=== PATIENT | male | born 1970 | race Caucasian/White ===

== ENCOUNTER → 2016-08-27 | Outpatient (CLI) | payer OTHER ==
[~2016-08-27] MED LIST: ACET-1311 PO; ATOR-24 PO; BISA10SU3 PR; CYAN100020 PO; CYCL10TA6 PO; DOCU-94 PO; LISI-729 PO; LYR50 PO; MELA3TAB PO; MOMLX PO; MULT-513 PO; OXYC-164 PO; POLY335019 PO; PRLSR20 PO; PROTEIN PO; SODIENE PR; TAMS0.4C38 PO; TPRSR/100 PO; [UNRECOGNIZED DRUG - OTHER] PO
--- NOTE | 2016-08-27 12:16 | DIAGNOSTIC IMAGING REPORT ---
CT PELVIS NO IV/ORAL CONT (CT) CT DOSE: 282.57 mGy.cm CLINICAL HISTORY: Acute hematogenous osteomyelitis. TECHNIQUE: Helical images were acquired through the pelvis. No intravenous or oral contrast was administered. COMPARISON STUDY: CT scan dated 04/27/2016 FINDINGS: There is no evidence of pathologic aortic dilatation. There is evidence of mild fecal retention. There is an indwelling Finley catheter. There are bilateral soft tissue ulcerations at the level of the ischial tuberosities. There is bilateral underlying bony destructive change consistent with osteomyelitis. There is a soft tissue mass within the left inguinal region which appears to involve the pectineus and/or adductor brevis muscle. This could be inflammatory, neoplastic, or represent hemorrhage. Clinical correlation is advocated. IMPRESSION: 1. Bilateral ischial tuberosity osteomyelitis with overlying soft tissue ulcerations 2. 6 cm left inguinal mass which appears to involve the left pectineus and/or abductor brevis muscle. This could be inflammatory, neoplastic or represent hemorrhage. Clinical correlation and follow-up is recommended Electronically signed by: Jose Smith M.D. 08/27/2016 12:14 PM
== END | disposition home or self-care (01) ==
LOC: C.CTS 11:20
PROVIDERS: ATTEND Family Medicine
DX: M86.08 Acute hematogenous osteomyelitis, other sites (principal); R19.07 Generalized intra-abdominal and pelvic swelling, mass and lump

== ENCOUNTER → 2016-09-06 | Outpatient (CLI) | payer OTHER ==
[2016-09-06 09:00] LABS: HEMATOCRIT 28.6 % (42-52); MEAN CELL VOLUME 83.6 fL (80-100); MEAN CORPUSCULAR HEMOGLOBIN 26.9 pg (25-34); MEAN CORPUSCULAR HGB CONC 32.2 g/dl (32-36); MEAN PLATELET VOLUME 9.9 fL (7.4-10.4); PLATELET COUNT 373 K/uL (130-400); RED BLOOD COUNT 3.42 M/uL (4.7-6.1); WHITE BLOOD COUNT 8.12 K/uL (4.8-10.8)
== END ==
LOC: C.LABUPNIT 08:17
PROVIDERS: ATTEND Family Medicine
DX: I25.10 Atherosclerotic heart disease of native coronary artery without angina pectoris (principal)

== ENCOUNTER → 2016-10-26 | Outpatient (CLI) | payer OTHER ==
[2016-10-26 08:22] LABS: BLOOD UREA NITROGEN 16 mg/dl (7-18); BUN/CREATININE RATIO 22.8 (10-20); CALCIUM 8.7 mg/dl (8.5-10.1); CARBON DIOXIDE 28 mmol/L (21-32); CHLORIDE 106 mmol/L (98-107); CREATININE 0.71 mg/dl (0.60-1.40); GLUCOSE 98 mg/dl (70-99); POTASSIUM 4.2 mmol/L (3.5-5.1); SODIUM 142 mmol/L (136-145)
[2016-10-26 09:14] LABS: HEMATOCRIT 34.4 % (42-52); MEAN CELL VOLUME 86.4 fL (80-100); MEAN CORPUSCULAR HEMOGLOBIN 28.1 pg (25-34); MEAN CORPUSCULAR HGB CONC 32.6 g/dl (32-36); RED BLOOD COUNT 3.98 M/uL (4.7-6.1); WHITE BLOOD COUNT 8.01 K/uL (4.8-10.8)
[2016-10-26 09:15] LABS: BASO % 0.4 %; BASO ABS # 0.03 K/uL (0-0.2); COMPLETE YES; EOS % 5.1 %; IG% 0.7 %; MONO % 11.1 %; NEUT % 52.7 %; PLT ESTIMATE NORMAL
--- NOTE | 2016-10-30 11:01 | CODING QUERY NO DIAGNOSIS ---
: 1970 TREATMENT RENDERED WITHOUT A DIAGNOSIS To promote full compliance with coding requirements relating to patient care, physician participation is requested in all cases of char belt operator uncertainty. Please assist us with providing a diagnosis/symptom for the test(s) below: A diagnosis/symptom was not documented on your Order. A valid diagnosis/symptom is required to bill all insurances. Please remember that we are unable to code a diagnosis of rule out, probable, possible, questionable, or suspected. Tests that require a diagnosis: DOS: 10/26/16 * CBC w/Auto Differential DIAGNOSIS: * Partial Renal Profile DIAGNOSIS: * Erythrocyte Sedimentation Rate DIAGNOSIS: Provider Signature: Date: Thank you Concepcion Green [facility] Information [facility] Once completed, please kindly fax back to [phone] For questions please call [phone]
== END ==
LOC: C.LABUPNIT 10:53
PROVIDERS: ATTEND Family Medicine
DX: M46.24 Osteomyelitis of vertebra, thoracic region (principal)

== ENCOUNTER → 2016-11-04 | Outpatient (CLI) | payer OTHER ==
[2016-11-04 09:09] LABS: ALT/SGPT 17 U/L (12-78); BLOOD UREA NITROGEN 18 mg/dl (7-18); BUN/CREATININE RATIO 27.5 (10-20); CARBON DIOXIDE 28 mmol/L (21-32); CHLORIDE 105 mmol/L (98-107); CREATININE 0.65 mg/dl (0.60-1.40); GLUCOSE 94 mg/dl (70-99); POTASSIUM 4.6 mmol/L (3.5-5.1); SODIUM 140 mmol/L (136-145)
[2016-11-04 09:12] LABS: ALB/GLOB RATIO 0.5 (0.9-2); ALKALINE PHOSPHATASE 120 U/L (45-117); AST/SGOT 15 U/L (15-37)
== END ==
LOC: C.LABUPNIT 08:41
PROVIDERS: ATTEND Family Medicine
DX: I25.10 Atherosclerotic heart disease of native coronary artery without angina pectoris (principal)

== ENCOUNTER → 2016-11-15 | Outpatient (CLI) | payer OTHER ==
[2016-11-15 08:51] LABS: BLOOD UREA NITROGEN 24 mg/dl (7-18); BUN/CREATININE RATIO 34.2 (10-20); CALCIUM 9.1 mg/dl (8.5-10.1); CARBON DIOXIDE 30 mmol/L (21-32); CHLORIDE 102 mmol/L (98-107); CREATININE 0.71 mg/dl (0.60-1.40); GLUCOSE 92 mg/dl (70-99); POTASSIUM 4.1 mmol/L (3.5-5.1); SODIUM 139 mmol/L (136-145)
== END ==
LOC: C.LABUPNIT 08:29
PROVIDERS: ATTEND Family Medicine
DX: I25.10 Atherosclerotic heart disease of native coronary artery without angina pectoris (principal)

== ENCOUNTER → 2016-12-10 | Outpatient (CLI) | payer OTHER ==
[2016-12-10 10:18] LABS: HEMATOCRIT 43.1 % (42-52); MEAN CELL VOLUME 83.4 fL (80-100); MEAN CORPUSCULAR HEMOGLOBIN 27.9 pg (25-34); MEAN CORPUSCULAR HGB CONC 33.4 g/dl (32-36); PLATELET COUNT 155 K/uL (130-400); RED BLOOD COUNT 5.17 M/uL (4.7-6.1); WHITE BLOOD COUNT 6.72 K/uL (4.8-10.8)
[2016-12-10 10:20] LABS: BASO % 0.3 %; BASO ABS # 0.02 K/uL (0-0.2); COMPLETE YES; EOS % 8.5 %; IG% 0.3 %; LYMPH % 38.2 %; LYMPH ABS # 2.57 K/uL (1.2-3.4); MONO % 11.5 %; NEUT % 41.2 %
[2016-12-10 10:34] LABS: ALKALINE PHOSPHATASE 120 U/L (45-117); ALT/SGPT 47 U/L (12-78); AST/SGOT 25 U/L (15-37); BLOOD UREA NITROGEN 17 mg/dl (7-18); CARBON DIOXIDE 26 mmol/L (21-32); CHLORIDE 108 mmol/L (98-107); CREATININE 0.67 mg/dl (0.60-1.40); GLUCOSE 79 mg/dl (70-99); POTASSIUM 4.2 mmol/L (3.5-5.1); SODIUM 140 mmol/L (136-145)
[2016-12-10 10:35] LABS: ALB/GLOB RATIO 0.6 (0.9-2); CHOLESTEROL 104 mg/dl (0-200); CHOLESTEROL/HDL RATIO 2.8; HDL CHOLESTEROL 37 mg/dl; LDL CHOLESTEROL CALCULATED 57 mg/dl; TRIGLYCERIDES 51 mg/dl (0-150); VERY LOW DENSITY LIPOPROT CALC 10 mg/dl
== END ==
LOC: C.LABUPNIT 09:38
PROVIDERS: ATTEND Family Medicine
DX: M81.0 Age-related osteoporosis without current pathological fracture (principal); M86.00 Acute hematogenous osteomyelitis, unspecified site; E78.5 Hyperlipidemia, unspecified

== ENCOUNTER → 2017-03-14 | Outpatient (CLI) | payer OTHER ==
[2017-03-14 10:06] LABS: URINE APPEARANCE CLOUDY (CLEAR); URINE BILIRUBIN NEG (NEG); URINE COLOR YELLOW; URINE EPITHELIAL CELL AUTO >30 /lpf (0-5); URINE NITRITE NEG (NEG); URINE SPECIFIC GRAVITY 1.022 (1.000-1.030); UROBILINOGEN NEG (NEG); ZZUR CULT IF INDIC CLEAN CATCH YES
[2017-03-14 10:12] LABS: MANUAL MICROSCOPIC REQUIRED? NO; REVIEW REQ? YES
== END ==
LOC: C.LABUPNIT 09:13
PROVIDERS: ATTEND Family Medicine
DX: N39.0 Urinary tract infection, site not specified (principal)

== ENCOUNTER → 2017-05-10 | Outpatient (CLI) | payer OTHER ==
[2017-05-10 06:49] LABS: ALT/SGPT 27 U/L (12-78); BLOOD UREA NITROGEN 25 mg/dl (7-18); BUN/CREATININE RATIO 25.8 (10-20); CALCIUM 9.1 mg/dl (8.5-10.1); CARBON DIOXIDE 28 mmol/L (21-32); CHLORIDE 106 mmol/L (98-107); CREATININE 0.95 mg/dl (0.60-1.40); GLUCOSE 89 mg/dl (70-99); POTASSIUM 4.3 mmol/L (3.5-5.1); SODIUM 140 mmol/L (136-145)
[2017-05-10 07:00] LABS: ALB/GLOB RATIO 0.7 (0.9-2); ALKALINE PHOSPHATASE 137 U/L (45-117); AST/SGOT 21 U/L (15-37)
[2017-05-10 07:39] LABS: BASO % 0.4 %; BASO ABS # 0.04 K/uL (0-0.2); COMPLETE YES; HEMATOCRIT 43.9 % (42-52); IG% 0.5 %; LYMPH % 31.7 %; LYMPH ABS # 3.35 K/uL (1.2-3.4); MEAN CELL VOLUME 90.3 fL (80-100); MEAN CORPUSCULAR HEMOGLOBIN 29.2 pg (25-34); MEAN CORPUSCULAR HGB CONC 32.3 g/dl (32-36); MEAN PLATELET VOLUME 12.3 fL (7.4-10.4); MONO % 10.7 %; NEUT % 52.7 %; PLATELET COUNT 150 K/uL (130-400); RED BLOOD COUNT 4.86 M/uL (4.7-6.1); WHITE BLOOD COUNT 10.58 K/uL (4.8-10.8)
--- NOTE | 2017-05-23 13:35 | CODING QUERY NO DIAGNOSIS ---
TREATMENT RENDERED WITHOUT A DIAGNOSIS To promote full compliance with coding requirements relating to patient care, physician participation is requested in all cases of crystal finisher uncertainty. Please assist us with providing a diagnosis/symptom for the test(s) below: A diagnosis/symptom was not documented on your Order. A valid diagnosis/symptom is required to bill all insurances. Please remember that we are unable to code a diagnosis of rule out, probable, possible, questionable, or suspected. Tests that require a diagnosis: * CMP DIAGNOSIS: * TSH DIAGNOSIS: * CBC W/ AUTO DIFF DIAGNOSIS: Provider Signature: Date: Thank you Lorie Mccoy [employer] Once completed, please kindly fax back to [phone] For questions please call [phone]
== END ==
LOC: C.LABUPNIT 08:23
PROVIDERS: ATTEND Family Medicine
DX: I25.10 Atherosclerotic heart disease of native coronary artery without angina pectoris (principal); R60.9 Edema, unspecified; R63.5 Abnormal weight gain

== ENCOUNTER → 2017-05-19 | Outpatient (CLI) | payer OTHER | LOC: C.LABUPNIT 15:40 | PROVIDERS: ATTEND Nurse Practitioner Family | DX: I10 Essential (primary) hypertension (principal) ==

== ENCOUNTER → 2017-05-27 | Outpatient (CLI) | payer OTHER ==
[2017-05-27 10:33] LABS: BLOOD UREA NITROGEN 21 mg/dl (7-18); BUN/CREATININE RATIO 26.7 (10-20); CALCIUM 8.9 mg/dl (8.5-10.1); CARBON DIOXIDE 28 mmol/L (21-32); CHLORIDE 106 mmol/L (98-107); CREATININE 0.78 mg/dl (0.60-1.40); GLUCOSE 102 mg/dl (70-99); POTASSIUM 4.1 mmol/L (3.5-5.1); SODIUM 140 mmol/L (136-145)
== END | disposition home or self-care (01) ==
LOC: C.LABUPNIT 09:52
PROVIDERS: ATTEND Nurse Practitioner Family
DX: R78.81 Bacteremia (principal)

== ENCOUNTER → 2017-06-16 | Outpatient (CLI) | payer OTHER ==
[2017-06-16 10:33] LABS: URINE APPEARANCE CLEAR (CLEAR); URINE BILIRUBIN NEG (NEG); URINE COLOR DK YELLOW; URINE EPITHELIAL CELL AUTO >30 /lpf (0-5); URINE NITRITE NEG (NEG); URINE PH 5.5 (4.5-7.5); URINE SPECIFIC GRAVITY 1.026 (1.000-1.030); UROBILINOGEN NEG (NEG)
[2017-06-16 10:35] LABS: MANUAL MICROSCOPIC REQUIRED? NO; REVIEW REQ? NO
== END ==
LOC: C.LABUPNIT 09:10
PROVIDERS: ATTEND Nurse Practitioner Family
DX: N39.0 Urinary tract infection, site not specified (principal)

== ENCOUNTER → 2017-06-25 | Outpatient (CLI) | payer OTHER ==
--- NOTE | 2017-07-01 14:17 | CODING QUERY NO DIAGNOSIS ---
TREATMENT RENDERED WITHOUT A DIAGNOSIS : 1970 To promote full compliance with coding requirements relating to patient care, physician participation is requested in all cases of research development manager uncertainty. Please assist us with providing a diagnosis/symptom for the test(s) below: A diagnosis/symptom was not documented on your Order. A valid diagnosis/symptom is required to bill all insurances. Please remember that we are unable to code a diagnosis of rule out, probable, possible, questionable, or suspected. Tests that require a diagnosis: DOS: 06/25/17 * PREALBUMIN DIAGNOSIS: Provider Signature: Date: Thank you Sallie Mariano [facility] Information Management Once completed, please kindly fax back to [phone] For questions please call [phone]
== END | disposition home or self-care (01) ==
LOC: C.LABUPNIT 11:34
PROVIDERS: ATTEND Nurse Practitioner Family
DX: S31.809A Unspecified open wound of unspecified buttock, initial encounter (principal); X58.XXXA Exposure to other specified factors, initial encounter

== ENCOUNTER → 2017-07-11 | Outpatient (CLI) | payer OTHER ==
[2017-07-11 22:37] LABS: URINE APPEARANCE CLEAR (CLEAR); URINE BILIRUBIN NEG (NEG); URINE COLOR YELLOW; URINE NITRITE NEG (NEG); URINE SPECIFIC GRAVITY 1.024 (1.000-1.030); UROBILINOGEN NEG (NEG)
[2017-07-11 22:47] LABS: MANUAL MICROSCOPIC REQUIRED? NO; REVIEW REQ? NO
== END ==
LOC: C.LABUPNIT 11:59
PROVIDERS: ATTEND Nurse Practitioner Family
DX: Z01.89 Encounter for other specified special examinations (principal)

== ENCOUNTER → 2017-08-07 | Outpatient (CLI) | payer OTHER | END | disposition home or self-care (01) | LOC: C.LABUPNIT 08:27 | PROVIDERS: ATTEND Nurse Practitioner Family | DX: M62.81 Muscle weakness (generalized) (principal) ==

== ENCOUNTER → 2017-08-11 | Outpatient (CLI) | payer OTHER ==
[2017-08-11 08:52] LABS: BLOOD UREA NITROGEN 29 mg/dl (7-18); BUN/CREATININE RATIO 31.8 (10-20); CALCIUM 8.8 mg/dl (8.5-10.1); CARBON DIOXIDE 25 mmol/L (21-32); CHLORIDE 104 mmol/L (98-107); GLUCOSE 89 mg/dl (70-99); SODIUM 137 mmol/L (136-145)
[2017-08-11 09:08] LABS: BASO % 0.5 %; BASO ABS # 0.05 K/uL (0-0.2); COMPLETE YES; EOS % 4.4 %; HEMATOCRIT 42.2 % (42-52); IG% 0.8 %; LYMPH % 30.7 %; LYMPH ABS # 3.37 K/uL (1.2-3.4); MEAN CELL VOLUME 90.4 fL (80-100); MEAN CORPUSCULAR HEMOGLOBIN 30.6 pg (25-34); MEAN CORPUSCULAR HGB CONC 33.9 g/dl (32-36); MEAN PLATELET VOLUME 11.8 fL (7.4-10.4); MONO % 11.9 %; NEUT % 51.7 %; PLATELET COUNT 211 K/uL (130-400); RED BLOOD COUNT 4.67 M/uL (4.7-6.1); WHITE BLOOD COUNT 10.97 K/uL (4.8-10.8)
== END | disposition home or self-care (01) ==
LOC: C.LABUPNIT 08:28
PROVIDERS: ATTEND Nurse Practitioner Family
DX: M62.81 Muscle weakness (generalized) (principal)

== ENCOUNTER → 2017-08-12 | Outpatient (CLI) | payer OTHER | LOC: C.LABUPNIT 12:37 | PROVIDERS: ATTEND Nurse Practitioner Family | DX: L08.9 Local infection of the skin and subcutaneous tissue, unspecified (principal) ==

== ENCOUNTER → 2017-09-30 | Outpatient (CLI) | payer OTHER | END | disposition home or self-care (01) | LOC: C.LABUPNIT 11:24 | PROVIDERS: ATTEND Nurse Practitioner Family | DX: L08.9 Local infection of the skin and subcutaneous tissue, unspecified (principal) ==

== ENCOUNTER → 2017-10-07 | Outpatient (CLI) | payer OTHER | LOC: C.LABUPNIT 08:01 | PROVIDERS: ATTEND Nurse Practitioner Family | DX: S31.809A Unspecified open wound of unspecified buttock, initial encounter (principal); X58.XXXA Exposure to other specified factors, initial encounter ==

== ENCOUNTER → 2017-11-04 | Outpatient (CLI) | payer OTHER ==
[2017-11-04 10:13] LABS: BLOOD UREA NITROGEN 22 mg/dl (7-18); CALCIUM 8.7 mg/dl (8.5-10.1); CARBON DIOXIDE 25 mmol/L (21-32); CREATININE 1.09 mg/dl (0.60-1.40); GLUCOSE 92 mg/dl (70-99); SODIUM 137 mmol/L (136-145)
[2017-11-04 10:30] LABS: HEMATOCRIT 43.6 % (42-52); HEMOGLOBIN 14.6 g/dL (14.0-18.0); MEAN CELL VOLUME 89.5 fL (80-100); MEAN CORPUSCULAR HGB CONC 33.5 g/dl (32-36); MEAN PLATELET VOLUME 12.5 fL (7.4-10.4); PLATELET COUNT 163 K/uL (130-400); RED CELL DISTRIBUTION WIDTH CV 15.1 % (11.5-14.5); RED CELL DISTRIBUTION WIDTH SD 48.9 fL (36.4-46.3); WHITE BLOOD COUNT 6.71 K/uL (4.8-10.8)
[2017-11-04 10:37] LABS: INFLUENZA B ANTIGEN Neg for Influ B (NEG)
== END ==
LOC: C.LABUPNIT 09:33
PROVIDERS: ATTEND Nurse Practitioner Family
DX: I50.20 Unspecified systolic (congestive) heart failure (principal); R50.81 Fever presenting with conditions classified elsewhere; R30.9 Painful micturition, unspecified

== ENCOUNTER → 2017-11-04 | Outpatient (CLI) | payer OTHER ==
[2017-11-04 11:37] LABS: INFLUENZA B ANTIGEN Neg for Influ B (NEG)
== END ==
LOC: C.LABUPNIT 10:46
PROVIDERS: ATTEND Nurse Practitioner Family
DX: R50.9 Fever, unspecified (principal)

== ENCOUNTER → 2017-12-10 | Outpatient (CLI) | payer OTHER | LOC: C.LABUPNIT 14:32 | PROVIDERS: ATTEND Nurse Practitioner Family | DX: R33.9 Retention of urine, unspecified (principal) ==

== ENCOUNTER → 2017-12-31 | Outpatient (CLI) | payer OTHER ==
[2017-12-31 08:57] LABS: ALBUMIN 3.1 gm/dl (3.4-5.0); BLOOD UREA NITROGEN 13 mg/dl (7-18); CALCIUM 8.7 mg/dl (8.5-10.1); CARBON DIOXIDE 30 mmol/L (21-32); CREATININE 0.78 mg/dl (0.60-1.40); GLUCOSE 89 mg/dl (70-99); POTASSIUM 4.1 mmol/L (3.5-5.1); SODIUM 142 mmol/L (136-145)
[2017-12-31 09:08] LABS: ALKALINE PHOSPHATASE 137 U/L (45-117); ALT/SGPT 33 U/L (12-78); AST/SGOT 25 U/L (15-37)
[2017-12-31 10:09] LABS: HEMOGLOBIN A1C 6.3 % (4.5-5.6)
== END ==
LOC: C.LABUPNIT 08:24
PROVIDERS: ATTEND Nurse Practitioner Family
DX: R63.5 Abnormal weight gain (principal); I10 Essential (primary) hypertension

== ENCOUNTER → 2018-01-07 | Outpatient (CLI) | payer OTHER ==
[2018-01-07 08:26] LABS: BLOOD UREA NITROGEN 17 mg/dl (7-18); CALCIUM 9.1 mg/dl (8.5-10.1); CARBON DIOXIDE 32 mmol/L (21-32); CREATININE 0.87 mg/dl (0.60-1.40); GLUCOSE 114 mg/dl (70-99); POTASSIUM 3.4 mmol/L (3.5-5.1); SODIUM 140 mmol/L (136-145)
== END ==
LOC: C.LABUPNIT 08:05
PROVIDERS: ATTEND Nurse Practitioner Family
DX: I10 Essential (primary) hypertension (principal)

== ENCOUNTER → 2018-03-12 | Outpatient (CLI) | payer OTHER ==
[2018-03-12 09:22] LABS: BLOOD UREA NITROGEN 13 mg/dl (7-18); CALCIUM 8.6 mg/dl (8.5-10.1); CARBON DIOXIDE 29 mmol/L (21-32); CREATININE 0.73 mg/dl (0.60-1.40); GLUCOSE 114 mg/dl (70-99); POTASSIUM 3.7 mmol/L (3.5-5.1); SODIUM 140 mmol/L (136-145)
== END ==
LOC: C.LABUPNIT 08:43
PROVIDERS: ATTEND Nurse Practitioner Family
DX: E11.9 Type 2 diabetes mellitus without complications (principal)

== ENCOUNTER → 2018-03-25 | Outpatient (CLI) | payer OTHER ==
[2018-03-25 10:48] LABS: HEMOGLOBIN A1C 6.4 % (4.5-5.6)
== END ==
LOC: C.LABUPNIT 09:17
PROVIDERS: ATTEND Nurse Practitioner Family
DX: Z01.89 Encounter for other specified special examinations (principal)

== ENCOUNTER → 2018-04-20 | Outpatient (CLI) | payer OTHER | END | disposition home or self-care (01) | LOC: C.LABUPNIT 11:49 | PROVIDERS: ATTEND Nurse Practitioner Family | DX: N39.0 Urinary tract infection, site not specified (principal) ==

== ENCOUNTER 2019-07-26 13:01 | Inpatient (IN) ==
[~2019-07-26 13:01] MED LIST changes: -ACET-1311 PO; -ATOR-24 PO; -BISA10SU3 PR; -CYAN100020 PO; -CYCL10TA6 PO; -DOCU-94 PO; -LISI-729 PO; -LYR50 PO; -MELA3TAB PO; -MOMLX PO; -MULT-513 PO; -OXYC-164 PO; -POLY335019 PO; -PRLSR20 PO; -PROTEIN PO; +RAPID SEQUENCE INDUCTION BAG ONE; -SODIENE PR; -TAMS0.4C38 PO; -TPRSR/100 PO; -[UNRECOGNIZED DRUG - OTHER] PO
[2019-07-26] MEDS ORDERED: SODIUM CHLORIDE 0.9% 1000ML 1,000 ML IV ONE ×2 (13:06→14:21)
--- NOTE | 2019-07-26 13:28 | XRay Report ---
XR chest 1V portable HISTORY: 49 years-old Male Sepsis acute sepsis COMPARISON: Chest radiograph 08/17/2016, CT abdomen and pelvis 12/22/2015 TECHNIQUE: Portable AP view the chest FINDINGS: Cardiac silhouette is enlarged, unchanged. Prior median sternotomy. No pneumothorax. Mild right diaph ragmatic elevation with blunting of the right costophrenic angle. Linear subsegmental atelectasis/sca rring of the right lung base and right midlung. No pneumothorax, overt pulmonary edema or large pleur al effusion. No evidence of pneumonia. Posterior interbody daniel and screw fusion hardware of the midth oracic spine. IMPRESSION: Cardiomegaly without acute process. The above report was generated using voice recognition software. It may contain grammatical, syntax o r spelling errors. Electronically signed by: Suleman Short M.D. 07/26/2019 1:27 PM
[2019-07-26 13:39] LABS: iSTAT Creatinine 1.2 mg/dl (0.6-1.3); iSTAT Hemoglobin 14.6 g/dl (14.0-18.0); iSTAT Ionized Calcium 1.12 mmol/l (1.12-1.32)
[2019-07-26] MEDS ORDERED: OPTIRAY 320 125ml IV PRN (13:50)
[2019-07-26 13:52] LABS: Base Excess VBG -2.2 mEq/L; pH VBG 7.31 (7.36-7.41)
[2019-07-26 14:00] LABS: INR 1.4 (0.9-1.1); Partial Thromboplastin Ratio 1.5; Partial Thromboplastin Time 41.8 Seconds (21.0-31.0)
[2019-07-26 14:01] LABS: Albumin Level 3.2 gm/dl (3.4-5.0); Calcium 9.2 mg/dl (8.5-10.1); Est GFR (African American) 74.6; Est GFR (Non-African American) 64.4; Magnesium 2.4 mg/dl (1.8-2.4)
--- NOTE | 2019-07-26 14:03 | Emergency Department Note ---
Entered by Tamika Jones acting as a scribe for Daniele Navarro DO History of Present Illness General Chief complaint: Unresponsive Source: patient Limitations: altered mental status History of Present Illness Provider complaint: Unresponsive Onset (ago): hour(s) 1 Associated symptoms: + confusion The patient is a 49 year old male who presents to the Emergency Room with complaints of unresponsiveness when he was found in [place] hotel about 1 hour ago. EMS states the patient was found on the floor by the cleaning staff and they do not know how long he was down. According to EMS the patient was modeled and not able to answer any questions. Additionally, EMS states the patient's blood sugar was 104 and he was hypotensive with a depressed respiratory rate. The patient is continually repeating "what is wrong with me" to the doctors and EMS states that he has been very confused. HPI and ROS limited secondary to altered mental status. Home Medications Home Medications Medication Instructions Recorded Confirmed Type aspirin 81 mg PO DAILY 07/26/19 07/26/19 History atorvastatin 40 mg PO DAILY 07/26/19 07/26/19 History baclofen 20 mg PO TID 07/26/19 07/26/19 History bisacodyl [Dulcolax (bisacodyl)] 5 mg PO DAILY PRN 07/26/19 07/26/19 History bisacodyl [Dulcolax (bisacodyl)] 10 mg [place] Q2D 07/26/19 07/26/19 History cyanocobalamin (vitamin B-12) 1,000 mcg PO DAILY 07/26/19 07/26/19 History [Vitamin B-12] cyclobenzaprine 10 mg PO Q8H PRN 07/26/19 07/26/19 History diphenhydramine HCl [Diphenhist] 25 mg PO HS 07/26/19 07/26/19 History docusate sodium [Colace] 100 mg PO BID 07/26/19 07/26/19 History furosemide 20 mg PO DAILY 07/26/19 07/26/19 History lisinopril 5 mg PO DAILY 07/26/19 07/26/19 History magnesium hydroxide [Milk of 30 ml PO DAILY PRN 07/26/19 07/26/19 History Magnesia] metformin 500 mg PO QDD 07/26/19 07/26/19 History methenamine hippurate 1 g PO BID 07/26/19 07/26/19 History metoprolol succinate 100 mg PO BID 07/26/19 07/26/19 History multivitamin 1 tab PO DAILY 07/26/19 07/26/19 History sxjwzqavlocx-hxaj-ccksu acid 1 tab PO DAILY 07/26/19 07/26/19 History [Cerovite Advanced Formula] omeprazole 20 mg PO DAILY 07/26/19 07/26/19 History polyethylene glycol 3350 [Miralax] 17 g PO DAILY 07/26/19 07/26/19 History potassium chloride 10 meq PO DAILY 07/26/19 07/26/19 History pregabalin 200 mg PO BID 07/26/19 07/26/19 History rivaroxaban [Xarelto] 20 mg PO QDD 07/26/19 07/26/19 History sennosides-docusate sodium 1 tab-cap PO DAILY 07/26/19 07/26/19 History [Senna-S] tamsulosin 0.4 mg PO DAILY 07/26/19 07/26/19 History Allergies Allergy/AdvReac Type Severity Reaction Status Date / Time No Known Allergies Allergy Unverified 07/12/18 10:55 Past Med/Surg History Medical History PIC line (peripherally inserted central catheter) removal (Acute) PPD positive Family History Other No pertinent family history in first degree relatives Social History Feels Safe at Home: Yes Smoking Status: Current every day smoker Review of Systems HPI and ROS limited secondary to altered mental status. Physical Exam Vital Signs Vital Signs - 24 hr 07/26/19 12:47 07/26/19 13:06 07/26/19 13:08 Temperature 34.7 C L Temperature Source Rectal Rectal Temperature - Source 1 Pulse Rate 99 H 99 H 97 H Pulse Rate from SpO2 Sensor Pulse Rhythm Regular Regular Pulse Strength Normal Respiratory Rate 14 20 17 Respiratory Effort / Characteristics Non-Labored Spontaneous Respiratory Depth Normal Respiratory Pattern Regular Blood Pressure 99/45 L 93/45 L Blood Pressure Mean 63 50 Blood Pressure Position Sitting Pulse Oximetry 94 94 89 L Oxygen Delivery Method Room Air Room Air Oxygen Flow Rate Sepsis Recent Fever Within 48 Hours No Sepsis New/Unexplained Change in Mental Status Yes Sepsis Action Taken by Nursing No Action Required 07/26/19 13:10 07/26/19 13:14 07/26/19 13:15 Temperature Temperature Source Rectal Temperature - Source 1 Pulse Rate 95 H 100 H 99 H Pulse Rate from SpO2 Sensor Pulse Rhythm Pulse Strength Respiratory Rate 23 14 24 Respiratory Effort / Characteristics Respiratory Depth Respiratory Pattern Blood Pressure 122/94 121/96 Blood Pressure Mean 112 110 Blood Pressure Position Pulse Oximetry 82 L 95 90 Oxygen Delivery Method Oxygen Flow Rate Sepsis Recent Fever Within 48 Hours Sepsis New/Unexplained Change in Mental Status Sepsis Action Taken by Nursing 07/26/19 13:20 07/26/19 13:30 07/26/19 13:31 Temperature Temperature Source Rectal Temperature - Source 1 Pulse Rate Pulse Rate from SpO2 Sensor 101 H 103 H 100 H Pulse Rhythm Pulse Strength Respiratory Rate 14 21 16 Respiratory Effort / Characteristics Respiratory Depth Respiratory Pattern Blood Pressure 130/80 Blood Pressure Mean 100 Blood Pressure Position Pulse Oximetry 75 L 88 L 100 Oxygen Delivery Method Oxygen Flow Rate Sepsis Recent Fever Within 48 Hours Sepsis New/Unexplained Change in Mental Status Sepsis Action Taken by Nursing 07/26/19 14:02 07/26/19 14:10 07/26/19 14:15 Temperature Temperature Source Rectal Temperature - Source 1 Pulse Rate 92 H 94 H 92 H Pulse Rate from SpO2 Sensor Pulse Rhythm Pulse Strength Respiratory Rate 17 12 15 Respiratory Effort / Characteristics Respiratory Depth Respiratory Pattern Blood Pressure 108/63 75/55 L Blood Pressure Mean 75 68 Blood Pressure Position Pulse Oximetry Oxygen Delivery Method Oxygen Flow Rate Sepsis Recent Fever Within 48 Hours Sepsis New/Unexplained Change in Mental Status Sepsis Action Taken by Nursing 07/26/19 14:20 07/26/19 14:25 07/26/19 14:30 Temperature Temperature Source Rectal Temperature - Source 1 Pulse Rate 104 H 101 H 104 H Pulse Rate from SpO2 Sensor 105 H 103 H 105 H Pulse Rhythm Pulse Strength Respiratory Rate 24 14 15 Respiratory Effort / Characteristics Respiratory Depth Respiratory Pattern Blood Pressure 70/59 L 116/79 117/77 Blood Pressure Mean 62 95 81 Blood Pressure Position Pulse Oximetry 100 98 100 Oxygen Delivery Method Oxygen Flow Rate Sepsis Recent Fever Within 48 Hours Sepsis New/Unexplained Change in Mental Status Sepsis Action Taken by Nursing 07/26/19 14:46 07/26/19 15:00 07/26/19 15:15 Temperature Temperature Source Rectal Temperature - Source 1 35.2 C L Pulse Rate 103 H 106 H 96 H Pulse Rate from SpO2 Sensor 102 H 104 H 95 H Pulse Rhythm Pulse Strength Respiratory Rate 13 11 L 15 Respiratory Effort / Characteristics Respiratory Depth Respiratory Pattern Blood Pressure 118/82 127/78 113/88 Blood Pressure Mean 104 109 101 Blood Pressure Position Pulse Oximetry 100 100 99 Oxygen Delivery Method Nasal Cannula Nasal Cannula Nasal Cannula Oxygen Flow Rate 2 2 2 Sepsis Recent Fever Within 48 Hours Sepsis New/Unexplained Change in Mental Status Sepsis Action Taken by Nursing 07/26/19 15:30 07/26/19 15:58 07/26/19 16:15 Temperature 36.3 C L Temperature Source Rectal Temperature - Source 1 36.2 C L Pulse Rate 97 H 96 H 96 H Pulse Rate from SpO2 Sensor 97 H 96 H 96 H Pulse Rhythm Pulse Strength Respiratory Rate 7 L 6 L 13 Respiratory Effort / Characteristics Respiratory Depth Respiratory Pattern Blood Pressure 91/54 L 94/50 L 80/57 L Blood Pressure Mean 57 58 69 Blood Pressure Position Pulse Oximetry 99 98 99 Oxygen Delivery Method Nasal Cannula Nasal Cannula Nasal Cannula Oxygen Flow Rate 2 2 2 Sepsis Recent Fever Within 48 Hours Sepsis New/Unexplained Change in Mental Status Sepsis Action Taken by Nursing GENERAL: The patient is awake but follows commands intermittently. He does appear to be anxious. EYES: The conjunctivae are clear. The pupils are round and reactive. EARS, NOSE, MOUTH AND THROAT: There is clotted blood in the oropharynx. Dentition is poor. There are dental caries noted throughout. NECK: The neck is nontender and supple. RESPIRATORY: Shallow respirations were noted. There were rales at both bases. CARDIOVASCULAR: Tachycardic rate with regular rhythm was noted. GASTROINTESTINAL: The abdomen is moderately distended. The abdomen is tense. There is no specific guarding or rigidity. MUSCULOSKELETAL/EXTREMITIES: There is no evidence of gross deformity. There is a toenail avulsion on the right great toe. No active bleeding was noted. There is fullness to the muscle compartments of both lower extremities. SKIN: Skin is cold and dry. Pulses are symmetric in both feet. NEUROLOGIC: Patient is awake and oriented to person but not place or situation. [place] strength is symmetric. Lower extremities are weak bilaterally consistent with patient's past history. Course Course 1259: Past medical records reviewed. The patient was evaluated in room B01. A complete history and physical exam was performed. 1408: I spoke with the patient's friend Yecenia and she does not know when the patient's last known normal was and that the patient does not use drugs or alcohol. 1458: [facility] and she will accept him for further evaluation. 1603: I spoke with Elisa Chavarria PA-C and she states the patient is a [facility] patient so [facility] Henson[facility] will now accept the patient for further ev aluation. Administered Medications Vancomycin HCl 2,000 mg/ (Sodium Chloride) 540 mls @ 200 mls/hr IV NOW STA Stop: 07/26/19 17:03 Last Admin: 07/26/19 14:46 Dose: 200 mls/hr Documented by: [id number] Ioversol (Optiray 320 125ml) 120 ml IV ONCE PRN PRN Reason: Interaction Checking Stop: 07/30/19 13:49 Last Admin: 07/26/19 13:50 Dose: 120 ml Documented by: [id number] Discontinued Medications Sodium Chloride (Nss 1000ml) 1,000 mls @ 999 mls/hr IV .Q1H1M ONE Stop: 07/26/19 14:06 Last Infusion: 07/26/19 14:07 Dose: 0 mls/hr Documented by: [id number] Admin: 07/26/19 13:06 Dose: 999 mls/hr Documented by: [id number] Piperacillin Sod/Tazobactam Sod (Zosyn) 4.5 gm in 120 mls @ 240 mls/hr IV NOW STA Stop: 07/26/19 14:35 Last Infusion: 07/26/19 15:42 Dose: 0 mls/hr Documented by: [id number] Admin: 07/26/19 14:46 Dose: 240 mls/hr Documented by: [id number] Sodium Chloride (Nss 1000ml) 1,000 mls @ 999 mls/hr IV .Q1H1M ONE Stop: 07/26/19 15:21 Last Infusion: 07/26/19 15:41 Dose: 0 mls/hr Documented by: [id number] Admin: 07/26/19 14:46 Dose: 999 mls/hr Documented by: [id number] Lactated Ringer's (Lr) 1,000 mls @ 999 mls/hr IV .Q1H1M ONE Stop: 07/26/19 15:21 Last Admin: 07/26/19 14:45 Dose: 999 mls/hr Documented by: [id number] Naloxone HCl (Narcan) 0.2 mg IV NOW STA Stop: 07/26/19 16:19 Last Admin: 07/26/19 16:36 Dose: Not Given Documented by: [id number] Naloxone HCl (Narcan) Confirm Administered Dose 0.4 mg .ROUTE .STK-MED ONE Stop: 07/26/19 16:21 Last Admin: 07/26/19 16:22 Dose: 0.2 mg Documented by: [id number] Critical Care Time Critical Care Time: Yes Total Critical Care Time: 45 I have personally spent approximately 45 minutes of critical care time in the direct management of this patient. This includes bedside care, interpretation of diagnostic studies, and testing, discussion with consultants, patient, and [facility] members, and other required patient management activities. This approximate 45 minutes is in excess of all separately billable procedures. Medical Decision Making Differential Diagnosis Differential diagnoses includes but is not limited to toxic, metabolic, infectious, traumatic, cardiac, neurologic, hematologic, psychiatric and inflammatory etiologies. Medical Records Attestation: I reviewed the patient's medical records. Home Medications Current Medication List: was personally reviewed by me Laboratory Data Attestation: I reviewed the patient's lab results. Result diagrams: 07/26/19 13:19 07/26/19 13:19 Lab Results 07/26/19 07/26/19 07/26/19 Range/Units 13:19 13:19 13:19 WBC 15.76 H (4.8-10.8) K/uL RBC 4.66 L (4.7-6.1) M/uL Hgb 14.2 (14.0-18.0) g/dL POC Hgb (14.0-18.0) g/dl Hct 42.4 (42-52) % POC Hct (42-52) % MCV 91.0 (80-100) fL MCH 30.5 (25-34) pg MCHC 33.5 (32-36) g/dL RDW Std Deviation 55.5 H (36.4-46.3) fL RDW Coeff of Karan 16.6 H (11.5-14.5) % Plt Count 255 (130-400) K/uL MPV 12.3 H (7.4-10.4) fL Immature Gran % (Auto) 0.4 % Neut % (Auto) 77.3 % Lymph % (Auto) 11.1 % Terry % (Auto) 10.2 % Eos % (Auto) 0.9 % Baso % (Auto) 0.1 % Immature Gran # (Auto) 0.07 H (0.00-0.02) K/uL Neut # (Auto) 12.17 H (1.4-6.5) K/uL Lymph # (Auto) 1.75 (1.2-3.4) K/uL Terry # (Auto) 1.61 H (0.11-0.59) K/uL Eos # (Auto) 0.14 (0-0.5) K/uL Baso # (Auto) 0.02 (0-0.2) K/uL ESR (0-14) mm/hr PT 14.0 H (9.0-12.0) Seconds INR 1.4 H (0.9-1.1) APTT 41.8 H (21.0-31.0) Seconds PTT Ratio 1.5 Heparin Anti-Xa, LM Wt (< 0.10) IU/ML VBG pH (7.36-7.41) VBG pCO2 (38-50) mmHg VBG pO2 mmHg VBG HCO3 mmol/L VBG O2 Saturation % VBG Base Excess mEq/L Barometric Pressure mm/Hg POC Sodium (135-144) mEq/L Sodium 140 (136-145) mmol/L POC Potassium (3.3-5.0) mEq/L Potassium 5.0 (3.5-5.1) mmol/L POC Chloride (101-112) mEq/L Chloride 111 H (98-107) mmol/L Carbon Dioxide 23 (21-32) mmol/L POC Total CO2 (24-31) mEq/l Anion Gap 6.0 (3-11) POC Anion Gap (16-25) mmol/L POC BUN (7-18) mg/dl BUN 44 H (7-18) mg/dl Creatinine 1.28 (0.6-1.4) mg/dl POC Creatinine (0.6-1.3) mg/dl Est Cr Clr Drug Dosing 76.0 ml/min Est GFR ( Amer) 74.6 Est GFR (Non-Af Amer) 64.4 BUN/Creatinine Ratio 34.0 H (10-20) Glucose 82 (70-99) mg/dl POC Glucose (70-99) POC Glucose (other) (70-99) mg/dl Osmolality (280-300) mOsm/kg Lactate (0.4-2.0) mmol/L Calcium 9.2 (8.5-10.1) mg/dl POC Ioniz Calcium Ruchi (1.12-1.32) mmol/l Phosphorus 4.8 (2.5-4.9) mg/dl Magnesium 2.4 (1.8-2.4) mg/dl Total Bilirubin 0.8 (0.2-1) mg/dl AST 77 H (15-37) U/L ALT 44 (12-78) U/L Alkaline Phosphatase 109 (45-117) U/L Total Creatine Kinase 2642 H (39-308) U/L CK-MB (CK-2) 20.3 H (0.5-3.6) ng/ml CK/CKMB % Calc 0.8 (0-3.0) Troponin I 0.338 H* (0-0.045) ng/ml C-Reactive Protein 10.70 H (0-0.29) mg/dl Total Protein 7.8 (6.4-8.2) gm/dl Albumin 3.2 L (3.4-5.0) gm/dl Globulin 4.6 H (2.5-4.0) gm/dl Albumin/Globulin Ratio 0.7 L (0.9-2) Amylase 46 (25-115) U/L Procalcitonin (0-0.5) ng/ml Urine Color Urine Appearance (Clear) Urine pH (4.5-7.5) Ur Specific [place] (1.000-1.030) Urine Protein (Negative) Urine Glucose (UA) (Negative) Urine Ketones (Negative) Urine Blood (Negative) Urine Nitrite (Negative) Urine Bilirubin (Negative) Urine Urobilinogen (Negative) Ur Leukocyte Esterase (Negative) Urine WBC (Auto) (0-5) /hpf Urine RBC (Auto) (0-4) /hpf U Hyaline Cast (Auto) (0-5) /lpf U Epithel Cells (Auto) (0-5) /lpf Urine Bacteria (Auto) (Negative) Urine Yeast Salicylates (2.8-20) mg/dl Urine Opiates Screen (Neg) Ur Methadone, Qual (Neg) Acetaminophen (10-30) ug/ml Urine Barbiturates (Neg) Ur Phencyclidine (PCP) (Neg) U Amphetamin/Meth Scrn (Neg) MDMA (Ecstasy) Screen (Neg) U Benzodiazepines Scrn (Neg) Ur Cocaine Metabolite (Neg) U Marijuana (THC) Screen (Neg) Ethyl Alcohol mg/dL (0-3) mg/dl 07/26/19 07/26/19 07/26/19 Range/Units 13:19 13:19 13:19 WBC (4.8-10.8) K/uL RBC (4.7-6.1) M/uL Hgb (14.0-18.0) g/dL POC Hgb (14.0-18.0) g/dl Hct (42-52) % POC Hct (42-52) % MCV (80-100) fL MCH (25-34) pg MCHC (32-36) g/dL RDW Std Deviation (36.4-46.3) fL RDW Coeff of Karan (11.5-14.5) % Plt Count (130-400) K/uL MPV (7.4-10.4) fL Immature Gran % (Auto) % Neut % (Auto) % Lymph % (Auto) % Terry % (Auto) % Eos % (Auto) % Baso % (Auto) % Immature Gran # (Auto) (0.00-0.02) K/uL Neut # (Auto) (1.4-6.5) K/uL Lymph # (Auto) (1.2-3.4) K/uL Terry # (Auto) (0.11-0.59) K/uL Eos # (Auto) (0-0.5) K/uL Baso # (Auto) (0-0.2) K/uL ESR 47 H (0-14) mm/hr PT (9.0-12.0) Seconds INR (0.9-1.1) APTT (21.0-31.0) Seconds PTT Ratio Heparin Anti-Xa, LM Wt (< 0.10) IU/ML VBG pH (7.36-7.41) VBG pCO2 (38-50) mmHg VBG pO2 mmHg VBG HCO3 mmol/L VBG O2 Saturation % VBG Base Excess mEq/L Barometric Pressure mm/Hg POC Sodium (135-144) mEq/L Sodium (136-145) mmol/L POC Potassium (3.3-5.0) mEq/L Potassium (3.5-5.1) mmol/L POC Chloride (101-112) mEq/L Chloride (98-107) mmol/L Carbon Dioxide (21-32) mmol/L POC Total CO2 (24-31) mEq/l Anion Gap (3-11) POC Anion Gap (16-25) mmol/L POC BUN (7-18) mg/dl BUN (7-18) mg/dl Creatinine (0.6-1.4) mg/dl POC Creatinine (0.6-1.3) mg/dl Est Cr Clr Drug Dosing ml/min Est GFR ( Amer) Est GFR (Non-Af Amer) BUN/Creatinine Ratio (10-20) Glucose (70-99) mg/dl POC Glucose (70-99) POC Glucose (other) (70-99) mg/dl Osmolality (280-300) mOsm/kg Lactate 2.5 H* (0.4-2.0) mmol/L Calcium (8.5-10.1) mg/dl POC Ioniz Calcium Ruchi (1.12-1.32) mmol/l Phosphorus (2.5-4.9) mg/dl Magnesium (1.8-2.4) mg/dl Total Bilirubin (0.2-1) mg/dl AST (15-37) U/L ALT (12-78) U/L Alkaline Phosphatase (45-117) U/L Total Creatine Kinase (39-308) U/L CK-MB (CK-2) (0.5-3.6) ng/ml CK/CKMB % Calc (0-3.0) Troponin I (0-0.045) ng/ml C-Reactive Protein (0-0.29) mg/dl Total Protein (6.4-8.2) gm/dl Albumin (3.4-5.0) gm/dl Globulin (2.5-4.0) gm/dl Albumin/Globulin Ratio (0.9-2) Amylase (25-115) U/L Procalcitonin 0.08 (0-0.5) ng/ml Urine Color Urine Appearance (Clear) Urine pH (4.5-7.5) Ur Specific [place] (1.000-1.030) Urine Protein (Negative) Urine Glucose (UA) (Negative) Urine Ketones (Negative) Urine Blood (Negative) Urine Nitrite (Negative) Urine Bilirubin (Negative) Urine Urobilinogen (Negative) Ur Leukocyte Esterase (Negative) Urine WBC (Auto) (0-5) /hpf Urine RBC (Auto) (0-4) /hpf U Hyaline Cast (Auto) (0-5) /lpf U Epithel Cells (Auto) (0-5) /lpf Urine Bacteria (Auto) (Negative) Urine Yeast Salicylates (2.8-20) mg/dl Urine Opiates Screen (Neg) Ur Methadone, Qual (Neg) Acetaminophen (10-30) ug/ml Urine Barbiturates (Neg) Ur Phencyclidine (PCP) (Neg) U Amphetamin/Meth Scrn (Neg) MDMA (Ecstasy) Screen (Neg) U Benzodiazepines Scrn (Neg) Ur Cocaine Metabolite (Neg) U Marijuana (THC) Screen (Neg) Ethyl Alcohol mg/dL (0-3) mg/dl 07/26/19 07/26/19 07/26/19 Range/Units 13:19 13:19 13:19 WBC (4.8-10.8) K/uL RBC (4.7-6.1) M/uL Hgb (14.0-18.0) g/dL POC Hgb (14.0-18.0) g/dl Hct (42-52) % POC Hct (42-52) % MCV (80-100) fL MCH (25-34) pg MCHC (32-36) g/dL RDW Std Deviation (36.4-46.3) fL RDW Coeff of Karan (11.5-14.5) % Plt Count (130-400) K/uL MPV (7.4-10.4) fL Immature Gran % (Auto) % Neut % (Auto) % Lymph % (Auto) % Terry % (Auto) % Eos % (Auto) % Baso % (Auto) % Immature Gran # (Auto) (0.00-0.02) K/uL Neut # (Auto) (1.4-6.5) K/uL Lymph # (Auto) (1.2-3.4) K/uL Terry # (Auto) (0.11-0.59) K/uL Eos # (Auto) (0-0.5) K/uL Baso # (Auto) (0-0.2) K/uL ESR (0-14) mm/hr PT (9.0-12.0) Seconds INR (0.9-1.1) APTT (21.0-31.0) Seconds PTT Ratio Heparin Anti-Xa, LM Wt < 0.10 (< 0.10) IU/ML VBG pH 7.31 L (7.36-7.41) VBG pCO2 50 (38-50) mmHg VBG pO2 34 mmHg VBG HCO3 25 mmol/L VBG O2 Saturation 61.0 % VBG Base Excess -2.2 mEq/L Barometric Pressure 724.3 mm/Hg POC Sodium (135-144) mEq/L Sodium (136-145) mmol/L POC Potassium (3.3-5.0) mEq/L Potassium (3.5-5.1) mmol/L POC Chloride (101-112) mEq/L Chloride (98-107) mmol/L Carbon Dioxide (21-32) mmol/L POC Total CO2 (24-31) mEq/l Anion Gap (3-11) POC Anion Gap (16-25) mmol/L POC BUN (7-18) mg/dl BUN (7-18) mg/dl Creatinine (0.6-1.4) mg/dl POC Creatinine (0.6-1.3) mg/dl Est Cr Clr Drug Dosing ml/min Est GFR ( Amer) Est GFR (Non-Af Amer) BUN/Creatinine Ratio (10-20) Glucose (70-99) mg/dl POC Glucose 84 (70-99) POC Glucose (other) (70-99) mg/dl Osmolality (280-300) mOsm/kg Lactate (0.4-2.0) mmol/L Calcium (8.5-10.1) mg/dl POC Ioniz Calcium Ruchi (1.12-1.32) mmol/l Phosphorus (2.5-4.9) mg/dl Magnesium (1.8-2.4) mg/dl Total Bilirubin (0.2-1) mg/dl AST (15-37) U/L ALT (12-78) U/L Alkaline Phosphatase (45-117) U/L Total Creatine Kinase (39-308) U/L CK-MB (CK-2) (0.5-3.6) ng/ml CK/CKMB % Calc (0-3.0) Troponin I (0-0.045) ng/ml C-Reactive Protein (0-0.29) mg/dl Total Protein (6.4-8.2) gm/dl Albumin (3.4-5.0) gm/dl Globulin (2.5-4.0) gm/dl Albumin/Globulin Ratio (0.9-2) Amylase (25-115) U/L Procalcitonin (0-0.5) ng/ml Urine Color Urine Appearance (Clear) Urine pH (4.5-7.5) Ur Specific [place] (1.000-1.030) Urine Protein (Negative) Urine Glucose (UA) (Negative) Urine Ketones (Negative) Urine Blood (Negative) Urine Nitrite (Negative) Urine Bilirubin (Negative) Urine Urobilinogen (Negative) Ur Leukocyte Esterase (Negative) Urine WBC (Auto) (0-5) /hpf Urine RBC (Auto) (0-4) /hpf U Hyaline Cast (Auto) (0-5) /lpf U Epithel Cells (Auto) (0-5) /lpf Urine Bacteria (Auto) (Negative) Urine Yeast Salicylates (2.8-20) mg/dl Urine Opiates Screen (Neg) Ur Methadone, Qual (Neg) Acetaminophen (10-30) ug/ml Urine Barbiturates (Neg) Ur Phencyclidine (PCP) (Neg) U Amphetamin/Meth Scrn (Neg) MDMA (Ecstasy) Screen (Neg) U Benzodiazepines Scrn (Neg) Ur Cocaine Metabolite (Neg) U Marijuana (THC) Screen (Neg) Ethyl Alcohol mg/dL (0-3) mg/dl 07/26/19 07/26/19 07/26/19 Range/Units 13:23 14:21 14:21 WBC (4.8-10.8) K/uL RBC (4.7-6.1) M/uL Hgb (14.0-18.0) g/dL POC Hgb 14.6 (14.0-18.0) g/dl Hct (42-52) % POC Hct 43 (42-52) % MCV (80-100) fL MCH (25-34) pg MCHC (32-36) g/dL RDW Std Deviation (36.4-46.3) fL RDW Coeff of Karan (11.5-14.5) % Plt Count (130-400) K/uL MPV (7.4-10.4) fL Immature Gran % (Auto) % Neut % (Auto) % Lymph % (Auto) % Terry % (Auto) % Eos % (Auto) % Baso % (Auto) % Immature Gran # (Auto) (0.00-0.02) K/uL Neut # (Auto) (1.4-6.5) K/uL Lymph # (Auto) (1.2-3.4) K/uL Terry # (Auto) (0.11-0.59) K/uL Eos # (Auto) (0-0.5) K/uL Baso # (Auto) (0-0.2) K/uL ESR (0-14) mm/hr PT (9.0-12.0) Seconds INR (0.9-1.1) APTT (21.0-31.0) Seconds PTT Ratio Heparin Anti-Xa, LM Wt (< 0.10) IU/ML VBG pH (7.36-7.41) VBG pCO2 (38-50) mmHg VBG pO2 mmHg VBG HCO3 mmol/L VBG O2 Saturation % VBG Base Excess mEq/L Barometric Pressure mm/Hg POC Sodium 142 (135-144) mEq/L Sodium (136-145) mmol/L POC Potassium 5.0 (3.3-5.0) mEq/L Potassium (3.5-5.1) mmol/L POC Chloride 110 (101-112) mEq/L Chloride (98-107) mmol/L Carbon Dioxide (21-32) mmol/L POC Total CO2 24 (24-31) mEq/l Anion Gap (3-11) POC Anion Gap 13.0 L (16-25) mmol/L POC BUN 39 H (7-18) mg/dl BUN (7-18) mg/dl Creatinine (0.6-1.4) mg/dl POC Creatinine 1.2 (0.6-1.3) mg/dl Est Cr Clr Drug Dosing ml/min Est GFR ( Amer) Est GFR (Non-Af Amer) BUN/Creatinine Ratio (10-20) Glucose (70-99) mg/dl POC Glucose (70-99) POC Glucose (other) 83 (70-99) mg/dl Osmolality 313 H (280-300) mOsm/kg Lactate (0.4-2.0) mmol/L Calcium (8.5-10.1) mg/dl POC Ioniz Calcium Ruchi 1.12 (1.12-1.32) mmol/l Phosphorus (2.5-4.9) mg/dl Magnesium (1.8-2.4) mg/dl Total Bilirubin (0.2-1) mg/dl AST (15-37) U/L ALT (12-78) U/L Alkaline Phosphatase (45-117) U/L Total Creatine Kinase (39-308) U/L CK-MB (CK-2) (0.5-3.6) ng/ml CK/CKMB % Calc (0-3.0) Troponin I (0-0.045) ng/ml C-Reactive Protein (0-0.29) mg/dl Total Protein (6.4-8.2) gm/dl Albumin (3.4-5.0) gm/dl Globulin (2.5-4.0) gm/dl Albumin/Globulin Ratio (0.9-2) Amylase (25-115) U/L Procalcitonin (0-0.5) ng/ml Urine Color Urine Appearance (Clear) Urine pH (4.5-7.5) Ur Specific [place] (1.000-1.030) Urine Protein (Negative) Urine Glucose (UA) (Negative) Urine Ketones (Negative) Urine Blood (Negative) Urine Nitrite (Negative) Urine Bilirubin (Negative) Urine Urobilinogen (Negative) Ur Leukocyte Esterase (Negative) Urine WBC (Auto) (0-5) /hpf Urine RBC (Auto) (0-4) /hpf U Hyaline Cast (Auto) (0-5) /lpf U Epithel Cells (Auto) (0-5) /lpf Urine Bacteria (Auto) (Negative) Urine Yeast Salicylates 4.4 (2.8-20) mg/dl Urine Opiates Screen (Neg) Ur Methadone, Qual (Neg) Acetaminophen < 2 L (10-30) ug/ml Urine Barbiturates (Neg) Ur Phencyclidine (PCP) (Neg) U Amphetamin/Meth Scrn (Neg) MDMA (Ecstasy) Screen (Neg) U Benzodiazepines Scrn (Neg) Ur Cocaine Metabolite (Neg) U Marijuana (THC) Screen (Neg) Ethyl Alcohol mg/dL (0-3) mg/dl 07/26/19 07/26/19 07/26/19 Range/Units 14:21 14:30 14:30 WBC (4.8-10.8) K/uL RBC (4.7-6.1) M/uL Hgb (14.0-18.0) g/dL POC Hgb (14.0-18.0) g/dl Hct (42-52) % POC Hct (42-52) % MCV (80-100) fL MCH (25-34) pg MCHC (32-36) g/dL RDW Std Deviation (36.4-46.3) fL RDW Coeff of Karan (11.5-14.5) % Plt Count (130-400) K/uL MPV (7.4-10.4) fL Immature Gran % (Auto) % Neut % (Auto) % Lymph % (Auto) % Terry % (Auto) % Eos % (Auto) % Baso % (Auto) % Immature Gran # (Auto) (0.00-0.02) K/uL Neut # (Auto) (1.4-6.5) K/uL Lymph # (Auto) (1.2-3.4) K/uL Terry # (Auto) (0.11-0.59) K/uL Eos # (Auto) (0-0.5) K/uL Baso # (Auto) (0-0.2) K/uL ESR (0-14) mm/hr PT (9.0-12.0) Seconds INR (0.9-1.1) APTT (21.0-31.0) Seconds PTT Ratio Heparin Anti-Xa, LM Wt (< 0.10) IU/ML VBG pH (7.36-7.41) VBG pCO2 (38-50) mmHg VBG pO2 mmHg VBG HCO3 mmol/L VBG O2 Saturation % VBG Base Excess mEq/L Barometric Pressure mm/Hg POC Sodium (135-144) mEq/L Sodium (136-145) mmol/L POC Potassium (3.3-5.0) mEq/L Potassium (3.5-5.1) mmol/L POC Chloride (101-112) mEq/L Chloride (98-107) mmol/L Carbon Dioxide (21-32) mmol/L POC Total CO2 (24-31) mEq/l Anion Gap (3-11) POC Anion Gap (16-25) mmol/L POC BUN (7-18) mg/dl BUN (7-18) mg/dl Creatinine (0.6-1.4) mg/dl POC Creatinine (0.6-1.3) mg/dl Est Cr Clr Drug Dosing ml/min Est GFR ( Amer) Est GFR (Non-Af Amer) BUN/Creatinine Ratio (10-20) Glucose (70-99) mg/dl POC Glucose (70-99) POC Glucose (other) (70-99) mg/dl Osmolality (280-300) mOsm/kg Lactate (0.4-2.0) mmol/L Calcium (8.5-10.1) mg/dl POC Ioniz Calcium Ruchi (1.12-1.32) mmol/l Phosphorus (2.5-4.9) mg/dl Magnesium (1.8-2.4) mg/dl Total Bilirubin (0.2-1) mg/dl AST (15-37) U/L ALT (12-78) U/L Alkaline Phosphatase (45-117) U/L Total Creatine Kinase (39-308) U/L CK-MB (CK-2) (0.5-3.6) ng/ml CK/CKMB % Calc (0-3.0) Troponin I (0-0.045) ng/ml C-Reactive Protein (0-0.29) mg/dl Total Protein (6.4-8.2) gm/dl Albumin (3.4-5.0) gm/dl Globulin (2.5-4.0) gm/dl Albumin/Globulin Ratio (0.9-2) Amylase (25-115) U/L Procalcitonin (0-0.5) ng/ml Urine Color Red Urine Appearance Turbid A (Clear) Urine pH 5.5 (4.5-7.5) Ur Specific [place] > 1.045 H (1.000-1.030) Urine Protein 2+ H (Negative) Urine Glucose (UA) Negative (Negative) Urine Ketones Trace H (Negative) Urine Blood 3+ H (Negative) Urine Nitrite Negative (Negative) Urine Bilirubin Negative (Negative) Urine Urobilinogen Negative (Negative) Ur Leukocyte Esterase 1+ H (Negative) Urine WBC (Auto) >30 H (0-5) /hpf Urine RBC (Auto) >30 H (0-4) /hpf U Hyaline Cast (Auto) 1-5 (0-5) /lpf U Epithel Cells (Auto) 10-20 H (0-5) /lpf Urine Bacteria (Auto) Negative (Negative) Urine Yeast Not Reportable Salicylates (2.8-20) mg/dl Urine Opiates Screen Neg (Neg) Ur Methadone, Qual Neg (Neg) Acetaminophen (10-30) ug/ml Urine Barbiturates Neg (Neg) Ur Phencyclidine (PCP) Neg (Neg) U Amphetamin/Meth Scrn Neg (Neg) MDMA (Ecstasy) Screen Neg (Neg) U Benzodiazepines Scrn Neg (Neg) Ur Cocaine Metabolite Neg (Neg) U Marijuana (THC) Screen Neg (Neg) Ethyl Alcohol mg/dL < 3.0 (0-3) mg/dl 07/26/19 Range/Units 15:29 WBC (4.8-10.8) K/uL RBC (4.7-6.1) M/uL Hgb (14.0-18.0) g/dL POC Hgb (14.0-18.0) g/dl Hct (42-52) % POC Hct (42-52) % MCV (80-100) fL MCH (25-34) pg MCHC (32-36) g/dL RDW Std Deviation (36.4-46.3) fL RDW Coeff of Karan (11.5-14.5) % Plt Count (130-400) K/uL MPV (7.4-10.4) fL Immature Gran % (Auto) % Neut % (Auto) % Lymph % (Auto) % Terry % (Auto) % Eos % (Auto) % Baso % (Auto) % Immature Gran # (Auto) (0.00-0.02) K/uL Neut # (Auto) (1.4-6.5) K/uL Lymph # (Auto) (1.2-3.4) K/uL Terry # (Auto) (0.11-0.59) K/uL Eos # (Auto) (0-0.5) K/uL Baso # (Auto) (0-0.2) K/uL ESR (0-14) mm/hr PT (9.0-12.0) Seconds INR (0.9-1.1) APTT (21.0-31.0) Seconds PTT Ratio Heparin Anti-Xa, LM Wt (< 0.10) IU/ML VBG pH (7.36-7.41) VBG pCO2 (38-50) mmHg VBG pO2 mmHg VBG HCO3 mmol/L VBG O2 Saturation % VBG Base Excess mEq/L Barometric Pressure mm/Hg POC Sodium (135-144) mEq/L Sodium (136-145) mmol/L POC Potassium (3.3-5.0) mEq/L Potassium (3.5-5.1) mmol/L POC Chloride (101-112) mEq/L Chloride (98-107) mmol/L Carbon Dioxide (21-32) mmol/L POC Total CO2 (24-31) mEq/l Anion Gap (3-11) POC Anion Gap (16-25) mmol/L POC BUN (7-18) mg/dl BUN (7-18) mg/dl Creatinine (0.6-1.4) mg/dl POC Creatinine (0.6-1.3) mg/dl Est Cr Clr Drug Dosing ml/min Est GFR ( Amer) Est GFR (Non-Af Amer) BUN/Creatinine Ratio (10-20) Glucose (70-99) mg/dl POC Glucose (70-99) POC Glucose (other) (70-99) mg/dl Osmolality (280-300) mOsm/kg Lactate Cancelled (0.4-2.0) mmol/L Calcium (8.5-10.1) mg/dl POC Ioniz Calcium Ruchi (1.12-1.32) mmol/l Phosphorus (2.5-4.9) mg/dl Magnesium (1.8-2.4) mg/dl Total Bilirubin (0.2-1) mg/dl AST (15-37) U/L ALT (12-78) U/L Alkaline Phosphatase (45-117) U/L Total Creatine Kinase (39-308) U/L CK-MB (CK-2) (0.5-3.6) ng/ml CK/CKMB % Calc (0-3.0) Troponin I (0-0.045) ng/ml C-Reactive Protein (0-0.29) mg/dl Total Protein (6.4-8.2) gm/dl Albumin (3.4-5.0) gm/dl Globulin (2.5-4.0) gm/dl Albumin/Globulin Ratio (0.9-2) Amylase (25-115) U/L Procalcitonin (0-0.5) ng/ml Urine Color Urine Appearance (Clear) Urine pH (4.5-7.5) Ur Specific [place] (1.000-1.030) Urine Protein (Negative) Urine Glucose (UA) (Negative) Urine Ketones (Negative) Urine Blood (Negative) Urine Nitrite (Negative) Urine Bilirubin (Negative) Urine Urobilinogen (Negative) Ur Leukocyte Esterase (Negative) Urine WBC (Auto) (0-5) /hpf Urine RBC (Auto) (0-4) /hpf U Hyaline Cast (Auto) (0-5) /lpf U Epithel Cells (Auto) (0-5) /lpf Urine Bacteria (Auto) (Negative) Urine Yeast Salicylates (2.8-20) mg/dl Urine Opiates Screen (Neg) Ur Methadone, Qual (Neg) Acetaminophen (10-30) ug/ml Urine Barbiturates (Neg) Ur Phencyclidine (PCP) (Neg) U Amphetamin/Meth Scrn (Neg) MDMA (Ecstasy) Screen (Neg) U Benzodiazepines Scrn (Neg) Ur Cocaine Metabolite (Neg) U Marijuana (THC) Screen (Neg) Ethyl Alcohol mg/dL (0-3) mg/dl Imaging Data Radiologist's Impression: Radiology results as stated below per my review and the radiologist's interpretation: XR chest 1V portable HISTORY: 49 years-old Male Sepsis acute sepsis COMPARISON: Chest radiograph 08/17/2016, CT abdomen and pelvis 12/22/2015 TECHNIQUE: Portable AP view the chest FINDINGS: Cardiac silhouette is enlarged, unchanged. Prior median sternotomy. No pneumothorax. Mild right diaphragmatic elevation with blunting of the right costophrenic angle. Linear subsegmental atelectasis/scarring of the right lung base and right midlung. No pneumothorax, overt pulmonary edema or large pleural effusion. No evidence of pneumonia. Posterior interbody daniel and screw fusion hardware of the midthoracic spine. IMPRESSION: Cardiomegaly without acute process. The above report was generated using voice recognition software. It may contain grammatical, syntax or spelling errors. Electronically signed by: Suleman Short M.D. 07/26/2019 1:[address] head/brain wo con CLINICAL HISTORY: Head trauma. Altered mental status. Unresponsive. COMPARISON STUDY: No previous studies for comparison. TECHNIQUE: Axial CT of the brain is performed from the vertex to the skull base. IV contrast was not administered for this examination. A dose lowering technique was utilized adhering to the principles of ALARA. CT DOSE: 3744.10 mGy.cm FINDINGS: No intra or extra-axial mass lesions are visualized. There is no CT evidence of acute cortical infarction. There is no evidence of midline shift. There is no acute hemorrhage. No calvarial fractures are visualized. There are patchy white matter hypodensities likely on a small vessel basis. There is no evidence of pathologic ventricular dilatation. There is no evidence of acute sinusitis. There is scattered droplets of extracranial vascular air, likely iatrogenic. There is prominent bifrontal extra-axial space, likely secondary to frontal atrophy. The study is compromised due to motion artifact. IMPRESSION: No acute intracranial findings Electronically signed by: Jose Smith M.D. 07/26/2019 2:[address] ANGIOGRAM OF THE CHEST; CT SCAN OF THE ABDOMEN AND PELVIS WITH IV CONTRAST CLINICAL HISTORY: Fall. Unresponsive. Sepsis. Diffuse pain. COMPARISON STUDY: Chest x-ray dated 07/26/2019. TECHNIQUE: Following the IV administration of 120 of Optiray 320, CT angiogram of the chest is performed from the upper abdomen to the thoracic inlet utilizing the pulmonary embolus protocol. Images are reviewed in the axial, sagittal, coronal planes. 3-D MIPS images are created and assessed. Subsequently, CT scan of the abdomen and pelvis was performed from the lung bases to the proximal femora. Images are reviewed in the axial, sagittal, and coronal planes. IV contrast was administered without complication. A dose lowering technique was utilized adhering to the principles of ALARA. Abdominal CT dated 12/21/2018. The examination is degraded by motion artifact. There is also significant streak artifact from the arms which could not be elevated above the chest or abdomen and metallic streak artifact from thoracic spinal rods. FINDINGS: CHEST: Thyroid: Imaged portions of the thyroid gland are normal in size and attenuation. Thoracic aorta: There is atherosclerotic calcification of the thoracic aorta, which is normal in caliber and demonstrates standard 3-vessel arch anatomy. The thoracic aorta is not well opacified. Pulmonary vasculature: The pulmonary trunk is normal in caliber. There are no filling defects identified in the main, lobar, or segmental pulmonary arteries to indicate pulmonary embolus. Heart: The patient is status post midline sternotomy. The heart is enlarged and without pericardial effusion. Lungs and pleural spaces: Evaluation of the lung parenchyma is degraded by motion artifact. Secretions are noted in the trachea. There are trace pleural effusions with dependent atelectasis. Patchy airspace consolidation is seen at the left lung base. No pneumothorax is seen. Diffuse peribronchial thickening is observed. Foci of air trapping are present in both lungs. Mediastinum: A mildly enlarged prevascular node measures 13 mm in short axis. Analilia: Mildly enlarged hilar nodes measure up to 16 mm in short axis. Axillae: There is no axillary lymphadenopathy. Bony thorax: The skeletal structures are osteopenic. The bony thorax appears intact. Postoperative change is noted in the mid to lower thoracic spine with spinal rods in place. There is partial bony fusion with possible pseudoarthrosis at T8-T9. This is similar to previous. No lytic or blastic lesions are identified. ABDOMEN AND PELVIS: Liver: Evaluation of the liver is degraded by streak artifact. The contrast- enhanced liver is normal in size, contour, and attenuation. Fatty infiltration is seen adjacent to falciform ligament. There is no intrahepatic or ductal dilatation. The hepatic veins and portal veins are patent. Gallbladder: Unremarkable. Spleen: Normal in size and attenuation. Pancreas: Unremarkable. Adrenal glands: Unremarkable. Kidneys: Evaluation of the kidneys is degraded by streak artifact. The contrast enhanced kidneys are normal in size and without hydronephrosis. The kidneys enhance symmetrically. Bilateral renal cysts measure up to 2.5 cm. Additional subcentimeter cortical hypodensities also likely represent cysts but are too small for definitive characterization. There is a 4 mm nonobstructing left renal calculus. No right renal calculi are clearly identified. Abdominal vasculature: The abdominal aorta is normal in course and caliber noting moderate atherosclerotic calcification. Bowel: There is a small hiatal hernia. The duodenum is normal in configuration. There is moderate colonic fecal retention. No bowel obstruction is seen. The appendix is well-visualized and normal. Peritoneum: There is no intraperitoneal free air or abdominal ascites. Lymphadenopathy: None. Pelvic viscera: The bladder is decompressed around a Finley catheter and not well evaluated. A large bladder calculus measures up to 2.1 cm. The prostate and seminal vesicles are normal as visualized. There are bilateral fat-containing inguinal hernias, right larger than left. The right inguinal hernia may contain a segment of the decompressed bladder. Skeletal structures: The skeletal structures are osteopenic. The lumbosacral spine and bony pelvis appear intact. Lumbosacral spondylosis is observed. No lytic or blastic lesions are seen. IMPRESSION: 1. Streak and motion compromised examination. 2. There is no evidence of pulmonary embolus in the main, lobar, or segmental pulmonary arteries. 3. There is patchy airspace consolidation at the left lung base. Correlate clinically for evidence of pneumonia/aspiration pneumonitis. 4. There are trace pleural effusions with dependent atelectasis. 5. Cardiomegaly. 6. Mildly enlarged mediastinal and hilar lymph nodes are nonspecific and may be on a reactive basis. 7. There is no evidence of solid organ injury in the abdomen or pelvis. 8. Left-sided nephrolithiasis and large bladder calculus. 9. There is mild diffuse peribronchial thickening. Correlate clinically for evidence of bronchitis/reactive air disease or possibly mild congestive change. 9. Additional findings as above. Electronically signed by: Emeka Thomas M.D. 07/26/2019 2:[address] DOSE: HISTORY: fall TECHNIQUE: Multiaxial CT images of the cervical spine were performed and reformatted in the sagittal and coronal plane without the use of contrast. A dose lowering technique was utilized adhering to the principles of ALARA. COMPARISON: None. FINDINGS: No fractures. No subluxation. Prevertebral soft tissues and the C1-C2 interval are intact. No pneumothorax. Moderate disc space narrowing at C5-C6 and C6-C7 with endplate osteophytes. Mild motion artifact. IMPRESSION: Mild motion artifact. No definite fractures or subluxation within the cervical spine. Electronically signed by: Sekou El M.D. 07/26/2019 2:11 PM ECG Data Attestation: I personally reviewed and interpreted this ECG as follows: Indication: + altered mental status Rate (beats per minute): 102 Rhythm: + sinus tachycardia ECG Intervals/blocks: + Left bundle branch block ECG Findings: no PACs and no PVCs Comparison ECG Date: from (08/19/16) Change: no significant change Blood Pressure Blood Pressure Findings: Low blood pressure Blood Pressure Disposition: further management by hospitalist MDM Narrative The patient is a 49-year-old male who presented to the emergency department for an evaluation of altered mental status. The patient arrived via ambulance. I received a prehospital notification about this patient. The patient was obtunded and repeating questions. The patient was found by the cleaning staff at the motel/apartment that he lives in. The patient did have some signs of trauma in the oropharynx. He had dental caries that when family arrived stated were more consistent with broken teeth. He did have blood in his oropharynx. The patient was treated with IV fluids in the emergency department. He was also placed on a warming blanket because he was hypothermic initially. The patient was also treated with IV antibiotic for presumed sepsis. It is possible this represents a urinary source or possibly a pulmonary source given his findings on CT. I discussed the patient's laboratory and radiographic studies with his family member. The patient was reevaluated multiple times. I discussed his case with the on-call [facility] hospitalist group. They have agreed to evaluate the patient in the emergency department for further management disposition. I was [facility] and made aware that the patient currently has a [facility] physician. I discussed the patient's condition with the on-call [facility] group. They have agreed to evaluate the patient in the emergency department for further management disposition. The patient was reevaluated and continues to improve although his blood pressure is showing some signs of dropping. I am unsure the patient's baseline blood pressure given his history of spinal cord problems. He may require further management of his hypotension. Impression & Plan Pneumonia, Hypothermia, Sepsis, AMS (altered mental status), Hematuria, Elevated troponin, Rhabdomyolysis, Acute UTI Discharge Plan Visit Data Chief Complaint: Unresponsive ED Provider: Daniele Navarro Discharge Problem: Pneumonia, Hypothermia, Sepsis, AMS (altered mental status), Hematuria, Elevated troponin, Rhabdomyolysis, Acute UTI Forms Stand Alone Forms: [facility] Prescriptions Prescriptions: No Action cyclobenzaprine 10 mg tablet 10 mg PO Q8H PRN (Reason: Muscle Spasm) RF: 0 atorvastatin 40 mg tablet 40 mg PO DAILY RF: 0 metoprolol succinate 100 mg tablet extended release 24 hr 100 mg PO BID RF: 0 potassium chloride 10 mEq tablet extended release 10 meq PO DAILY RF: 0 baclofen 20 mg tablet 20 mg PO TID RF: 0 methenamine hippurate 1 gram tablet 1 g PO BID RF: 0 diphenhydramine HCl [Diphenhist] 25 mg capsule 25 mg PO HS RF: 0 omeprazole 20 mg capsule,delayed release(DR/EC) 20 mg PO DAILY RF: 0 lisinopril 5 mg tablet 5 mg PO DAILY RF: 0 furosemide 20 mg tablet 20 mg PO DAILY RF: 0 metformin 500 mg tablet extended release 24 hr 500 mg PO QDD RF: 0 pregabalin 200 mg capsule 200 mg PO BID RF: 0 Cerovite Advanced Formula 18-400 mg-mcg tablet 1 tab PO DAILY RF: 0 Xarelto 20 mg tablet 20 mg PO QDD RF: 0 polyethylene glycol 3350 [Miralax] 17 gram Powder In Packet 17 g PO DAILY RF: 0 sennosides-docusate sodium [Senna-S] 8.6-50 mg Tablet 1 tab-cap PO DAILY RF: 0 cyanocobalamin (vitamin B-12) [Vitamin B-12] 1,000 mcg Tablet 1,000 mcg PO DAILY RF: 0 aspirin 81 mg Tablet,Delayed Release (Dr/Ec) 81 mg PO DAILY RF: 0 magnesium hydroxide [Milk of Magnesia] 400 mg/5 mL Suspension 30 ml PO DAILY PRN (Reason: Constipation) RF: 0 tamsulosin 0.4 mg Capsule 0.4 mg PO DAILY RF: 0 bisacodyl [Dulcolax (bisacodyl)] 10 mg Suppository 10 mg W[place] Q2D RF: 0 docusate sodium [Colace] 100 mg Capsule 100 mg PO BID RF: 0 bisacodyl [Dulcolax (bisacodyl)] 5 mg Tablet,Delayed Release (Dr/Ec) 5 mg PO DAILY PRN (Reason: Constipation) RF: 0 multivitamin Tablet,Chewable 1 tab PO DAILY RF: 0 Discharge Problem: Pneumonia Qualifiers: Pneumonia type: due to unspecified organism Laterality: unspecified laterality Lung location: unspecified part of lung Qualified Code(s): J18.9 - Pneumonia, unspecified organism Hypothermia Qualifiers: Encounter type: initial encounter Qualified Code(s): T68.XXXA - Hypothermia, initial encounter Sepsis Qualifiers: Sepsis type: sepsis due to unspecified organism Sepsis acute organ dysfunction status: unspecified Qualified Code(s): A41.9 - Sepsis, unspecified organism AMS (altered mental status) Qualifiers: Altered mental status type: unspecified Qualified Code(s): R41.82 - Altered mental status, unspecified Hematuria Qualifiers: Hematuria type: unspecified type Qualified Code(s): R31.9 - Hematuria, unspecified Rhabdomyolysis Qualifiers: Rhabdomyolysis type: non-traumatic Qualified Code(s): M62.82 - Rhabdomyolysis The scribe's documentation has been prepared under my direction and personally reviewed by me in its entirety. I confirm that the note above accurately reflects all work, treatment, procedures, and medical decision making performed by me.
[2019-07-26] MEDS ORDERED: PIPERACILLIN/TAZOBACTAM 4.5 GM/120 ML BAG IV STA (14:06)
--- NOTE | 2019-07-26 14:08 | CT Scan Report ---
CT head/brain wo con CLINICAL HISTORY: Head trauma. Altered mental status. Unresponsive. COMPARISON STUDY: No previous studies for comparison. TECHNIQUE: Axial CT of the brain is performed from the vertex to the skull base. IV contrast was not administered for this examination. A dose lowering technique was utilized adhering to the principles of ALARA. CT DOSE: 3744.10 mGy.cm FINDINGS: No intra or extra-axial mass lesions are visualized. There is no CT evidence of acute cortical infarc tion. There is no evidence of midline shift. There is no acute hemorrhage. No calvarial fractures ar e visualized. There are patchy white matter hypodensities likely on a small vessel basis. There is no evidence of pathologic ventricular dilatation. There is no evidence of acute sinusitis. There is scattered droplets of extracranial vascular air, li jazmine iatrogenic. There is prominent bifrontal extra-axial space, likely secondary to frontal atrophy. The study is compromised due to motion artifact. IMPRESSION: No acute intracranial findings Electronically signed by: Jose Smith M.D. 07/26/2019 2:07 PM
--- NOTE | 2019-07-26 14:13 | CT Scan Report ---
CERVICAL SPINE CT CT DOSE: HISTORY: fall TECHNIQUE: Multiaxial CT images of the cervical spine were performed and reformatted in the sagittal and coronal plane without the use of contrast. A dose lowering technique was utilized adhering to th e principles of ALARA. COMPARISON: None. FINDINGS: No fractures. No subluxation. Prevertebral soft tissues and the C1-C2 interval are intact. No pneumothorax. Moderate disc space narrowing at C5-C6 and C6-C7 with endplate osteophytes. Mild mot ion artifact. IMPRESSION: Mild motion artifact. No definite fractures or subluxation within the cervical spine. Electronically signed by: Sekou El M.D. 07/26/2019 2:11 PM
[2019-07-26 14:17] LABS: Albumin Globulin Ratio 0.7 (0.9-2); Bilirubin,Total 0.8 mg/dl (0.2-1); C Reactive Protein 10.7 mg/dl (0-0.29); Creatine Kinase MB 20.3 ng/ml (0.5-3.6); Globulin 4.6 gm/dl (2.5-4.0); Phosphorus 4.8 mg/dl (2.5-4.9); Total Protein 7.8 gm/dl (6.4-8.2); Troponin I 0.338 ng/ml (0-0.045)
[2019-07-26 14:19] LABS: Hematocrit (blood only) 42.4 % (42-52); Hemoglobin 14.2 g/dL (14.0-18.0); Mean Corpuscular Hemoglobin 30.5 pg (25-34); Mean Corpuscular Hgb Conc 33.5 g/dL (32-36); Mean Platelet Volume 12.3 fL (7.4-10.4); Platelet Count 255 K/uL (130-400); RDW Coefficient of Variation 16.6 % (11.5-14.5); RDW Standard Deviation 55.5 fL (36.4-46.3); Red Blood Count 4.66 M/uL (4.7-6.1); White Blood Count 15.76 K/uL (4.8-10.8)
[2019-07-26 14:20] LABS: Basophils # (auto) 0.02 K/uL (0-0.2); Basophils % (auto) 0.1 %; Eosinophils # (auto) 0.14 K/uL (0-0.5); Eosinophils % (auto) 0.9 %; Immature Granulocytes # (auto) 0.07 K/uL (0.00-0.02); Immature Granulocytes % (auto) 0.4 %; Lymphocytes # (auto) 1.75 K/uL (1.2-3.4); Lymphocytes % (auto) 11.1 %; Monocytes # (auto) 1.61 K/uL (0.11-0.59); Monocytes % (auto) 10.2 %; Neutrophils # (auto) 12.17 K/uL (1.4-6.5); Neutrophils % (auto) 77.3 %
[2019-07-26] MEDS ORDERED: LACTATED RINGER'S 1,000 ML IV ONE (14:21)
[2019-07-26] MEDS ORDERED: VANCOMYCIN HCL 2,000 MG in SODIUM CHLORIDE 0.9% 500 ML IV STA (14:22)
--- NOTE | 2019-07-26 14:25 | CT Scan Report ---
CT ANGIOGRAM OF THE CHEST; CT SCAN OF THE ABDOMEN AND PELVIS WITH IV CONTRAST CLINICAL HISTORY: Fall. Unresponsive. Sepsis. Diffuse pain. COMPARISON STUDY: Chest x-ray dated 07/26/2019. TECHNIQUE: Following the IV administration of 120 of Optiray 320, CT angiogram of the chest is perfor med from the upper abdomen to the thoracic inlet utilizing the pulmonary embolus protocol. Images are reviewed in the axial, sagittal, coronal planes. 3-D MIPS images are created and assessed. Subsequen tly, CT scan of the abdomen and pelvis was performed from the lung bases to the proximal femora. Imag es are reviewed in the axial, sagittal, and coronal planes. IV contrast was administered without comp lication. A dose lowering technique was utilized adhering to the principles of ALARA. Abdominal CT da cortney 12/21/2018. The examination is degraded by motion artifact. There is also significant streak artif act from the arms which could not be elevated above the chest or abdomen and metallic streak artifact from thoracic spinal rods. FINDINGS: CHEST: Thyroid: Imaged portions of the thyroid gland are normal in size and attenuation. Thoracic aorta: There is atherosclerotic calcification of the thoracic aorta, which is normal in galina fadi and demonstrates standard 3-vessel arch anatomy. The thoracic aorta is not well opacified. Pulmonary vasculature: The pulmonary trunk is normal in caliber. There are no filling defects identif ied in the main, lobar, or segmental pulmonary arteries to indicate pulmonary embolus. Heart: The patient is status post midline sternotomy. The heart is enlarged and without pericardial e ffusion. Lungs and pleural spaces: Evaluation of the lung parenchyma is degraded by motion artifact. Secretion s are noted in the trachea. There are trace pleural effusions with dependent atelectasis. Patchy airs pace consolidation is seen at the left lung base. No pneumothorax is seen. Diffuse peribronchial thic kening is observed. Foci of air trapping are present in both lungs. Mediastinum: A mildly enlarged prevascular node measures 13 mm in short axis. Analilia: Mildly enlarged hilar nodes measure up to 16 mm in short axis. Axillae: There is no axillary lymphadenopathy. Bony thorax: The skeletal structures are osteopenic. The bony thorax appears intact. Postoperative ch dexter is noted in the mid to lower thoracic spine with spinal rods in place. There is partial bony fus ion with possible pseudoarthrosis at T8-T9. This is similar to previous. No lytic or blastic lesions are identified. ABDOMEN AND PELVIS: Liver: Evaluation of the liver is degraded by streak artifact. The contrast-enhanced liver is normal in size, contour, and attenuation. Fatty infiltration is seen adjacent to falciform ligament. There i s no intrahepatic or ductal dilatation. The hepatic veins and portal veins are patent. Gallbladder: Unremarkable. Spleen: Normal in size and attenuation. Pancreas: Unremarkable. Adrenal glands: Unremarkable. Kidneys: Evaluation of the kidneys is degraded by streak artifact. The contrast enhanced kidneys are normal in size and without hydronephrosis. The kidneys enhance symmetrically. Bilateral renal cysts m easure up to 2.5 cm. Additional subcentimeter cortical hypodensities also likely represent cysts but are too small for definitive characterization. There is a 4 mm nonobstructing left renal calculus. No right renal calculi are clearly identified. Abdominal vasculature: The abdominal aorta is normal in course and caliber noting moderate atheroscle rotic calcification. Bowel: There is a small hiatal hernia. The duodenum is normal in configuration. There is moderate col onic fecal retention. No bowel obstruction is seen. The appendix is well-visualized and normal. Peritoneum: There is no intraperitoneal free air or abdominal ascites. Lymphadenopathy: None. Pelvic viscera: The bladder is decompressed around a Finley catheter and not well evaluated. A large b ladder calculus measures up to 2.1 cm. The prostate and seminal vesicles are normal as visualized. Th ere are bilateral fat-containing inguinal hernias, right larger than left. The right inguinal hernia may contain a segment of the decompressed bladder. Skeletal structures: The skeletal structures are osteopenic. The lumbosacral spine and bony pelvis ap pear intact. Lumbosacral spondylosis is observed. No lytic or blastic lesions are seen. IMPRESSION: 1. Streak and motion compromised examination. 2. There is no evidence of pulmonary embolus in the main, lobar, or segmental pulmonary arteries. 3. There is patchy airspace consolidation at the left lung base. Correlate clinically for evidence of pneumonia/aspiration pneumonitis. 4. There are trace pleural effusions with dependent atelectasis. 5. Cardiomegaly. 6. Mildly enlarged mediastinal and hilar lymph nodes are nonspecific and may be on a reactive basis. 7. There is no evidence of solid organ injury in the abdomen or pelvis. 8. Left-sided nephrolithiasis and large bladder calculus. 9. There is mild diffuse peribronchial thickening. Correlate clinically for evidence of bronchitis/re active air disease or possibly mild congestive change. 9. Additional findings as above. Electronically signed by: Emeka Thomas M.D. 07/26/2019 2:24 PM
[2019-07-26 14:56] LABS: Bacteria Urine Automated Negative (Negative); Bilirubin Urine Negative (Negative); Blood Urine 3+ (Negative); Glucose Urine UA Negative (Negative); Ketones Urine Trace (Negative); Leukocyte Esterase Urine 1+ (Negative); Nitrite Urine Negative (Negative); Protein Urine 2+ (Negative); Specific Gravity Urine > 1.045 (1.000-1.030); Urobilinogen Urine Negative (Negative); WBC Urine Automated >30 /hpf (0-5); pH Urine 5.5 (4.5-7.5)
[2019-07-26 14:59] LABS: Appearance Urine Turbid (Clear); Color Urine Red
[2019-07-26 15:12] LABS: Acetaminophen < 2 ug/ml (10-30); Salicylate 4.4 mg/dl (2.8-20)
[2019-07-26 15:12] LABS: RBC Urine Automated >30 /hpf (0-4)
[2019-07-26 15:35] LABS: Amphetamines+Metham, Urine Neg (Neg); Barbiturates, Urine Neg (Neg); Benzodiazepine, Urine Neg (Neg); Cocaine, Urine Neg (Neg); MDMA (Ecstacy), Urine Neg (Neg); Methadone, Urine Neg (Neg); Opiate, Urine Neg (Neg); Phencyclidine, Urine Neg (Neg)
[2019-07-26] MEDS ORDERED: NALOXONE HCL 0.4 MG/1 ML VIAL/CARP IV STA (16:18)
[2019-07-26] MEDS ORDERED: NALOXONE HCL 0.4 MG/1 ML VIAL/CARP ONE (16:20)
--- NOTE | 2019-07-26 16:55 | History & Physical Report ---
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 -Found unresponsive at [facility] earlier today. Obtunded at time of my evaluation -Initially found to be hypothermic at 34.7 C with hypotension of 75/55. BP improved to 80/57 after receiving 3L IV fluid resuscitation - Respiration rate depressed around 7. Found to have leukocytosis of 15.7, lactic acid of 2.5, CK of 2642 and troponin of 0.338. VBG pH of 7.3 -No acute intracranial abnormality on head CT. Cervical spine CT without evidence of fracture or subluxation. Chest CTA with a patchy airspace consolidation at the left lung base. Also with left-sided nephrolithiasis and large bladder calculus. UA with gross abnormalities. Blood and urine cultures pending. Started empirically on Zosyn and vancomycin -Narcan administered without any improvement of mentation. Tox screen negative -Discussed with powder mixer, who will evaluate patient for further management, possible need for pressers (2) Recurrent UTI: (3) Neurogenic bladder: History of recurrent UTI in setting of neurogenic bladder. Straight caths PRN at home -Recent outpatient UA abnormal with gross hematuria. Urine culture from 07/21 with multiple venkat -Prescribed cefpodoxime but had not yet started (4) Systolic heart failure: H/o ischemic cardiomyopathy with with EF 20-25% in 2014 -Repeat 2D echo pending -Holding beta estrellita and lasix in setting of hypotension (5) HTN (hypertension): Initially hypotensive- BP has improved to 116/80 -Holding antihypertensives for now (6) CAD (coronary artery disease): H/o CABG in 2014 and multiple PCIs -Follows with Dr. Ayers in clinic -Continue aspirin, statin (7) Paraplegia at T9 level: 2/2 spinal cord injury at T9 from osteomyelitis s/p thoracic fusion -Paralyzed from waist down, able to do some transfers using upper body but requires assistance transferin in and out of bed -Neurogenic bladder, straight caths PRN -Fall precautions (8) History of narcotic addiction: Has controlled substance agreement with PCP -Utox screen negative today DVT Ppx: SCDs for now in setting of gross hematuria Code status: No living will in records. ICU provider to discuss with family members PCP: Jomar Grimes Dispo: Admitted to ICU. Discharge planning ordered. Patient seen in collaboration with Dr. Henson. Please see addendum. 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 Patient is living at the [facility] with daily home health care. Unknown how long patient was on the ground. History was obtained from sister over the phone since patient is unable to participate in interview. Was reportedly found by home health this morning lying on the ground in his room, naked with scratches throughout face, trunk and extremities. Also noted to have blood in his mouth. Went home health got close to the patient he put his arms up and said "stop, you're scaring me". Was brought to the ED for further evaluation. Follows with Dr. Hope for primary care and was recently found to have UTI with multiple organisms as well as hematuria and was prescribed Cefpodoxime. Per sister, patient had yet to start prescription. Initially found to be hypothermic at 34.7 C with hypotension of 75/55. Respiration rate depressed around 7. Found to have leukocytosis of 15.7, lactic acid of 2.5, CK of 2642 and troponin of 0.338. VBG pH of 7.3. No acute intracranial abnormality on head CT. Cervical spine CT without evidence of fracture or subluxation. Chest CTA with a patchy airspace consolidation at the left lung base.Also with left-sided nephrolithiasis and large bladder calculus. UA with gross abnormalities. Tox screen negative. Blood and urine cultures pending. Received 3 L of IV fluids in the ED and was started empirically on Zosyn and vancomycin. Narcan administered without any improvement of mentation. Allergies Allergy/AdvReac Type Severity Reaction Status Date / Time No Known Allergies Allergy Unverified 07/12/18 10:55 Home Medications Home Medications Medication Instructions Recorded Confirmed Type aspirin 81 mg PO DAILY 07/26/19 07/26/19 History atorvastatin 40 mg PO DAILY 07/26/19 07/26/19 History baclofen 20 mg PO TID 07/26/19 07/26/19 History bisacodyl [Dulcolax (bisacodyl)] 5 mg PO DAILY PRN 07/26/19 07/26/19 History bisacodyl [Dulcolax (bisacodyl)] 10 mg OK Q2D 07/26/19 07/26/19 History cyanocobalamin (vitamin B-12) 1,000 mcg PO DAILY 07/26/19 07/26/19 History [Vitamin B-12] cyclobenzaprine 10 mg PO Q8H PRN 07/26/19 07/26/19 History diphenhydramine HCl [Diphenhist] 25 mg PO HS 07/26/19 07/26/19 History docusate sodium [Colace] 100 mg PO BID 07/26/19 07/26/19 History furosemide 20 mg PO DAILY 07/26/19 07/26/19 History lisinopril 5 mg PO DAILY 07/26/19 07/26/19 History magnesium hydroxide [Milk of 30 ml PO DAILY PRN 07/26/19 07/26/19 History Magnesia] metformin 500 mg PO QDD 07/26/19 07/26/19 History methenamine hippurate 1 g PO BID 07/26/19 07/26/19 History metoprolol succinate 100 mg PO BID 07/26/19 07/26/19 History multivitamin 1 tab PO DAILY 07/26/19 07/26/19 History tleazmazjawi-uzga-pjxml acid 1 tab PO DAILY 07/26/19 07/26/19 History [Cerovite Advanced Formula] omeprazole 20 mg PO DAILY 07/26/19 07/26/19 History polyethylene glycol 3350 [Miralax] 17 g PO DAILY 07/26/19 07/26/19 History potassium chloride 10 meq PO DAILY 07/26/19 07/26/19 History pregabalin 200 mg PO BID 07/26/19 07/26/19 History rivaroxaban [Xarelto] 20 mg PO QDD 07/26/19 07/26/19 History sennosides-docusate sodium 1 tab-cap PO DAILY 07/26/19 07/26/19 History [Senna-S] tamsulosin 0.4 mg PO DAILY 07/26/19 07/26/19 History Past Med/Surg History Medical History (Updated 07/26/19 @ 17:23 by Arnaldo Stover MD) CAD (coronary artery disease) History of narcotic addiction HTN (hypertension) Neurogenic bladder Paraplegia at T9 level PPD positive (Chronic) Prediabetes Recurrent UTI Systolic heart failure Family History (Updated 07/26/19 @ 18:30 by Elisa Salter PA-C) Other Cancer Heart disease Social History Preferred Language: Egyptian Communication Ability: Effective 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 Beliefs That Will Affect Care: None Current Living Situation: Alone Other Information That Helps Us Care for You: No Feels Safe at Home: Yes Safety Concerns: Feels Safe At This Time Smoking Status: Current some day smoker Tobacco Type: cigarettes ; Cigarettes Per Day: few times a week ; Do You Dip or Chew Tobacco: No ; Second Hand Exposure: No ; Tobacco Cessation Education Requested by Patient: No Hx Alcohol Use: No Hx Substance Use: No Review of Systems Review of Systems: Unobtainable due to reduced consciousness Physical Exam Physical Exam: General Appearance: Vitals as above, obtunded, lying in bed snoring, wearing Magy hugger, not responding to verbal stimuli or sternal rub Head: normocephalic, atraumatic Eyes: normal inspection, PERRL, conjunctivae normal, anicteric sclerae ENT: external ear and nose normal, oropharynx normal, dried blood present surrounding oropharynx, poor dentition Neck: trachea midline, supple, + left external jugular IV catheter Respiratory: depressed respiratory effort, lungs clear to auscultation, no wheeze, rales, rhonchi. No accessory muscle use Cardiovascular: tachycardic rate, regular rhythm, no murmur appreciated, normal peripheral pulses. Vessels: no JVD or carotid bruit Chest: normal inspection of chest, well-healed sternal scar Abdomen/GI: normal bowel sounds, soft, nontender, no hepatosplenomegaly : Finley catheter present with gross hematuria Extremities/Musculoskelatal: no cyanosis or clubbing, extremities motor strength 5/5. R foot with dried blood, evulsion of great R toenail Neurologic: Obtunded, unable to assess CN's II-XI intact. Paralyzed from waist down at baseline Skin: no rashes, normal color, scratches and bruising noted on face, trunk and all 4 extremities Results & Data Vital Signs (Past 12 Hours) Vital Signs Temp Pulse Resp BP Pulse Ox 07/26/19 16:15 96 H 13 80/57 L 99 07/26/19 15:58 36.3 C L 96 H 6 L 94/50 L 98 07/26/19 15:30 97 H 7 L 91/54 L 99 07/26/19 15:15 96 H 15 113/88 99 07/26/19 15:00 106 H 11 L 127/78 100 07/26/19 14:46 103 H 13 118/82 100 07/26/19 14:30 104 H 15 117/77 100 07/26/19 14:25 101 H 14 116/79 98 07/26/19 14:20 104 H 24 70/59 L 100 07/26/19 14:15 92 H 15 75/55 L 07/26/19 14:10 94 H 12 07/26/19 14:02 92 H 17 108/63 07/26/19 13:31 16 130/80 100 07/26/19 13:30 21 88 L 07/26/19 13:20 14 75 L 07/26/19 13:15 99 H 24 121/96 90 07/26/19 13:14 100 H 14 122/94 95 07/26/19 13:10 95 H 23 82 L 07/26/19 13:08 97 H 17 89 L 07/26/19 13:06 99 H 20 93/45 L 94 07/26/19 12:47 34.7 C L 99 H 14 99/45 L 94 Laboratory Results Short CBC 07/26/19 Range/Units 13:19 WBC 15.76 H (4.8-10.8) K/uL Hgb 14.2 (14.0-18.0) g/dL Hct 42.4 (42-52) % Plt Count 255 (130-400) K/uL BMP 07/26/19 13:19 Sodium 140 Potassium 5.0 Chloride 111 H Carbon Dioxide 23 BUN 44 H Creatinine 1.28 Glucose 82 Calcium 9.2 Cardiac Enzymes 07/26/19 Range/Units 13:19 Total Creatine Kinase 2642 H (39-308) U/L CK-MB (CK-2) 20.3 H (0.5-3.6) ng/ml Troponin I 0.338 H* (0-0.045) ng/ml Liver Function 07/26/19 Range/Units 13:19 Total Bilirubin 0.8 (0.2-1) mg/dl AST 77 H (15-37) U/L ALT 44 (12-78) U/L Alkaline Phosphatase 109 (45-117) U/L Albumin 3.2 L (3.4-5.0) gm/dl Urine 07/26/19 Range/Units 14:30 Urine Color Red Urine Appearance Turbid A (Clear) Urine pH 5.5 (4.5-7.5) Ur Specific [place] > 1.045 H (1.000-1.030) Urine Protein 2+ H (Negative) Urine Glucose (UA) Negative (Negative) Diagnostic Findings CT head: IMPRESSION: No acute intracranial findings Cervical spine CT: IMPRESSION: Mild motion artifact. No definite fractures or subluxation within the cervical spine. CXR: IMPRESSION: Cardiomegaly without acute process. Chest CTA: IMPRESSION: 1. Streak and motion compromised examination. 2. There is no evidence of pulmonary embolus in the main, lobar, or segmental pulmonary arteries. 3. There is patchy airspace consolidation at the left lung base. Correlate clinically for evidence of pneumonia/aspiration pneumonitis. 4. There are trace pleural effusions with dependent atelectasis. 5. Cardiomegaly. 6. Mildly enlarged mediastinal and hilar lymph nodes are nonspecific and may be on a reactive basis. 7. There is no evidence of solid organ injury in the abdomen or pelvis. 8. Left-sided nephrolithiasis and large bladder calculus. 9. There is mild diffuse peribronchial thickening. Correlate clinically for evidence of bronchitis/reactive air disease or possibly mild congestive change. 9. Additional findings as above. CT abd/pelvis: IMPRESSION: 1. Streak and motion compromised examination. 2. There is no evidence of pulmonary embolus in the main, lobar, or segmental pulmonary arteries. 3. There is patchy airspace consolidation at the left lung base. Correlate clinically for evidence of pneumonia/aspiration pneumonitis. 4. There are trace pleural effusions with dependent atelectasis. 5. Cardiomegaly. 6. Mildly enlarged mediastinal and hilar lymph nodes are nonspecific and may be on a reactive basis. 7. There is no evidence of solid organ injury in the abdomen or pelvis. 8. Left-sided nephrolithiasis and large bladder calculus. 9. There is mild diffuse peribronchial thickening. Correlate clinically for evidence of bronchitis/reactive air disease or possibly mild congestive change. ECG Rhythm: sinus tachycardia Findings: + nonspecific-ST abn Code Status & VTE Plan VTE Prophylaxis Plan VTE Prophylaxis will be ordered: Yes Supervising Physician Co-Signing Physician Notes HISTORY: Record reviewed. Patient interviewed and examined. Care coordinated with Elisa Salter PA-C. Please refer to her documentation for complete history. Briefly, 49 YO male with history of ischemic heart disease, prediabetes, paraplegia secondary to vertebral MSSA osteomyelitis + spinal cord infarction in 2016, neurogenic bladder, DVT, and other problems. Performs straight caths at home. History of urinary bladder calculus. Urine culture at [facility] 07/21/19 grew multiple venkat. Found this morning on floor, weak, confused. EMS summoned and brought to ED for evaluation. BP in ED as low as 70/59. Received naloxone without any benefit. Received fluid resuscitation. BP 80/57 after receiving almost 3 liters of IV fluids. Pt is unresponsive and unable to provide any information. EXAM: General- lethargic; appears to be acutely ill VS- Temp 36.3 @ 1558, HR 96, resp 13, BP 80/57 @ 1615 Neck- supple; left external jugular IV catheter Lungs- few scattered rhonchi; no respiratory distress Cardiovascular- RRR; no murmur; no gallop appreciated; no JVD; 1+ pretibial edema; capillary refill toes < 2 sec; peripheral pulses diminished Abdomen- quiet bowel sounds, soft, nontender - Finley cath with gross hematuria Extremities- no cyanosis; no calf tenderness; avulsion / dried blood right great toenail Neuro- obtunded; pupils 2 mm, reactive Skin- warm; scratches, abrasions, erythema abdomen, upper extremities, lower extremities DATA: Hgb 14.2, WBC 15,760, plts 255,000. BUN 44, creatinine 1.28. CPK 2642, CPK-MB 20, troponin 0.338. Lactate 2.5. Tox screen negative. UA- + leukocyte esterase, many WBC's, many RBC's. Other lab studies as noted. Chest x-ray reviewed by the undersigned and formally interpreted by Radiology. Postsurgical changes, cardiomegaly, no infiltrates, effusions, CHF. CT's interpreted by Radiology: Head- microvascular changes, no acute findings C-spine- degenerative changes, no acute findings CTA chest- infiltrate left base, trace pleural effusions, mildly enlarged mediastinal and hilar nodes, no pulmonary emboli CT abd & pelvis- left renal calculus, large urinary bladder calculus, no traumatic findings EKG performed at [address] at 102 / min, poor R-wave progression, minimal ST elevation V3, flattened / inverted T-waves inferiorly and laterally. ASSESSMENT AND PLAN: Altered mental status. Hypotension. Probable sepsis. Meets criteria for severe sepsis / septic shock per current CMS criteria. Possible sources include: pneumonia, urinary tract, cellulitis, recurrent osteomyelitis, endocarditis. Blood cultures obtained. Received broad-spectrum antibiotic therapy with piperacillin / tazobactam. Serum lactate 2.5- repeat pending. Received fluid resuscitation with crystalloids, meeting initial goal of 30 ml/kg. Persistent hypotension despite fluid resuscitation. May need pressors. Serum troponin elevated. History of CAD. Slight ST elevation V3. Troponin elevation probably secondary to sepsis. Follow. On rivaroxaban for history of VTE; may need to switch to parenteral anticoagulation for VTE prophylaxis if unable to take oral meds. Critical Care Medicine consulted for admission to ICU and subsequent management. Please refer to ALEXANDRU Salter's documentation for discussion of other issues.
--- NOTE | 2019-07-26 16:58 | Communication Note ---
Date of Service: July 26, 2019 HISTORY: Record reviewed. Patient interviewed and examined. Care coordinated with Elisa Salter PA-C. Please refer to her documentation for complete history. Briefly, 49 YO male with history of ischemic heart disease, prediabetes, paraplegia secondary to vertebral MSSA osteomyelitis + spinal cord infarction in 2016, neurogenic bladder, DVT, and other problems. Performs straight caths at home. History of urinary bladder calculus. Urine culture at [facility] 07/21/19 grew multiple venkat. Found this morning on floor, weak, confused. EMS summoned and brought to ED for evaluation. BP in ED as low as 70/59. Received naloxone without any benefit. Received fluid resuscitation. BP 80/57 after receiving almost 3 liters of crystalloid. Pt is unresponsive and unable to provide any information. EXAM: General- lethargic; appears to be acutely ill VS- Temp 36.3 @ 1558, HR 96, resp 13, BP 80/57 @ 1615 Neck- supple; left external jugular IV catheter Lungs- few scattered rhonchi; no respiratory distress Cardiovascular- RRR; no murmur; no gallop appreciated; no JVD; 1+ pretibial edema; capillary refill toes < 2 sec; peripheral pulses diminished Abdomen- quiet bowel sounds, soft, nontender - Finley cath with gross hematuria Extremities- no cyanosis; no calf tenderness; avulsion / dried blood right great toenail Neuro- obtunded; pupils 2 mm, reactive Skin- warm; scratches, abrasions, erythema abdomen, upper extremities, lower extremities DATA: Hgb 14.2, WBC 15,760, plts 255,000. BUN 44, creatinine 1.28. CPK 2642, CPK-MB 20, troponin 0.338. Lactate 2.5. Tox screen negative. UA- + leukocyte esterase, many WBC's, many RBC's. Other lab studies as noted. Chest x-ray reviewed by the undersigned and formally interpreted by Radiology. Postsurgical changes, cardiomegaly, no infiltrates, effusions, CHF. CT's interpreted by Radiology: Head- microvascular changes, no acute findings C-spine- degenerative changes, no acute findings CTA chest- infiltrate left base, trace pleural effusions, mildly enlarged mediastinal and hilar nodes, no pulmonary emboli CT abd & pelvis- left renal calculus, large urinary bladder calculus, no traumatic findings EKG performed at [address] at 102 / min, poor R-wave progression, minimal ST elevation V3, flattened / inverted T-waves inferiorly and laterally. ASSESSMENT AND PLAN: Altered mental status. Hypotension. Probable sepsis. Meets criteria for severe sepsis / septic shock per current CMS criteria. Possible sources include: pneumonia, urinary tract, cellulitis, recurrent osteomyelitis, endocarditis. Blood cultures obtained. Received broad-spectrum antibiotic therapy with piperacillin / tazobactam. Serum lactate 2.5- repeat pending. Received fluid resuscitation with crystalloids, meeting initial goal of 30 ml/kg. Persistent hypotension despite fluid resuscitation. May need pressors. Serum troponin elevated. History of CAD. Slight ST elevation V3. Troponin elevation probably secondary to sepsis. Follow. On rivaroxaban for history of VTE; may need to switch to parenteral anticoagulation for VTE prophylaxis if unable to take oral meds. Critical Care Medicine consulted for admission to ICU and subsequent management. Please refer to ALEXANDRU Salter's documentation for discussion of other issues.
--- NOTE | 2019-07-26 17:06 | Critical Care Consultation ---
Date of Consultation July 26, 2019 Assessment & Plan (1) Admitted to intensive care unit: Reason Critically Ill: 49-year-old male here with a PMHx significant for CAD s/p PCI and CABG 2014, sHF with EF 25%, vertebral osteomyelitis with MSSA spinal abscess, T8T9 paraplegia, DVTs, chronic pain syndrome, prediabetes who presented with AMS/obtuned after he was found down at a group home hotel and who was admitted for sepsis with hypotension and altered mental status. Neuro - [facility] ICU: POSITIVE Altered Mental Status 2/2 Metabolic Encephalopathy 2/2 Sepsis - improving, guarding airway. Defer intubation for airway protection, follow ETCO2 monitor. - Hx of alcohol abuse in remission, mild fatty changes on CT. Ammonia pending. - Tox screen negative including opioids and EtoH - Did not respond to narcan x1 in ED - Sepsis management as below - Defer MRI at this time. If not improving consider EEG. - Denies alcohol use, denies hx of withdrawal Chronic Pain - Hold pregabalin, baclofen 2/2 AMS. Resume when AMS improves - reports opioids were withdrawn in November due to him having negative tox screens. uses ibuprofen 2 tabs per day for pain. - Reports hx of ibuprofen accidental overdose, has been using ~2 tabs once or twice per day Paraplegia, T8T9 - Fall precautions - No acute change - Hx of MSSA vertebral osteomyelitis Cardiac - Systolic Heart Failure with EF ~25% - CABG 2014 - TTE repeat pending - Management of sepsis as below - Hold [employer]IST anti-hypertensions - Continue atorvastatin 40mg daily - Hold Metoprolol in setting of hypotension - Hold furosemide, lisinopril 2/2 GIO - BP improved from 70s/50s to 120s/80s with IVF as noted below. No indication for pressor support at this time. Defer CVL at this time Respiratory - Acute Hypoxic, Hypercarbic Respiratory Failure - Follow end tidal CO2 - SpO2, wean to >90%. Currently on 2L NC. - LLL infiltrate on CT-Chest, no signs of cavitary lesions or consolidations. Low suspicion for PNA, suspect urosepsis. GI - - Heart healthy diet - BUN increased, bleeding in mouth initially suspicious for UGIB. Oral wounds do not track into esophagus, trend H&H. no Gi intervention at this time. RENAL/LYTES - GIO 2/2 sepsis - Cr increased to 1.28 from bl ~1.0 - No sodium, mg, phos derangement - K 5.0. Recheck BMP in 8 hours. - Replace lytes as needed. - Urosepsis - WBC with WBC, LE, culture pending - Prior UTI with cefpodoxime prescribed as outpt, pt had not started abx. - Follow UC, abx as below - Shi in place - Strict I&O ENDO - T2DM - Glucose 82, no hypoglycemia on admit - ICU hyperglycemia protocol HEME - - Stable H&H. hgb 14 History of DVT - On rivaroxaban, pt had not taken meds for a few days [employer]OVAL [employer]IST - Reports he was down for ~3 days - Venous doppler bilat to assess for DVT ID - Severe Sepsis 2/2 UTI - Received 3L crystalloid in ED with appropriate increase in pressures - Received pip-tazo/vanc in ED - Converted to Ertapenem & Vancomycin - Narrow based on culture sensitivities - Monitor fever curve. INTEGUMENTARY - - Scratches on abdomen, R foot. Do not require repair. Healing, no signs of cellulitis. - Follow clinically LINES/IV ACCESS - L neck, R arm, L arm PIVs intact. DVT PROPHYLAXIS - SCDs. Defer pharmacologic prophylaxis at this time for concern of bleeding. If stable, resume rivaroaban 20mg QDD at 24 hours. Dopples ordered for DVT eval given he was down for up to 3 days [employer]UNK REMOVAL SPECIALIST. Full Code. Confirmed with Pt. Decision Making: Pt reports he is estranged from family, would want his friend Joey Zaragoza to make decisions for him if he were unable to, is not able to provide a phone number at time of visit. Thank you for allowing us to be part of this patient's care. Please refer to Dr. Chan's documentation for any further recommendations. (2) Recurrent UTI: (3) Neurogenic bladder: (4) Systolic heart failure: (5) HTN (hypertension): (6) CAD (coronary artery disease): (7) Paraplegia at T9 level: (8) PPD positive: (9) Sepsis associated hypotension: (10) Prediabetes: Supervising Physician Co-Signing Physician Notes Dr. Stover was resident physician during care of patient. I separately evaluated patient for benavidez portions of the history and the exam. I was present during the critical portion of medical decision making, and I discussed the case with the resident. I generally agree with the findings and plan. During my evaluation the patient had significantly improved clinically. He does not exactly remember most of the events prior to his arrival in the ICU however he is a certainly alert oriented and not complaining of fevers or chills. The patient is at risk for severe sepsis as well as multidrug-resistant infection we will continue to observe the patient. History of Present Illness History of Present Illness Jayro Lieberman is a 49yo M with a PMHx of paraplegia, HTN, anemia, prediabetes, chronic pain, CAD s/p PCI to RCA, bipass 2014 [place] to LAD, GANGA to RCA in [place], EF 25% in 02/2015, vertebral osteomyelitis and spinal infarct at T8/T9 with epidural abscess, and neurogenic bladder who was brought to the hospital after he was found unresponsive in a group home stay hotel by cleaning staff with blood in his mouth. Obtunded, hypotensive, and hypothermic on arrival. Received total 3L crystalloid in ED in addition to narcan. Tox screen including opiates and etoh was negative. No response to narcan x1 dose. Hypotensive to 75/55 on admission, pressures increased to 113/74 following crystalloid rescuscitation. He was found with blood in his mouth and new missing teeth per his daughter. His R foot was bleeding and he sustained an evulsion of his R hallux nail plate. He had diffuse scratches on the abdomen and R leg. he was recently seen for a UTI and prescribed cefpodoxime which he had not started yet per his niece. On visit in the ED pt was obtunded and did not arouse to verbal stimulation or sternal rub. Spontaneously arose mid exam, grabbed at shi, before becoming obtunded again. Unable to review medical, social, or family history due to mental status. Medical, Social, and Fmaily history reviewed in EMR and [facility] records. Addendum: On arrival to unit AMS improving. Pt alert, awake. Responding to 1 and 2 step commands. BP improved. Pt oriented to year, place, name, and season but not month or day. Denies alcohol use, denies hx of seizure. Reports he fell 3 days ago, and was not able to get up to call for help. Reports he has been living at a [facility]terminator helper term[facility] hotel as rehab facilities were too expensive.Denies chest pain, chest pressure, headache, fever, chills, sweats, arm pain. Endorses numbness from about the umbilicus down with no strength since his spinal abscess. Reports he has not taken his medications regularly recently. Allergies Allergy/AdvReac Type Severity Reaction Status Date / Time No Known Allergies Allergy Unverified 07/12/18 10:55 Home Medications Home Medications Medication Instructions Recorded Confirmed Type aspirin 81 mg PO DAILY 07/26/19 07/26/19 History atorvastatin 40 mg PO DAILY 07/26/19 07/26/19 History baclofen 20 mg PO TID 07/26/19 07/26/19 History bisacodyl [Dulcolax (bisacodyl)] 5 mg PO DAILY PRN 07/26/19 07/26/19 History bisacodyl [Dulcolax (bisacodyl)] 10 mg [place] Q2D 07/26/19 07/26/19 History cyanocobalamin (vitamin B-12) 1,000 mcg PO DAILY 07/26/19 07/26/19 History [Vitamin B-12] cyclobenzaprine 10 mg PO Q8H PRN 07/26/19 07/26/19 History diphenhydramine HCl [Diphenhist] 25 mg PO HS 07/26/19 07/26/19 History docusate sodium [Colace] 100 mg PO BID 07/26/19 07/26/19 History furosemide 20 mg PO DAILY 07/26/19 07/26/19 History lisinopril 5 mg PO DAILY 07/26/19 07/26/19 History magnesium hydroxide [Milk of 30 ml PO DAILY PRN 07/26/19 07/26/19 History Magnesia] metformin 500 mg PO QDD 07/26/19 07/26/19 History methenamine hippurate 1 g PO BID 07/26/19 07/26/19 History metoprolol succinate 100 mg PO BID 07/26/19 07/26/19 History multivitamin 1 tab PO DAILY 07/26/19 07/26/19 History [id number]-[id number] acid 1 tab PO DAILY 07/26/19 07/26/19 History [Cerovite Advanced Formula] omeprazole 20 mg PO DAILY 07/26/19 07/26/19 History polyethylene glycol 3350 [Miralax] 17 g PO DAILY 07/26/19 07/26/19 History potassium chloride 10 meq PO DAILY 07/26/19 07/26/19 History pregabalin 200 mg PO BID 07/26/19 07/26/19 History rivaroxaban [Xarelto] 20 mg PO QDD 07/26/19 07/26/19 History sennosides-docusate sodium 1 tab-cap PO DAILY 07/26/19 07/26/19 History [Senna-S] tamsulosin 0.4 mg PO DAILY 07/26/19 07/26/19 History Patient History Medical History (Updated 07/26/19 @ 17:23 by Arnaldo Stover MD) CAD (coronary artery disease) History of narcotic addiction HTN (hypertension) Neurogenic bladder Paraplegia at T9 level PPD positive (Chronic) Prediabetes Recurrent UTI Systolic heart failure Family History (Updated 07/26/19 @ 18:30 by Elisa Salter PA-C) Other Cancer Heart disease Social History Preferred Language: [place] Communication Ability: Effective Patient Care Coordinator Required: No Beliefs That Will Affect Care: None Current Living Situation: Alone Other Information That Helps Us Care for You: No Feels Safe at Home: Yes Safety Concerns: Feels Safe At This Time Smoking Status: Current some day smoker Tobacco Type: cigarettes ; Cigarettes Per Day: few times a week ; Do You Dip or Chew Tobacco: No ; Second Hand Exp osure: No ; Tobacco Cessation Education Requested by Patient: No Hx Alcohol Use: No Hx Substance Use: No Review of Systems Review of Systems: Unobtainable due to cognitive status Physical Exam Physical Exam: General: Obtunded. Does not awaken to sternal rub. HEENT: Atraumatic, normocephalic. Mouth bloody with several missing teeth. Oral Mucousal laceration present, superficial, not activty bleeding. Pulm: Breath sounds coarse. Symmetrical chest rise. No increase work of breathing. On 2L NC O2. No accessory muscles of breathing. Cardiac: RRR, -mrg. Radial pulses intact and symmetrical, PT pulses diminished. Abdominal: Nontender, nondistended, soft. BS present. 3 linear abrasions on abdomen without bleeding/erythema. Extremity: RLL with linear abrasions. R hallux with evulsed nail plate, bleeding present. LLE cool, dry. R buttock ulcer present, surrounding erythema. Addendum: On revisit pt is alert, awake. Follows 1 and 2 step commands. Oriented to name, place, year but not date/month. Neuro: No sensation to soft or sharp touch distal to umbilicus. Moving upper extremities equally, 5/5 strength to engraver letter and finger flexion. No motor activation in proximal or distal lower extremities. Capillary refil 2-3 seconds in hallu xbilaterally. PERLAA. No facial asymmetry. No nasolabial fold flatting/increased tone.Tongue protrudes midline. Results & Data Vital Signs (Past 12 Hours) Vital Signs Temp Pulse Resp BP Pulse Ox 07/26/19 17:00 106 H 10 L 113/74 100 07/26/19 16:35 95 H 7 L 90/53 L 100 07/26/19 16:30 96 H 10 L 91/50 L 99 07/26/19 16:15 96 H 13 80/57 L 99 07/26/19 15:58 36.3 C L 96 H 6 L 94/50 L 98 07/26/19 15:30 97 H 7 L 91/54 L 99 07/26/19 15:15 96 H 15 113/88 99 07/26/19 15:00 106 H 11 L 127/78 100 07/26/19 14:46 103 H 13 118/82 100 07/26/19 14:30 104 H 15 117/77 100 07/26/19 14:25 101 H 14 116/79 98 07/26/19 14:20 104 H 24 70/59 L 100 07/26/19 14:15 92 H 15 75/55 L 07/26/19 14:10 94 H 12 07/26/19 14:02 92 H 17 108/63 07/26/19 13:31 16 130/80 100 07/26/19 13:30 21 88 L 07/26/19 13:20 14 75 L 07/26/19 13:15 99 H 24 121/96 90 07/26/19 13:14 100 H 14 122/94 95 07/26/19 13:10 95 H 23 82 L 07/26/19 13:08 97 H 17 89 L 07/26/19 13:06 99 H 20 93/45 L 94 07/26/19 12:47 34.7 C L 99 H 14 99/45 L 94 Resident Activity Tracking Resident Involvement: Resident Care Provided Care Provided: Adult [facility] Medicine
[2019-07-26] MEDS ORDERED: ICU PROTOCOL FOR HYPERGLYCEMIA PRN (17:47)
[2019-07-26] MEDS ORDERED: VANCOMYCIN CONSULT ACTIVE PRN (18:12)
[2019-07-26] MEDS ORDERED: ERTAPENEM SODIUM 1,000 MG in SODIUM CHLORIDE 0.9% 50 ML IV SCH (19:00)
[2019-07-26] MEDS ORDERED: MAGNESIUM HYDROXIDE SUSP 30 ML UDC PO PRN (20:32)
--- NOTE | 2019-07-26 20:36 | Pharmacy Report ---
Pharmacy Abx Dose Short Note - Date of Service July 26, 2019 - Assessment & Plan A/P Pt is admitted with concern for urosepsis. Found unresponsive. PMHx consistent with paraplegia, recurrent UTIs (unsure if these are symptomatic), CAD, HFrEF. Neurogenic bladder and straight caths PRN. UC, bc X2 are all ordered and pending. Previous UC grew proteus R to quinolones. He was Rx'd cefpodoxime but never initiated tx. Now being started on vancomycin and invanz. We will use a correction factor of 0.8 when calculating his eCrCl due to h/o paraplegia. * Vanco 2000mg (22mg/kg) IV x1 given in ED * then vancomycin 1500mg (16mg/kg) q16 set to start 12/3 @0600 * goal trough until TRAVIS c/s's result will be 15-20mcg/mL * trough ordered will be reflective of Css, see MAR for further details Pharmacy will continue to follow and will adjust dose/frequency as necessary. Thank you.
[2019-07-26] MEDS ORDERED: CYCLOBENZAPRINE HCL 10 MG TAB PO PRN (20:41)
[2019-07-26] MEDS: LACTATED RINGER'S 1,000 ML IV SCH (21:05)
[2019-07-26] MEDS: DOCUSATE SODIUM 100 MG CAP PO SCH (21:06)
--- NOTE | 2019-07-26 21:28 | Ultrasound Report ---
US venous doppler LE BI HISTORY: Pain history dvt, found down obtunded x3 days COMPARISON STUDY: None. FINDINGS: There is normal compressibility, flow, and augmentation within the bilateral lower extremit y deep venous systems. Linear stranding of the right femoral and common femoral vein would indicate c hronic venous scarring. Lower extremities are poorly seen due to scan limitations with the patient. IMPRESSION:: No DVT within the right or left lower extremity. Chronic venous scarring. Limited evaluation of the l ower extremities as discussed above. The above report was generated using voice recognition software. It may contain grammatical, syntax or spelling errors. Electronically signed by: Fede Koo M.D. 07/26/2019 9:27 PM
[2019-07-26 23:47] LABS: BUN Creatinine Ratio 37.7 (10-20); Calcium 8.3 mg/dl (8.5-10.1); Creatinine Clr Calc Pharmacy 115.8 ml/min; Est GFR (African American) 117.5; Est GFR (Non-African American) 101.4; Potassium 4.3 mmol/L (3.5-5.1)
[2019-07-27 00:08] LABS: Troponin I 0.396 ng/ml (0-0.045)
[2019-07-27 05:25] LABS: Albumin Level 2.8 gm/dl (3.4-5.0); BUN Creatinine Ratio 31.3 (10-20); Calcium 8.3 mg/dl (8.5-10.1); Creatinine Clr Calc Pharmacy 133.3 ml/min; Est GFR (African American) 124.5; Est GFR (Non-African American) 107.4; Magnesium 1.9 mg/dl (1.8-2.4)
[2019-07-27 05:43] LABS: Albumin Globulin Ratio 0.7 (0.9-2); Bilirubin,Total 0.7 mg/dl (0.2-1); Globulin 4.2 gm/dl (2.5-4.0); Phosphorus 2.4 mg/dl (2.5-4.9); Troponin I 0.442 ng/ml (0-0.045)
[2019-07-27 05:44] LABS: Basophils # (auto) 0.02 K/uL (0-0.2); Basophils % (auto) 0.2 %; Eosinophils # (auto) 0.21 K/uL (0-0.5); Hematocrit (blood only) 38.7 % (42-52); Hemoglobin 12.5 g/dL (14.0-18.0); Immature Granulocytes # (auto) 0.04 K/uL (0.00-0.02); Immature Granulocytes % (auto) 0.4 %; Lymphocytes # (auto) 1.74 K/uL (1.2-3.4); Mean Corpuscular Hemoglobin 29.8 pg (25-34); Mean Corpuscular Hgb Conc 32.3 g/dL (32-36); Mean Corpuscular Volume 92.1 fL (80-100); Mean Platelet Volume 11.7 fL (7.4-10.4); Monocytes # (auto) 1.17 K/uL (0.11-0.59); Monocytes % (auto) 11.4 %; Neutrophils # (auto) 7.07 K/uL (1.4-6.5); Platelet Count 220 K/uL (130-400); RDW Coefficient of Variation 16.6 % (11.5-14.5); RDW Standard Deviation 55.9 fL (36.4-46.3); White Blood Count 10.25 K/uL (4.8-10.8)
[2019-07-27] MEDS ORDERED: VANCOMYCIN HCL 1,500 MG in SODIUM CHLORIDE 0.9% 500 ML IV SCH (06:00)
--- NOTE | 2019-07-27 06:29 | Critical Care Progress Note ---
Date of Service July 27, 2019 Assessment & Plan (1) Admitted to intensive care unit: Reason Critically Ill: 49-year-old male here with a PMHx significant for CAD s/p PCI and CABG 2014, sHF with EF 25%, vertebral osteomyelitis with MSSA spinal abscess, T8T9 paraplegia, DVTs, chronic pain syndrome, prediabetes who presented with AMS/obtuned [place] and who was admitted for sepsis with hypotension and altered mental status. 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 - Tox screen negative including opioids and EtoH - Did not respond to narcan x1 in ED - Ammonia 40, suspect transient increase 2/2 sepsis. Recheck x1. - Sepsis management as below - Defer MRI at this time, defer EEG. - Denies alcohol use, denies hx of withdrawal Chronic Pain - Hold pregabalin, baclofen 2/2 AMS. Resume when AMS near baseline - reports opioids were withdrawn in November due to him having negative tox screens. uses ibuprofen 2 tabs per day for pain. - Reports hx of ibuprofen accidental overdose, has been using ~2 tabs once or twice per day Paraplegia, T8T9 - Fall precautions - No acute change - Hx of MSSA vertebral osteomyelitis. See DOAC discussion below. Cardiac - Systolic Heart Failure with EF ~25% - CABG 2014 - TTE repeat pending - Trop .44 (uptrending from .39), likely troponin leak with decreased clearance in the setting of GIO. No chest pain, clinically asymptomatic. Follow clinically, may repeat ~18 hours. - Management of sepsis as below - Hold [employer] anti-hypertensions - Continue atorvastatin 40mg daily - Tachycardic, may have BB withdrawal vs increased adrenergic state. Resumed metoprolol at half home dose. Continue Metoprolol SUccinate 50mg BID, increase to [employer] dosing tomorrow if hemodynamically stable and doing well - Resume furosemide, lisinopril 2/2 GIO - BP improved from 70s/50s to 120s/80s with IVF as noted below. No indication for pressor support at this time. Defer CVL at this time Respiratory - Acute Hypoxic, Hypercarbic Respiratory Failure, improved - SpO2, wean to >90%. Currently on 2L NC. - LLL infiltrate on CT-Chest, no signs of cavitary lesions or consolidations. Low suspicion for PNA, suspect urosepsis. GI - - Heart healthy diet - BUN increased, bleeding in mouth initially suspicious for UGIB. Oral wounds do not track into esophagus, trend H&H. no Gi intervention at this time. - IVFM LR 75cc while PO intake is increasing. My d/c if adequate fluid intake PO. RENAL/LYTES - GIO 2/2 sepsis, improved - Cr normalized to .73 - No sodium, mg, derangement - K 4.0 - Replace lytes as needed. - Urosepsis - WBC with WBC, LE. UC with GNR speciation pending. - Prior UTI with cefpodoxime prescribed as outpt, pt had not started abx. - Follow UC, abx as below - Shi in place. Recommend remove shi today - Strict I&O - Serosanguinous urine - Hgb stable. No yehuda blood. Repeat UA + microscopy, may have false heme+ 2/2 elevated CK ENDO - T2DM - Glucose high 70s-80s, no hypoglycemia on admit - ICU hyperglycemia protocol HEME - - Stable H&H. hgb 12.5 History of DVT - On rivaroxaban, pt had not taken meds for a few days [employer] - Reports he was down for ~3 days - Venous doppler bilat to assess for DVT were negative - Resume rivaroxaban 20mg QDD. Discussed with primary team, pt's records and indication for DOAC therapy needs to be revisited, depending on the timing of his DVTs his risk may have returned to average and his RIvaroxaban dose may be decreased/discontinued. Records are available to 1* team through [email or web address] EMR. ID - Severe Sepsis 2/2 UTI - Received 3L crystalloid in ED with appropriate increase in pressures - Received pip-tazo/vanc in ED - Converted to Ertapenem. Convert to primaxin, narrow based on culture sensitivities - Monitor fever curve. Afebrile today. INTEGUMENTARY - - Scratches on abdomen, R foot. Do not require repair. Healing, no signs of cellulitis. - Follow clinically LINES/IV ACCESS - L neck, R arm, L arm PIVs intact. DVT PROPHYLAXIS - SCDs. Defer pharmacologic prophylaxis at this time for concern of bleeding. If stable, resume rivaroaban 20mg QDD at 24 hours. Dopples ordered for DVT eval given he was down for up to 3 days [employer]. Full Code. Confirmed with Pt. Decision Making: Pt reports he is estranged from family, would want his friend Joey Zaragoza to make decisions for him if he were unable to, is not able to provide a phone number at time of visit. DIsposition: Stable for downgrade today Thank you for allowing us to be part of this patient's care. Please refer to Dr. Chan's documentation for any further recommendations. Supervising Physician Co-Signing Physician Notes Dr. Stover was resident physician during care of patient. I separately evaluated patient for benavidez portions of the history and the exam. I was present during the critical portion of medical decision making, and I discussed the case with the resident. I generally agree with the findings and plan. Patient heart rate increasing, he does have a cardiac disease history therefore we will institute beta-blockade. Hemodynamically he is improved with the exception of the heart rate. He does not exhibit signs of hypoxia. He is still at risk for a complicated urinary tract infection, we will use Invanz which will also have pseudomonal coverage, we will discontinue the vancomycin as his MRSA swab is negative and previous cultures did not demonstrate gram-positive urinary tract infection. Blood cultures are pending and while he has had MSSA bacter emia in the past and does carry risk factors most likely cause of infection would be from the urinary tract itself. Andres Ashford is seen at the bedside this morning. He is awake, alert, nondistressed and eating breakfast at time of exam. He reports he is paraplegic and has no strength or feeling from about the belly button down at baseline. Feels his movement and strength is at his normal baseline today. Denies chest pain, chest pressure, lightheadedness, dizziness, fever, chills, sweats today. Reports no dysuria, reports he has intermittent dribbling but is normally able to urinate without retention. Denies excess medication use prior to admission, remembers falling and not being able to get up from the floor for 2-3 days prior to being found but does not recall events the day of his admission. No quesitons or concerns expressed at tiem of morning visit. Review of Systems Constitutional: no fever, no chills and no sweats Eyes: no blind spots and no worsening vision Ear, Nose, Mouth, Throat: no ear pain, no nasal congestion, no sore throat, no hoarseness and no dysphagia Respiratory: + cough; no chest congestion, no change in sputum, no dyspnea, no sputum production and no wheezing Cardiovascular: no chest pain, no chest pain at rest, no dyspnea, no palpitations and no lightheadedness Gastrointestinal: no abdominal pain, no nausea, no vomiting and no cramping Genitourinary: + urinary incontinence; no dysuria and no difficulty urinating Musculoskeletal: + problem reported (paraplegia at t8/t9); no back pain, no neck pain and no joint pain Integumentary: Endorses evulsed hallux nailplate (R), scratches on abdomen, scratches on legs, missing teeth Neurologic: + paralysis (paraplegia, baseline), + loss of sensation (paraplegia, at baseline) and + paresthesia; no headache(s) and no confusion Physical Exam Physical Exam: General: A&O to name, month, year, day, and place. Follows 1 and 2 step commands. NAD. HEENT: PERLAA. Cranium atraumatic, Normocephalic. Oropharynx with several missing teeth. Oral Mucousal laceration present, superficial, not actively bleeding. Pulm: Breath sounds coarse, improved from prior with no overt ralesd. Symmetrical chest rise. No increase work of breathing. On 2L NC O2. No accessory muscles of breathing. Cardiac: RRR, -mrg. Radial pulses intact and symmetrical, PT pulses diminished. Abdominal: Nontender, nondistended, soft. BS present. 3 linear abrasions on abdomen without bleeding/erythema. Extremity: RLL with linear abrasions. R hallux with evulsed nail plate, no bleeding present. LLE warm, dry. No muscle activation in proximal or distal lower extremities bilaterally. No sensation to soft touch or pinprick in lower extremities bilaterally. L clonus which extinguishes after 3-4 beats. Moving UE equally, 5/5 strength to utility gelatin maker, finger flexion/extension, wrist flexion/extension, elbow flexion/extension, shoulder internal rotation/external rotation. Skin: R buttock ulcer present, surrounding erythema. Results & Data Vital Signs (Past 12 Hours) Vital Signs Pulse Resp BP Pulse Ox 07/27/19 06:01 118 H 18 96 07/27/19 06:00 118 H 18 112/69 96 07/27/19 05:01 120 H 19 97 07/27/19 05:00 121 H 21 114/62 97 07/27/19 04:30 119 H 22 96 07/27/19 04:01 114 H 9 L 96 07/27/19 04:00 117 H 18 118/74 97 07/27/19 03:30 122 H 15 97 07/27/19 03:01 117 H 21 98 07/27/19 03:00 119 H 13 114/73 98 07/27/19 02:30 114 H 25 H 98 07/27/19 02:01 119 H 18 96 07/27/19 02:00 117 H 15 110/67 96 07/27/19 01:30 112 H 17 94 07/27/19 01:01 112 H 22 100 07/27/19 01:00 113 H 22 106/69 100 07/27/19 00:41 117 H 20 98 07/27/19 00:40 116 H 17 109/62 97 07/27/19 00:30 118 H 16 97 07/27/19 00:00 117 H 18 99 07/26/19 23:30 116 H 17 98 07/26/19 23:01 117 H 16 98 07/26/19 23:00 116 H 26 H 130/88 97 07/26/19 22:30 114 H 16 121/87 98 07/26/19 22:00 114 H 17 101/74 99 07/26/19 21:00 115 H 20 113/76 99 07/26/19 20:00 103 H 29 H 101/54 L 94 07/26/19 19:00 113 H 24 121/90 95 Resident Activity Tracking Resident Involvement: Resident Care Provided Care Provided: Adult Hospital Medicine
--- NOTE | 2019-07-27 06:38 | Procedure Note ---
Procedure Note Date of Service July 27, 2019 Procedure: [facility] Indwelling Peripherally Inserted IV Catheter Placement Attending: Dr. Chan APC: Humble French PA-C Indication: Need for IV Access, Poor Vascular Access Anesthesia: None Verbal consent was obtained from patient prior to performing the procedure. A time-out was completed verifying correct patient, procedure, site, positioning, and implant(s) or special equipment if applicable. Utilizing bedside ultrasound, vascularity of the LEFT upper extremity was assessed. Vessel size was noted for appropriate catheter selection and skin was marked with gentle pressure. Patients LEFT upper extremity was prepped and draped in the usual sterile fashion utilizing chlorhexidine. Ultrasound guidance was used to aid needle placement. A 20 g Endurance Catheter was introduced into the LEFT cephalic vein under direct ultrasound guidance. Guide wire was easily deployed without resistance. Catheter was threaded over the guide wire without resistance and the entire apparatus was removed intact. Good venous blood return was noted in the catheter. The IV catheter was easily flushed with sterile saline flush. Sterile clave was attached to the end of the catheter and good blood return was again noted. Tourniquet was released. StatLock device and sterile dressing were applied. The patient tolerated the procedure well. Blood Loss: Minimal Complications: None Procedural Ultrasound Guidance: Procedure Date: 07/27/2019 Indication: Poor Vascular Access Attending: Dr. Chan APC: Humble French PA-C Artery/Veins Identified: YES Access confirmed in Vein with ultrasound: YES Complications: NONE Patient tolerated procedure: WELL Coding
[2019-07-27] MEDS ORDERED: PERFLUTREN LIPID MICROSPHERE (DEFINITY) IV ONE (07:06)
--- NOTE | 2019-07-27 08:14 | XRay Report ---
XR chest 1V portable HISTORY: Sepsis. COMPARISON: Chest 07/26/2019 FINDINGS: The heart remains mildly enlarged. Poststernotomy changes are again noted. Thoracic spinal fusion rods are present. No pneumothorax. No pleural effusions. No evidence for pulmonary edema. Line ar scarlike densities within the right midlung zone and left lung base remain unchanged. There are lo w lung volumes. Patchy left basilar airspace opacity persists. IMPRESSION: No change in the patchy left basilar airspace opacity. This may represent a pneumonia. Electronically signed by: Sekou El M.D. 07/27/2019 8:12 AM
[2019-07-27] MEDS ORDERED: POTASSIUM CHLORIDE 10 MEQ TABCR PO SCH (09:00)
[2019-07-27] MEDS ORDERED: CEROVITE ADV FORMULA TAB PO SCH (09:00)
[2019-07-27] MEDS: ATORVASTATIN 40 MG TAB PO SCH (09:19)
[2019-07-27] MEDS: MULTIVITAMIN TAB PO SCH (09:19)
[2019-07-27] MEDS: DOCUSATE SODIUM/SENNA 50/8.6MG TAB PO SCH (09:19)
[2019-07-27] MEDS: CYANOCOBALAMIN 500 MCG TABLET (VITAMIN B-12) PO SCH (09:19)
[2019-07-27] MEDS: POLYETHYLENE (MIRALAX) 17 GM PACK PO SCH (09:19)
[2019-07-27] MEDS: DOCUSATE SODIUM 100 MG CAP PO SCH ×2 (09:19→21:05)
[2019-07-27] MEDS: ASPIRIN 81 MG ECTAB PO SCH (09:19)
[2019-07-27] MEDS: PANTOprazole 40 MG TAB PO SCH (09:19)
[2019-07-27] MEDS: LACTATED RINGER'S 1,000 ML IV SCH ×2 (09:21→11:03)
[2019-07-27] MEDS: bisacodyL 5 MG TABEC PO PRN (09:22)
[2019-07-27] MEDS: bisacodyL 10 MG SUPP PR SCH (09:22)
[2019-07-27] MEDS: METOPROLOL SUCC 50MG EXT REL TAB PO SCH ×2 (11:03→21:04)
[2019-07-27] MEDS: IMIPENEM/CILASTATIN SODIUM 500 MG in DEXTROSE 5% 100 ML IV SCH ×2 (12:49→17:21)
[2019-07-27] MEDS ORDERED: SODIUM CHLORIDE 0.9% 1000ML 1,000 ML IV SCH (14:00)
--- NOTE | 2019-07-27 14:24 | Billing Data ---
Coding Level of Care Code 39359 Inpt Consult Level 4
--- NOTE | 2019-07-27 14:27 | Billing Data ---
Coding Level of Care Code 94868 Subseq Hosp Care Lvl 3
[2019-07-27 14:31] LABS: Albumin Level 2.6 gm/dl (3.4-5.0); BUN Creatinine Ratio 23.9 (10-20); Calcium 8.5 mg/dl (8.5-10.1); Creatinine Clr Calc Pharmacy 131.9 ml/min; Est GFR (African American) 125.2; Potassium 3.9 mmol/L (3.5-5.1)
[2019-07-27 15:06] LABS: Albumin Globulin Ratio 0.6 (0.9-2); Bilirubin,Total 0.5 mg/dl (0.2-1); Globulin 4.1 gm/dl (2.5-4.0); Phosphorus 2.2 mg/dl (2.5-4.9); Total Protein 6.7 gm/dl (6.4-8.2); Troponin I 0.457 ng/ml (0-0.045)
[2019-07-27] MEDS ORDERED: SODIUM PHOSPHATE 3 MMOL/1 ML INFUSION IV STA (15:40)
[2019-07-27] MEDS ORDERED: SODIUM PHOSPHATE 15 MMOL in SODIUM CHLORIDE 0.9% 250 ML IV ONE (16:00)
--- NOTE | 2019-07-27 16:24 | Hospitalist Progress Note ---
Date of Service July 27, 2019 Assessment & Plan (1) Sepsis associated hypotension: -This is a 49-year-old male with a PMH of paraplegia secondary to Spinal Cord Injury at T9 from osteomyelitis s/p thoracic fusion, neurogenic bladder with recurrent UTIs, CAD (s/p CABG in 2014, multiple PCIs), systolic HF (with EF 20-25% in 2014), h/o DVTs on Xarelto and other medical problems listed below who was found unresponsive by home health in AM of 07/26/19 and presumed diagnosis of sepsis from urinary tract infection. Initially found to be hypothermic at 34.7 C with hypotension of 75/55. BP improved to 80/57 after receiving IV fluid resuscitation; also on presentation with depressed respiratory rate, on admission Found to have leukocytosis of 15.7, lactic acid of 2.5, CK of 2642 and troponin of 0.338. VBG pH of 7.3 -admission 07/26/19 imaging: No acute intracranial abnormality on head CT. Cervical spine CT without evidence of fracture or subluxation. Chest CTA with a patchy airspace consolidation at the left lung base. Also with left-sided nephrolithiasis and large bladder calculus. UA with gross abnormalities. Blood and urine cultures pending. -Patient was Started empirically on Zosyn and vancomycin on 07/26/19 and admitted to the ICU -Patient's condition improved in the ICU and patient transferred out of ICU on telemetry on 07/27/19 elevated creatinine kinase likely from traumatic rhabdomylosis -admission creatinine kinase 2642, downtrending after Iv fluids on this admiss ion, trend creatinine kinase (2) Recurrent UTI: -history of recurrent urinary tract infections presumed from risks of self straight catherizations of bladder at home -Recent outpatient UA abnormal with gross hematuria. Urine culture from 07/21 with multiple venkat. Patient prescribed cefpodoxime as outpatient but did not received it prior to hospital presentation. admission urine analysis with no obvious bacteria -patient currently on imipenem/cilastin alone and ICU physician's impression that source of this acute event at home if from infection is due to urinary source -continue imipenem/cilastin for now, follow if any positive cultures (3) Neurogenic bladder: -currently with shi in the hospital, continue (4) CAD (coronary artery disease): H/o CABG in 2014 and multiple PCIs -Follows with Dr. Ayers in clinic -troponins 0.338, 0.396, 0.442, 0.457; no chest pain; Repeat 2D echo results on 07/27/19 with same ejection fraction and no new wall motion problems, likely a demand ischemia from hypotensive event or from illness, trend troponins -Continue aspirin, statin (5) Systolic heart failure: Elevated troponins -History ischemic cardiomyopathy with with EF 20-25% in 2015 -troponins 0.338, 0.396, 0.442, 0.457; no chest pain; Repeat 2D echo results on 07/27/19 with same ejection fraction and no new wall motion problems, likely a demand ischemia from hypotensive event or from illness, trend troponins -outpatient metoprolol of 100 mg BID, currently metoprolol is to be restarted as 50 mg BID for now -hold oral Lasix 20 mg daily and continue Lasix as 20 mg IV daily for now given chronically low ejection fraction and because patient got already IV fluid volume for sepsis upon admission (6) HTN (hypertension): -hypotension on admission has resolved after IV fluids -management of blood pressures as described in regards to cardiac management above -hold lisinopril for now Mild hyposphatemia -serum phosphorous 2.4 and then 2.2, give phosphorous supplements (7) Paraplegia at T9 level: from history of past spinal cord injury at T9 from osteomyelitis s/p thoracic fusion -Paralyzed from waist down, able to do some transfers using upper body but requires assistance transferin in and out of bed -Neurogenic bladder, straight caths PRN -Fall precautions (8) History of narcotic addiction: Has controlled substance agreement with PCP -Utox screen negative on admission -resume pregabalin -hold baclofen for now History of deep vein thrombosis in the past -admission ultrasound: no lower extremity deep vein thrombosis -resuming home dose Xarelto of 20 mg daily, unclear from chart review and patient's history as to length of chronic anticoagulation and it would appear t hat history of DVT is at least more than 1 year ago DVT Ppx: SCDs for now in setting of gross hematuria Code status: Full Code Subjective Patient seen and examined in ICU and then again when transferred to telemetry hayes. Patient denies chest pain. breathing on room air. denies shortness of breath. Patient is awake and alert and answers questions appropriately Review of Systems Review of Systems: All systems reviewed & are unremarkable except as noted in HPI & below Physical Exam Constitutional: comfortable Eyes: PERRL, conjunctivae normal, anicteric sclerae EOM intact bilaterally ENMT: external ear and nose normal, oropharynx normal Neck: normal visual inspection Respiratory: normal respiratory effort Cardiovascular: Rate/Rhythm: regular rhythm and + tachycardic Gastrointestinal (Abdomen): Inspection/Auscultation: normal bowel sounds Percussion/Palpation: abdomen soft Musculoskeletal: Head/Neck/Chest: normocephalic and head atraumatic Neurologic: PERRL, EOMI, accommodation nl, no face palsy, no dysarthria Psychiatric: A+Ox3, euthymic affect Genitourinary: + penis abnormality (shi) Results & Data Vital Signs (Past 12 Hours) Vital Signs Temp Pulse Pulse Resp BP BP Pulse Ox 07/27/19 15:50 37.0 C 112 H 20 111/68 95 07/27/19 12:32 36.9 C 117 H 20 116/74 96 07/27/19 11:00 119 H 21 108/72 95 07/27/19 10:00 121 H 26 H 114/69 96 07/27/19 09:00 122 H 20 117/74 95 07/27/19 08:00 122 H 25 H 122/70 96 07/27/19 07:00 119 H 27 H 103/67 97 07/27/19 06:01 118 H 18 96 07/27/19 06:00 118 H 18 112/69 96 07/27/19 05:01 120 H 19 97 07/27/19 05:00 121 H 21 114/62 97 07/27/19 04:30 119 H 22 96
[2019-07-27] MEDS ORDERED: FUROSEMIDE 20 MG in SYRINGE 0 ML IV ONE (16:45)
[2019-07-27] MEDS: RIVAROXABAN 20 MG TAB PO SCH (16:55)
[2019-07-27] MEDS: PREGABALIN 100 MG CAP PO SCH (21:04)
[2019-07-28] MEDS: IMIPENEM/CILASTATIN SODIUM 500 MG in DEXTROSE 5% 100 ML IV SCH ×3 (00:19→12:10)
[2019-07-28 02:06] LABS: Albumin Level 2.7 gm/dl (3.4-5.0); Calcium 8.5 mg/dl (8.5-10.1); Creatinine Clr Calc Pharmacy 126.6 ml/min; Est GFR (African American) 123.1; Est GFR (Non-African American) 106.2; Potassium 3.8 mmol/L (3.5-5.1)
[2019-07-28 02:13] LABS: Albumin Globulin Ratio 0.6 (0.9-2); Basophils # (auto) 0.02 K/uL (0-0.2); Basophils % (auto) 0.2 %; Bilirubin,Total 0.6 mg/dl (0.2-1); Eosinophils # (auto) 0.18 K/uL (0-0.5); Eosinophils % (auto) 2.2 %; Globulin 4.5 gm/dl (2.5-4.0); Hematocrit (blood only) 38.2 % (42-52); Hemoglobin 12.7 g/dL (14.0-18.0); Immature Granulocytes # (auto) 0.04 K/uL (0.00-0.02); Immature Granulocytes % (auto) 0.5 %; Lymphocytes % (auto) 24.2 %; Mean Corpuscular Hemoglobin 30.1 pg (25-34); Mean Corpuscular Hgb Conc 33.2 g/dL (32-36); Mean Corpuscular Volume 90.5 fL (80-100); Mean Platelet Volume 11.5 fL (7.4-10.4); Monocytes # (auto) 1.08 K/uL (0.11-0.59); Neutrophils # (auto) 4.96 K/uL (1.4-6.5); Neutrophils % (auto) 59.9 %; Platelet Count 206 K/uL (130-400); RDW Coefficient of Variation 16.8 % (11.5-14.5); RDW Standard Deviation 55.9 fL (36.4-46.3); Red Blood Count 4.22 M/uL (4.7-6.1); Total Protein 7.2 gm/dl (6.4-8.2); Troponin I 0.491 ng/ml (0-0.045); White Blood Count 8.28 K/uL (4.8-10.8)
[2019-07-28] MEDS: DOCUSATE SODIUM/SENNA 50/8.6MG TAB PO SCH (09:06)
[2019-07-28] MEDS: MULTIVITAMIN TAB PO SCH (09:06)
[2019-07-28] MEDS: PANTOprazole 40 MG TAB PO SCH (09:06)
[2019-07-28] MEDS: CYANOCOBALAMIN 500 MCG TABLET (VITAMIN B-12) PO SCH (09:06)
[2019-07-28] MEDS: ATORVASTATIN 40 MG TAB PO SCH (09:06)
[2019-07-28] MEDS: METOPROLOL SUCC 50MG EXT REL TAB PO SCH (09:06)
[2019-07-28] MEDS: DOCUSATE SODIUM 100 MG CAP PO SCH ×2 (09:06→21:05)
[2019-07-28] MEDS: ASPIRIN 81 MG ECTAB PO SCH (09:07)
[2019-07-28] MEDS: FUROSEMIDE 20 MG in SYRINGE 0 ML IV SCH (09:07)
[2019-07-28] MEDS: POLYETHYLENE (MIRALAX) 17 GM PACK PO SCH (09:07)
[2019-07-28] MEDS: PREGABALIN 100 MG CAP PO SCH ×2 (09:13→21:05)
--- NOTE | 2019-07-28 15:34 | Hospitalist Progress Note ---
Date of Service July 28, 2019 Assessment & Plan (1) Sepsis associated hypotension: Pt was brought to the ER after found unresponsive by home health in AM of 07/26/19 and presumed diagnosis of sepsis from urinary tract infection. Initially found to be hypothermic at 34.7 C with hypotension of 75/55, leukocytosis of 15.7, lactic acid of 2.5, CK of 2642 and troponin of 0.338. VBG pH of 7.3 CT head on admission showed no acute intracranial abnormality Cervical spine CT without evidence of fracture or subluxation. Chest CTA with a patchy airspace consolidation at the left lung base. Also with left-sided nephrolithiasis and large bladder calculus. Received empirically on Zosyn and vancomycin on 07/26/19 in the ER and admitted to the ICU, then starting on Primaxin Patient transferred out of ICU on telemetry on 07/27/19 Blood cx no growth Urine cx proteus mirabilis Will de-escalate abx to rocephin daily Continue monitor closely (2) Recurrent UTI: History of recurrent urinary tract infections presumed from risks of self straight catherizations of bladder at home Recent outpatient UA abnormal with gross hematuria. Urine culture from 07/21 with multiple venkat. Patient prescribed cefpodoxime as outpatient but did not received it prior to hospital presentation. Urine cx on this admission grew Proteus Mirabilis Abx changed from Primaxin to Rocephin (3) Elevated troponin: Possible related to demand ischemia Troponin 0.338 increased to 0.396, 0.442, 0.457, then 0.5 today EKG on admission showed no acute ST changed ECHO showed no new wall motion abnormality with EF 20% compare to previous echo Will trend trop Will get an EKG in am Continue Statin, Aspirin, metoprolol and xarelto Consider cardiology consult if trop continues to increase (4) Neurogenic bladder: Due to Spinal cord injury at T9 from osteomyelitis s/p thoracic fusion Continue shi cath (5) CAD (coronary artery disease): H/o CABG in 2014 and multiple PCIs Denies any chest pain Echo results on 07/27/19 with same ejection fraction and no new wall motion problems Continue aspirin, statin (6) Systolic heart failure: Elevated troponins Echo results on 07/27/19 with same ejection fraction and no new wall motion problems On Lasix as 20 mg IV daily, will transition on oral lasix (7) HTN (hypertension): BP has been stable Will resume lisinopril in am Hyposphatemia serum phosphorous 2.4 and then 2.2, give phosphorous supplements Will monitor (8) Paraplegia at T9 level: from history of past spinal cord injury at T9 from osteomyelitis s/p thoracic fusion Paralyzed from waist down, able to do some transfers using upper body but requires assistance transferin in and out of bed Neurogenic bladder, straight caths PRN PT/OT on board Not safe to discharge home as per OT PT agreed to go to SNF for rehab (9) History of narcotic addiction: Has controlled substance agreement with PCP Utox screen negative on admission Continue pregabalin History of deep vein thrombosis in the pas Venous doppler of LE showed no deep vein thrombosis Continue Xarelto of 20 mg daily Hematuria Possible related to trauma from the shi cath Hemoglobin stable If h/h drops, will hold xarelto Continue monitor DVT Ppx: on Xarelto (will hold if hematuria continues) Code status: Full Code Subjective Pt was seen and examined Lying in bed with no distress Pt said that he is not having any pain He agreed to go to SNF for rehab then transition to an apartment Denies any chest pain, palpitation, dizziness and SOB Physical Exam Physical Exam: General- No acute distress Head- atraumatic Eyes- PERRL, EOMI, ENT- oropharynx clear Neck- supple, no JVD Lungs- clear to auscultation Heart- regular rhythm; no murmur Abdomen- normal bowel sounds, soft, nontender Extremities- no calf tenderness Neuro- alert, oriented x 3, paraplegia Skin- warm & dry, sacral decubitus ulcer Results & Data Vital Signs (Past 12 Hours) Vital Signs Temp Pulse Pulse Resp BP Pulse Ox 07/28/19 11:56 36.9 C 114 H 18 134/83 94 07/28/19 08:10 36.7 C 117 H 18 128/77 94 07/28/19 07:40 108 H 07/28/19 03:44 36.7 C 110 H 19 127/85 95
[2019-07-28] MEDS: cefTRIAXone SODIUM 2,000 MG in DEXTROSE 5% 50 ML IV SCH (16:52)
[2019-07-28] MEDS: RIVAROXABAN 20 MG TAB PO SCH (16:52)
--- NOTE | 2019-07-28 20:27 | Wound Consultation ---
Date of Consultation July 28, 2019 Assessment & Plan (1) Stage III pressure ulcer of right buttock: No debridement was required. Wound culture was obtained. Will await results. Wound will be packed with Jasmina and changed every other day. (2) Stage II pressure ulcer of left buttock: No debridement was required. Wound be dressed with Jasmina and changed every other day. Thank you for limited to dissipate in the care of this patient. Please not hesitate to call with any questions. History of Present Illness Reason for Consultation: b/l sacral pressure ulcers Attending Physician: Rosemary Devine MD History of Present Illness This is a 49 year old male admitted with sepsis. Patient refuses to cooperate with history or review of systems. He has a history of paraplegia 2/2 to sci at t9, neurogenic bladder with frequent utis, cad, s/p cabg, systolic hf with EF 2 0-25%. Allergies Allergy/AdvReac Type Severity Reaction Status Date / Time No Known Allergies Allergy Unverified 07/12/18 10:55 Home Medications Home Medications Medication Instructions Recorded Confirmed Type aspirin 81 mg PO DAILY 07/26/19 07/26/19 History atorvastatin 40 mg PO DAILY 07/26/19 07/26/19 History baclofen 20 mg PO TID 07/26/19 07/26/19 History bisacodyl [Dulcolax (bisacodyl)] 5 mg PO DAILY PRN 07/26/19 07/26/19 History bisacodyl [Dulcolax (bisacodyl)] 10 mg IA Q2D 07/26/19 07/26/19 History cyanocobalamin (vitamin B-12) 1,000 mcg PO DAILY 07/26/19 07/26/19 History [Vitamin B-12] cyclobenzaprine 10 mg PO Q8H PRN 07/26/19 07/26/19 History diphenhydramine HCl [Diphenhist] 25 mg PO HS 07/26/19 07/26/19 History docusate sodium [Colace] 100 mg PO BID 07/26/19 07/26/19 History furosemide 20 mg PO DAILY 07/26/19 07/26/19 History lisinopril 5 mg PO DAILY 07/26/19 07/26/19 History magnesium hydroxide [Milk of 30 ml PO DAILY PRN 07/26/19 07/26/19 History Magnesia] metformin 500 mg PO QDD 07/26/19 07/26/19 History methenamine hippurate 1 g PO BID 07/26/19 07/26/19 History metoprolol succinate 100 mg PO BID 07/26/19 07/26/19 History multivitamin 1 tab PO DAILY 07/26/19 07/26/19 History ampmvdyrynuf-lsjx-mansq acid 1 tab PO DAILY 07/26/19 07/26/19 History [Cerovite Advanced Formula] omeprazole 20 mg PO DAILY 07/26/19 07/26/19 History polyethylene glycol 3350 [Miralax] 17 g PO DAILY 07/26/19 07/26/19 History potassium chloride 10 meq PO DAILY 07/26/19 07/26/19 History pregabalin 200 mg PO BID 07/26/19 07/26/19 History rivaroxaban [Xarelto] 20 mg PO QDD 07/26/19 07/26/19 History sennosides-docusate sodium 1 tab-cap PO DAILY 07/26/19 07/26/19 History [Senna-S] tamsulosin 0.4 mg PO DAILY 07/26/19 07/26/19 History Patient History Medical History (Updated 07/29/19 @ 07:52 by Tom Trotter DO) CAD (coronary artery disease) History of narcotic addiction HTN (hypertension) Neurogenic bladder Paraplegia at T9 level PPD positive (Chronic) Prediabetes Recurrent UTI Stage II pressure ulcer of left buttock Stage III pressure ulcer of right buttock Systolic heart failure Family History (Updated 07/26/19 @ 18:30 by Elisa Salter PA-C) Other Cancer Heart disease Social History Preferred Language: Serbian Communication Ability: Effective [place] Head Required: No Beliefs That Will Affect Care: None Current Living Situation: Alone Other Information That Helps Us Care for You: No Feels Safe at Home: Yes Safety Concerns: Feels Safe At This Time Smoking Status: Current some day smoker Tobacco Type: cigarettes ; Cigarettes Per Day: few times a week ; Do You Dip or Chew Tobacco: No ; Second Hand Exposure: No ; Tobacco Cessation Education Requested by Patient: No Hx Alcohol Use: No Hx Substance Use: No Review of Systems Review of Systems: Unobtainable due to mental health condition Physical Exam Physical Exam: Patient roles over and is cooperative with exam Skin: stage 3 pressure ulcer right gluteal fold. Wound measures 0.5 x 0.3 x 3.2 cm. Wound is covered with fibrin and slough. There is foul odor. There is moderate drainage. Left ischium measuring 1.2 x 3.2 x 0.1 cm. Wound is covered with fibrin and slough. Periwound is intact without inflammation. There is minimal drainage no foul odors. Neurologic: awake Psychiatric: Orientation: alert, oriented to person and cooperative (cooperative to exam but refusing to speak) Results & Data Vital Signs (Past 12 Hours) Vital Signs Temp Pulse Pulse Resp BP Pulse Ox 07/28/19 19:15 36.9 C 96 H 18 148/63 H 99 07/28/19 16:00 117 H 07/28/19 15:58 37.0 C 118 H 18 142/63 H 98 07/28/19 11:56 36.9 C 114 H 18 134/83 94 PG Care Time/CCT Total # of Minutes Spent Total Time Spent with Patient: Total time spent is greater than 50% in coordination of care (as documented) at patient's floor/unit and/or counseling patient:
[2019-07-28] MEDS ORDERED: METOPROLOL SUCC 50MG EXT REL TAB PO SCH (21:00)
[2019-07-28 21:12] LABS: Troponin I 0.55 ng/ml (0-0.045)
[2019-07-29] MEDS ORDERED: POTASSIUM CHLORIDE 20 MEQ TABCR PO STA (01:49)
[2019-07-29] MEDS ORDERED: MAGNESIUM SULFATE / D5W 1 GM/100 ML BAG IV ONE (01:49)
[2019-07-29 02:31] LABS: Albumin Level 2.8 gm/dl (3.4-5.0); BUN Creatinine Ratio 15.4 (10-20); Calcium 8.9 mg/dl (8.5-10.1); Creatinine Clr Calc Pharmacy 125.6 ml/min; Est GFR (African American) 122.4; Est GFR (Non-African American) 105.6; Magnesium 1.9 mg/dl (1.8-2.4)
[2019-07-29 02:42] LABS: Albumin Globulin Ratio 0.5 (0.9-2); Bilirubin,Total 0.6 mg/dl (0.2-1); Globulin 5.2 gm/dl (2.5-4.0); Hematocrit (blood only) 40.2 % (42-52); Hemoglobin 13.4 g/dL (14.0-18.0); Mean Corpuscular Hemoglobin 30.5 pg (25-34); Mean Corpuscular Hgb Conc 33.3 g/dL (32-36); Mean Corpuscular Volume 91.4 fL (80-100); Mean Platelet Volume 11.6 fL (7.4-10.4); Platelet Count 222 K/uL (130-400); RDW Coefficient of Variation 16.6 % (11.5-14.5); Thyroid Stimulating Hormone 2.49 uIu/ml (0.300-4.500); White Blood Count 10.16 K/uL (4.8-10.8)
[2019-07-29 02:43] LABS: Basophils # (auto) 0.03 K/uL (0-0.2); Basophils % (auto) 0.3 %; Immature Granulocytes # (auto) 0.07 K/uL (0.00-0.02); Immature Granulocytes % (auto) 0.7 %; Lymphocytes # (auto) 2.68 K/uL (1.2-3.4); Lymphocytes % (auto) 26.4 %; Monocytes # (auto) 1.37 K/uL (0.11-0.59); Monocytes % (auto) 13.5 %; Neutrophils # (auto) 5.81 K/uL (1.4-6.5); Neutrophils % (auto) 57.1 %
[2019-07-29 03:50] LABS: Appearance Urine Cloudy (Clear); Bilirubin Urine Negative (Negative); Blood Urine 3+ (Negative); Color Urine Red; Glucose Urine UA Negative (Negative); Ketones Urine 1+ (Negative); Leukocyte Esterase Urine 1+ (Negative); Nitrite Urine Negative (Negative); Urobilinogen Urine Positive (Negative)
[2019-07-29 03:51] LABS: Protein Urine Trace (Negative)
[2019-07-29 03:52] LABS: Sulfosalicylic Acid Urine Positive (Negative)
[2019-07-29 03:56] LABS: Epithelial Cell Urine 0-5 /lpf (0-5); RBC Urine >30 /hpf (0-4); WBC Urine >30 /hpf (0-5)
[2019-07-29 03:57] LABS: Bacteria Urine 2+ (Negative)
[2019-07-29] MEDS ORDERED: METOPROLOL TARTRATE 1 MG/ML VIAL IV STA (05:08)
[2019-07-29] MEDS: METOPROLOL SUCC 50MG EXT REL TAB PO SCH ×3 (05:12→20:49)
[2019-07-29] MEDS ORDERED: VANCOMYCIN TROUGH ONE (05:30)
--- NOTE | 2019-07-29 08:16 | Cardiology Consultation ---
Date of Consultation July 29, 2019 Assessment & Plan (1) Delirium: Paitent very agitated this morning and confused. Hallucinating. Notified hospitalist. (2) Sepsis associated hypotension: Continue antibiotics per hospitalist. Antihypertensive meds held on admission BP improving Resume oral medications when mental status improved (3) Ischemic cardiomyopathy: Long hsitory of ischemic cardiomyoathy with severely reduced LVEF 15-25% per prior serial echocardiograms. Previously declined AICD therapy when discussed at repeated outpatient visits. Echo reveals stable findings (4) Elevated troponin: consistent with underlying ischemic cardiomyopathy, sinus tachycardia, and acute sepsis. No acute EKG changes Echo reveals stable findings. Not indicative of ACS. Resume metoprolol when able (5) Sinus tachycardia: Due to agitation, sepsis, and beta estrellita withdrawal Resume home dose metoprolol succinate 100 mg BID when patient able to take PO meds. If monitoring manager resumed and we can monitor HR's, may treat intermittently with IV metoprolol if needed. Case discussed with Dr. Reyes. Supervising Physician Co-Signing Physician Notes Cardiology attending addendum: The patient was interviewed from the door of his room, per his preference. No physical exam could be performed per his preference. Sinus tachycardia at 110 bpm was present on telemetry. He denied chest discomfort or shortness of breath. Data: Echocardiogram performed this admission 07/27/2019 revealed severe left ventricular hypokinesis LVEF 20%, unchanged compared to prior. Impression and plan: Patient with longstanding history of ischemic cardiomyopathy. His mild elevation troponin is not surprising given his sepsis, and sinus tachycardia. Not his blood pressure has improved, his metoprolol has been reinitiated. Continue supportive care for UTI. History of Present Illness Reason for Consultation: Elevated troponin Requesting Physician: Dr. Devine Attending Physician: Dr. Reyes History of Present Illness Patient is a 49-year-old male known to [facility] cardiology services, following with Dr. Ayers as an outpatient on a yearly basis. Patient is currently confused, uncooperative, and did not permit me to enter the room. He will not wear monitoring manager or take PO medications. Per nursing staff, he is combative if attempted to approach patient. All history is obtained from medical records. Complex history includes coronary artery disease status post CABG x2 in February 2015 with unknown grafts and multiple PCIs previously, ischemic cardiomyopathy with LVEF ranging 15-25%. He has declined AICD therapy on multiple occasions, documented as outpatient. Other history includes prior epidural abscess and osteomyelitis status post neurosurgery with resultant paraplegia, hypertension, and history of sacral ulcers. Patient was admitted several days ago after being found unresponsive at home and diagnosed with likely urosepsis due to self-catheterization at home. He was hypotensive on arrival and home oral antihypertensives were held. Blood cultures were negative. He started on broad-spectrum antibiotics. Echocardiogram was updated which demonstrated severely reduced LV systolic function with ejection fraction of 20% consistent with prior echo. EKG on admission demonstrated sinus tachycardia with T wave abnormality in anterior and lateral leads, similar to outpatient EKG. Troponin was minimally elevated on arrival and relatively stable during hospitalization. Over the last 24 hours, heart rates have trended higher. Metoprolol resumed last night per hospitalist. Patient taking metoprolol 100 mg BID at home. This was held on admission due to hypotension. At time of consult, patient agitated and would not allow me to enter the room. Reports there are things coming out of the wall at him. He is anxious. He reports he is waiting for the pipe finisher to come. Hospitalist notified. He will not wear monitor and refused oral medications this morning. Allergies Allergy/AdvReac Type Severity Reaction Status Date / Time No Known Allergies Allergy Unverified 07/12/18 10:55 Home Medications Home Medications Medication Instructions Recorded Confirmed Type aspirin 81 mg PO DAILY 07/26/19 07/26/19 History atorvastatin 40 mg PO DAILY 07/26/19 07/26/19 History baclofen 20 mg PO TID 07/26/19 07/26/19 History bisacodyl [Dulcolax (bisacodyl)] 5 mg PO DAILY PRN 07/26/19 07/26/19 History bisacodyl [Dulcolax (bisacodyl)] 10 mg SD Q2D 07/26/19 07/26/19 History cyanocobalamin (vitamin B-12) 1,000 mcg PO DAILY 07/26/19 07/26/19 History [Vitamin B-12] cyclobenzaprine 10 mg PO Q8H PRN 07/26/19 07/26/19 History diphenhydramine HCl [Diphenhist] 25 mg PO HS 07/26/19 07/26/19 History docusate sodium [Colace] 100 mg PO BID 07/26/19 07/26/19 History furosemide 20 mg PO DAILY 07/26/19 07/26/19 History lisinopril 5 mg PO DAILY 07/26/19 07/26/19 History magnesium hydroxide [Milk of 30 ml PO DAILY PRN 07/26/19 07/26/19 History Magnesia] metformin 500 mg PO QDD 07/26/19 07/26/19 History methenamine hippurate 1 g PO BID 07/26/19 07/26/19 History metoprolol succinate 100 mg PO BID 07/26/19 07/26/19 History multivitamin 1 tab PO DAILY 07/26/19 07/26/19 History oqnyymywzfks-cwvb-iuqmi acid 1 tab PO DAILY 07/26/19 07/26/19 History [Cerovite Advanced Formula] omeprazole 20 mg PO DAILY 07/26/19 07/26/19 History polyethylene glycol 3350 [Miralax] 17 g PO DAILY 07/26/19 07/26/19 History potassium chloride 10 meq PO DAILY 07/26/19 07/26/19 History pregabalin 200 mg PO BID 07/26/19 07/26/19 History rivaroxaban [Xarelto] 20 mg PO QDD 07/26/19 07/26/19 History sennosides-docusate sodium 1 tab-cap PO DAILY 07/26/19 07/26/19 History [Senna-S] tamsulosin 0.4 mg PO DAILY 07/26/19 07/26/19 History Patient History Medical History (Updated 07/29/19 @ 10:08 by Agustina Suggs PA-C) CAD (coronary artery disease) History of narcotic addiction HTN (hypertension) Neurogenic bladder Paraplegia at T9 level PPD positive (Chronic) Prediabetes Recurrent UTI Stage II pressure ulcer of left buttock Stage III pressure ulcer of right buttock Systolic heart failure Surgical History History of coronary artery stent placement History of thoracic spinal fusion Hx of CABG Family History (Updated 07/26/19 @ 18:30 by Elisa Salter PA-C) Other Cancer Heart disease Social History Preferred Language: Danish Communication Ability: Effective [place] Bench Hand Required: No Beliefs That Will Affect Care: None Current Living Situation: Alone Other Information That Helps Us Care for You: No Feels Safe at Home: Yes Safety Concerns: Feels Safe At This Time Smoking Status: Current some day smoker Tobacco Type: cigarettes ; Cigarettes Per Day: few times a week ; Do You Dip or Chew Tobacco: No ; Second Hand Exposure: No ; Tobacco Cessation Education Requested by Patient: No Hx Alcohol Use: No Hx Substance Use: No Review of Systems Review of Systems: Unobtainable due to cognitive status Physical Exam Physical Exam: Not able to be performed. Agitated Results & Data Vital Signs (Past 12 Hours) Vital Signs Temp Pulse Pulse Resp BP Pulse Ox 07/29/19 04:04 37.1 C 127 H 20 141/87 H 96 07/29/19 00:00 123 H Laboratory Results 07/29/19 07/29/19 07/29/19 Range/Units 02:30 01:58 01:58 WBC (4.8-10.8) K/uL RBC (4.7-6.1) M/uL Hgb (14.0-18.0) g/dL Hct (42-52) % MCV (80-100) fL MCH (25-34) pg MCHC (32-36) g/dL RDW Std Deviation (36.4-46.3) fL RDW Coeff of Karan (11.5-14.5) % Plt Count (130-400) K/uL MPV (7.4-10.4) fL Immature Gran % (Auto) % Neut % (Auto) % Lymph % (Auto) % [place] % (Auto) % Eos % (Auto) % Baso % (Auto) % Immature Gran # (Auto) (0.00-0.02) K/uL Neut # (Auto) (1.4-6.5) K/uL Lymph # (Auto) (1.2-3.4) K/uL [place] # (Auto) (0.11-0.59) K/uL Eos # (Auto) (0-0.5) K/uL Baso # (Auto) (0-0.2) K/uL Sodium 138 (136-145) mmol/L Potassium 4.0 (3.5-5.1) mmol/L Chloride 107 (98-107) mmol/L Carbon Dioxide 26 (21-32) mmol/L Anion Gap 5.0 (3-11) BUN 12 (7-18) mg/dl Creatinine 0.76 (0.6-1.4) mg/dl Est Cr Clr Drug Dosing 125.6 ml/min Est GFR ( Amer) 122.4 Est GFR (Non-Af Amer) 105.6 BUN/Creatinine Ratio 15.4 (10-20) Glucose 88 (70-99) mg/dl Calcium 8.9 (8.5-10.1) mg/dl Magnesium 1.9 (1.8-2.4) mg/dl Total Bilirubin 0.6 (0.2-1) mg/dl AST 30 (15-37) U/L ALT 36 (12-78) U/L Alkaline Phosphatase 98 (45-117) U/L Ammonia 25.0 (11-32) umol/L Total Creatine Kinase (39-308) U/L Troponin I (0-0.045) ng/ml Total Protein 8.0 (6.4-8.2) gm/dl Albumin 2.8 L (3.4-5.0) gm/dl Globulin 5.2 H (2.5-4.0) gm/dl Albumin/Globulin Ratio 0.5 L (0.9-2) TSH 2.490 (0.300-4.500) uIu/ml Urine Color Red Urine Appearance Cloudy A (Clear) Urine pH 8.0 H (4.5-7.5) Ur Specific [place] 1.010 (1.000-1.030) Urine Protein Trace H (Negative) Urine Glucose (UA) Negative (Negative) Urine Ketones 1+ H (Negative) Urine Blood 3+ H (Negative) Urine Nitrite Negative (Negative) Urine Bilirubin Negative (Negative) Urine Urobilinogen Positive H (Negative) Ur Leukocyte Esterase 1+ H (Negative) Urine RBC >30 H (0-4) /hpf Urine WBC >30 H (0-5) /hpf Ur Epithelial Cells 0-5 (0-5) /lpf Urine Bacteria 2+ H (Negative) 07/29/19 07/28/19 07/28/19 Range/Units 01:58 20:23 16:17 WBC 10.16 (4.8-10.8) K/uL RBC 4.40 L (4.7-6.1) M/uL Hgb 13.4 L (14.0-18.0) g/dL Hct 40.2 L (42-52) % MCV 91.4 (80-100) fL MCH 30.5 (25-34) pg MCHC 33.3 (32-36) g/dL RDW Std Deviation 55.0 H (36.4-46.3) fL RDW Coeff of Karan 16.6 H (11.5-14.5) % Plt Count 222 (130-400) K/uL MPV 11.6 H (7.4-10.4) fL Immature Gran % (Auto) 0.7 % Neut % (Auto) 57.1 % Lymph % (Auto) 26.4 % [place] % (Auto) 13.5 % Eos % (Auto) 2.0 % Baso % (Auto) 0.3 % Immature Gran # (Auto) 0.07 H (0.00-0.02) K/uL Neut # (Auto) 5.81 (1.4-6.5) K/uL Lymph # (Auto) 2.68 (1.2-3.4) K/uL [place] # (Auto) 1.37 H (0.11-0.59) K/uL Eos # (Auto) 0.20 (0-0.5) K/uL Baso # (Auto) 0.03 (0-0.2) K/uL Sodium (136-145) mmol/L Potassium (3.5-5.1) mmol/L Chloride (98-107) mmol/L Carbon Dioxide (21-32) mmol/L Anion Gap (3-11) BUN (7-18) mg/dl Creatinine (0.6-1.4) mg/dl Est Cr Clr Drug Dosing ml/min Est GFR ( Amer) Est GFR (Non-Af Amer) BUN/Creatinine Ratio (10-20) Glucose (70-99) mg/dl Calcium (8.5-10.1) mg/dl Magnesium (1.8-2.4) mg/dl Total Bilirubin (0.2-1) mg/dl AST (15-37) U/L ALT (12-78) U/L Alkaline Phosphatase (45-117) U/L Ammonia (11-32) umol/L Total Creatine Kinase 307 (39-308) U/L Troponin I 0.550 H* 0.546 H* (0-0.045) ng/ml Total Protein (6.4-8.2) gm/dl Albumin (3.4-5.0) gm/dl Globulin (2.5-4.0) gm/dl Albumin/Globulin Ratio (0.9-2) TSH (0.300-4.500) uIu/ml Urine Color Urine Appearance (Clear) Urine pH (4.5-7.5) Ur Specific [place] (1.000-1.030) Urine Protein (Negative) Urine Glucose (UA) (Negative) Urine Ketones (Negative) Urine Blood (Negative) Urine Nitrite (Negative) Urine Bilirubin (Negative) Urine Urobilinogen (Negative) Ur Leukocyte Esterase (Negative) Urine RBC (0-4) /hpf Urine WBC (0-5) /hpf Ur Epithelial Cells (0-5) /lpf Urine Bacteria (Negative) 07/28/19 Range/Units 09:31 WBC (4.8-10.8) K/uL RBC (4.7-6.1) M/uL Hgb (14.0-18.0) g/dL Hct (42-52) % MCV (80-100) fL MCH (25-34) pg MCHC (32-36) g/dL RDW Std Deviation (36.4-46.3) fL RDW Coeff of Karan (11.5-14.5) % Plt Count (130-400) K/uL MPV (7.4-10.4) fL Immature Gran % (Auto) % Neut % (Auto) % Lymph % (Auto) % [place] % (Auto) % Eos % (Auto) % Baso % (Auto) % Immature Gran # (Auto) (0.00-0.02) K/uL Neut # (Auto) (1.4-6.5) K/uL Lymph # (Auto) (1.2-3.4) K/uL [place] # (Auto) (0.11-0.59) K/uL Eos # (Auto) (0-0.5) K/uL Baso # (Auto) (0-0.2) K/uL Sodium (136-145) mmol/L Potassium (3.5-5.1) mmol/L Chloride (98-107) mmol/L Carbon Dioxide (21-32) mmol/L Anion Gap (3-11) BUN (7-18) mg/dl Creatinine (0.6-1.4) mg/dl Est Cr Clr Drug Dosing ml/min Est GFR ( Amer) Est GFR (Non-Af Amer) BUN/Creatinine Ratio (10-20) Glucose (70-99) mg/dl Calcium (8.5-10.1) mg/dl Magnesium (1.8-2.4) mg/dl Total Bilirubin (0.2-1) mg/dl AST (15-37) U/L ALT (12-78) U/L Alkaline Phosphatase (45-117) U/L Ammonia (11-32) umol/L Total Creatine Kinase (39-308) U/L Troponin I 0.500 H* (0-0.045) ng/ml Total Protein (6.4-8.2) gm/dl Albumin (3.4-5.0) gm/dl Globulin (2.5-4.0) gm/dl Albumin/Globulin Ratio (0.9-2) TSH (0.300-4.500) uIu/ml Urine Color Urine Appearance (Clear) Urine pH (4.5-7.5) Ur Specific [place] (1.000-1.030) Urine Protein (Negative) Urine Glucose (UA) (Negative) Urine Ketones (Negative) Urine Blood (Negative) Urine Nitrite (Negative) Urine Bilirubin (Negative) Urine Urobilinogen (Negative) Ur Leukocyte Esterase (Negative) Urine RBC (0-4) /hpf Urine WBC (0-5) /hpf Ur Epithelial Cells (0-5) /lpf Urine Bacteria (Negative) Diagnostic Findings Telemetry reviewed from overnight - sinus tachycardia with HR's ranging 110-130 bpm. One run of non sustained VT, lasting 6 beats around 1:20 AM. 2D echo completed this admission - technically limited study. Reduced LV sy stolic function at 20%, similar to prior echo EKG on admission: Sinus tachycardia with T wave abnormality in inferior and lateral leads. When compared with prior EKGs in 2018 as outpatient, no signif icant changes Medications Administered Current Inpatient Medications Aspirin (Ecotrin Ectab) 81 mg PO DAILY [facility] Stop: 08/26/19 08:59 Last Admin: 07/28/19 09:07 Dose: 81 mg Documented by: Atorvastatin Calcium (Lipitor) 40 mg PO DAILY [facility] Stop: 08/26/19 08:59 Last Admin: 07/28/19 09:06 Dose: 40 mg Documented by: Bisacodyl (Dulcolax) 10 mg SD Q2D [facility] Stop: 08/26/19 08:59 Last Admin: 07/27/19 09:22 Dose: Not Given Documented by: Bisacodyl (Dulcolax) 5 mg PO DAILY PRN PRN Reason: Constipation Stop: 08/25/19 20:31 Last Admin: 07/27/19 09:22 Dose: 5 mg Documented by: Cyanocobalamin (Vitamin B-12) 1,000 mcg PO DAILY [facility] Stop: 08/26/19 08:59 Last Admin: 07/28/19 09:06 Dose: 1,000 mcg Documented by: Cyclobenzaprine HCl (Flexeril) 10 mg PO Q8H PRN PRN Reason: Leg and back pain Stop: 08/25/19 20:40 Last Admin: 07/27/19 09:19 Dose: 10 mg Documented by: Docusate Sodium (Colace) 100 mg PO BID [facility] Stop: 08/25/19 20:59 Last Admin: 07/28/19 21:05 Dose: 100 mg Documented by: Furosemide 20 mg/ Syringe 2 mls @ 4 mls/min IV DAILY [facility] Stop: 08/27/19 08:59 Last Admin: 07/28/19 09:07 Dose: 4 mls/min Documented by: Ceftriaxone Sodium 2,000 mg/ (Dextrose) 70 mls @ 140 mls/hr IV Q24H [facility] Stop: 08/07/19 17:59 Last Infusion: 07/28/19 17:22 Dose: Infused Documented by: Magnesium Hydroxide (Milk Of Magnesia) 30 ml PO DAILY PRN PRN Reason: Constipation Stop: 08/25/19 20:31 Metoprolol Succinate (Toprol Xl) 100 mg PO BID [facility] Stop: 08/28/19 01:59 Last Admin: 07/29/19 05:12 Dose: Not Given Documented by: Multivitamins (Multivitamin Tab) 1 tab PO QAM [facility] Stop: 08/26/19 08:59 Last Admin: 07/28/19 09:06 Dose: 1 tab Documented by: Olanzapine (Zyprexa) 2.5 mg IM Q4H PRN PRN Reason: Anxiety/Agitation Stop: 08/28/19 01:48 Pantoprazole Sodium (Protonix) 40 mg PO DAILY [facility] Stop: 08/26/19 08:59 Last Admin: 07/28/19 09:06 Dose: 40 mg Documented by: Polyethylene Glycol (Miralax Powder Packet) 17 gm PO DAILY [facility] Stop: 08/26/19 08:59 Last Admin: 07/28/19 09:07 Dose: 17 gm Documented by: Pregabalin (Lyrica) 200 mg PO BID [facility] Stop: 08/26/19 20:59 Last Admin: 07/28/19 21:05 Dose: 200 mg Documented by: Rivaroxaban (Xarelto) 20 mg PO QDD [facility] Stop: 08/26/19 16:29 Last Admin: 07/28/19 16:52 Dose: 20 mg Documented by: Senna/Docusate Sodium (Senokot S) 1 tab PO DAILY [facility] Stop: 08/26/19 08:59 Last Admin: 07/28/19 09:06 Dose: 1 tab Documented by:
[2019-07-29] MEDS: bisacodyL 10 MG SUPP PR SCH (09:00)
[2019-07-29] MEDS: DOCUSATE SODIUM/SENNA 50/8.6MG TAB PO SCH (09:00)
[2019-07-29] MEDS: POLYETHYLENE (MIRALAX) 17 GM PACK PO SCH (09:00)
[2019-07-29] MEDS: DOCUSATE SODIUM 100 MG CAP PO SCH ×2 (09:00→20:50)
[2019-07-29] MEDS: OLANZapine 10 MG/2.1 ML SDV IM PRN (10:05)
[2019-07-29] MEDS: FUROSEMIDE 20 MG in SYRINGE 0 ML IV SCH (10:06)
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
[2019-07-29] MEDS: CYANOCOBALAMIN 500 MCG TABLET (VITAMIN B-12) PO SCH (13:12)
[2019-07-29] MEDS: PANTOprazole 40 MG TAB PO SCH (13:12)
[2019-07-29] MEDS: MULTIVITAMIN TAB PO SCH (13:12)
[2019-07-29] MEDS: ASPIRIN 81 MG ECTAB PO SCH (13:12)
[2019-07-29] MEDS: ATORVASTATIN 40 MG TAB PO SCH (13:12)
[2019-07-29] MEDS: PREGABALIN 100 MG CAP PO SCH ×2 (13:15→20:48)
[2019-07-29] MEDS: RIVAROXABAN 20 MG TAB PO SCH (16:06)
--- NOTE | 2019-07-29 18:01 | Hospitalist Progress Note ---
Date of Service July 29, 2019 Assessment & Plan (1) Sepsis associated hypotension: Pt was brought to the ER after found unresponsive by home health in AM of 07/26/19 and presumed diagnosis of sepsis from urinary tract infection. Initially found to be hypothermic at 34.7 C with hypotension of 75/55, leukocytosis of 15.7, lactic acid of 2.5, CK of 2642 and troponin of 0.338. VBG pH of 7.3 CT head on admission showed no acute intracranial abnormality Cervical spine CT without evidence of fracture or subluxation. Chest CTA with a patchy airspace consolidation at the left lung base. Also with left-sided nephrolithiasis and large bladder calculus. Received empirically on Zosyn and vancomycin on 07/26/19 in the ER and admitted to the ICU, then starting on Primaxin Patient transferred out of ICU on telemetry on 07/27/19 Blood cx no growth Urine cx proteus mirabilis abx changed from primaxin to Rocephin Continue monitor closely (2) Recurrent UTI: History of recurrent urinary tract infections presumed from risks of self straight catherizations of bladder at home Recent outpatient UA abnormal with gross hematuria. Urine culture from 07/21 with multiple venkat. Patient prescribed cefpodoxime as outpatient but did not received it prior to hospital presentation. Urine cx on this admission grew Proteus Mirabilis Abx changed from Primaxin to Rocephin (3) Elevated troponin: Possible related to demand ischemia due to sepsis/tachycardia Troponin 0.338 increased to 0.396, 0.442, 0.457, then 0.5 today EKG on admission showed no acute ST changed ECHO showed no new wall motion abnormality with EF 20% compare to previous echo cardiology on board Continue Statin, Aspirin, metoprolol and xarelto continue monitor in tele (4) Neurogenic bladder: Due to Spinal cord injury at T9 from osteomyelitis s/p thoracic fusion Continue shi cath (5) CAD (coronary artery disease): H/o CABG in 2015 and multiple PCIs Denies any chest pain Echo results on 07/27/19 with same ejection fraction and no new wall motion problems Continue aspirin, statin and metoprolol (6) Systolic heart failure: Echo results on 07/27/19 with same ejection fraction and no new wall motion problems Declined AICD therapy in the past as per cardiology when reviewed outpatient cardiology visit On Lasix as 20 mg IV daily, will transition on oral lasix (7) HTN (hypertension): BP has been stable Will resume lisinopril in am Hyposphatemia serum phosphorous 2.4 and then 2.2, give phosphorous supplements Will monitor (8) Paraplegia at T9 level: from history of past spinal cord injury at T9 from osteomyelitis s/p thoracic fusion Paralyzed from waist down, able to do some transfers using upper body but requires assistance transferin in and out of bed Neurogenic bladder, straight caths PRN PT/OT on board Not safe to discharge home as per OT PT agreed to go to SNF for rehab (9) History of narcotic addiction: Has controlled substance agreement with PCP Utox screen negative on admission Continue pregabalin Tachycardia Possible related to agitation Metoprolol 100mg BID resumed If refused to take oral metoprolol, consider low dose IV metoprolol History of deep vein thrombosis in the pas Venous doppler of LE showed no deep vein thrombosis Continue Xarelto of 20 mg daily Delirium Psych on board Continue low dose Zyprexa prn Continue monitor Stage III pressure ulcer of right buttock: Stage II pressure ulcer of left buttock Wound culture pending Wound care provider on board No debridement was required as per wound care provioder Continue daily dressing change Hematuria Possible related to trauma from the shi cath Hemoglobin stable If h/h drops, will hold xarelto Continue monitor DVT Ppx: on Xarelto (will hold if hematuria continues) Code status: Full Code Subjective Pt was seen and examined. Sitting in bed with no distress Early this morning pt was very confused and agitated He refused to take his medication After receiving Zyprexa, he was calm and agreed to take his med Currently denies any chest pain, palpitation and SOB Physical Exam Physical Exam: General- No acute distress Head- atraumatic Eyes- PERRL, EOMI, ENT- oropharynx clear Neck- supple, no JVD Lungs- clear to auscultation Heart- regular rhythm; no murmur Abdomen- normal bowel sounds, soft, nontender Extremities- no calf tenderness, LE numbness due to paraplegia Neuro- alert, oriented, paraplegia Skin- warm & dry, sacral decubitus ulcer Results & Data Vital Signs (Past 12 Hours) Vital Signs Temp Pulse Pulse Resp BP Pulse Ox 07/29/19 16:00 110 H 07/29/19 15:46 36.9 C 102 H 18 131/67 93 07/29/19 13:21 36.8 C 117 H 18 136/90 94 07/29/19 08:00 36.7 C 111 H 25 H 117/69 94
[2019-07-29] MEDS: cefTRIAXone SODIUM 2,000 MG in DEXTROSE 5% 50 ML IV SCH (20:40)
[2019-07-30 07:16] LABS: BUN Creatinine Ratio 22.7 (10-20); Calcium 8.9 mg/dl (8.5-10.1); Est GFR (African American) 119.9; Est GFR (Non-African American) 103.4; Phosphorus 2.8 mg/dl (2.5-4.9); Potassium 3.7 mmol/L (3.5-5.1)
[2019-07-30] MEDS: FUROSEMIDE 20 MG in SYRINGE 0 ML IV SCH (08:48)
[2019-07-30] MEDS: ASPIRIN 81 MG ECTAB PO SCH (08:48)
[2019-07-30] MEDS: MULTIVITAMIN TAB PO SCH (08:48)
[2019-07-30] MEDS: PANTOprazole 40 MG TAB PO SCH (08:48)
[2019-07-30] MEDS: ATORVASTATIN 40 MG TAB PO SCH (08:49)
[2019-07-30] MEDS: CYANOCOBALAMIN 500 MCG TABLET (VITAMIN B-12) PO SCH (08:49)
[2019-07-30] MEDS: POLYETHYLENE (MIRALAX) 17 GM PACK PO SCH (08:55)
[2019-07-30] MEDS: DOCUSATE SODIUM/SENNA 50/8.6MG TAB PO SCH (08:55)
[2019-07-30] MEDS: bisacodyL 5 MG TABEC PO PRN (08:55)
[2019-07-30] MEDS: PREGABALIN 100 MG CAP PO SCH ×2 (08:55→20:24)
[2019-07-30] MEDS: DOCUSATE SODIUM 100 MG CAP PO SCH ×2 (08:55→20:24)
[2019-07-30] MEDS: METOPROLOL SUCC 50MG EXT REL TAB PO SCH ×2 (09:01→20:24)
--- NOTE | 2019-07-30 11:02 | Hospitalist Progress Note ---
Date of Service July 30, 2019 Assessment & Plan (1) Sepsis associated hypotension: Pt was brought to the ER after found unresponsive by home health in AM of 07/26/19 and presumed diagnosis of sepsis from urinary tract infection. Initially found to be hypothermic at 34.7 C with hypotension of 75/55, leukocytosis of 15.7, lactic acid of 2.5, CK of 2642 and troponin of 0.338. VBG pH of 7.3 CT head on admission showed no acute intracranial abnormality Cervical spine CT without evidence of fracture or subluxation. Chest CTA with a patchy airspace consolidation at the left lung base. Also with left-sided nephrolithiasis and large bladder calculus. Received empirically on Zosyn and vancomycin on 07/26/19 in the ER and admitted to the ICU, then starting on Primaxin Patient transferred out of ICU on telemetry on 07/27/19 Blood cx no growth Urine cx proteus mirabilis Abx changed from primaxin to Rocephin Will change Rocephin to oral abx on discharge Continue monitor closely (2) Recurrent UTI: History of recurrent urinary tract infections presumed from risks of self straight catherizations of bladder at home Recent outpatient UA abnormal with gross hematuria. Urine culture from 07/21 with multiple venkat. Patient prescribed cefpodoxime as outpatient but did not received it prior to hospital presentation. Urine cx on this admission grew Proteus Mirabilis Abx changed from Primaxin to Rocephin Will change Rocephin to oral abx on discharge (3) Elevated troponin: Possible related to demand ischemia due to sepsis/tachycardia Troponin 0.338 increased to 0.396, 0.442, 0.457, then 0.5 today EKG on admission showed no acute ST changed ECHO showed no new wall motion abnormality with EF 20% compare to previous echo Cardiology on board Continue Statin, Aspirin, metoprolol and xarelto continue monitor in tele (4) Neurogenic bladder: Due to Spinal cord injury at T9 from osteomyelitis s/p thoracic fusion Continue shi cath (5) CAD (coronary artery disease): H/o CABG in 2014 and multiple PCIs Denies any chest pain Echo results on 07/27/19 with same ejection fraction and no new wall motion problems Continue aspirin, statin and metoprolol (6) Systolic heart failure: Echo results on 07/27/19 with same ejection fraction and no new wall motion problems Declined AICD therapy in the past as per cardiology when reviewed outpatient cardiology visit On Lasix as 20 mg IV daily, will transition on oral lasix (7) HTN (hypertension): BP has been stable Will resume lisinopril in am Hypophosphatemia Serum phosphorous 2.8 today stable (8) Paraplegia at T9 level: from history of past spinal cord injury at T9 from osteomyelitis s/p thoracic fusion Paralyzed from waist down, able to do some transfers using upper body but requires assistance transferin in and out of bed Neurogenic bladder, straight caths PRN PT/OT on board Not safe to discharge home as per OT PT agreed to go to SNF for rehab Waiting for placement (9) History of narcotic addiction: Has controlled substance agreement with PCP Utox screen negative on admission Continue pregabalin Tachycardia Possible related to agitation Continue Metoprolol 100mg BID Heart rate improves History of deep vein thrombosis in the pas Venous doppler of LE showed no deep vein thrombosis Continue Xarelto of 20 mg daily Delirium Psych on board Mental status improves significantly Continue low dose Zyprexa prn Continue monitor Stage III pressure ulcer of right buttock: Stage II pressure ulcer of left buttock Wound culture grew coag negative staph Wound care provider on board No debridement was required as per wound care provioder Continue daily dressing change Continue IV Rocephin for now Hematuria Possible related to trauma from the shi cath Hemoglobin stable If h/h drops, will hold xarelto Continue monitor DVT Ppx: on Xarelto (will hold if hematuria continues) Code status: Full Code Subjective Pt was seen and examined Lying in bed with no distress Pt is very calm today and make more sense It seems like that his back to his baseline He took his medications this morning Denies any chest pain, palpitation, dizziness and SOB Physical Exam Physical Exam: General- No acute distress Head- atraumatic Eyes- PERRL, EOMI, ENT- oropharynx clear Neck- supple, no JVD Lungs- clear to auscultation Heart- regular rhythm; no murmur Abdomen- normal bowel sounds, soft, nontender Extremities- no calf tenderness, LE numbness due to paraplegia Neuro- alert, oriented, paraplegia Skin- warm & dry, sacral decubitus ulcer Results & Data Vital Signs (Past 12 Hours) Vital Signs Temp Pulse Pulse Resp BP Pulse Ox 07/30/19 07:23 36.7 C 102 H 17 100/67 97 07/30/19 04:49 37.1 C 103 H 20 116/78 95 07/30/19 00:00 105 H 07/29/19 23:40 37.2 C 103 H 18 115/74 94
--- NOTE | 2019-07-30 12:30 | Cardiology Progress Note ---
Date of Service July 30, 2019 Assessment & Plan (1) Delirium: Improved this morning. Patient is cooperative and answering questions appropriately. . (2) Sepsis associated hypotension: Continue antibiotics per hospitalist. Antihypertensive meds held on admission BP improved Resume oral medications including beta estrellita (3) Ischemic cardiomyopathy: Long hsitory of ischemic cardiomyoathy with severely reduced LVEF 15-25% per prior serial echocardiograms. Previously declined AICD therapy when discussed at repeated outpatient visits. Echo reveals stable findings (4) Elevated troponin: consistent with underlying ischemic cardiomyopathy, sinus tachycardia, and acute sepsis. No acute EKG changes Echo reveals stable findings. Not indicative of ACS. Resume metoprolol (5) Sinus tachycardia: Due to agitation, sepsis, and beta estrellita withdrawal Heart rates improved now that home dose metoprolol 100 mg BID has been resumed. Stable cardiac symptoms. No further cardiac testing is warranted at this time. Case discussed with Dr. Reyes. Supervising Physician Co-Signing Physician Notes Cardiology attending note: Patient seen and examined: Agree with findings, assessment and plan as outlined by Agustina Suggs PA-C with additions as noted below: Subjective: Patient mental status is much improved today. Sinus tachycardia in the range of 100 115 bpm present. Patient states he is comfortable. Impression: Chronic systolic heart failure, due to ischemic cardiomyopathy. Sepsis, presumed UTI source. Plan: Continue metoprolol succinate 100 mg twice daily which had been reinitiated after his blood pressure had improved. Agree with low-dose furosemide to prevent him from becoming volume overloaded. Continue Xarelto given his history of DVTs. Subjective Improved mental status this morning compared to yesterday. Patient alert and cooperative. Answering questions appropriately. Able to take p.o. medications. He denies recent chest pain or unusual shortness of breath. He denies symptoms of palpitations or tachypalpitations. No dizziness, syncope or near syncope. Review of Systems Review of Systems: All systems reviewed & are unremarkable except as noted in HPI & below Physical Exam Constitutional: WD/WN, vitals as above + ill appearing Respiratory: normal respiratory effort, lungs clear to auscultation Cardiovascular: Rate/Rhythm: regular rate and + tachycardic Heart Sounds: no murmur Vessels: no JVD Extremities: no edema Gastrointestinal (Abdomen): normal bowel sounds, soft, nontender, no hepatosplenomegaly Neurologic: PERRL, EOMI, accommodation nl, no face palsy, no dysarthria Psychiatric: A+Ox3, euthymic affect Results & Data Vital Signs (Past 12 Hours) Vital Signs Temp Pulse Pulse Resp BP Pulse Ox 07/30/19 11:53 36.8 C 81 18 108/66 94 07/30/19 08:50 98 H 07/30/19 07:23 36.7 C 102 H 17 100/67 97 07/30/19 04:49 37.1 C 103 H 20 116/78 95 Laboratory Results 07/30/19 Range/Units 06:16 Sodium 138 (136-145) mmol/L Potassium 3.7 (3.5-5.1) mmol/L Chloride 108 H (98-107) mmol/L Carbon Dioxide 24 (21-32) mmol/L Anion Gap 6.0 (3-11) BUN 18 (7-18) mg/dl Creatinine 0.80 (0.6-1.4) mg/dl Est Cr Clr Drug Dosing 128.0 ml/min Est GFR ( Amer) 119.9 Est GFR (Non-Af Amer) 103.4 BUN/Creatinine Ratio 22.7 H (10-20) Glucose 97 (70-99) mg/dl Calcium 8.9 (8.5-10.1) mg/dl Phosphorus 2.8 (2.5-4.9) mg/dl Diagnostic Findings Telemetry reviewed: Normal sinus rhythm and sinus tachycardia with heart rates ranging upper 90s to 110 bpm, improved from yesterday Medications Administered Current Inpatient Medications Aspirin (Ecotrin Ectab) 81 mg PO DAILY [facility] Stop: 08/26/19 08:59 Last Admin: 07/30/19 08:48 Dose: 81 mg Documented by: Atorvastatin Calcium (Lipitor) 40 mg PO DAILY [facility] Stop: 08/26/19 08:59 Last Admin: 07/30/19 08:49 Dose: 40 mg Documented by: Bisacodyl (Dulcolax) [address] Q2D [facility] Stop: 08/26/19 08:59 Last Admin: 07/29/19 09:00 Dose: Not Given Documented by: Bisacodyl (Dulcolax) 5 mg PO DAILY PRN PRN Reason: Constipation Stop: 08/25/19 20:31 Last Admin: 07/30/19 08:55 Dose: 5 mg Documented by: Cyanocobalamin (Vitamin B-12) 1,000 mcg PO DAILY [facility] Stop: 08/26/19 08:59 Last Admin: 07/30/19 08:49 Dose: 1,000 mcg Documented by: Cyclobenzaprine HCl (Flexeril) 10 mg PO Q8H PRN PRN Reason: Leg and back pain Stop: 08/25/19 20:40 Last Admin: 07/27/19 09:19 Dose: 10 mg Documented by: Docusate Sodium (Colace) 100 mg PO BID [facility] Stop: 08/25/19 20:59 Last Admin: 07/30/19 08:55 Dose: 100 mg Documented by: Furosemide 20 mg/ Syringe 2 mls @ 4 mls/min IV DAILY [facility] Stop: 08/27/19 08:59 Last Admin: 07/30/19 08:48 Dose: 4 mls/min Documented by: Ceftriaxone Sodium 2,000 mg/ (Dextrose) 70 mls @ 140 mls/hr IV Q24H [facility] Stop: 08/07/19 17:59 Last Infusion: 07/29/19 20:40 Dose: 0 mls/hr Documented by: Magnesium Hydroxide (Milk Of Magnesia) 30 ml PO DAILY PRN PRN Reason: Constipation Stop: 08/25/19 20:31 Metoprolol Succinate (Toprol Xl) 100 mg PO BID [facility] Stop: 08/28/19 01:59 Last Admin: 07/30/19 09:01 Dose: 100 mg Documented by: Multivitamins (Multivitamin Tab) 1 tab PO QAM [facility] Stop: 08/26/19 08:59 Last Admin: 07/30/19 08:48 Dose: 1 tab Documented by: Olanzapine (Zyprexa) 2.5 mg IM Q4H PRN PRN Reason: Anxiety/Agitation Stop: 08/28/19 01:48 Last Admin: 07/29/19 10:05 Dose: 2.5 mg Documented by: Pantoprazole Sodium (Protonix) 40 mg PO DAILY [facility] Stop: 08/26/19 08:59 Last Admin: 07/30/19 08:48 Dose: 40 mg Documented by: Polyethylene Glycol (Miralax Powder Packet) 17 gm PO DAILY [facility] Stop: 08/26/19 08:59 Last Admin: 07/30/19 08:55 Dose: 17 gm Documented by: Pregabalin (Lyrica) 200 mg PO BID [facility] Stop: 08/26/19 20:59 Last Admin: 07/30/19 08:55 Dose: 200 mg Documented by: Rivaroxaban (Xarelto) 20 mg PO QDD [facility] Stop: 08/26/19 16:29 Last Admin: 07/29/19 16:06 Dose: 20 mg Documented by: Senna/Docusate Sodium (Senokot S) 1 tab PO DAILY [facility] Stop: 08/26/19 08:59 Last Admin: 07/30/19 08:55 Dose: 1 tab Documented by:
[2019-07-30] MEDS: OLANZapine 10 MG/2.1 ML SDV IM PRN (16:52)
[2019-07-30] MEDS: RIVAROXABAN 20 MG TAB PO SCH (16:54)
[2019-07-30] MEDS: cefTRIAXone SODIUM 2,000 MG in DEXTROSE 5% 50 ML IV SCH (18:48)
[2019-07-31] MEDS: DOCUSATE SODIUM 100 MG CAP PO SCH ×2 (08:35→21:31)
[2019-07-31] MEDS: bisacodyL 10 MG SUPP PR SCH (08:36)
[2019-07-31] MEDS: PREGABALIN 100 MG CAP PO SCH ×2 (08:36→21:30)
[2019-07-31] MEDS: ASPIRIN 81 MG ECTAB PO SCH (08:36)
[2019-07-31] MEDS: FUROSEMIDE 20 MG in SYRINGE 0 ML IV SCH (08:36)
[2019-07-31] MEDS: ATORVASTATIN 40 MG TAB PO SCH (08:36)
[2019-07-31] MEDS: POLYETHYLENE (MIRALAX) 17 GM PACK PO SCH (08:36)
[2019-07-31] MEDS: PANTOprazole 40 MG TAB PO SCH (08:38)
[2019-07-31] MEDS: MULTIVITAMIN TAB PO SCH (08:38)
[2019-07-31] MEDS: DOCUSATE SODIUM/SENNA 50/8.6MG TAB PO SCH (08:39)
[2019-07-31] MEDS: CYANOCOBALAMIN 500 MCG TABLET (VITAMIN B-12) PO SCH (08:39)
[2019-07-31] MEDS: METOPROLOL SUCC 50MG EXT REL TAB PO SCH ×2 (08:39→21:30)
--- NOTE | 2019-07-31 13:28 | Psychiatric Progress Note ---
Date of Service July 31, 2019 Impression / Recommendations Impression 49-year-old male admitted medically on 07/26/19 for AMS. He remains paranoid, uncooperative, and intermittently agitated toward staff. He is not taking PO. Given delirium and desire to limit IM, may make most sense if symptoms are not resolving over the course of next 24 hours to add low dose IV Haldol (1 mg q6) standing rather than prn to address on short term basis. Liaison to follow. Interval History Chief Complaint uncooperative with care at times, delirium Subjective Subjective attempted to see patient as medical director occupational health clinician for follow up on initial consultation. By all reports delirium appears to be improving. Nurse notes that his MS continues to wax and wane, may be appropriate and answer questions and then pretend to be sleeping to avoid others. He will then seem irritable and voice paranoia, recently removed IJ tube and told staff he believed they were trying to kill him. will not allow staff to skin care to sores on bottom. He won't take meds by mouth and Zyprexa IM was ordered as prn for agitation but he calmed this am and didn't require it. Physical Exam Mental Examination patient appeared to be lying in bed with eyes open but then deliberately closed/mute when I entered room, appeared to shake a bit as questioning continued (fine tremor) but remained quiet. exam terminated as did not want to agitate patient. Vital Signs (Past 24 Hours) Last Vital Signs Temp 37.5 C 07/31/19 11:56 Pulse 119 H 07/31/19 11:56 Resp 19 07/31/19 11:56 BP 146/92 H 07/31/19 11:56 Pulse Ox 94 07/31/19 11:56 Results & Data Current Inpatient Medications Current Inpatient Medications: Current Inpatient Medications Aspirin (Ecotrin Ectab) 81 mg PO DAILY [facility] Stop: 08/26/19 08:59 Last Admin: 07/31/19 08:36 Dose: Not Given Documented by: Atorvastatin Calcium (Lipitor) 40 mg PO DAILY [facility] Stop: 08/26/19 08:59 Last Admin: 07/31/19 08:36 Dose: Not Given Documented by: Bisacodyl (Dulcolax) 10 mg MO Q2D [facility] Stop: 08/26/19 08:59 Last Admin: 07/31/19 08:36 Dose: Not Given Documented by: Bisacodyl (Dulcolax) 5 mg PO DAILY PRN PRN Reason: Constipation Stop: 08/25/19 20:31 Last Admin: 07/30/19 08:55 Dose: 5 mg Documented by: Cyanocobalamin (Vitamin B-12) 1,000 mcg PO DAILY [facility] Stop: 08/26/19 08:59 Last Admin: 07/31/19 08:39 Dose: Not Given Documented by: Cyclobenzaprine HCl (Flexeril) 10 mg PO Q8H PRN PRN Reason: Leg and back pain Stop: 08/25/19 20:40 Last Admin: 07/27/19 09:19 Dose: 10 mg Documented by: Docusate Sodium (Colace) 100 mg PO BID [facility] Stop: 08/25/19 20:59 Last Admin: 07/31/19 08:35 Dose: Not Given Documented by: Furosemide 20 mg/ Syringe 2 mls @ 4 mls/min IV DAILY [facility] Stop: 08/27/19 08:59 Last Admin: 07/31/19 08:36 Dose: Not Given Documented by: Ceftriaxone Sodium 2,000 mg/ (Dextrose) 70 mls @ 140 mls/hr IV Q24H [facility] Stop: 08/07/19 17:59 Last Admin: 07/30/19 18:48 Dose: Not Given Documented by: Magnesium Hydroxide (Milk Of Magnesia) 30 ml PO DAILY PRN PRN Reason: Constipation Stop: 08/25/19 20:31 Metoprolol Succinate (Toprol Xl) 100 mg PO BID [facility] Stop: 08/28/19 01:59 Last Admin: 07/31/19 08:39 Dose: Not Given Documented by: Multivitamins (Multivitamin Tab) 1 tab PO QAM [facility] Stop: 08/26/19 08:59 Last Admin: 07/31/19 08:38 Dose: Not Given Documented by: Olanzapine (Zyprexa) 2.5 mg IM Q4H PRN PRN Reason: Anxiety/Agitation Stop: 08/28/19 01:48 Last Admin: 07/30/19 16:52 Dose: 2.5 mg Documented by: Pantoprazole Sodium (Protonix) 40 mg PO DAILY [facility] Stop: 08/26/19 08:59 Last Admin: 07/31/19 08:38 Dose: Not Given Documented by: Polyethylene Glycol (Miralax Powder Packet) 17 gm PO DAILY [facility] Stop: 08/26/19 08:59 Last Admin: 07/31/19 08:36 Dose: Not Given Documented by: Pregabalin (Lyrica) 200 mg PO BID [facility] Stop: 08/26/19 20:59 Last Admin: 07/31/19 08:36 Dose: Not Given Documented by: Rivaroxaban (Xarelto) 20 mg PO QDD [facility] Stop: 08/26/19 16:29 Last Admin: 07/30/19 16:54 Dose: 20 mg Documented by: Senna/Docusate Sodium (Senokot S) 1 tab PO DAILY [facility] Stop: 08/26/19 08:59 Last Admin: 07/31/19 08:39 Dose: Not Given Documented by:
[2019-07-31] MEDS: OLANZapine 10 MG/2.1 ML SDV IM PRN (15:37)
[2019-07-31] MEDS ORDERED: HALOPERIDOL LACTATE 5 MG/ML 1 ML VIAL IV PRN (15:51)
[2019-07-31] MEDS: RIVAROXABAN 20 MG TAB PO SCH (16:00)
[2019-07-31] MEDS ORDERED: LORazepam 2 MG/4 ML VIAL IV STA (17:10)
[2019-07-31] MEDS: cefTRIAXone SODIUM 2,000 MG in DEXTROSE 5% 50 ML IV SCH (17:40)
--- NOTE | 2019-07-31 19:02 | Hospitalist Progress Note ---
Date of Service July 31, 2019 Assessment & Plan (1) Sepsis associated hypotension: Pt was brought to the ER after found unresponsive by home health in AM of 07/26/19 and presumed diagnosis of sepsis from urinary tract infection. Initially found to be hypothermic at 34.7 C with hypotension of 75/55, leukocytosis of 15.7, lactic acid of 2.5, CK of 2642 and troponin of 0.338. VBG pH of 7.3 CT head on admission showed no acute intracranial abnormality Cervical spine CT without evidence of fracture or subluxation. Chest CTA with a patchy airspace consolidation at the left lung base. Also with left-sided nephrolithiasis and large bladder calculus. Received empirically on Zosyn and vancomycin on 07/26/19 in the ER and admitted to the ICU, then starting on Primaxin Patient transferred out of ICU on telemetry on 07/27/19 Blood cx no growth Urine cx proteus mirabilis Abx changed from primaxin to Rocephin Will change Rocephin to oral abx on discharge Continue monitor closely (2) Recurrent UTI: History of recurrent urinary tract infections presumed from risks of self straight catherizations of bladder at home Recent outpatient UA abnormal with gross hematuria. Urine culture from 07/21 with multiple venkat. Patient prescribed cefpodoxime as outpatient but did not received it prior to hospital presentation. Urine cx on this admission grew Proteus Mirabilis Abx changed from Primaxin to Rocephin Will change Rocephin to oral abx on discharge (3) Elevated troponin: Possible related to demand ischemia due to sepsis/tachycardia Troponin 0.338 increased to 0.396, 0.442, 0.457, then 0.5 today EKG on admission showed no acute ST changed ECHO showed no new wall motion abnormality with EF 20% compare to previous echo Cardiology on board Continue Statin, Aspirin, metoprolol and xarelto continue monitor in tele (4) Neurogenic bladder: Due to Spinal cord injury at T9 from osteomyelitis s/p thoracic fusion Continue shi cath (5) CAD (coronary artery disease): H/o CABG in 2014 and multiple PCIs Denies any chest pain Echo results on 07/27/19 with same ejection fraction and no new wall motion problems Continue aspirin, statin and metoprolol (6) Systolic heart failure: Echo results on 07/27/19 with same ejection fraction and no new wall motion problems Declined AICD therapy in the past as per cardiology when reviewed outpatient cardiology visit On Lasix as 20 mg IV daily, will transition on oral lasix (7) HTN (hypertension): BP has been stable Will resume lisinopril in am Hypophosphatemia Serum phosphorous 2.8 today stable (8) Paraplegia at T9 level: from history of past spinal cord injury at T9 from osteomyelitis s/p thoracic fusion Paralyzed from waist down, able to do some transfers using upper body but requires assistance transferin in and out of bed Neurogenic bladder, straight caths PRN PT/OT on board Not safe to discharge home as per OT PT agreed to go to SNF for rehab Waiting for placement (9) History of narcotic addiction: Has controlled substance agreement with PCP Utox screen negative on admission Continue pregabalin Tachycardia Possible related to agitation Continue Metoprolol 100mg BID Heart rate improves History of deep vein thrombosis in the pas Venous doppler of LE showed no deep vein thrombosis Continue Xarelto of 20 mg daily Delirium Agitation Psych on board Zyprexa increased and haldol adding Continue monitor Stage III pressure ulcer of right buttock: Stage II pressure ulcer of left buttock Wound culture grew coag negative staph Wound care provider on board No debridement was required as per wound care provioder Continue daily dressing change Continue IV Rocephin for now Hematuria Possible related to trauma from the shi cath Hemoglobin stable If h/h drops, will hold xarelto Continue monitor DVT Ppx: on Xarelto (will hold if hematuria continues) Code status: Full Code Subjective Pt was seen and examined Lying in bed with no distress Confused and does not want to interact with anyone Code lena called because pt was agitated and was trying to use a straw to puncture around his neck Physical Exam Physical Exam: General- No acute distress Head- atraumatic Eyes- PERRL, EOMI, ENT- oropharynx clear Neck- supple, no JVD Lungs- clear to auscultation Heart- regular rhythm; no murmur Abdomen- normal bowel sounds, soft, nontender Extremities- no calf tenderness, LE numbness due to paraplegia Neuro- alert, oriented, paraplegia Skin- warm & dry, sacral decubitus ulcer Results & Data Vital Signs (Past 12 Hours) Vital Signs Temp Pulse Pulse Resp BP BP Pulse Ox 07/31/19 16:58 116 H 07/31/19 16:53 122 H 17 110/78 93 07/31/19 16:00 123 H 07/31/19 15:13 36.8 C 98 H 18 132/80 98 07/31/19 11:56 37.5 C 119 H 19 146/92 H 94 07/31/19 08:00 103 H 07/31/19 07:58 36.9 C 110 H 17 127/84 95
[2019-07-31] MEDS: HALOPERIDOL LACTATE 5 MG/ML 1 ML VIAL IV SCH (20:14)
[2019-08-01] MEDS: CYANOCOBALAMIN 500 MCG TABLET (VITAMIN B-12) PO SCH (07:28)
[2019-08-01] MEDS: METOPROLOL SUCC 50MG EXT REL TAB PO SCH ×2 (07:29→20:41)
[2019-08-01] MEDS: MULTIVITAMIN TAB PO SCH (07:29)
[2019-08-01] MEDS: PANTOprazole 40 MG TAB PO SCH (07:29)
[2019-08-01] MEDS: HALOPERIDOL LACTATE 5 MG/ML 1 ML VIAL IV SCH ×3 (07:30→20:40)
[2019-08-01] MEDS: ATORVASTATIN 40 MG TAB PO SCH (07:30)
[2019-08-01] MEDS: ASPIRIN 81 MG ECTAB PO SCH (07:30)
[2019-08-01] MEDS: PREGABALIN 100 MG CAP PO SCH ×2 (07:35→20:43)
[2019-08-01] MEDS: POLYETHYLENE (MIRALAX) 17 GM PACK PO SCH (07:36)
[2019-08-01] MEDS: bisacodyL 5 MG TABEC PO PRN (07:36)
[2019-08-01] MEDS: DOCUSATE SODIUM/SENNA 50/8.6MG TAB PO SCH (07:36)
[2019-08-01] MEDS: DOCUSATE SODIUM 100 MG CAP PO SCH ×2 (07:36→20:40)
[2019-08-01] MEDS: FUROSEMIDE 20 MG in SYRINGE 0 ML IV SCH (10:49)
--- NOTE | 2019-08-01 12:16 | Psychiatric Progress Note ---
Date of Service August 01, 2019 Impression / Recommendations Impression 49-year-old male admitted medically on 07/26/19 for AMS. He remains paranoid, uncooperative, and intermittently agitated toward staff. Partial response to relatively low dose Haldol 2 mg TID. Zyprexa prn was increased to 5 mg but did not require after his Haldol 1, Zyprexa 2.5, and Ativan 2 mg yesterday afternoon prior to initiation of standing Haldol. First day of Haldol 2 mg TID, monitor for ability to switch to PO. Consider titration based on course. Interval History Chief Complaint "That kim over there is messing with me". Review of Systems Notes unable to complete due to AMS Subjective Subjective remains delirious but less combative following initiation of Haldol. When he was stabbing at self with straw in the neck he reportedly believed that he was protecting self from someone trying to kill him. Sitter reports threw his phone/call edge just prior to our arrival this am. Patient has no recollection of his symptoms, very limited attention span then starts picking at the hair on his abdomen and clearly responds to a woman who is not there. Case discussed briefly with Dr. Devine. Appears to be tolerating Haldol well. Physical Exam Mental Examination non-sensical speech, picking at self and air, disorganized thoughts with short attention span, picking at the air. Vital Signs (Past 24 Hours) Last Vital Signs Temp 37.2 C 08/01/19 11:18 Pulse 109 H 08/01/19 11:18 Resp 24 08/01/19 11:18 BP 122/79 08/01/19 11:18 Pulse Ox 95 08/01/19 11:18 Results & Data Current Inpatient Medications Current Inpatient Medications: Current Inpatient Medications Aspirin (Ecotrin Ectab) 81 mg PO DAILY [facility] Stop: 08/26/19 08:59 Last Admin: 08/01/19 07:30 Dose: 81 mg Documented by: Atorvastatin Calcium (Lipitor) 40 mg PO DAILY [facility] Stop: 08/26/19 08:59 Last Admin: 08/01/19 07:30 Dose: 40 mg Documented by: Bisacodyl (Dulcolax) 10 mg SD Q2D [facility] Stop: 08/26/19 08:59 Last Admin: 07/31/19 08:36 Dose: Not Given Documented by: Bisacodyl (Dulcolax) 5 mg PO DAILY PRN PRN Reason: Constipation Stop: 08/25/19 20:31 Last Admin: 08/01/19 07:36 Dose: 5 mg Documented by: Cyanocobalamin (Vitamin B-12) 1,000 mcg PO DAILY [facility] Stop: 08/26/19 08:59 Last Admin: 08/01/19 07:28 Dose: 1,000 mcg Documented by: Cyclobenzaprine HCl (Flexeril) 10 mg PO Q8H PRN PRN Reason: Leg and back pain Stop: 08/25/19 20:40 Last Admin: 07/27/19 09:19 Dose: 10 mg Documented by: Docusate Sodium (Colace) 100 mg PO BID [facility] Stop: 08/25/19 20:59 Last Admin: 08/01/19 07:36 Dose: 100 mg Documented by: Haloperidol Lactate (Haldol) 2 mg IV TID [facility] Stop: 08/30/19 20:59 Last Admin: 08/01/19 07:30 Dose: 2 mg Documented by: Furosemide 20 mg/ Syringe 2 mls @ 4 mls/min IV DAILY [facility] Stop: 08/27/19 08:59 Last Admin: 08/01/19 10:49 Dose: 4 mls/min Documented by: Ceftriaxone Sodium 2,000 mg/ (Dextrose) 70 mls @ 140 mls/hr IV Q24H [facility] Stop: 08/07/19 17:59 Last Admin: 07/31/19 17:40 Dose: Not Given Documented by: Magnesium Hydroxide (Milk Of Magnesia) 30 ml PO DAILY PRN PRN Reason: Constipation Stop: 08/25/19 20:31 Metoprolol Succinate (Toprol Xl) 100 mg PO BID [facility] Stop: 08/28/19 01:59 Last Admin: 08/01/19 07:29 Dose: 100 mg Documented by: Multivitamins (Multivitamin Tab) 1 tab PO QAM [facility] Stop: 08/26/19 08:59 Last Admin: 08/01/19 07:29 Dose: 1 tab Documented by: Olanzapine (Zyprexa) 5 mg IM Q4H PRN PRN Reason: Anxiety/Agitation Stop: 08/28/19 01:48 Pantoprazole Sodium (Protonix) 40 mg PO DAILY [facility] Stop: 08/26/19 08:59 Last Admin: 08/01/19 07:29 Dose: 40 mg Documented by: Polyethylene Glycol (Miralax Powder Packet) 17 gm PO DAILY [facility] Stop: 08/26/19 08:59 Last Admin: 08/01/19 07:36 Dose: 17 gm Documented by: Pregabalin (Lyrica) 200 mg PO BID [facility] Stop: 08/26/19 20:59 Last Admin: 08/01/19 07:35 Dose: 200 mg Documented by: Rivaroxaban (Xarelto) 20 mg PO QDD [facility] Stop: 08/26/19 16:29 Last Admin: 07/31/19 16:00 Dose: Not Given Documented by: Senna/Docusate Sodium (Senokot S) 1 tab PO DAILY [facility] Stop: 08/26/19 08:59 Last Admin: 08/01/19 07:36 Dose: 1 tab Documented by:
[2019-08-01] MEDS: OLANZapine 10 MG/2.1 ML SDV IM PRN ×2 (12:26→21:12)
--- NOTE | 2019-08-01 17:41 | Hospitalist Progress Note ---
Date of Service August 01, 2019 Assessment & Plan (1) Sepsis associated hypotension: Pt was brought to the ER after found unresponsive by home health in AM of 07/26/19 and presumed diagnosis of sepsis from urinary tract infection. Initially found to be hypothermic at 34.7 C with hypotension of 75/55, leukocytosis of 15.7, lactic acid of 2.5, CK of 2642 and troponin of 0.338. VBG pH of 7.3 CT head on admission showed no acute intracranial abnormality Cervical spine CT without evidence of fracture or subluxation. Chest CTA with a patchy airspace consolidation at the left lung base. Also with left-sided nephrolithiasis and large bladder calculus. Received empirically on Zosyn and vancomycin on 07/26/19 in the ER and admitted to the ICU, then starting on Primaxin Patient transferred out of ICU on telemetry on 07/27/19 Blood cx no growth Urine cx proteus mirabilis Abx changed from primaxin to Rocephin on 07/28 Will change Rocephin to oral abx on discharge Continue monitor closely (2) Recurrent UTI: History of recurrent urinary tract infections presumed from risks of self straight catherizations of bladder at home Recent outpatient UA abnormal with gross hematuria. Urine culture from 07/21 with multiple venkat. Patient prescribed cefpodoxime as outpatient but did not received it prior to hospital presentation. Urine cx on this admission grew Proteus Mirabilis Abx changed from Primaxin to Rocephin Will change Rocephin to oral abx on discharge (3) Elevated troponin: Possible related to demand ischemia due to sepsis/tachycardia Troponin 0.338 increased to 0.396, 0.442, 0.457, then 0.5 today EKG on admission showed no acute ST changed ECHO showed no new wall motion abnormality with EF 20% compare to previous echo Cardiology on board Continue Statin, Aspirin, metoprolol and xarelto continue monitor in tele (4) Neurogenic bladder: Due to Spinal cord injury at T9 from osteomyelitis s/p thoracic fusion Continue shi cath (5) CAD (coronary artery disease): H/o CABG in 2014 and multiple PCIs Denies any chest pain Echo results on 07/27/19 with same ejection fraction and no new wall motion problems Continue aspirin, statin and metoprolol (6) Systolic heart failure: Echo results on 07/27/19 with same ejection fraction and no new wall motion problems Declined AICD therapy in the past as per cardiology when reviewed outpatient cardiology visit On Lasix as 20 mg IV daily, will transition on oral lasix (7) HTN (hypertension): BP has been stable Will resume lisinopril in am Hypophosphatemia Serum phosphorous 2.8 today stable (8) Paraplegia at T9 level: from history of past spinal cord injury at T9 from osteomyelitis s/p thoracic fusion Paralyzed from waist down, able to do some transfers using upper body but requires assistance transferin in and out of bed Neurogenic bladder, straight caths PRN PT/OT on board Not safe to discharge home as per OT PT agreed to go to SNF for rehab Waiting for placement (9) History of narcotic addiction: Has controlled substance agreement with PCP Utox screen negative on admission Continue pregabalin Tachycardia Possible related to agitation Continue Metoprolol 100mg BID Heart rate improves History of deep vein thrombosis in the pas Venous doppler of LE showed no deep vein thrombosis Continue Xarelto of 20 mg daily Delirium Agitation Psych on board recommended to continue Zyprexa and haldol Continue monitor Stage III pressure ulcer of right buttock: Stage II pressure ulcer of left buttock Wound culture grew coag negative staph Wound care provider on board No debridement was required as per wound care provioder Continue daily dressing change Continue IV Rocephin for now Hematuria Possible related to trauma from the shi cath Hemoglobin stable If h/h drops, will hold xarelto Continue monitor DVT Ppx: on Xarelto (will hold if hematuria continues) Code status: Full Code Subjective Pt was seen and examined Lying in bed with no distress with 1 to 1 sitter Pt was very agitated yesterday, but calm today Denies any chest pain, palpitation, dizziness and SOB Physical Exam Physical Exam: General- No acute distress Head- atraumatic Eyes- PERRL, EOMI, ENT- oropharynx clear Neck- supple, no JVD Lungs- clear to auscultation Heart- regular rhythm; no murmur Abdomen- normal bowel sounds, soft, nontender Extremities- no calf tenderness, LE numbness due to paraplegia Neuro- alert, oriented, paraplegia Skin- warm & dry, sacral decubitus ulcer Results & Data Vital Signs (Past 12 Hours) Vital Signs Temp Pulse Pulse Resp BP Pulse Ox 08/01/19 14:58 36.8 C 110 H 16 110/78 97 08/01/19 11:18 37.2 C 109 H 24 122/79 95 08/01/19 08:00 114 H 08/01/19 06:58 37.1 C 114 H 18 150/81 H 93
[2019-08-01] MEDS: RIVAROXABAN 20 MG TAB PO SCH (18:03)
[2019-08-01] MEDS: cefTRIAXone SODIUM 2,000 MG in DEXTROSE 5% 50 ML IV SCH (18:07)
[2019-08-02] MEDS: METOPROLOL SUCC 50MG EXT REL TAB PO SCH ×2 (08:37→22:28)
[2019-08-02] MEDS: ATORVASTATIN 40 MG TAB PO SCH (08:37)
[2019-08-02] MEDS: ASPIRIN 81 MG ECTAB PO SCH (08:38)
[2019-08-02] MEDS: PANTOprazole 40 MG TAB PO SCH (08:38)
[2019-08-02] MEDS: CYANOCOBALAMIN 500 MCG TABLET (VITAMIN B-12) PO SCH (08:38)
[2019-08-02] MEDS: MULTIVITAMIN TAB PO SCH (08:38)
[2019-08-02] MEDS: DOCUSATE SODIUM 100 MG CAP PO SCH ×2 (08:39→22:31)
[2019-08-02] MEDS: PREGABALIN 100 MG CAP PO SCH ×2 (08:39→22:31)
[2019-08-02] MEDS: bisacodyL 5 MG TABEC PO PRN (08:42)
[2019-08-02] MEDS: DOCUSATE SODIUM/SENNA 50/8.6MG TAB PO SCH (08:42)
[2019-08-02] MEDS: POLYETHYLENE (MIRALAX) 17 GM PACK PO SCH (08:43)
[2019-08-02] MEDS: HALOPERIDOL LACTATE 5 MG/ML 1 ML VIAL IV SCH ×3 (08:45→22:27)
[2019-08-02] MEDS: bisacodyL 10 MG SUPP PR SCH (08:46)
[2019-08-02] MEDS: FUROSEMIDE 20 MG in SYRINGE 0 ML IV SCH (08:46)
[2019-08-02] MEDS: RIVAROXABAN 20 MG TAB PO SCH (16:09)
[2019-08-02] MEDS: cefTRIAXone SODIUM 2,000 MG in DEXTROSE 5% 50 ML IV SCH (18:33)
--- NOTE | 2019-08-02 19:44 | Hospitalist Progress Note ---
Date of Service August 02, 2019 Assessment & Plan (1) Sepsis associated hypotension: Pt was brought to the ER after found unresponsive by home health in AM of 07/26/19 and presumed diagnosis of sepsis from urinary tract infection. Initially found to be hypothermic at 34.7 C with hypotension of 75/55, leukocytosis of 15.7, lactic acid of 2.5, CK of 2642 and troponin of 0.338. VBG pH of 7.3 CT head on admission showed no acute intracranial abnormality Cervical spine CT without evidence of fracture or subluxation. Chest CTA with a patchy airspace consolidation at the left lung base. Also with left-sided nephrolithiasis and large bladder calculus. Received empirically on Zosyn and vancomycin on 07/26/19 in the ER and admitted to the ICU, then starting on Primaxin Patient transferred out of ICU on telemetry on 07/27/19 Blood cx no growth Urine cx proteus mirabilis Abx changed from primaxin to Rocephin on 07/28 Will change Rocephin to oral abx on discharge Continue monitor closely (2) Recurrent UTI: History of recurrent urinary tract infections presumed from risks of self straight catherizations of bladder at home Recent outpatient UA abnormal with gross hematuria. Urine culture from 07/21 with multiple venkat. Patient prescribed cefpodoxime as outpatient but did not received it prior to hospital presentation. Urine cx on this admission grew Proteus Mirabilis Abx changed from Primaxin to Rocephin Will change Rocephin to oral abx on discharge (3) Elevated troponin: Possible related to demand ischemia due to sepsis/tachycardia Troponin 0.338 increased to 0.396, 0.442, 0.457, then 0.5 today EKG on admission showed no acute ST changed ECHO showed no new wall motion abnormality with EF 20% compare to previous echo Cardiology on board Continue Statin, Aspirin, metoprolol and xarelto continue monitor in tele (4) Neurogenic bladder: Due to Spinal cord injury at T9 from osteomyelitis s/p thoracic fusion Continue shi cath (5) CAD (coronary artery disease): H/o CABG in 2014 and multiple PCIs Denies any chest pain Echo results on 07/27/19 with same ejection fraction and no new wall motion problems Continue aspirin, statin and metoprolol (6) Systolic heart failure: Echo results on 07/27/19 with same ejection fraction and no new wall motion problems Declined AICD therapy in the past as per cardiology when reviewed outpatient cardiology visit On Lasix as 20 mg IV daily, will transition on oral lasix (7) HTN (hypertension): BP has been stable Will resume lisinopril in am Hypophosphatemia Serum phosphorous 2.8 today stable (8) Paraplegia at T9 level: from history of past spinal cord injury at T9 from osteomyelitis s/p thoracic fusion Paralyzed from waist down, able to do some transfers using upper body but requires assistance transferin in and out of bed Neurogenic bladder, straight caths PRN PT/OT on board Not safe to discharge home as per OT PT agreed to go to SNF for rehab Waiting for placement (9) History of narcotic addiction: Has controlled substance agreement with PCP Utox screen negative on admission Continue pregabalin Tachycardia Possible related to agitation Continue Metoprolol 100mg BID Heart rate improves History of deep vein thrombosis in the pas Venous doppler of LE showed no deep vein thrombosis Continue Xarelto of 20 mg daily Delirium Agitation Psych on board recommended to continue Zyprexa and haldol Continue monitor Stage III pressure ulcer of right buttock: Stage II pressure ulcer of left buttock Wound culture grew coag negative staph Wound care provider on board No debridement was required as per wound care provioder Continue daily dressing change Continue IV Rocephin for now Hematuria Possible related to trauma from the shi cath Hemoglobin stable If h/h drops, will hold xarelto Continue monitor DVT Ppx: on Xarelto (will hold if hematuria continues) Code status: Full Code Subjective pt was seen and examined Lying in bed with no distress with 1 to 1 sitter calm today and follow commands Denies any chest pain, palpitation, dizziness and SOB Physical Exam Physical Exam: General- No acute distress Head- atraumatic Eyes- PERRL, EOMI, ENT- oropharynx clear Neck- supple, no JVD Lungs- clear to auscultation Heart- regular rhythm; no murmur Abdomen- normal bowel sounds, soft, nontender Extremities- no calf tenderness, LE numbness due to paraplegia Neuro- alert, oriented, paraplegia Skin- warm & dry, sacral decubitus ulcer Results & Data Vital Signs (Past 12 Hours) Vital Signs Temp Pulse Pulse Resp BP BP Pulse Ox 08/02/19 15:44 36.3 C L 103 H 20 119/77 91 08/02/19 11:34 37.0 C 101 H 18 106/74 94 08/02/19 08:00 104 H
[2019-08-03 07:12] LABS: BUN Creatinine Ratio 23.8 (10-20); Creatinine Clr Calc Pharmacy 101.8 ml/min; Est GFR (African American) 95.9; Est GFR (Non-African American) 82.7; Potassium 3.8 mmol/L (3.5-5.1)
[2019-08-03] MEDS: METOPROLOL SUCC 50MG EXT REL TAB PO SCH ×2 (07:41→20:33)
[2019-08-03] MEDS: CYANOCOBALAMIN 500 MCG TABLET (VITAMIN B-12) PO SCH (07:42)
[2019-08-03] MEDS: ATORVASTATIN 40 MG TAB PO SCH (07:42)
[2019-08-03] MEDS: PANTOprazole 40 MG TAB PO SCH (07:42)
[2019-08-03] MEDS: HALOPERIDOL LACTATE 5 MG/ML 1 ML VIAL IV SCH ×3 (07:42→20:32)
[2019-08-03] MEDS: ASPIRIN 81 MG ECTAB PO SCH (07:42)
[2019-08-03] MEDS: MULTIVITAMIN TAB PO SCH (07:42)
[2019-08-03] MEDS: PREGABALIN 100 MG CAP PO SCH ×2 (07:51→20:32)
[2019-08-03] MEDS: POLYETHYLENE (MIRALAX) 17 GM PACK PO SCH (07:52)
[2019-08-03] MEDS: DOCUSATE SODIUM/SENNA 50/8.6MG TAB PO SCH (07:52)
[2019-08-03] MEDS: DOCUSATE SODIUM 100 MG CAP PO SCH ×2 (07:52→20:32)
[2019-08-03] MEDS: FUROSEMIDE 20 MG in SYRINGE 0 ML IV SCH (10:11)
[2019-08-03] MEDS: RIVAROXABAN 20 MG TAB PO SCH (16:22)
[2019-08-03] MEDS: cefTRIAXone SODIUM 2,000 MG in DEXTROSE 5% 50 ML IV SCH (18:14)
--- NOTE | 2019-08-03 19:29 | Hospitalist Progress Note ---
Date of Service August 03, 2019 Assessment & Plan (1) Sepsis associated hypotension: Pt was brought to the ER after found unresponsive by home health in AM of 07/26/19 and presumed diagnosis of sepsis from urinary tract infection. Initially found to be hypothermic at 34.7 C with hypotension of 75/55, leukocytosis of 15.7, lactic acid of 2.5, CK of 2642 and troponin of 0.338. VBG pH of 7.3 CT head on admission showed no acute intracranial abnormality Cervical spine CT without evidence of fracture or subluxation. Chest CTA with a patchy airspace consolidation at the left lung base. Also with left-sided nephrolithiasis and large bladder calculus. Received empirically on Zosyn and vancomycin on 07/26/19 in the ER and admitted to the ICU, then starting on Primaxin Patient transferred out of ICU on telemetry on 07/27/19 Blood cx no growth Urine cx proteus mirabilis Abx changed from primaxin to Rocephin on 07/28 Will change Rocephin to oral abx on discharge Continue monitor closely (2) Recurrent UTI: History of recurrent urinary tract infections presumed from risks of self straight catherizations of bladder at home Recent outpatient UA abnormal with gross hematuria. Urine culture from 07/21 with multiple venkat. Patient prescribed cefpodoxime as outpatient but did not received it prior to hospital presentation. Urine cx on this admission grew Proteus Mirabilis Abx changed from Primaxin to Rocephin On Rocephin IV day 5 since pt refused it for 2 days due to agitation (3) Elevated troponin: Possible related to demand ischemia due to sepsis/tachycardia Troponin 0.338 increased to 0.396, 0.442, 0.457, then 0.5 today EKG on admission showed no acute ST changed ECHO showed no new wall motion abnormality with EF 20% compare to previous echo Cardiology on board Continue Statin, Aspirin, metoprolol and xarelto continue monitor in tele (4) Neurogenic bladder: Due to Spinal cord injury at T9 from osteomyelitis s/p thoracic fusion Continue shi cath (5) CAD (coronary artery disease): H/o CABG in 2014 and multiple PCIs Denies any chest pain Echo results on 07/27/19 with same ejection fraction and no new wall motion problems Continue aspirin, statin and metoprolol (6) Systolic heart failure: Echo results on 07/27/19 with same ejection fraction and no new wall motion problems Declined AICD therapy in the past as per cardiology when reviewed outpatient cardiology visit On Lasix as 20 mg IV daily, will transition on oral lasix in am (7) HTN (hypertension): BP has been stable Will resume lisinopril in am Hypophosphatemia stable (8) Paraplegia at T9 level: from history of past spinal cord injury at T9 from osteomyelitis s/p thoracic fusion Paralyzed from waist down, able to do some transfers using upper body but requires assistance transferin in and out of bed Neurogenic bladder, straight caths PRN PT/OT on board Not safe to discharge home as per OT PT agreed to go to SNF for rehab Waiting for placement (9) History of narcotic addiction: Has controlled substance agreement with PCP Utox screen negative on admission Continue pregabalin Tachycardia Possible related to agitation Continue Metoprolol 100mg BID Heart rate improves History of deep vein thrombosis in the pas Venous doppler of LE showed no deep vein thrombosis Continue Xarelto of 20 mg daily Delirium Agitation Psych on board recommended to continue Zyprexa and haldol Continue monitor Stage III pressure ulcer of right buttock: Stage II pressure ulcer of left buttock Wound culture grew coag negative staph Wound care provider on board No debridement was required as per wound care provioder Continue daily dressing change Continue IV Rocephin Hematuria Possible related to trauma from the shi cath Hemoglobin stable If h/h drops, will hold xarelto Continue monitor DVT Ppx: on Xarelto (will hold if hematuria continues) Code status: Full Code Subjective Pt was seen and examined Lying in bed with no distress Seems calm today, 1 to 1 discontinued Continue to be confused he took his med today Denies any chest pain, palpitation and SOB Physical Exam Physical Exam: General- No acute distress Head- atraumatic Eyes- PERRL, EOMI, ENT- oropharynx clear Neck- supple, no JVD Lungs- clear to auscultation Heart- regular rhythm; no murmur Abdomen- normal bowel sounds, soft, nontender Extremities- no calf tenderness, LE numbness due to paraplegia Neuro- alert, oriented, paraplegia Skin- warm & dry, sacral decubitus ulcer Results & Data Vital Signs (Past 12 Hours) Vital Signs Temp Pulse Pulse Resp BP BP Pulse Ox 08/03/19 16:13 36.9 C 101 H 21 123/69 96 08/03/19 16:00 103 H 08/03/19 12:21 36.6 C 99 H 18 113/72 92 08/03/19 08:05 36.7 C 105 H 18 103/71 95 08/03/19 08:00 99 H
--- NOTE | 2019-08-04 09:25 | Hospitalist Progress Note ---
Date of Service August 04, 2019 Assessment & Plan (1) Sepsis associated hypotension: Pt was brought to the ER after found unresponsive by home health in AM of 07/26/19 and presumed diagnosis of sepsis from urinary tract infection. Initially found to be hypothermic at 34.7 C with hypotension of 75/55, leukocytosis of 15.7, lactic acid of 2.5, CK of 2642 and troponin of 0.338. VBG pH of 7.3 CT head on admission showed no acute intracranial abnormality Cervical spine CT without evidence of fracture or subluxation. Chest CTA with a patchy airspace consolidation at the left lung base. Also with left-sided nephrolithiasis and large bladder calculus. Received Zosyn and vancomycin on 07/26/19 in the ER and admitted to the ICU, then starting on Primaxin Patient transferred out of ICU on telemetry on 07/27/19 Blood cx no growth Urine cx proteus mirabilis Abx changed from Primaxin to Rocephin on 07/28 Will change Rocephin to oral abx on discharge Continue monitor closely Still confused (2) Recurrent UTI: History of recurrent urinary tract infections presumed from risks of self straight catherizations of bladder at home Recent outpatient UA abnormal with gross hematuria. Urine culture from 07/21 with multiple venkat. Patient prescribed cefpodoxime as outpatient but did not received it prior to hospital presentation. Urine cx on this admission grew Proteus Mirabilis Abx changed from Primaxin to Rocephin On Rocephin IV day 5 since pt refused it for 2 days due to agitation (3) Elevated troponin: Possible related to demand ischemia due to sepsis/tachycardia Troponin 0.338 increased to 0.396, 0.442, 0.457, then 0.5 today EKG on admission showed no acute ST changed ECHO showed no new wall motion abnormality with EF 20% compare to previous echo Cardiology on board Continue Statin, Aspirin, metoprolol and xarelto continue monitor in tele (4) Neurogenic bladder: Due to Spinal cord injury at T9 from osteomyelitis s/p thoracic fusion Continue shi (5) CAD (coronary artery disease): H/o CABG in 2014 and multiple PCIs Denies any chest pain Echo results on 07/27/19 with same ejection fraction and no new wall motion problems Continue aspirin, statin and metoprolol (6) Systolic heart failure: Echo results on 07/27/19 with same ejection fraction and no new wall motion problems Declined AICD therapy in the past as per cardiology when reviewed outpatient cardiology visit On Lasix (7) HTN (hypertension): BP has been stable Hypophosphatemia stable (8) Paraplegia at T9 level: From history of past spinal cord injury at T9 from osteomyelitis s/p thoracic fusion Paralyzed from waist down, able to do some transfers using upper body but requires assistance transferin in and out of bed Neurogenic bladder, straight caths PRN PT/OT on board Not safe to discharge home as per OT PT agreed to go to SNF for rehab Waiting for placement (9) History of narcotic addiction: Has controlled substance agreement with PCP Utox screen negative on admission Continue pregabalin Tachycardia Possible related to agitation Continue Metoprolol 100mg BID Heart rate improves History of deep vein thrombosis in the past Venous doppler of LE showed no deep vein thrombosis Continue Xarelto of 20 mg daily Delirium Agitation Psych on board recommended to continue Zyprexa and haldol Continue monitor Stage III pressure ulcer of right buttock: Stage II pressure ulcer of left buttock Wound culture grew coag negative staph Wound care provider on board No debridement was required as per wound care provioder Continue daily dressing change Continue IV Rocephin Hematuria Possible related to trauma from the shi cath Hemoglobin stable If h/h drops, will hold xarelto Continue monitor DVT Ppx: on Xarelto (will hold if hematuria continues) Code status: Full Code Results & Data Vital Signs (Past 12 Hours) Vital Signs Temp Pulse Pulse Resp BP Pulse Ox 08/04/19 04:34 37.2 C 91 H 20 101/60 93 08/04/19 00:00 93 H 08/03/19 23:55 36.9 C 97 H 18 106/72 95
[2019-08-04] MEDS: POLYETHYLENE (MIRALAX) 17 GM PACK PO SCH (11:31)
[2019-08-04] MEDS: HALOPERIDOL LACTATE 5 MG/ML 1 ML VIAL IV SCH ×3 (11:31→20:27)
[2019-08-04] MEDS: PREGABALIN 100 MG CAP PO SCH ×2 (11:32→20:27)
[2019-08-04] MEDS: bisacodyL 5 MG TABEC PO PRN (11:32)
[2019-08-04] MEDS: MULTIVITAMIN TAB PO SCH (11:32)
[2019-08-04] MEDS: METOPROLOL SUCC 50MG EXT REL TAB PO SCH ×2 (11:32→20:16)
[2019-08-04] MEDS: DOCUSATE SODIUM/SENNA 50/8.6MG TAB PO SCH (11:32)
[2019-08-04] MEDS: DOCUSATE SODIUM 100 MG CAP PO SCH ×2 (11:32→20:27)
[2019-08-04] MEDS: PANTOprazole 40 MG TAB PO SCH (11:33)
[2019-08-04] MEDS: CYANOCOBALAMIN 500 MCG TABLET (VITAMIN B-12) PO SCH (11:33)
[2019-08-04] MEDS: FUROSEMIDE 20 MG TAB PO SCH (11:33)
[2019-08-04] MEDS: ATORVASTATIN 40 MG TAB PO SCH (11:33)
[2019-08-04] MEDS: ASPIRIN 81 MG ECTAB PO SCH (11:33)
[2019-08-04] MEDS: bisacodyL 10 MG SUPP PR SCH (11:34)
[2019-08-04] MEDS: RIVAROXABAN 20 MG TAB PO SCH (16:20)
[2019-08-04] MEDS: cefTRIAXone SODIUM 2,000 MG in DEXTROSE 5% 50 ML IV SCH (18:30)
[2019-08-05 07:42] LABS: Basophils # (auto) 0.03 K/uL (0-0.2); Basophils % (auto) 0.3 %; Eosinophils # (auto) 0.18 K/uL (0-0.5); Eosinophils % (auto) 1.9 %; Hematocrit (blood only) 45.3 % (42-52); Hemoglobin 14.9 g/dL (14.0-18.0); Immature Granulocytes # (auto) 0.02 K/uL (0.00-0.02); Immature Granulocytes % (auto) 0.2 %; Lymphocytes # (auto) 2.46 K/uL (1.2-3.4); Lymphocytes % (auto) 26.4 %; Mean Corpuscular Hemoglobin 29.9 pg (25-34); Mean Corpuscular Hgb Conc 32.9 g/dL (32-36); Mean Platelet Volume 12.6 fL (7.4-10.4); Monocytes % (auto) 9.7 %; Neutrophils # (auto) 5.72 K/uL (1.4-6.5); Neutrophils % (auto) 61.5 %; Platelet Count 270 K/uL (130-400); RDW Coefficient of Variation 15.7 % (11.5-14.5); RDW Standard Deviation 52.3 fL (36.4-46.3); Red Blood Count 4.98 M/uL (4.7-6.1); White Blood Count 9.31 K/uL (4.8-10.8)
[2019-08-05 07:49] LABS: Albumin Level 3.2 gm/dl (3.4-5.0); BUN Creatinine Ratio 23.2 (10-20); Calcium 9.2 mg/dl (8.5-10.1); Creatinine Clr Calc Pharmacy 102.6 ml/min; Est GFR (Non-African American) 92.3; Potassium 3.7 mmol/L (3.5-5.1)
[2019-08-05 07:52] LABS: Albumin Globulin Ratio 0.6 (0.9-2); Bilirubin,Total 0.7 mg/dl (0.2-1); Globulin 5.4 gm/dl (2.5-4.0); Total Protein 8.6 gm/dl (6.4-8.2)
[2019-08-05] MEDS: PANTOprazole 40 MG TAB PO SCH (08:09)
[2019-08-05] MEDS: METOPROLOL SUCC 50MG EXT REL TAB PO SCH ×2 (08:09→21:08)
[2019-08-05] MEDS: ASPIRIN 81 MG ECTAB PO SCH (08:09)
[2019-08-05] MEDS: MULTIVITAMIN TAB PO SCH (08:09)
[2019-08-05] MEDS: ATORVASTATIN 40 MG TAB PO SCH (08:09)
[2019-08-05] MEDS: FUROSEMIDE 20 MG TAB PO SCH (08:09)
[2019-08-05] MEDS: CYANOCOBALAMIN 500 MCG TABLET (VITAMIN B-12) PO SCH (08:09)
[2019-08-05] MEDS: PREGABALIN 100 MG CAP PO SCH ×2 (08:13→21:08)
[2019-08-05] MEDS: DOCUSATE SODIUM/SENNA 50/8.6MG TAB PO SCH (08:14)
[2019-08-05] MEDS: POLYETHYLENE (MIRALAX) 17 GM PACK PO SCH (08:14)
[2019-08-05] MEDS: DOCUSATE SODIUM 100 MG CAP PO SCH ×2 (08:14→21:07)
[2019-08-05] MEDS ORDERED: LORazepam 0.5 MG/1 ML VIAL IV SCH (09:00)
[2019-08-05] MEDS: HALOPERIDOL LACTATE 5 MG/ML 1 ML VIAL IV SCH ×2 (09:23→21:08)
--- NOTE | 2019-08-05 10:52 | Hospitalist Progress Note ---
Date of Service August 05, 2019 Assessment & Plan (1) Sepsis associated hypotension: Pt was brought to the ER after found unresponsive by home health in AM of 07/26/19 and presumed diagnosis of sepsis from urinary tract infection. Initially found to be hypothermic at 34.7 C with hypotension of 75/55, leukocytosis of 15.7, lactic acid of 2.5, CK of 2642 and troponin of 0.338. VBG pH of 7.3 CT head on admission showed no acute intracranial abnormality Cervical spine CT without evidence of fracture or subluxation. Chest CTA with a patchy airspace consolidation at the left lung base. Also with left-sided nephrolithiasis and large bladder calculus. Received Zosyn and vancomycin on 07/26/19 in the ER and admitted to the ICU, then starting on Primaxin Patient transferred out of ICU on telemetry on 07/27/19 Blood cx no growth Urine cx proteus mirabilis Abx changed from Primaxin to Rocephin on 07/28 Will change Rocephin to oral abx on discharge Continue monitor closely Still confused (2) Recurrent UTI: History of recurrent urinary tract infections presumed from risks of self straight catherizations of bladder at home Recent outpatient UA abnormal with gross hematuria. Urine culture from 07/21 with multiple venkat. Patient prescribed cefpodoxime as outpatient but did not received it prior to hospital presentation. Urine cx on this admission grew Proteus Mirabilis Abx changed from Primaxin to Rocephin On Rocephin IV day 7 since pt refused it for 2 days due to agitation (3) Elevated troponin: Possible related to demand ischemia due to sepsis/tachycardia Troponin 0.338 increased to 0.396, 0.442, 0.457, then 0.5 today EKG on admission showed no acute ST changed ECHO showed no new wall motion abnormality with EF 20% compare to previous echo Cardiology on board Continue Statin, Aspirin, metoprolol and xarelto continue monitor in tele (4) Neurogenic bladder: Due to Spinal cord injury at T9 from osteomyelitis s/p thoracic fusion Continue shi (5) CAD (coronary artery disease): H/o CABG in 2014 and multiple PCIs Denies any chest pain Echo results on 07/27/19 with same ejection fraction and no new wall motion problems Continue aspirin, statin and metoprolol (6) Systolic heart failure: Echo results on 07/27/19 with same ejection fraction and no new wall motion problems Declined AICD therapy in the past as per cardiology when reviewed outpatient cardiology visit On Lasix (7) HTN (hypertension): BP has been stable Hypophosphatemia stable (8) Paraplegia at T9 level: From history of past spinal cord injury at T9 from osteomyelitis s/p thoracic fusion Paralyzed from waist down, able to do some transfers using upper body but requires assistance transferin in and out of bed Neurogenic bladder, straight caths PRN PT/OT on board Not safe to discharge home as per OT PT agreed to go to SNF for rehab Waiting for placement (9) History of narcotic addiction: Has controlled substance agreement with PCP Utox screen negative on admission Continue pregabalin Tachycardia Possible related to agitation Continue Metoprolol 100mg BID Heart rate improved History of deep vein thrombosis in the past Venous doppler of LE showed no deep vein thrombosis Continue Xarelto of 20 mg daily Delirium Agitation Psych on board recommended to continue Zyprexa and haldol Continue monitor Stage III pressure ulcer of right buttock: Stage II pressure ulcer of left buttock Wound culture grew coag negative staph Wound care provider on board No debridement was required as per wound care provioder Continue daily dressing change Continue IV Rocephin Hematuria Possible related to trauma from the shi cath Hemoglobin stable If h/h drops, will hold xarelto Continue monitor DVT Ppx: on Xarelto (will hold if hematuria continues) Code status: Full Code ROS-No Headache, No Visual Changes, No Nausea, No Vomiting, No Fever, No Chills, No Neck Pain or Stiffness, No Chest Pain, No Palpitations, No SOB, No TORRES, No Cough, No Sputum, No Wheezing, No Abdominal Pain, No Diarrhea, No Hematemesis, No Hemoptysis, No Unexpected Weight Loss, No Flank pain, No Melena, No Hematoc hezia, No Frequency, No Urgency, No Burning, No Hematuria, No Rashes, No Diaphoresis. Appetite is Normal Physical Exam Gen-AAO x 2, NAD, Afebrile, confused Head-NCAT, EOMI, PERRLA, Anicteric Sclera, No Posterior Pharyngeal Erythema Neck-Supple, No JVD, No Thyromegaly, No Masses, No LAD, No Bruits Lungs-Clear to Auscultation Bilaterally, No Rales, No Rhonchi, No Wheezing, No Crepitus Chest-No S4, +S1, +S2, No S3, No Murmurs, No Rubs, No Gallops, No Ectopy Abdomen-Soft, Bowel Sounds Present, Non Tender, Non Distended, No Hepatomegaly, No Splenomegaly, No Palpable Masses, No Rebound, No Rigidity, No Guarding Musculoskeletal-Full Range of Motion Bilaterally, No CVAT Extremities-No Cyanosis, No Clubbing, No Edema Nuero-Cranial Nerves II-XII grossly intact, Paralyzed Legs Psych-Normal Mood Results & Data Vital Signs (Past 12 Hours) Vital Signs Temp Pulse Pulse Resp BP BP Pulse Ox 08/05/19 08:03 36.7 C 88 18 107/73 94 08/05/19 04:00 36.9 C 76 20 106/68 96 08/04/19 22:56 36.8 C 80 19 110/73 94
--- NOTE | 2019-08-05 11:50 | Psychiatric Progress Note ---
Date of Service August 05, 2019 Impression / Recommendations Impression As reports of continued paranoia and hallucinations have been provided by nursing staff, decision was made to titrate dose of haloperidol to 5mg BID along with order for lorazepam 0.5mg BID. EKG was ordered to rule out QTc prolongation concerns, with increased dose of antipsychotic medication. QTc is actually reduced today at 447, when compared with initial QTc of 461 on 07/26/19. No significant change in presentation was reported after receiving higher dose of haloperidol. Patient seen by this provider today as there are reports his condition has evolved in the last day or so, concern for possible akathisia versus agitated catatonia based on current presentation. Would suggest administering 25mg of IV diphenhydramine with observation - to target possible akathisia superimposed on delirium, which may explain his agitation and restlessness. Depending on response to diphenhydramine, may also consider a lorazepam challenge this afternoon to rule out agitated catatonia. Case was reviewed with supervising psychiatrist and psychiatric nurse liaison, who has agreed to more frequent rounding if able throughout the day to monitor response to treatment recommendations. Will plan to coordinate with nursing team to determine need for/timing of lorazepam challenge if this is pursued. Dr. Fabian Jefferson was directly involved in review and discussion of the patient's case and participated in medical decision making regarding treatment recommendations. Interval History Identifying Information 49-year-old male admitted medically on 07/26/2019, after being found unresponsive in his room by home health nurse. Patient has a history of paraplegia, and resides at a hotel with regular assistance. He is being treated for a UTI, and hypotension related to sepsis. Psychiatric consultation was requested to evaluate patient for paranoia and hallucinations. Pt has been seen for follow- up visits to assess progress, seen today due to reported change in presentation since the time of our last follow-up visit. Review of Systems Notes Pt is rather disoriented and unable at this time to participate in meaningful ROS. He does not report any physical complaints. Subjective Subjective Patient's case was reviewed and discussed during morning report with supervising psychiatric and psychiatric nurse liaison. Patient was seen for liaison rounding, with reports of concern for change in presentation. This PA-C met with patient for follow-up visit to assess these changes. Vitals were being taken as this provider entered the room, with BP being elevated beyond patient's more recent readings. He is observed to be rather tremulous and restless/agitated which may be contributing. Pt is laying in bed, demonstrating increased alertness when this provider introduced herself. Pt made brief eye contact and extended his hand for a handshake, and then closed his eyes. Pt was observed to be mumbling under his breath, but speech was unintelligible. He did not respond clearly to any inquiries by this provider. Eyes remained closed or mildly opened, with only sclera visible for most of our encounter. While this provider attempted to physically examine the patient, he did throw his pillow from the bed to the floor. Pt did not respond to this provider closing the conversation or vacating the room. Findings were discussed with patient's RN, who states the patient did reportedly sleep better last evening. It is reported his presentation is largely unchanged after receiving a higher dose of haloperidol and a dose of lorazepam this morning. Possible treatment recommendations were reviewed with RN in order to coordinate care into the afternoon. Physical Exam Psychiatric Orientation: + not alert (brieflyalert with introduction to this PA-C) and + not oriented x 3 Apperance: + disheveled; + inappropriately dressed (has not permitted hosptial gown to cover upper body, tugging at gown) Eye Contact: + poor eye contact Eyes closed for majority of visit - at times they are opened slightly, but only sclera is visible Motor Behavior: + psychomotor agitation Pt appears restless and tremulous, demonstrating spasticity but without clear rhythmic intervals. Due to level of confusion/disorganization, patient is not able to participate optimally in physical examination. Speech: + abnormal rate/rhythm/volume of speech (speech is soft and severely muffled, unintelligible ) Pt is unable to provide information regarding the presence of auditory or visual hallucinations at this time Insight: + severely impaired insight Judgement: + severely impaired judgement Vital Signs (Past 24 Hours) Last Vital Signs Temp 36.7 C 08/05/19 08:03 Pulse 88 08/05/19 08:03 Resp 18 08/05/19 08:03 BP 107/73 08/05/19 08:03 Pulse Ox 94 08/05/19 08:03 Results & Data Laboratory Results Laboratory Results - last 24 hr 08/05/19 08/05/19 06:26 06:26 WBC 9.31 RBC 4.98 Hgb 14.9 Hct 45.3 MCV 91.0 MCH 29.9 MCHC 32.9 RDW Std Deviation 52.3 H RDW Coeff of Karan 15.7 H Plt Count 270 MPV 12.6 H Immature Gran % (Auto) 0.2 Neut % (Auto) 61.5 Lymph % (Auto) 26.4 Brule % (Auto) 9.7 Eos % (Auto) 1.9 Baso % (Auto) 0.3 Immature Gran # (Auto) 0.02 Neut # (Auto) 5.72 Lymph # (Auto) 2.46 Brule # (Auto) 0.90 H Eos # (Auto) 0.18 Baso # (Auto) 0.03 Sodium 139 Potassium 3.7 Chloride 106 Carbon Dioxide 27 Anion Gap 6.0 BUN 22 H Creatinine 0.95 Est Cr Clr Drug Dosing 102.6 Est GFR ( Amer) 107.0 Est GFR (Non-Af Amer) 92.3 BUN/Creatinine Ratio 23.2 H Glucose 83 Calcium 9.2 Total Bilirubin 0.7 AST 16 ALT 18 Alkaline Phosphatase 102 Total Protein 8.6 H Albumin 3.2 L Globulin 5.4 H Albumin/Globulin Ratio 0.6 L Current Inpatient Medications Current Inpatient Medications: Current Inpatient Medications Aspirin (Ecotrin Ectab) 81 mg PO DAILY [facility] Stop: 08/26/19 08:59 Last Admin: 08/05/19 08:09 Dose: 81 mg Documented by: Atorvastatin Calcium (Lipitor) 40 mg PO DAILY [facility] Stop: 08/26/19 08:59 Last Admin: 08/05/19 08:09 Dose: 40 mg Documented by: Bisacodyl (Dulcolax) 10 mg KS Q2D [facility] Stop: 08/26/19 08:59 Last Admin: 08/04/19 11:34 Dose: 10 mg Documented by: Bisacodyl (Dulcolax) 5 mg PO DAILY PRN PRN Reason: Constipation Stop: 08/25/19 20:31 Last Admin: 08/04/19 11:32 Dose: 5 mg Documented by: Cyanocobalamin (Vitamin B-12) 1,000 mcg PO DAILY [facility] Stop: 08/26/19 08:59 Last Admin: 08/05/19 08:09 Dose: 1,000 mcg Documented by: Cyclobenzaprine HCl (Flexeril) 10 mg PO Q8H PRN PRN Reason: Leg and back pain Stop: 08/25/19 20:40 Last Admin: 07/27/19 09:19 Dose: 10 mg Documented by: Docusate Sodium (Colace) 100 mg PO BID [facility] Stop: 08/25/19 20:59 Last Admin: 08/05/19 08:14 Dose: 100 mg Documented by: Furosemide (Lasix) 20 mg PO DAILY [facility] Stop: 09/03/19 08:59 Last Admin: 08/05/19 08:09 Dose: 20 mg Documented by: Haloperidol Lactate (Haldol) 5 mg IV BID [facility]; Protocol Stop: 09/04/19 08:59 Last Admin: 08/05/19 09:23 Dose: 5 mg Documented by: Ceftriaxone Sodium 2,000 mg/ (Dextrose) 70 mls @ 140 mls/hr IV Q24H [facility] Stop: 08/07/19 17:59 Last Infusion: 08/04/19 20:03 Dose: Infused Documented by: Lorazepam (Ativan) 0.5 mg in 1 mls @ 0.5 mls/min IV BID [facility] Stop: 09/04/19 08:59 Last Admin: 08/05/19 09:23 Dose: 0.5 mls/min Documented by: Magnesium Hydroxide (Milk Of Magnesia) 30 ml PO DAILY PRN PRN Reason: Constipation Stop: 08/25/19 20:31 Metoprolol Succinate (Toprol Xl) 100 mg PO BID [facility] Stop: 08/28/19 01:59 Last Admin: 08/05/19 08:09 Dose: 100 mg Documented by: Multivitamins (Multivitamin Tab) 1 tab PO QAM [facility] Stop: 08/26/19 08:59 Last Admin: 08/05/19 08:09 Dose: 1 tab Documented by: Olanzapine (Zyprexa) 5 mg IM Q4H PRN PRN Reason: Anxiety/Agitation Stop: 08/28/19 01:48 Last Admin: 08/01/19 21:12 Dose: 5 mg Documented by: Pantoprazole Sodium (Protonix) 40 mg PO DAILY [facility] Stop: 08/26/19 08:59 Last Admin: 08/05/19 08:09 Dose: 40 mg Documented by: Polyethylene Glycol (Miralax Powder Packet) 17 gm PO DAILY [facility] Stop: 08/26/19 08:59 Last Admin: 08/05/19 08:14 Dose: 17 gm Documented by: Pregabalin (Lyrica) 200 mg PO BID [facility] Stop: 08/26/19 20:59 Last Admin: 08/05/19 08:13 Dose: 200 mg Documented by: Rivaroxaban (Xarelto) 20 mg PO QDD [facility] Stop: 08/26/19 16:29 Last Admin: 08/04/19 16:20 Dose: 20 mg Documented by: Senna/Docusate Sodium (Senokot S) 1 tab PO DAILY [facility] Stop: 08/26/19 08:59 Last Admin: 08/05/19 08:14 Dose: 1 tab Documented by:
[2019-08-05] MEDS ORDERED: DiphenhydrAMINE HCL 50 MG/ML VIAL IV STA (12:01)
[2019-08-05] MEDS ORDERED: LORazepam 1 MG/2 ML VIAL IV STA (15:11)
[2019-08-05] MEDS: RIVAROXABAN 20 MG TAB PO SCH (17:21)
[2019-08-05] MEDS: cefTRIAXone SODIUM 2,000 MG in DEXTROSE 5% 50 ML IV SCH (18:14)
[2019-08-05] MEDS: THIAMINE HCL 100 MG TAB PO SCH (18:15)
[2019-08-05] MEDS: LORazepam 1 MG/2 ML VIAL IV SCH (21:07)
[2019-08-05 21:55] LABS: Allen Test Pos (Pos); Base Excess ABG 3.2 mEq/L (-9-1.8); HCO3 ABG 29 mmol/L (19-24); Oxygen Saturation ABG 85.2 % (90-95); PCO2 ABG 46 mmHg (35-46); PO2 ABG 51 mm/Hg (80-95); pH ABG 7.41 (7.35-7.45)
[2019-08-06 07:24] LABS: Basophils # (auto) 0.04 K/uL (0-0.2); Basophils % (auto) 0.5 %; Eosinophils # (auto) 0.19 K/uL (0-0.5); Eosinophils % (auto) 2.2 %; Hematocrit (blood only) 46.3 % (42-52); Hemoglobin 15.1 g/dL (14.0-18.0); Immature Granulocytes # (auto) 0.01 K/uL (0.00-0.02); Immature Granulocytes % (auto) 0.1 %; Lymphocytes % (auto) 25.6 %; Mean Corpuscular Hemoglobin 29.9 pg (25-34); Mean Corpuscular Hgb Conc 32.6 g/dL (32-36); Mean Corpuscular Volume 91.7 fL (80-100); Mean Platelet Volume 11.9 fL (7.4-10.4); Monocytes # (auto) 0.85 K/uL (0.11-0.59); Monocytes % (auto) 9.9 %; Neutrophils # (auto) 5.29 K/uL (1.4-6.5); Neutrophils % (auto) 61.7 %; Platelet Count 282 K/uL (130-400); RDW Coefficient of Variation 15.7 % (11.5-14.5); RDW Standard Deviation 52.5 fL (36.4-46.3); Red Blood Count 5.05 M/uL (4.7-6.1); White Blood Count 8.58 K/uL (4.8-10.8)
[2019-08-06 07:29] LABS: Albumin Level 3.2 gm/dl (3.4-5.0); BUN Creatinine Ratio 24.7 (10-20); Calcium 9.4 mg/dl (8.5-10.1); Creatinine Clr Calc Pharmacy 110.7 ml/min; Est GFR (African American) 115.3; Est GFR (Non-African American) 99.5; Potassium 3.6 mmol/L (3.5-5.1)
[2019-08-06 07:32] LABS: Albumin Globulin Ratio 0.6 (0.9-2); Bilirubin,Total 0.6 mg/dl (0.2-1); Globulin 5.5 gm/dl (2.5-4.0); Total Protein 8.7 gm/dl (6.4-8.2)
[2019-08-06] MEDS: METOPROLOL SUCC 50MG EXT REL TAB PO SCH ×2 (08:54→21:31)
[2019-08-06] MEDS: ATORVASTATIN 40 MG TAB PO SCH (08:54)
[2019-08-06] MEDS: ASPIRIN 81 MG ECTAB PO SCH (08:54)
[2019-08-06] MEDS: MULTIVITAMIN TAB PO SCH (08:54)
[2019-08-06] MEDS: FUROSEMIDE 20 MG TAB PO SCH (08:54)
[2019-08-06] MEDS: PANTOprazole 40 MG TAB PO SCH (08:54)
[2019-08-06] MEDS: THIAMINE HCL 100 MG TAB PO SCH (08:55)
[2019-08-06] MEDS: CYANOCOBALAMIN 500 MCG TABLET (VITAMIN B-12) PO SCH (08:57)
[2019-08-06] MEDS: bisacodyL 10 MG SUPP PR SCH (08:58)
[2019-08-06] MEDS: POLYETHYLENE (MIRALAX) 17 GM PACK PO SCH (08:58)
--- NOTE | 2019-08-06 10:46 | Psychiatric Progress Note ---
Date of Service August 06, 2019 Impression / Recommendations Impression Patient appears significantly improved today, able to participate appropriately in conversation. Patient is alert and oriented x3, having to be reminded only of event. Patient does admit that he is confused, but overall is feeling better. It remains likely that patient's changes in mental status are related to delirium, and moments of clarity may continue to wax and wane. Would suggest reducing haloperidol dosing back to 2.5 mg twice daily, and providing lorazepam 0.5 mg twice daily as well. These doses can be tapered to discontinuation as patient's condition stabilizes. Ideally, based on history of prior substance abuse, patient would not return home to self-care with routine dosing of benzodiazepines -but seem appropriate for transition to physical rehab and eventual discontinuation. Dr. Fabian Jefferson was directly involved in review and discussion of the patient's case and participated in medical decision making regarding treatment recommendations. Interval History Identifying Information 49-year-old male admitted medically on 07/26/2019, after being found unresponsive in his room by home health nurse. Patient has a history of paraplegia, and resides at a hotel with regular assistance. He is being treated for a UTI, and hypotension related to sepsis. Psychiatric consultation was requested to evaluate patient for paranoia and hallucinations. Pt has been seen for follow- up visits to assess progress. Chief Complaint "Hello, I am feeling all right I guess." Review of Systems Notes Constitutional: reports generalized weakness Cardiovascular: denied Respiratory: denied Gastrointestinal: denied Neurological: reports confusion, difficulty with memory Psychiatric: denies symptoms other than stated above Total of at least 10 systems reviewed, pertinent positives as above and in HPI. Subjective Subjective Patient's case was reviewed and discussed during morning report with supervising psychiatrist and psychiatric nurse liaison. It was reported that patient did not receive his evening doses of lorazepam or haloperidol, due to reported lethargy. It is stated, however, that patient was able to sleep soundly last evening. Patient was reevaluated on psychiatric consult service to assess progress over course of admission. Surprisingly, patient is alert and appearing calm as this provider entered the room. Patient states that he is feeling "fine" today, but admits to confusion. Patient is alert and oriented to person, place, and time, but denies awareness of events over the last several days. He denies any present safety concerns, or feeling as though he is being mistreated in the hospital. This provider informed the patient of his behavior in the last few days, and he denied recall of these events. Patient does state "now that you mention it, I think I did dream something about there being a camera in the TV." Patient denies significant physical concerns at this time, and overall is feeling improved. He denies any safety concerns presently. Patient was updated on how her involvement in regards to medication adjustments, and denies questions at this time. Physical Exam Psychiatric Orientation: alert, oriented x 3 (But admits to confusion regarding recent events) and cooperative Apperance: appropriately dressed, appropriately groomed and appeared stated age Eye Contact: good eye contact Motor Behavior: no abnormal motor movements (Observed while lying in bed) Speech: normal rate/rhythm/volume of speech (Soft volume, but clear articulation) Affect: + blunted affect and mood congruent with affect Mood: no depressed mood ("Fine") Thought Process: goal directed thought process, linear/logical thought process, clear/coherent thought process and thought association intact Thought Content: reality based without delusions (Though admits to confusion regarding recent events of admission); not paranoid, no hopelessness and no worthlessness Suicidal Thoughts: denies suicidal thoughts and denies suicidal intent Homicidal Thoughts: denies homicidal thoughts Hallucinations: no auditory hallucinations and no visual hallucinations Cognition: attention grossly intact and language grossly intact; + recent memory not intact Insight: + fair insight Judgement: + fair judgement Vital Signs (Past 24 Hours) Last Vital Signs Temp 37.1 C 08/06/19 07:53 Pulse 96 H 08/06/19 08:00 Resp 17 08/06/19 07:53 BP 118/78 08/06/19 07:53 Pulse Ox 96 08/06/19 07:53 Results & Data Laboratory Results Laboratory Results - last 24 hr 08/05/19 08/05/19 08/05/19 21:33 21:33 21:33 WBC RBC Hgb Hct MCV MCH MCHC RDW Std Deviation RDW Coeff of Karan Plt Count MPV Immature Gran % (Auto) Neut % (Auto) Lymph % (Auto) Owen % (Auto) Eos % (Auto) Baso % (Auto) Immature Gran # (Auto) Neut # (Auto) Lymph # (Auto) Owen # (Auto) Eos # (Auto) Baso # (Auto) ABG pH ABG pCO2 ABG pO2 ABG HCO3 ABG O2 Saturation ABG Base Excess Billy Test Barometric Pressure Oxygen Given Sodium Potassium Chloride Carbon Dioxide Anion Gap BUN Creatinine Est Cr Clr Drug Dosing Est GFR ( Amer) Est GFR (Non-Af Amer) BUN/Creatinine Ratio Glucose Lactate 1.1 Calcium Total Bilirubin AST ALT Alkaline Phosphatase Ammonia 35.2 H Troponin I 0.421 H* Total Protein Albumin Globulin Albumin/Globulin Ratio 08/05/19 08/06/19 08/06/19 21:40 06:19 06:19 WBC 8.58 RBC 5.05 Hgb 15.1 Hct 46.3 MCV 91.7 MCH 29.9 MCHC 32.6 RDW Std Deviation 52.5 H RDW Coeff of Karan 15.7 H Plt Count 282 MPV 11.9 H Immature Gran % (Auto) 0.1 Neut % (Auto) 61.7 Lymph % (Auto) 25.6 Owen % (Auto) 9.9 Eos % (Auto) 2.2 Baso % (Auto) 0.5 Immature Gran # (Auto) 0.01 Neut # (Auto) 5.29 Lymph # (Auto) 2.20 Owen # (Auto) 0.85 H Eos # (Auto) 0.19 Baso # (Auto) 0.04 ABG pH 7.41 ABG pCO2 46 ABG pO2 51 L ABG HCO3 29 H ABG O2 Saturation 85.2 L ABG Base Excess 3.2 H Billy Test Pos Barometric Pressure 744.0 Oxygen Given ROOM AIR Sodium 139 Potassium 3.6 Chloride 105 Carbon Dioxide 27 Anion Gap 6.0 BUN 22 H Creatinine 0.88 Est Cr Clr Drug Dosing 110.7 Est GFR ( Amer) 115.3 Est GFR (Non-Af Amer) 99.5 BUN/Creatinine Ratio 24.7 H Glucose 89 Lactate Calcium 9.4 Total Bilirubin 0.6 AST 17 ALT 19 Alkaline Phosphatase 105 Ammonia Troponin I Total Protein 8.7 H Albumin 3.2 L Globulin 5.5 H Albumin/Globulin Ratio 0.6 L Current Inpatient Medications Current Inpatient Medications: Current Inpatient Medications Aspirin (Ecotrin Ectab) 81 mg PO DAILY [facility] Stop: 08/26/19 08:59 Last Admin: 08/06/19 08:54 Dose: 81 mg Documented by: Atorvastatin Calcium (Lipitor) 40 mg PO DAILY [facility] Stop: 08/26/19 08:59 Last Admin: 08/06/19 08:54 Dose: 40 mg Documented by: Bisacodyl (Dulcolax) [address] Q2D [facility] Stop: 08/26/19 08:59 Last Admin: 08/06/19 08:58 Dose: Not Given Documented by: Bisacodyl (Dulcolax) 5 mg PO DAILY PRN PRN Reason: Constipation Stop: 08/25/19 20:31 Last Admin: 08/04/19 11:32 Dose: 5 mg Documented by: Cyanocobalamin (Vitamin B-12) 1,000 mcg PO DAILY [facility] Stop: 08/26/19 08:59 Last Admin: 08/06/19 08:57 Dose: 1,000 mcg Documented by: Cyclobenzaprine HCl (Flexeril) 10 mg PO Q8H PRN PRN Reason: Leg and back pain Stop: 08/25/19 20:40 Last Admin: 07/27/19 09:19 Dose: 10 mg Documented by: Docusate Sodium (Colace) 100 mg PO BID [facility] Stop: 08/25/19 20:59 Last Admin: 08/05/19 21:07 Dose: Not Given Documented by: Furosemide (Lasix) 20 mg PO DAILY [facility] Stop: 09/03/19 08:59 Last Admin: 08/06/19 08:54 Dose: 20 mg Documented by: Haloperidol Lactate (Haldol) 2.5 mg IV BID [facility]; Protocol Stop: 09/05/19 20:59 Ceftriaxone Sodium 2,000 mg/ (Dextrose) 70 mls @ 140 mls/hr IV Q24H [facility] Stop: 08/07/19 17:59 Last Infusion: 08/05/19 19:55 Dose: Infused Documented by: Lorazepam (Ativan) 0.5 mg in 1 mls @ 1 mls/min IV BID [facility] Stop: 09/05/19 20:59 Magnesium Hydroxide (Milk Of Magnesia) 30 ml PO DAILY PRN PRN Reason: Constipation Stop: 08/25/19 20:31 Metoprolol Succinate (Toprol Xl) 100 mg PO BID [facility] Stop: 08/28/19 01:59 Last Admin: 08/06/19 08:54 Dose: 100 mg Documented by: Multivitamins (Multivitamin Tab) 1 tab PO QAM [facility] Stop: 08/26/19 08:59 Last Admin: 08/06/19 08:54 Dose: 1 tab Documented by: Olanzapine (Zyprexa) 5 mg IM Q4H PRN PRN Reason: Anxiety/Agitation Stop: 08/28/19 01:48 Last Admin: 08/01/19 21:12 Dose: 5 mg Documented by: Pantoprazole Sodium (Protonix) 40 mg PO DAILY [facility] Stop: 08/26/19 08:59 Last Admin: 08/06/19 08:54 Dose: 40 mg Documented by: Polyethylene Glycol (Miralax Powder Packet) 17 gm PO DAILY [facility] Stop: 08/26/19 08:59 Last Admin: 08/06/19 08:58 Dose: Not Given Documented by: Pregabalin (Lyrica) 200 mg PO BID [facility] Stop: 08/26/19 20:59 Last Admin: 08/05/19 21:08 Dose: Not Given Documented by: Rivaroxaban (Xarelto) 20 mg PO QDD [facility] Stop: 08/26/19 16:29 Last Admin: 08/05/19 17:21 Dose: 20 mg Documented by: Senna/Docusate Sodium (Senokot S) 1 tab PO DAILY [facility] Stop: 08/26/19 08:59 Last Admin: 08/05/19 08:14 Dose: 1 tab Documented by: Thiamine HCl (Vitamin B-1) 100 mg PO QAM [facility] Stop: 09/04/19 17:59 Last Admin: 08/06/19 08:55 Dose: 100 mg Documented by:
--- NOTE | 2019-08-06 12:26 | Hospitalist Progress Note ---
Date of Service August 06, 2019 Assessment & Plan (1) Sepsis associated hypotension: Pt was brought to the ER after found unresponsive by home health in AM of 07/26/19 and presumed diagnosis of sepsis from urinary tract infection. Initially found to be hypothermic at 34.7 C with hypotension of 75/55, leukocytosis of 15.7, lactic acid of 2.5, CK of 2642 and troponin of 0.338. VBG pH of 7.3 CT head on admission showed no acute intracranial abnormality Cervical spine CT without evidence of fracture or subluxation. Chest CTA with a patchy airspace consolidation at the left lung base. Also with left-sided nephrolithiasis and large bladder calculus. Received Zosyn and vancomycin on 07/26/19 in the ER and admitted to the ICU, then starting on Primaxin Patient transferred out of ICU on telemetry on 07/27/19 Blood cx no growth Urine cx proteus mirabilis Abx changed from Primaxin to Rocephin on 07/28 Will DC abx tomorrow Continue monitor closely Less confused (2) Recurrent UTI: History of recurrent urinary tract infections presumed from risks of self straight catherizations of bladder at home Recent outpatient UA abnormal with gross hematuria. Urine culture from 07/21 with multiple vnekat. Patient prescribed cefpodoxime as outpatient but did not received it prior to hospital presentation. Urine cx on this admission grew Proteus Mirabilis Abx changed from Primaxin to Rocephin On Rocephin IV day 8 since pt refused it for 2 days due to agitation (3) Elevated troponin: Possible related to demand ischemia due to sepsis/tachycardia Troponin 0.338 increased to 0.396, 0.442, 0.457, then 0.5 today EKG on admission showed no acute ST changed ECHO showed no new wall motion abnormality with EF 20% compare to previous echo Cardiology on board Continue Statin, Aspirin, metoprolol and xarelto continue monitor in tele (4) Neurogenic bladder: Due to Spinal cord injury at T9 from osteomyelitis s/p thoracic fusion Continue yuridia (5) CAD (coronary artery disease): H/o CABG in 2014 and multiple PCIs Denies any chest pain Echo results on 07/27/19 with same ejection fraction and no new wall motion problems Continue aspirin, statin and metoprolol (6) Systolic heart failure: Echo results on 07/27/19 with same ejection fraction and no new wall motion problems Declined AICD therapy in the past as per cardiology when reviewed outpatient cardiology visit On Lasix (7) HTN (hypertension): BP has been stable Hypophosphatemia stable (8) Paraplegia at T9 level: From history of past spinal cord injury at T9 from osteomyelitis s/p thoracic fusion Paralyzed from waist down, able to do some transfers using upper body but requires assistance transferin in and out of bed Neurogenic bladder, straight caths PRN PT/OT on board Not safe to discharge home as per OT PT agreed to go to SNF for rehab Waiting for placement (9) History of narcotic addiction: Has controlled substance agreement with PCP Utox screen negative on admission Continue pregabalin Tachycardia Possible related to agitation Continue Metoprolol 100mg BID Heart rate improved History of deep vein thrombosis in the past Venous doppler of LE showed no deep vein thrombosis Continue Xarelto of 20 mg daily Delirium Agitation Psych on board recommended to continue Zyprexa and haldol Continue monitor Stage III pressure ulcer of right buttock: Stage II pressure ulcer of left buttock Wound culture grew coag negative staph Wound care provider on board No debridement was required as per wound care provioder Continue daily dressing change Continue IV Rocephin Hematuria Possible related to trauma from the shi cath Hemoglobin stable If h/h drops, will hold xarelto Continue monitor DVT Ppx: on Xarelto (will hold if hematuria continues) Code status: Full Code ROS-No Headache, No Visual Changes, No Nausea, No Vomiting, No Fever, No Chills, No Neck Pain or Stiffness, No Chest Pain, No Palpitations, No SOB, No TORRES, No Cough, No Sputum, No Wheezing, No Abdominal Pain, No Diarrhea, No Hematemesis, No Hemoptysis, No Unexpected Weight Loss, No Flank pain, No Melena, No Hematochezia, No Frequency, No Urgency, No Burning, No Hematuria, No Rashes, No Diaphoresis. Appetite is Normal Physical Exam Gen-AAO x 2, NAD, Afebrile, confused Head-NCAT, EOMI, PERRLA, Anicteric Sclera, No Posterior Pharyngeal Erythema Neck-Supple, No JVD, No Thyromegaly, No Masses, No LAD, No Bruits Lungs-Clear to Auscultation Bilaterally, No Rales, No Rhonchi, No Wheezing, No Crepitus Chest-No S4, +S1, +S2, No S3, No Murmurs, No Rubs, No Gallops, No Ectopy Abdomen-Soft, Bowel Sounds Present, Non Tender, Non Distended, No Hepatomegaly, No Splenomegaly, No Palpable Masses, No Rebound, No Rigidity, No Guarding Musculoskeletal-Full Range of Motion Bilaterally, No CVAT Extremities-No Cyanosis, No Clubbing, No Edema Nuero-Cranial Nerves II-XII grossly intact, Paralyzed Legs Psych-Normal Mood Results & Data Vital Signs (Past 12 Hours) Vital Signs Temp Pulse Pulse Resp BP BP Pulse Ox 08/06/19 12:03 37.2 C 90 18 112/75 94 08/06/19 08:00 96 H 08/06/19 07:53 37.1 C 89 17 118/78 96 08/06/19 03:49 36.9 C 86 20 118/78 95
[2019-08-06] MEDS: PREGABALIN 100 MG CAP PO SCH ×2 (12:43→21:34)
[2019-08-06] MEDS: DOCUSATE SODIUM/SENNA 50/8.6MG TAB PO SCH (12:45)
[2019-08-06] MEDS: DOCUSATE SODIUM 100 MG CAP PO SCH ×2 (12:45→21:34)
[2019-08-06] MEDS: LORazepam 1 MG/2 ML VIAL IV SCH (12:46)
[2019-08-06] MEDS: HALOPERIDOL LACTATE 5 MG/ML 1 ML VIAL IV SCH ×2 (12:46→21:30)
[2019-08-06] MEDS: RIVAROXABAN 20 MG TAB PO SCH (16:12)
[2019-08-06] MEDS: cefTRIAXone SODIUM 2,000 MG in DEXTROSE 5% 50 ML IV SCH (18:09)
[2019-08-06] MEDS: LORazepam 0.5 MG/1 ML VIAL IV SCH (21:31)
[2019-08-07 07:21] LABS: BUN Creatinine Ratio 21.6 (10-20); Calcium 8.6 mg/dl (8.5-10.1); Creatinine Clr Calc Pharmacy 119.3 ml/min; Est GFR (African American) 118.7; Est GFR (Non-African American) 102.4; Potassium 3.4 mmol/L (3.5-5.1)
[2019-08-07 07:36] LABS: Hematocrit (blood only) 43.5 % (42-52); Hemoglobin 14.6 g/dL (14.0-18.0); Mean Corpuscular Hemoglobin 30.2 pg (25-34); Mean Corpuscular Hgb Conc 33.6 g/dL (32-36); Mean Corpuscular Volume 89.9 fL (80-100); Mean Platelet Volume 12.3 fL (7.4-10.4); Platelet Count 276 K/uL (130-400); RDW Coefficient of Variation 15.3 % (11.5-14.5); RDW Standard Deviation 50.7 fL (36.4-46.3); Red Blood Count 4.84 M/uL (4.7-6.1); White Blood Count 9.26 K/uL (4.8-10.8)
[2019-08-07] MEDS: DOCUSATE SODIUM 100 MG CAP PO SCH ×2 (08:05→21:32)
[2019-08-07] MEDS: PREGABALIN 100 MG CAP PO SCH ×2 (08:05→21:52)
[2019-08-07] MEDS: DOCUSATE SODIUM/SENNA 50/8.6MG TAB PO SCH (08:06)
[2019-08-07] MEDS: POLYETHYLENE (MIRALAX) 17 GM PACK PO SCH (08:06)
[2019-08-07] MEDS: ASPIRIN 81 MG ECTAB PO SCH (08:07)
[2019-08-07] MEDS: ATORVASTATIN 40 MG TAB PO SCH (08:07)
[2019-08-07] MEDS: MULTIVITAMIN TAB PO SCH (08:07)
[2019-08-07] MEDS: METOPROLOL SUCC 50MG EXT REL TAB PO SCH ×2 (08:07→21:32)
[2019-08-07] MEDS: PANTOprazole 40 MG TAB PO SCH (08:07)
[2019-08-07] MEDS: THIAMINE HCL 100 MG TAB PO SCH (08:08)
[2019-08-07] MEDS: CYANOCOBALAMIN 500 MCG TABLET (VITAMIN B-12) PO SCH (08:08)
--- NOTE | 2019-08-07 08:09 | Hospitalist Progress Note ---
Date of Service August 07, 2019 Assessment & Plan (1) Sepsis associated hypotension: Pt was brought to the ER after found unresponsive by home health in AM of 07/26/19 and presumed diagnosis of sepsis from urinary tract infection. Initially found to be hypothermic at 34.7 C with hypotension of 75/55, leukocytosis of 15.7, lactic acid of 2.5, CK of 2642 and troponin of 0.338. VBG pH of 7.3 CT head on admission showed no acute intracranial abnormality Cervical spine CT without evidence of fracture or subluxation. Chest CTA with a patchy airspace consolidation at the left lung base. Also with left-sided nephrolithiasis and large bladder calculus. Received Zosyn and vancomycin on 07/26/19 in the ER and admitted to the ICU, then starting on Primaxin Patient transferred out of ICU on telemetry on 07/27/19 Blood cx no growth Urine cx proteus mirabilis Abx changed from Primaxin to Rocephin on 07/28 Will DC abx today Continue monitor closely Less confused (2) Recurrent UTI: History of recurrent urinary tract infections presumed from risks of self straight catherizations of bladder at home Recent outpatient UA abnormal with gross hematuria. Urine culture from 07/21 with multiple venkat. Patient prescribed cefpodoxime as outpatient but did not received it prior to hospital presentation. Urine cx on this admission grew Proteus Mirabilis Abx changed from Primaxin to Rocephin On Rocephin IV day 9 since pt refused it for 2 days due to agitation (3) Elevated troponin: Possible related to demand ischemia due to sepsis/tachycardia Troponin 0.338 increased to 0.396, 0.442, 0.457, then 0.5 today EKG on admission showed no acute ST changed ECHO showed no new wall motion abnormality with EF 20% compare to previous echo Cardiology on board Continue Statin, Aspirin, metoprolol and xarelto continue monitor in tele (4) Neurogenic bladder: Due to Spinal cord injury at T9 from osteomyelitis s/p thoracic fusion Continue yuridia (5) CAD (coronary artery disease): H/o CABG in 2014 and multiple PCIs Denies any chest pain Echo results on 07/27/19 with same ejection fraction and no new wall motion problems Continue aspirin, statin and metoprolol (6) Systolic heart failure: Echo results on 07/27/19 with same ejection fraction and no new wall motion problems Declined AICD therapy in the past as per cardiology when reviewed outpatient cardiology visit On Lasix (7) HTN (hypertension): BP has been stable Hypophosphatemia stable (8) Paraplegia at T9 level: From history of past spinal cord injury at T9 from osteomyelitis s/p thoracic fusion Paralyzed from waist down, able to do some transfers using upper body but requires assistance transferin in and out of bed Neurogenic bladder, straight caths PRN PT/OT on board Not safe to discharge home as per OT PT agreed to go to SNF for rehab Waiting for placement (9) History of narcotic addiction: Has controlled substance agreement with PCP Utox screen negative on admission Continue pregabalin Tachycardia Possible related to agitation Continue Metoprolol 100mg BID Heart rate improved History of deep vein thrombosis in the past Venous doppler of LE showed no deep vein thrombosis Continue Xarelto of 20 mg daily Delirium Agitation Psych on board recommended to continue Zyprexa and haldol Continue monitor Stage III pressure ulcer of right buttock: Stage II pressure ulcer of left buttock Wound culture grew coag negative staph Wound care provider on board No debridement was required as per wound care provioder Continue daily dressing change Continue IV Rocephin Hematuria Possible related to trauma from the shi cath Hemoglobin stable If h/h drops, will hold xarelto Continue monitor DVT Ppx: on Xarelto (will hold if hematuria continues) Code status: Full Code ROS-No Headache, No Visual Changes, No Nausea, No Vomiting, No Fever, No Chills, No Neck Pain or Stiffness, No Chest Pain, No Palpitations, No SOB, No TORRES, No Cough, No Sputum, No Wheezing, No Abdominal Pain, No Diarrhea, No Hematemesis, No Hemoptysis, No Unexpected Weight Loss, No Flank pain, No Melena, No Hematochezia, No Frequency, No Urgency, No Burning, No Hematuria, No Rashes, No Diaphoresis. Appetite is Normal Physical Exam Gen-AAO x 3, NAD, Afebrile, confused Head-NCAT, EOMI, PERRLA, Anicteric Sclera, No Posterior Pharyngeal Erythema Neck-Supple, No JVD, No Thyromegaly, No Masses, No LAD, No Bruits Lungs-Clear to Auscultation Bilaterally, No Rales, No Rhonchi, No Wheezing, No Crepitus Chest-No S4, +S1, +S2, No S3, No Murmurs, No Rubs, No Gallops, No Ectopy Abdomen-Soft, Bowel Sounds Present, Non Tender, Non Distended, No Hepatomegaly, No Splenomegaly, No Palpable Masses, No Rebound, No Rigidity, No Guarding Musculoskeletal-Full Range of Motion Bilaterally, No CVAT Extremities-No Cyanosis, No Clubbing, No Edema Nuero-Cranial Nerves II-XII grossly intact, Paralyzed Legs Psych-Normal Mood Results & Data Vital Signs (Past 12 Hours) Vital Signs Temp Pulse Pulse Resp BP BP Pulse Ox 08/07/19 07:49 37.1 C 87 16 98/63 L 95 08/07/19 03:35 36.7 C 77 18 91/59 L 96 08/07/19 00:00 84 08/06/19 23:22 36.8 C 80 18 102/68 95
--- NOTE | 2019-08-07 09:21 | Psychiatric Progress Note ---
Date of Service August 07, 2019 Impression / Recommendations Impression Patient continues to improve with more consistent alertness and orientation. As he is now compliant with p.o. medications, will convert Ativan and Haldol from IV to oral deferring further dose reduction for today. As he continues to demonstrate resolution of paranoia and improved behavioral stability, these can be tapered off. Interval History Identifying Information 49-year-old male admitted medically on 07/26/2019, after being found unresponsive in his room by home health nurse. Patient has a history of paraplegia, and resides at a hotel with regular assistance. He is being treated for a UTI, and hypotension related to sepsis. Psychiatric consultation was requested to evaluate patient for paranoia and hallucinations. Pt has been seen for follow- up visits to assess progress. Chief Complaint "I'm tired". Review of Systems Notes Denies dystonia or akathisia. Primary complaint is drowsiness Subjective Subjective Patient has been consistently compliant with p.o. meds. Per nursing staff no evidence of ongoing hallucinations. No recent agitation or aggression. He is fairly oriented on interview today did not find correctly month and year but gives the date is the . He is aware that he is in the hospital receiving treatment but poorly able to describe his medical status or treatment being received. He acknowledges recent confusion but denies active hallucinations. He does not endorse any paranoia today. He expresses gratitude for care. Physical Exam Psychiatric Orientation: alert, oriented to person, oriented to place, oriented to time (partial) and cooperative Apperance: + disheveled Eye Contact: good eye contact Motor Behavior: no abnormal motor movements; no psychomotor agitation, n EPS and n akathisia Speech: normal rate/rhythm/volume of speech Affect: + blunted affect (calm) "ok" Thought Process: goal directed thought process and linear/logical thought process Thought Content: reality based without delusions; not paranoid Suicidal Thoughts: denies suicidal thoughts Hallucinations: no auditory hallucinations, no visual hallucinations and no tactile hallucinations Cognition: attention grossly intact Insight: + fair insight Judgement: + fair judgement Vital Signs (Past 24 Hours) Last Vital Signs Temp 37.1 C 08/07/19 07:49 Pulse 87 08/07/19 07:49 Resp 16 08/07/19 07:49 BP 98/63 L 08/07/19 07:49 Pulse Ox 95 08/07/19 07:49 Results & Data Laboratory Results Laboratory Results - last 24 hr 08/07/19 08/07/19 06:19 06:19 WBC 9.26 RBC 4.84 Hgb 14.6 Hct 43.5 MCV 89.9 MCH 30.2 MCHC 33.6 RDW Std Deviation 50.7 H RDW Coeff of Karan 15.3 H Plt Count 276 MPV 12.3 H Sodium 138 Potassium 3.4 L Chloride 104 Carbon Dioxide 28 Anion Gap 6.0 BUN 18 Creatinine 0.82 Est Cr Clr Drug Dosing 119.3 Est GFR ( Amer) 118.7 Est GFR (Non-Af Amer) 102.4 BUN/Creatinine Ratio 21.6 H Glucose 82 Calcium 8.6 Current Inpatient Medications Current Inpatient Medications: Current Inpatient Medications Aspirin (Ecotrin Ectab) 81 mg PO DAILY [facility] Stop: 08/26/19 08:59 Last Admin: 08/07/19 08:07 Dose: 81 mg Documented by: Atorvastatin Calcium (Lipitor) 40 mg PO DAILY [facility] Stop: 08/26/19 08:59 Last Admin: 08/07/19 08:07 Dose: 40 mg Documented by: Bisacodyl (Dulcolax) 10 mg SC Q2D [facility] Stop: 08/26/19 08:59 Last Admin: 08/06/19 08:58 Dose: Not Given Documented by: Bisacodyl (Dulcolax) 5 mg PO DAILY PRN PRN Reason: Constipation Stop: 08/25/19 20:31 Last Admin: 08/04/19 11:32 Dose: 5 mg Documented by: Cyanocobalamin (Vitamin B-12) 1,000 mcg PO DAILY [facility] Stop: 08/26/19 08:59 Last Admin: 08/07/19 08:08 Dose: 1,000 mcg Documented by: Cyclobenzaprine HCl (Flexeril) 10 mg PO Q8H PRN PRN Reason: Leg and back pain Stop: 08/25/19 20:40 Last Admin: 07/27/19 09:19 Dose: 10 mg Documented by: Docusate Sodium (Colace) 100 mg PO BID [facility] Stop: 08/25/19 20:59 Last Admin: 08/07/19 08:05 Dose: 100 mg Documented by: Furosemide (Lasix) 20 mg PO DAILY [facility] Stop: 01/10/20 08:59 Last Admin: 08/06/19 08:54 Dose: 20 mg Documented by: Haloperidol Lactate (Haldol) 2.5 mg IV BID [facility]; Protocol Stop: 09/05/19 20:59 Last Admin: 08/06/19 21:30 Dose: 2.5 mg Documented by: Ceftriaxone Sodium 2,000 mg/ (Dextrose) 70 mls @ 140 mls/hr IV Q24H [facility] Stop: 08/07/19 17:59 Last Infusion: 08/06/19 18:46 Dose: Infused Documented by: Lorazepam (Ativan) 0.5 mg in 1 mls @ 1 mls/min IV BID [facility] Stop: 09/05/19 20:59 Last Admin: 08/06/19 21:31 Dose: 1 mls/min Documented by: Magnesium Hydroxide (Milk Of Magnesia) 30 ml PO DAILY PRN PRN Reason: Constipation Stop: 08/25/19 20:31 Metoprolol Succinate (Toprol Xl) 100 mg PO BID [facility] Stop: 08/28/19 01:59 Last Admin: 08/07/19 08:07 Dose: Not Given Documented by: Multivitamins (Multivitamin Tab) 1 tab PO QAM [facility] Stop: 08/26/19 08:59 Last Admin: 08/07/19 08:07 Dose: 1 tab Documented by: Olanzapine (Zyprexa) 5 mg IM Q4H PRN PRN Reason: Anxiety/Agitation Stop: 08/28/19 01:48 Last Admin: 08/01/19 21:12 Dose: 5 mg Documented by: Pantoprazole Sodium (Protonix) 40 mg PO DAILY [facility] Stop: 08/26/19 08:59 Last Admin: 08/07/19 08:07 Dose: 40 mg Documented by: Polyethylene Glycol (Miralax Powder Packet) 17 gm PO DAILY [facility] Stop: 08/26/19 08:59 Last Admin: 08/07/19 08:06 Dose: 17 gm Documented by: Pregabalin (Lyrica) 200 mg PO BID [facility] Stop: 08/26/19 20:59 Last Admin: 08/07/19 08:05 Dose: 200 mg Documented by: Rivaroxaban (Xarelto) 20 mg PO QDD [facility] Stop: 08/26/19 16:29 Last Admin: 08/06/19 16:12 Dose: 20 mg Documented by: Senna/Docusate Sodium (Senokot S) 1 tab PO DAILY [facility] Stop: 08/26/19 08:59 Last Admin: 08/07/19 08:06 Dose: 1 tab Documented by: Thiamine HCl (Vitamin B-1) [facility] Stop: 09/04/19 17:59 Last Admin: 08/07/19 08:08 Dose: 100 mg Documented by:
[2019-08-07] MEDS: LORazepam 0.5 MG/1 ML VIAL IV SCH (12:00)
[2019-08-07] MEDS: HALOPERIDOL LACTATE 5 MG/ML 1 ML VIAL IV SCH (12:00)
[2019-08-07] MEDS: POTASSIUM CHLORIDE 20 MEQ TABCR PO SCH ×2 (13:33→21:32)
[2019-08-07] MEDS: RIVAROXABAN 20 MG TAB PO SCH (17:04)
[2019-08-07] MEDS: haloperidoL 5 MG TAB PO SCH (21:31)
[2019-08-07] MEDS: LORazepam 0.5 MG TAB PO SCH (21:32)
[2019-08-07] MEDS: ACETAMINOPHEN 325 MG TAB PO PRN (21:52)
[2019-08-08 07:11] LABS: Hematocrit (blood only) 42.6 % (42-52); Hemoglobin 13.9 g/dL (14.0-18.0); Mean Corpuscular Hemoglobin 30.2 pg (25-34); Mean Corpuscular Hgb Conc 32.6 g/dL (32-36); Mean Corpuscular Volume 92.4 fL (80-100); Mean Platelet Volume 12.4 fL (7.4-10.4); Platelet Count 275 K/uL (130-400); RDW Coefficient of Variation 15.6 % (11.5-14.5); RDW Standard Deviation 52.3 fL (36.4-46.3); Red Blood Count 4.61 M/uL (4.7-6.1); White Blood Count 7.78 K/uL (4.8-10.8)
--- NOTE | 2019-08-08 07:13 | Hospitalist Progress Note ---
Date of Service August 08, 2019 Assessment & Plan (1) Sepsis associated hypotension: Pt was brought to the ER after found unresponsive by home health in AM of 07/26/19 and presumed diagnosis of sepsis from urinary tract infection. Initially found to be hypothermic at 34.7 C with hypotension of 75/55, leukocytosis of 15.7, lactic acid of 2.5, CK of 2642 and troponin of 0.338. VBG pH of 7.3 CT head on admission showed no acute intracranial abnormality Cervical spine CT without evidence of fracture or subluxation. Chest CTA with a patchy airspace consolidation at the left lung base. Also with left-sided nephrolithiasis and large bladder calculus. Received Zosyn and vancomycin on 07/26/19 in the ER and admitted to the ICU, then starting on Primaxin Patient transferred out of ICU on telemetry on 07/27/19 Blood cx no growth Urine cx proteus mirabilis Abx changed from Primaxin to Rocephin on 07/28 Off Abx Continue monitor closely Less confused (2) Recurrent UTI: History of recurrent urinary tract infections presumed from risks of self straight catherizations of bladder at home Recent outpatient UA abnormal with gross hematuria. Urine culture from 07/21 with multiple venkat. Patient prescribed cefpodoxime as outpatient but did not received it prior to hospital presentation. Urine cx on this admission grew Proteus Mirabilis Abx changed from Primaxin to Rocephin Rocephin DCd 08/07 (3) Elevated troponin: Possible related to demand ischemia due to sepsis/tachycardia Troponin 0.338 increased to 0.396, 0.442, 0.457, then 0.5 today EKG on admission showed no acute ST changed ECHO showed no new wall motion abnormality with EF 20% compare to previous echo Cardiology on board Continue Statin, Aspirin, metoprolol and xarelto DC tele (4) Neurogenic bladder: Due to Spinal cord injury at T9 from osteomyelitis s/p thoracic fusion Continue shi (5) CAD (coronary artery disease): H/o CABG in 2014 and multiple PCIs Denies any chest pain Echo results on 07/27/19 with same ejection fraction and no new wall motion problems Continue aspirin, statin and metoprolol (6) Systolic heart failure: Echo results on 07/27/19 with same ejection fraction and no new wall motion problems Declined AICD therapy in the past as per cardiology when reviewed outpatient cardiology visit On Lasix (7) HTN (hypertension): BP has been stable Hypophosphatemia stable (8) Paraplegia at T9 level: From history of past spinal cord injury at T9 from osteomyelitis s/p thoracic fusion Paralyzed from waist down, able to do some transfers using upper body but requires assistance transferin in and out of bed Neurogenic bladder, straight caths PRN PT/OT on board Not safe to discharge home as per OT PT agreed to go to SNF Waiting for placement (9) History of narcotic addiction: Has controlled substance agreement with PCP Utox screen negative on admission Continue pregabalin Tachycardia Possible related to agitation Continue Metoprolol 100mg BID Heart rate improved History of deep vein thrombosis in the past Venous doppler of LE showed no deep vein thrombosis Continue Xarelto of 20 mg daily Delirium Agitation Psych on board recommended to continue Zyprexa and haldol Continue monitor Stage III pressure ulcer of right buttock: Stage II pressure ulcer of left buttock Wound culture grew coag negative staph Wound care provider on board No debridement was required as per wound care provioder Continue daily dressing change Continue IV Rocephin Hematuria Possible related to trauma from the shi cath, DC shi Hemoglobin stable If h/h drops, will hold xarelto Continue monitor DVT Ppx: on Xarelto (will hold if hematuria continues) Code status: Full Code ROS-No Headache, No Visual Changes, No Nausea, No Vomiting, No Fever, No Chills, No Neck Pain or Stiffness, No Chest Pain, No Palpitations, No SOB, No TORRES, No Cough, No Sputum, No Wheezing, No Abdominal Pain, No Diarrhea, No Hematemesis, No Hemoptysis, No Unexpected Weight Loss, No Flank pain, No Melena, No Hematochezia, No Frequency, No Urgency, No Burning, No Hematuria, No Rashes, No Diaphoresis. Appetite is Normal Physical Exam Gen-AAO x 3, NAD, Afebrile, confused Head-NCAT, EOMI, PERRLA, Anicteric Sclera, No Posterior Pharyngeal Erythema Neck-Supple, No JVD, No Thyromegaly, No Masses, No LAD, No Bruits Lungs-Clear to Auscultation Bilaterally, No Rales, No Rhonchi, No Wheezing, No Crepitus Chest-No S4, +S1, +S2, No S3, No Murmurs, No Rubs, No Gallops, No Ectopy Abdomen-Soft, Bowel Sounds Present, Non Tender, Non Distended, No Hepatomegaly, No Splenomegaly, No Palpable Masses, No Rebound, No Rigidity, No Guarding Musculoskeletal-Full Range of Motion Bilaterally, No CVAT Extremities-No Cyanosis, No Clubbing, No Edema Nuero-Cranial Nerves II-XII grossly intact, Paralyzed Legs Psych-Normal Mood Results & Data Vital Signs (Past 12 Hours) Vital Signs Temp Pulse Pulse Resp BP BP Pulse Ox 08/08/19 06:59 36.5 C 79 18 132/72 97 08/08/19 03:34 36.4 C L 82 16 104/63 95 08/08/19 00:00 36.7 C 83 89 18 124/73 99 08/07/19 19:46 36.7 C 92 H 19 115/70 95
[2019-08-08 07:25] LABS: BUN Creatinine Ratio 17.7 (10-20); Calcium 8.7 mg/dl (8.5-10.1); Creatinine Clr Calc Pharmacy 122.3 ml/min; Est GFR (African American) 119.9; Est GFR (Non-African American) 103.4; Potassium 4.1 mmol/L (3.5-5.1)
[2019-08-08] MEDS: DOCUSATE SODIUM 100 MG CAP PO SCH ×2 (09:44→20:44)
[2019-08-08] MEDS: LORazepam 0.5 MG TAB PO SCH ×2 (09:44→20:41)
[2019-08-08] MEDS: DOCUSATE SODIUM/SENNA 50/8.6MG TAB PO SCH (09:44)
[2019-08-08] MEDS: bisacodyL 5 MG TABEC PO PRN (09:44)
[2019-08-08] MEDS: POLYETHYLENE (MIRALAX) 17 GM PACK PO SCH (09:44)
[2019-08-08] MEDS: METOPROLOL SUCC 50MG EXT REL TAB PO SCH ×2 (09:44→20:47)
[2019-08-08] MEDS: ASPIRIN 81 MG ECTAB PO SCH (09:45)
[2019-08-08] MEDS: THIAMINE HCL 100 MG TAB PO SCH (09:45)
[2019-08-08] MEDS: POTASSIUM CHLORIDE 20 MEQ TABCR PO SCH ×2 (09:45→20:44)
[2019-08-08] MEDS: haloperidoL 5 MG TAB PO SCH ×2 (09:45→20:42)
[2019-08-08] MEDS: CYANOCOBALAMIN 500 MCG TABLET (VITAMIN B-12) PO SCH (09:45)
[2019-08-08] MEDS: FUROSEMIDE 20 MG TAB PO SCH (09:45)
[2019-08-08] MEDS: ATORVASTATIN 40 MG TAB PO SCH (09:46)
[2019-08-08] MEDS: PANTOprazole 40 MG TAB PO SCH (09:46)
[2019-08-08] MEDS: MULTIVITAMIN TAB PO SCH (09:46)
[2019-08-08] MEDS: PREGABALIN 100 MG CAP PO SCH ×2 (09:50→20:44)
[2019-08-08] MEDS: bisacodyL 10 MG SUPP PR SCH (09:50)
[2019-08-08] MEDS: RIVAROXABAN 20 MG TAB PO SCH (16:06)
[2019-08-08] MEDS: ACETAMINOPHEN 325 MG TAB PO PRN (19:45)
[2019-08-09 07:42] LABS: Hematocrit (blood only) 43.1 % (42-52); Mean Corpuscular Hemoglobin 29.9 pg (25-34); Mean Corpuscular Hgb Conc 32.5 g/dL (32-36); Mean Corpuscular Volume 91.9 fL (80-100); Mean Platelet Volume 11.6 fL (7.4-10.4); Platelet Count 270 K/uL (130-400); RDW Coefficient of Variation 15.9 % (11.5-14.5); RDW Standard Deviation 53.3 fL (36.4-46.3); Red Blood Count 4.69 M/uL (4.7-6.1); White Blood Count 7.55 K/uL (4.8-10.8)
[2019-08-09 07:57] LABS: BUN Creatinine Ratio 14.1 (10-20); Calcium 8.7 mg/dl (8.5-10.1); Creatinine Clr Calc Pharmacy 109.9 ml/min; Est GFR (African American) 114.7; Potassium 4.1 mmol/L (3.5-5.1)
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
[2019-08-09] MEDS: METOPROLOL SUCC 50MG EXT REL TAB PO SCH ×2 (08:23→20:24)
[2019-08-09] MEDS: ATORVASTATIN 40 MG TAB PO SCH (08:23)
[2019-08-09] MEDS: LORazepam 0.5 MG TAB PO SCH ×2 (08:23→20:23)
[2019-08-09] MEDS: ASPIRIN 81 MG ECTAB PO SCH (08:23)
[2019-08-09] MEDS: haloperidoL 5 MG TAB PO SCH ×2 (08:24→21:45)
[2019-08-09] MEDS: CYANOCOBALAMIN 500 MCG TABLET (VITAMIN B-12) PO SCH (08:24)
[2019-08-09] MEDS: THIAMINE HCL 100 MG TAB PO SCH (08:24)
[2019-08-09] MEDS: MULTIVITAMIN TAB PO SCH (08:24)
[2019-08-09] MEDS: FUROSEMIDE 20 MG TAB PO SCH (08:24)
[2019-08-09] MEDS: PANTOprazole 40 MG TAB PO SCH (08:24)
[2019-08-09] MEDS: POTASSIUM CHLORIDE 20 MEQ TABCR PO SCH ×2 (08:25→20:24)
[2019-08-09] MEDS: POLYETHYLENE (MIRALAX) 17 GM PACK PO SCH (08:32)
[2019-08-09] MEDS: DOCUSATE SODIUM/SENNA 50/8.6MG TAB PO SCH (08:32)
[2019-08-09] MEDS: DOCUSATE SODIUM 100 MG CAP PO SCH ×2 (08:32→17:38)
[2019-08-09] MEDS: PREGABALIN 100 MG CAP PO SCH ×2 (08:32→20:23)
[2019-08-09] MEDS: RIVAROXABAN 20 MG TAB PO SCH (17:35)
--- NOTE | 2019-08-10 08:34 | Hospitalist Progress Note ---
Date of Service August 10, 2019 Assessment & Plan (1) Sepsis associated hypotension: Pt was brought to the ER after found unresponsive by home health in AM of 07/26/19 and presumed diagnosis of sepsis from urinary tract infection. Initially found to be hypothermic at 34.7 C with hypotension of 75/55, leukocytosis of 15.7, lactic acid of 2.5, CK of 2642 and troponin of 0.338. VBG pH of 7.3 CT head on admission showed no acute intracranial abnormality Cervical spine CT without evidence of fracture or subluxation. Chest CTA with a patchy airspace consolidation at the left lung base. Also with left-sided nephrolithiasis and large bladder calculus. Received Zosyn and vancomycin on 07/26/19 in the ER and admitted to the ICU, then starting on Primaxin Patient transferred out of ICU on telemetry on 07/27/19 Blood cx no growth Urine cx proteus mirabilis Abx changed from Primaxin to Rocephin on 07/28 Off Abx Continue monitor closely Less confused (2) Recurrent UTI: History of recurrent urinary tract infections presumed from risks of self straight catherizations of bladder at home Recent outpatient UA abnormal with gross hematuria. Urine culture from 07/21 with multiple venkat. Patient prescribed cefpodoxime as outpatient but did not received it prior to hospital presentation. Urine cx on this admission grew Proteus Mirabilis Abx changed from Primaxin to Rocephin Rocephin DCd 08/07 (3) Elevated troponin: Possible related to demand ischemia due to sepsis/tachycardia Troponin 0.338 increased to 0.396, 0.442, 0.457, then 0.5 today EKG on admission showed no acute ST changed ECHO showed no new wall motion abnormality with EF 20% compare to previous echo Cardiology on board Continue Statin, Aspirin, metoprolol and xarelto DC tele (4) Neurogenic bladder: Due to Spinal cord injury at T9 from osteomyelitis s/p thoracic fusion DC shi (5) CAD (coronary artery disease): H/o CABG in 2014 and multiple PCIs Denies any chest pain Echo results on 07/27/19 with same ejection fraction and no new wall motion problems Continue aspirin, statin and metoprolol (6) Systolic heart failure: Echo results on 07/27/19 with same ejection fraction and no new wall motion problems Declined AICD therapy in the past as per cardiology when reviewed outpatient cardiology visit On Lasix (7) HTN (hypertension): BP has been stable Hypophosphatemia stable (8) Paraplegia at T9 level: From history of past spinal cord injury at T9 from osteomyelitis s/p thoracic fusion Paralyzed from waist down, able to do some transfers using upper body but req uires assistance transferin in and out of bed Neurogenic bladder, straight caths PRN PT/OT on board Not safe to discharge home as per OT PT agreed to go to SNF Waiting for placement (9) History of narcotic addiction: Has controlled substance agreement with PCP Utox screen negative on admission Continue pregabalin Tachycardia Possible related to agitation Continue Metoprolol 100mg BID Heart rate improved History of deep vein thrombosis in the past Venous doppler of LE showed no deep vein thrombosis Continue Xarelto of 20 mg daily Delirium Agitation Psych on board recommended to continue Zyprexa and haldol Continue monitor Stage III pressure ulcer of right buttock: Stage II pressure ulcer of left buttock Wound culture grew coag negative staph Wound care provider on board No debridement was required as per wound care provioder Continue daily dressing change Continue IV Rocephin Hematuria Possible related to trauma from the shi cath, DC shi Hemoglobin stable If h/h drops, will hold xarelto Continue monitor DVT Ppx: on Xarelto (will hold if hematuria continues) Awaiting Placement, was denied at his first choice Labs checked ROS-No Headache, No Visual Changes, No Nausea, No Vomiting, No Fever, No Chills, No Neck Pain or Stiffness, No Chest Pain, No Palpitations, No SOB, No TORRES, No Cough, No Sputum, No Wheezing, No Abdominal Pain, No Diarrhea, No Hematemesis, No Hemoptysis, No Unexpected Weight Loss, No Flank pain, No Melena, No Hematochezia, No Frequency, No Urgency, No Burning, No Hematuria, No Rashes, No Diaphoresis. Appetite is Normal Physical Exam Gen-AAO x 3, NAD, Afebrile, confused Head-NCAT, EOMI, PERRLA, Anicteric Sclera, No Posterior Pharyngeal Erythema Neck-Supple, No JVD, No Thyromegaly, No Masses, No LAD, No Bruits Lungs-Clear to Auscultation Bilaterally, No Rales, No Rhonchi, No Wheezing, No Crepitus Chest-No S4, +S1, +S2, No S3, No Murmurs, No Rubs, No Gallops, No Ectopy Abdomen-Soft, Bowel Sounds Present, Non Tender, Non Distended, No Hepatomegaly, No Splenomegaly, No Palpable Masses, No Rebound, No Rigidity, No Guarding Musculoskeletal-Full Range of Motion Bilaterally, No CVAT Extremities-No Cyanosis, No Clubbing, No Edema Nuero-Cranial Nerves II-XII grossly intact, Paralyzed Legs, T9 Paraplegia Psych-Normal Mood Results & Data Vital Signs (Past 12 Hours) Vital Signs Temp Pulse Pulse Resp BP Pulse Ox 08/10/19 07:44 36.9 C 80 18 94/59 L 96 08/09/19 23:15 36.6 C 83 18 110/75 94
[2019-08-10] MEDS: haloperidoL 5 MG TAB PO SCH ×2 (08:45→21:10)
[2019-08-10] MEDS: LORazepam 0.5 MG TAB PO SCH ×2 (08:45→21:09)
[2019-08-10] MEDS: ATORVASTATIN 40 MG TAB PO SCH (08:46)
[2019-08-10] MEDS: CYANOCOBALAMIN 500 MCG TABLET (VITAMIN B-12) PO SCH (08:46)
[2019-08-10] MEDS: ASPIRIN 81 MG ECTAB PO SCH (08:47)
[2019-08-10] MEDS: POTASSIUM CHLORIDE 20 MEQ TABCR PO SCH ×2 (08:47→21:10)
[2019-08-10] MEDS: MULTIVITAMIN TAB PO SCH (08:47)
[2019-08-10] MEDS: THIAMINE HCL 100 MG TAB PO SCH (08:47)
[2019-08-10] MEDS: PANTOprazole 40 MG TAB PO SCH (08:47)
[2019-08-10] MEDS: bisacodyL 10 MG SUPP PR SCH (08:47)
[2019-08-10] MEDS: FUROSEMIDE 20 MG TAB PO SCH (08:47)
[2019-08-10] MEDS: METOPROLOL SUCC 50MG EXT REL TAB PO SCH ×2 (08:48→21:10)
[2019-08-10] MEDS: POLYETHYLENE (MIRALAX) 17 GM PACK PO SCH (08:48)
[2019-08-10] MEDS: DOCUSATE SODIUM/SENNA 50/8.6MG TAB PO SCH (08:50)
[2019-08-10] MEDS: DOCUSATE SODIUM 100 MG CAP PO SCH ×2 (08:50→21:11)
[2019-08-10] MEDS: PREGABALIN 100 MG CAP PO SCH ×2 (08:55→21:09)
[2019-08-10] MEDS: RIVAROXABAN 20 MG TAB PO SCH (16:55)
[2019-08-11] MEDS: LORazepam 0.5 MG TAB PO SCH (09:22)
[2019-08-11] MEDS: DOCUSATE SODIUM 100 MG CAP PO SCH (09:22)
[2019-08-11] MEDS: METOPROLOL SUCC 50MG EXT REL TAB PO SCH (09:22)
[2019-08-11] MEDS: haloperidoL 5 MG TAB PO SCH (09:22)
[2019-08-11] MEDS: DOCUSATE SODIUM/SENNA 50/8.6MG TAB PO SCH (09:22)
[2019-08-11] MEDS: PREGABALIN 100 MG CAP PO SCH (09:22)
[2019-08-11] MEDS: CYANOCOBALAMIN 500 MCG TABLET (VITAMIN B-12) PO SCH (09:24)
[2019-08-11] MEDS: POTASSIUM CHLORIDE 20 MEQ TABCR PO SCH (09:25)
[2019-08-11] MEDS: FUROSEMIDE 20 MG TAB PO SCH (09:25)
[2019-08-11] MEDS: ATORVASTATIN 40 MG TAB PO SCH (09:25)
[2019-08-11] MEDS: THIAMINE HCL 100 MG TAB PO SCH (09:25)
[2019-08-11] MEDS: PANTOprazole 40 MG TAB PO SCH (09:25)
[2019-08-11] MEDS: MULTIVITAMIN TAB PO SCH (09:26)
[2019-08-11] MEDS: ASPIRIN 81 MG ECTAB PO SCH (09:26)
[2019-08-11] MEDS: POLYETHYLENE (MIRALAX) 17 GM PACK PO SCH (09:26)
--- NOTE | 2019-08-11 19:39 | Hospitalist Progress Note ---
Date of Service delayed entry date of service as noted below August 11, 2019 Assessment & Plan (1) Sepsis associated hypotension: hemodynamically stable afebrile clinically stable as well has completed antibiotics ok for discharge (2) Recurrent UTI: per #1 (3) Elevated troponin: no cardiac symptoms Continue Statin, Aspirin, metoprolol and xarelto (4) Neurogenic bladder: Due to Spinal cord injury at T9 from osteomyelitis s/p thoracic fusion (5) CAD (coronary artery disease): H/o CABG in 2014 and multiple PCIs no cardiac symptoms Echo results on 07/27/19 with same ejection fraction and no new wall motion problems Continue aspirin, statin and metoprolol (6) Systolic heart failure: euvolemic On Lasix (7) HTN (hypertension): BP stable (8) Paraplegia at T9 level: d/c to SNF (9) History of narcotic addiction: Continue pregabalin Tachycardia Continue Metoprolol 100mg BID History of deep vein thrombosis in the past Venous doppler of LE showed no deep vein thrombosis Continue Xarelto of 20 mg daily Delirium Psych on board recommended to continue Zyprexa and haldol Stage III pressure ulcer of right buttock: Stage II pressure ulcer of left buttock wound care consult DVT Ppx: on Xarelto DC to [facility] Subjective ff up for urosepsis seen resting in bed, comfortable, not in distress states he feels fine overall denies fever/chills, abdominal pain, nausea no chest pain, dyspnea, palpitations, dizziness no other symptom states he is ready for discharge today Review of Systems Review of Systems: All systems reviewed & are unremarkable except as noted in HPI & below Physical Exam Physical Exam: General- oriented x 3, not in distress, speaks in sentences with no effort or accessory muscle use Eyes- anicteric Neck- no JVD Lungs- clear breath sounds bilaterally, no rales/wheezes Heart- normal rate, regular rhythm; no murmurs Abdomen- normal bowel sounds, nondistended, soft, nontender Extremities- no pretibial edema, no calf tenderness Neuro- alert, oriented x 3; (+) paraplegia Skin- warm & dry Results & Data Vital Signs (Past 12 Hours) Vital Signs Temp Pulse Pulse Resp BP Pulse Ox 08/11/19 14:35 36.8 C 84 84 18 93/56 L 97 Laboratory Results all noted
--- NOTE | 2019-08-17 12:24 | Coding Query ---
CODING QUERY To promote full compliance with coding requirements relating to patient care, provider participation is requested in all cases of label coder uncertainty. Please assist us with the question(s) below: In the record, it states that the patient has an UTI. There is documentation in the record and on Discharge Summary of, "History of recurrent urinary tract infections presumed from risks of self straight catherizations of bladder at home". Please clarify below the cause of the UTI if applicable. Thank you. ( ) chronic shi was the cause of the UTI. ( ) Other urinary cath/device was the cause of the UTI. ( ) UTI, unspecified cause. ( X ) Self-catheterization was the cause of the UTI. ( ) Other (Specify): Principal Diagnosis: "that condition established after study, to be chiefly responsible for occasioning the admission of the patient to the hospital for care." Co-Existing Principal Diagnosis: "when two or more diagnoses equally meet the criteria for principal diagnosis as determined by the circumstances of admission, diagnostic work up, and/or therapy provided, and the Alphabetic Index, Tabular List, or another coding guideline does not provide sequencing direction, any one of the diagnoses may be sequenced first." "When the physician has documented what appears to be a current diagnosis in the body of the record, but has not included the diagnosis in the final diagnostic statement, the physician should be asked whether the diagnosis should be added." ([facility] QTR90. p3-4) KELLY
--- NOTE | 2019-08-27 06:48 | Coding Query ---
PRESENT ON ADMISSION QUERY To promote full compliance with coding requirements relating to pateint care, physician participation is requested in all cases of exercise instruct uncertainty. Please assist us with the question(s) below: Please place an X within the parenthesis (x). The following diagnosis(es) listed in this patient's medical record require physician assistance to determine if they were present on admission (POA) or not. Please advise for each diagnosis whether it was present on admission, not present on admission, or if it was clinically undetermined. 1. STAGE III PRESSURE ULCER OF RIGHT BUTTOCK (documentation begins in the 07/26/19 Critical Care Consultation in physical description area of "R buttock ulcer present, surrounding erythema.", and then Stage III Pressure Ulcer of Right Buttock is documented beginning on the Wound Consultation) ( x) Present On Admission ( ) Not Present On Admission ( ) Clinically Undetermined 2. STAGE II PRESSURE ULCER OF THE LEFT BUTTOCK (documentation begins on the 07/28/19 Wound Care Consultation) ( x) Present On Admission ( ) Not Present On Admission ( ) Clinically Undetermined Thank you Azalia Duggan *Definition of the present on admission (POA)-Present on admission is defined as present at the time the order for inpatient admission occurs. Conditions that develop during an outpatient encounter prior to a written order for inpatient admission (including emergency department, observation, or outpatient surgery) are considered present on admission. MTDD
== END 2019-08-11 16:14 | DRG 698 ==
LOC: ED 13:01 → SUATTDRO 16:42 → 1E 16:42 → 2S 07-27 12:39 → 2W 08-08 11:03

== ENCOUNTER 2021-02-01 11:22 | Inpatient (IN) ==
[2021-02-01] MEDS ORDERED: CEFEPIME 2,000 MG/20 ML VIAL IV STA (11:47)
[2021-02-01] MEDS ORDERED: VANCOMYCIN CONSULT ACTIVE PRN (11:47)
[2021-02-01] MEDS ORDERED: VANCOMYCIN HCL 2,000 MG in SODIUM CHLORIDE 0.9% 500 ML IV ONE (11:47)
--- NOTE | 2021-02-01 11:55 | Emergency Department Note ---
Impression & Plan Sepsis, Tachycardia, Cellulitis of sacral region, Acute UTI ED Provider Note NAME: KATIE SAGASTUME AGE: 50 SEX: M : 1970 ARRIVES VIA: Ambulance INFORMANT: [Patient] ED PROVIDER(S): [Emeka Nolasco MD] CHIEF COMPLAINT: Infection HISTORY OF PRESENT ILLNESS: The patient is a 50-year-old male who presents to the ED with a sacral wound. The patient has been having some issues with his sacrum for a month now but in the last 2 days, the area has worsened and an opening thought quite deep has formed. The patient had a low-grade temperature of just over 100 prior to arrival although here, he does not have a temperature elevation. Patient has noticed some chills and hot flashes. He thought he might have a UTI as he has had UTIs in the past. He has to self cath. There has been no cough or congestion. No shortness of breath. The patient denies any rash. Patient states he is a paraplegic and, he has been septic from a sacral wound before. His previous sacral wound took over a year to heal. REVIEW OF SYSTEMS: See HPI for pertinent positives and negatives. A total of ten systems were reviewed and were otherwise negative. PMHx/PSHx: See Below SOCIAL HISTORY: See Below. PHYSICAL EXAM: GENERAL: Patient is in no acute distress. HEENT: No acute trauma, normocephalic atraumatic, mucous membranes moist, no nasal congestion, no scleral icterus. NECK: No stridor, no adenopathy, no meningismus, trachea is midline. LUNGS: Clear to auscultation bilaterally, no wheeze, no rhonchi, breath sounds equal. HEART: Tachycardic, regular rhythm, no murmurs. ABDOMEN: Soft, nontender, bowel sounds positive, no hernias, no peritonitis. EXTREMITIES: No cyanosis or edema, full range of motion of all the joints without pain or difficulty, no signs for acute trauma. NEUROLOGIC: Paraplegia noted, normal movement of the upper extremities, awake and alert. SKIN: No rash, no jaundice, no diaphoresis. Groin: No scrotal erythema. There is some hypospadias. Buttock: There are multiple superficial ulcers across the sacral area. There is a large deep lesion to the mid sacrum with some bloody drainage. There is surrounding erythema to this area and some warmth. DIFFERENTIAL DIAGNOSIS: Sepsis, UTI, pneumonia, metabolic abnormality, electrolyte abnormalities, cardiac sources, cellulitis, UTI, bacteremia, intracerebral event, toxicologic etiology, neurologic event, as well as other pathologies. EMERGENCY DEPARTMENT COURSE/PROCEDURES: ECG: Indication was sepsis. The ECG shows a sinus tachycardia with a rate of 134. There is no ST elevation. PVCs are noted. There is an old septal infarct. There are some inverted T waves laterally which could indicate ischemia. The QTc is 412. Compared to an ECG from 29 September 2019, the rate has increased. The lateral T wave changes are more pronounced. Continuous Cardiac Monitoring: An order was placed for continuous cardiac monitoring. The monitor shows a rate of 136 with sinus tachycardia. Critical Care Note: I have personally spent 52 minutes of critical care time in the direct management of this patient. This includes bedside care, interpretation of diagnostic studies, and testing, discussion with consultants, patient, and family members, and other required patient management activities. This 52 minutes is in excess of all separately billable procedures. MEDICAL DECISION MAKING: There is a moderate leukocytosis which would be consistent with infection. There is an anemia present. Platelet count is normal. No coagulopathy. No significant electrolyte abnormality or kidney failure. Lactic acid level is not elevated making severe sepsis less likely. No worrisome liver enzyme elevation. ECG shows a sinus tachycardia, no acute NE seen. Cardiac enzyme testing does not show any evidence for acute cardiac injury. Urinalysis does suggest infection. Urine tox was negative. Covid testing returned negative. Chest from does not show pneumonia or CHF. Abdominal and pelvis CT shows a sacral/coccygeal abscess with osteomyelitis. There was a potential renal abscess seen with some renal obstruction. A UPJ stone was noted. On exam, the patient was tachycardic. He did not seem toxic. The patient received IV saline, 2.5 L. He received IV cefepime and IV vancomycin. Patient's pulse has improved. He is borderline hypotensive with a systolic blood pressure in the 90s. In general, he looks better than when he first arrived here in the ED. The patient is septic. He has 2 potential sources for his sepsis. He has a sacral cellulitis/abscess. He has a urinary tract infection with a potential renal abscess. I did speak with case management, the patient is clearly in need of a hospital stay. Patient will need a surgery and urology consult. He may acquire a ureteral stent. The on-call hospitalist has been consulted. Past Med/Surg History Medical History CAD (coronary artery disease) CHF (congestive heart failure) History of narcotic addiction HTN (hypertension) Myocardial infarction Neurogenic bladder Paraplegia at T9 level PPD positive Prediabetes Recurrent UTI Stage II pressure ulcer of left buttock Stage III pressure ulcer of left buttock Stage III pressure ulcer of right buttock Systolic heart failure Surgical History History of coronary artery stent placement History of thoracic spinal fusion Hx of CABG Family History Mother Coronary heart disease Cancer Hypertension Other Heart disease Social History Smoking Status: Never smoker Cigarettes Per Day: few times a week; Second Hand Exposure: No; Do You Dip or Chew Tobacco: No; Tobacco Cessation Education Requested by Patient: No Hx Alcohol Use: No Hx Substance Use: No Preferred Language: Bulgarian Communication Ability: Effective Corporate Paralegal Required: No Beliefs That Will Affect Care: None marital status: single Current Living Situation: Alone current occupational status: retired Other Information That Helps Us Care for You: No Feels Safe at Home: Yes Safety Concerns: Feels Safe At This Time caffeine: Yes during the past year weight has: remained stable Physical Activity Frequency: Daily Assistive Devices: Wheelchair Allergies Allergies Allergy/AdvReac Type Severity Reaction Status Date / Time No Known Allergies Allergy Unverified 02/01/21 14:05 Home Meds Home Medications Medication Instructions Recorded Confirmed aspirin 81 mg PO DAILY 07/26/19 02/01/21 atorvastatin 40 mg PO DAILY 07/26/19 02/01/21 cyanocobalamin (vitamin B-12) 1,000 mcg PO DAILY 07/26/19 02/01/21 [Vitamin B-12] diphenhydramine HCl [Diphenhist] 25 mg PO HS 07/26/19 02/01/21 methenamine hippurate 1 g PO BID 07/26/19 02/01/21 sennosides-docusate sodium 1 tab-cap PO DAILY PRN 07/26/19 02/01/21 [Senna-S] Previous Rx's Medication Instructions Recorded acetaminophen [Mapap 650 mg PO Q4H PRN #100 tab 08/09/19 (acetaminophen)] Results & Data (ED) Vital Signs Vital Signs - 24 hr 02/01/21 11:25 02/01/21 11:28 02/01/21 11:30 Temperature 37.4 C Temperature Source Oral Pulse Rate 136 H 139 H 135 H Pulse Rate from SpO2 Sensor 134 H Pulse Rhythm Regular Pulse Strength Normal Respiratory Rate 24 20 20 Respiratory Effort / Characteristics Non-Labored Spontaneous Respiratory Depth Normal Respiratory Pattern Regular Blood Pressure 113/68 111/71 113/68 Blood Pressure Mean 83 84 83 Blood Pressure Position Sitting Pulse Oximetry 98 100 Oxygen Delivery Method Room Air Sepsis Recent Fever Within 48 Hours Yes Sepsis New/Unexplained Change in Mental Status No Sepsis Action Taken by Nursing Physician Notified 02/01/21 12:00 02/01/21 12:07 02/01/21 12:08 Temperature Temperature Source Pulse Rate 121 H Pulse Rate from SpO2 Sensor 122 H Pulse Rhythm Pulse Strength Respiratory Rate 20 Respiratory Effort / Characteristics Non-Labored Spontaneous Respiratory Depth Respiratory Pattern Blood Pressure 99/59 L Blood Pressure Mean 72 Blood Pressure Position Pulse Oximetry 99 98 Oxygen Delivery Method Room Air Room Air Sepsis Recent Fever Within 48 Hours Sepsis New/Unexplained Change in Mental Status Sepsis Action Taken by Nursing 02/01/21 12:30 02/01/21 12:33 02/01/21 12:45 Temperature Temperature Source Pulse Rate 122 H 120 H 121 H Pulse Rate from SpO2 Sensor 122 H 120 H 122 H Pulse Rhythm Pulse Strength Respiratory Rate 20 20 20 Respiratory Effort / Characteristics Respiratory Depth Respiratory Pattern Blood Pressure 105/64 96/63 L 97/54 L Blood Pressure Mean 77 74 68 Blood Pressure Position Pulse Oximetry 100 99 97 Oxygen Delivery Method Sepsis Recent Fever Within 48 Hours Sepsis New/Unexplained Change in Mental Status Sepsis Action Taken by Nursing 02/01/21 13:00 02/01/21 13:15 02/01/21 13:30 Temperature Temperature Source Pulse Rate 117 H 116 H 112 H Pulse Rate from SpO2 Sensor 118 H 116 H 111 H Pulse Rhythm Pulse Strength Respiratory Rate 20 20 20 Respiratory Effort / Characteristics Respiratory Depth Respiratory Pattern Blood Pressure 100/59 L 95/60 L 92/62 L Blood Pressure Mean 72 71 72 Blood Pressure Position Pulse Oximetry 98 99 99 Oxygen Delivery Method Sepsis Recent Fever Within 48 Hours Sepsis New/Unexplained Change in Mental Status Sepsis Action Taken by Nursing 02/01/21 13:45 02/01/21 14:00 Temperature Temperature Source Pulse Rate 112 H 113 H Pulse Rate from SpO2 Sensor 112 H 114 H Pulse Rhythm Pulse Strength Respiratory Rate 20 20 Respiratory Effort / Characteristics Respiratory Depth Respiratory Pattern Blood Pressure 91/59 L 100/62 Blood Pressure Mean 69 74 Blood Pressure Position Pulse Oximetry 99 100 Oxygen Delivery Method Sepsis Recent Fever Within 48 Hours Sepsis New/Unexplained Change in Mental Status Sepsis Action Taken by Shelter Medications Current Medication List: was personally reviewed by me Laboratory Data Attestation: I reviewed the patient's lab results. Result diagrams: 02/01/21 11:45 02/01/21 11:45 Lab Results 02/01/21 02/01/21 02/01/21 Range/Units 11:35 11:35 11:45 WBC 18.04 H (4.8-10.8) K/uL RBC 3.69 L (4.7-6.1) M/uL Hgb 10.4 L (14.0-18.0) g/dL Hct 31.8 L (42-52) % MCV 86.2 (80-100) fL MCH 28.2 (25-34) pg MCHC 32.7 (32-36) g/dL RDW Std Deviation 51.1 H (36.4-46.3) fL RDW Coeff of Karan 16.1 H (11.5-14.5) % Plt Count 354 (130-400) K/uL MPV 10.4 (7.4-10.4) fL Immature Gran % (Auto) 0.4 % Neut % (Auto) 91.9 % Lymph % (Auto) 3.5 % [place] % (Auto) 3.7 % Eos % (Auto) 0.4 % Baso % (Auto) 0.1 % Neut # (Auto) 16.57 H (1.4-6.5) K/uL Lymph # (Auto) 0.64 L (1.2-3.4) K/uL [place] # (Auto) 0.66 H (0.11-0.59) K/uL Eos # (Auto) 0.08 (0-0.5) K/uL Baso # (Auto) 0.02 (0-0.2) K/uL Immature Gran # (Auto) 0.07 H (0.00-0.02) K/uL PT (9.0-12.0) Seconds INR (0.9-1.1) APTT (21.0-31.0) Seconds PTT Ratio Sodium (136-145) mmol/L Potassium (3.5-5.1) mmol/L Chloride (98-107) mmol/L Carbon Dioxide (21-32) mmol/L Anion Gap (3-11) BUN (7-18) mg/dl Creatinine (0.6-1.4) mg/dl Est Cr Clr Drug Dosing ml/min Est GFR ( Amer) ml/min Est GFR (Non-Af Amer) ml/min BUN/Creatinine Ratio (10-20) Glucose (70-99) mg/dl Lactate (0.4-2.0) mmol/L Calcium (8.5-10.1) mg/dl Magnesium (1.8-2.4) mg/dl Total Bilirubin (0.2-1) mg/dl AST (15-37) U/L ALT (12-78) U/L Alkaline Phosphatase (45-117) U/L Troponin I (0-0.045) ng/ml Total Protein (6.4-8.2) gm/dl Albumin (3.4-5.0) gm/dl Globulin (2.5-4.0) gm/dl Albumin/Globulin Ratio (0.9-2) Procalcitonin Urine Color Urine Appearance (Clear) Urine pH (4.5-7.5) Ur Specific [place] (1.000-1.030) Urine Protein (Negative) Urine Glucose (UA) (Negative) Urine Ketones (Negative) Urine Blood (Negative) Urine Nitrite (Negative) Urine Bilirubin (Negative) Urine Urobilinogen (Negative) Ur Leukocyte Esterase (Negative) Urine WBC (Auto) (0-5) /hpf Urine RBC (Auto) (0-4) /hpf U Hyaline Cast (Auto) (0-5) /lpf U Epithel Cells (Auto) (0-5) /lpf Urine Bacteria (Auto) (Negative) Urine Yeast COVID-19 Eval Order Covid19 at [facility] SARS-CoV-2 (PCR) NEGATIVE (Negative) 02/01/21 02/01/21 02/01/21 Range/Units 11:45 11:45 11:45 WBC (4.8-10.8) K/uL RBC (4.7-6.1) M/uL Hgb (14.0-18.0) g/dL Hct (42-52) % MCV (80-100) fL MCH (25-34) pg MCHC (32-36) g/dL RDW Std Deviation (36.4-46.3) fL RDW Coeff of Karan (11.5-14.5) % Plt Count (130-400) K/uL MPV (7.4-10.4) fL Immature Gran % (Auto) % Neut % (Auto) % Lymph % (Auto) % [place] % (Auto) % Eos % (Auto) % Baso % (Auto) % Neut # (Auto) (1.4-6.5) K/uL Lymph # (Auto) (1.2-3.4) K/uL [place] # (Auto) (0.11-0.59) K/uL Eos # (Auto) (0-0.5) K/uL Baso # (Auto) (0-0.2) K/uL Immature Gran # (Auto) (0.00-0.02) K/uL PT 11.9 (9.0-12.0) Seconds INR 1.2 H (0.9-1.1) APTT 27.3 (21.0-31.0) Seconds PTT Ratio 1.0 Sodium 132 L (136-145) mmol/L Potassium 4.1 (3.5-5.1) mmol/L Chloride 105 (98-107) mmol/L Carbon Dioxide 18 L (21-32) mmol/L Anion Gap 9.0 (3-11) BUN 19 H (7-18) mg/dl Creatinine 1.33 (0.6-1.4) mg/dl Est Cr Clr Drug Dosing 62.9 ml/min Est GFR ( Amer) 70.7 ml/min Est GFR (Non-Af Amer) 61.0 ml/min BUN/Creatinine Ratio 14.4 (10-20) Glucose 77 (70-99) mg/dl Lactate (0.4-2.0) mmol/L Calcium 8.2 L (8.5-10.1) mg/dl Magnesium 1.9 (1.8-2.4) mg/dl Total Bilirubin 0.5 (0.2-1) mg/dl AST 14 L (15-37) U/L ALT 11 L (12-78) U/L Alkaline Phosphatase 98 (45-117) U/L Troponin I 0.043 (0-0.045) ng/ml Total Protein 8.9 H (6.4-8.2) gm/dl Albumin 2.1 L (3.4-5.0) gm/dl Globulin 6.8 H (2.5-4.0) gm/dl Albumin/Globulin Ratio 0.3 L (0.9-2) Procalcitonin Cancelled Urine Color Urine Appearance (Clear) Urine pH (4.5-7.5) Ur Specific [place] (1.000-1.030) Urine Protein (Negative) Urine Glucose (UA) (Negative) Urine Ketones (Negative) Urine Blood (Negative) Urine Nitrite (Negative) Urine Bilirubin (Negative) Urine Urobilinogen (Negative) Ur Leukocyte Esterase (Negative) Urine WBC (Auto) (0-5) /hpf Urine RBC (Auto) (0-4) /hpf U Hyaline Cast (Auto) (0-5) /lpf U Epithel Cells (Auto) (0-5) /lpf Urine Bacteria (Auto) (Negative) Urine Yeast COVID-19 Eval Order SARS-CoV-2 (PCR) (Negative) 02/01/21 02/01/21 Range/Units 12:18 12:34 WBC (4.8-10.8) K/uL RBC (4.7-6.1) M/uL Hgb (14.0-18.0) g/dL Hct (42-52) % MCV (80-100) fL MCH (25-34) pg MCHC (32-36) g/dL RDW Std Deviation (36.4-46.3) fL RDW Coeff of Karan (11.5-14.5) % Plt Count (130-400) K/uL MPV (7.4-10.4) fL Immature Gran % (Auto) % Neut % (Auto) % Lymph % (Auto) % [place] % (Auto) % Eos % (Auto) % Baso % (Auto) % Neut # (Auto) (1.4-6.5) K/uL Lymph # (Auto) (1.2-3.4) K/uL [place] # (Auto) (0.11-0.59) K/uL Eos # (Auto) (0-0.5) K/uL Baso # (Auto) (0-0.2) K/uL Immature Gran # (Auto) (0.00-0.02) K/uL PT (9.0-12.0) Seconds INR (0.9-1.1) APTT (21.0-31.0) Seconds PTT Ratio Sodium (136-145) mmol/L Potassium (3.5-5.1) mmol/L Chloride (98-107) mmol/L Carbon Dioxide (21-32) mmol/L Anion Gap (3-11) BUN (7-18) mg/dl Creatinine (0.6-1.4) mg/dl Est Cr Clr Drug Dosing ml/min Est GFR ( Amer) ml/min Est GFR (Non-Af Amer) ml/min BUN/Creatinine Ratio (10-20) Glucose (70-99) mg/dl Lactate 1.9 (0.4-2.0) mmol/L Calcium (8.5-10.1) mg/dl Magnesium (1.8-2.4) mg/dl Total Bilirubin (0.2-1) mg/dl AST (15-37) U/L ALT (12-78) U/L Alkaline Phosphatase (45-117) U/L Troponin I (0-0.045) ng/ml Total Protein (6.4-8.2) gm/dl Albumin (3.4-5.0) gm/dl Globulin (2.5-4.0) gm/dl Albumin/Globulin Ratio (0.9-2) Procalcitonin Urine Color Dark Yellow Urine Appearance Turbid A (Clear) Urine pH 6.0 (4.5-7.5) Ur Specific [place] 1.016 (1.000-1.030) Urine Protein 1+ H (Negative) Urine Glucose (UA) Negative (Negative) Urine Ketones Trace H (Negative) Urine Blood 1+ H (Negative) Urine Nitrite Positive A (Negative) Urine Bilirubin Negative (Negative) Urine Urobilinogen Negative (Negative) Ur Leukocyte Esterase 3+ H (Negative) Urine WBC (Auto) >30 H (0-5) /hpf Urine RBC (Auto) 0-4 (0-4) /hpf U Hyaline Cast (Auto) 5-10 H (0-5) /lpf U Epithel Cells (Auto) 10-20 H (0-5) /lpf Urine Bacteria (Auto) 4+ H (Negative) Urine Yeast Not Reportable COVID-19 Eval Order SARS-CoV-2 (PCR) (Negative) Administered Medications Enoxaparin Sodium (Enoxaparin Inj 40 Mg/0.4 Ml Syr) 40 mg SQ DAILY@1800 PAVITHRA Stop: 03/03/21 16:22 Last Admin: 02/01/21 17:31 Dose: 40 mg Documented by: [id number] Discontinued Medications Vancomycin HCl 2,000 mg/ (Sodium Chloride) 540 mls @ 200 mls/hr IV NOW ONE Stop: 02/01/21 14:28 Last Infusion: 02/01/21 15:56 Dose: 0 mls/hr Documented by: [id number] Admin: 02/01/21 12:38 Dose: 200 mls/hr Documented by: [id number] Sodium Chloride (Nss 1000ml) 1,000 mls @ 999 mls/hr IV .Q1H1M PAVITHRA Stop: 02/01/21 13:00 Last Infusion: 02/01/21 14:09 Dose: 0 mls/hr Documented by: [id number] Admin: 02/01/21 13:09 Dose: 999 mls/hr Documented by: [id number] Cefepime HCl (Maxipime) 2,000 mg in 20 mls @ 5 mls/min IV NOW STA; Protocol Stop: 02/01/21 11:50 Last Admin: 02/01/21 12:27 Dose: 5 mls/min Documented by: [id number] Sodium Chloride (Nss 1000ml) 1,000 mls @ 999 mls/hr IV .Q1H1M ONE Stop: 02/01/21 13:00 Last Infusion: 02/01/21 13:09 Dose: 0 mls/hr Documented by: [id number] Admin: 02/01/21 12:00 Dose: 999 mls/hr Documented by: [id number] Sodium Chloride (Nss 1000ml) 500 mls @ 999 mls/hr IV .Q31M ONE Stop: 02/01/21 12:59 Last Infusion: 02/01/21 15:56 Dose: 0 mls/hr Documented by: [id number] Admin: 02/01/21 15:12 Dose: 999 mls/hr Documented by: [id number] Ioversol (Optiray 350 500ml) 100 ml IV ONCE ONE Stop: 02/01/21 15:51 Last Admin: 02/01/21 15:50 Dose: 100 ml Documented by: [id number] Imaging Data Radiologist's Impression: Abdomen/Pelvis CT 02/01/21 11:47 CT abd pelvis IV con only CLINICAL HISTORY: deep sacral wound COMPARISON STUDY: 02/27/2020, July 2019 TECHNIQUE: The patient was scanned in a dynamic helical fashion during intravenous administration of 100 cc of Optiray 350 A dose lowering technique was utilized adhering to the principles of ALARA. CT DOSE: FINDINGS: Lower chest: There are bibasilar opacities, likely atelectatic. Liver: There is a stable 25 mm hypodensity within the medial segment left lobe the liver abutting the falciform ligament. This statistically represents focal fat Gallbladder: Unremarkable. Spleen: Mildly enlarged measuring 14 cm. Pancreas: Unremarkable. Adrenal glands: Unremarkable. Kidneys: There are innumerable right renal calculi. There is right-sided hydronephrosis. There is a diminished right-sided nephrogram. There is a 29 x 12 mm right perinephric collection. There is obstructing 10 mm right UPJ calculus. There are bilateral renal cysts. Bowel: There are no transition zones to indicate bowel obstruction. There is no evidence of acute diverticulitis. There is no evidence of acute appendicitis. There are multiple fluid-filled bowel loops with scattered air-fluid levels. Peritoneum: There is trace free pelvic fluid. There is an 84 mm right psoas mass. Diagnostic considerations include abscess, necrotic neoplasm, or organizing hematoma. Vasculature: The abdominal aorta is normal in course and caliber. Adenopathy: There is a borderline retroperitoneal lymph node located posterior to the right renal vein. There are borderline enlarged aortocaval lymph nodes. Pelvic viscera: There is a 3 cm bladder calculus. There is a pericoccygeal gas fluid collection measuring 27 mm. There are associated coccygeal bony erosive c hanges consistent with osteomyelitis. There is bladder wall thickening. Skeletal structures: Bony erosive changes involve the coccyx. IMPRESSION: 1. No evidence of bowel obstruction. No evidence of free air 2. No evidence of acute appendicitis. No evidence of acute diverticulitis 3. 84 mm right psoas mass. Diagnostic considerations include abscess, necrotic neoplasm or organizing hematoma 4. Right renal obstruction with a diminished nephrogram. There is an obstructing 1 cm right UPJ calculus. There is a 29 x 12 mm right perinephric fluid collection. Perinephric abscess not excluded 5. 3 cm bladder calculus 6. 27 mm upper coccygeal gas collection consistent with abscess. There are associated coccygeal bony erosive changes consistent with osteomyelitis ACT 112: Negative or not required by law. Electronically signed by: Jose Smith M.D. 02/01/2021 4:07 PM Chest X-Ray 02/01/21 11:47 XR chest 1V portable HISTORY: SEPSIS COMPARISON: Chest 09/29/2019. FINDINGS: No pneumothorax. There is blunting of the right lateral costophrenic sulcus. This may represent a trace right pleural effusion or scarring. There are poststernotomy changes. The heart is mildly enlarged. Thoracic spinal fusion rods are again noted. No evidence for pulmonary edema. No new focal lung consolidations to suggest pneumonia. IMPRESSION: Blunting of the right lateral costophrenic sulcus which may represent a trace right pleural effusion or scarring. Otherwise no acute process within the chest. ACT 112: Negative or not required by law. Electronically signed by: Sekou El M.D. 02/01/2021 12:36 PM Discharge Plan Visit Data Chief Complaint: Infection, Wound Stated Complaint: OPEN WOUNDS ON BUTTOCKS ED Provider: Emeka Nolasco Discharge Problem: Sepsis, Tachycardia, Cellulitis of sacral region, Acute UTI Patient Disposition: Admitted As Inpatient Condition: Serious Discharge Instructions Interventions: ED Discharge Assessment Last Done: 02/01/21 16:09 Discharge Problem: Sepsis Qualifiers: Sepsis type: sepsis due to unspecified organism Sepsis acute organ dysfunction status: without acute organ dysfunction Qualified Code(s): A41.9 - Sepsis, unspecified organism
[2021-02-01] MEDS ORDERED: SODIUM CHLORIDE 0.9% 1000ML 1,000 ML IV SCH (12:00)
[2021-02-01] MEDS ORDERED: SODIUM CHLORIDE 0.9% 1000ML 1,000 ML IV ONE (12:00)
[2021-02-01 12:11] LABS: INR 1.2 (0.9-1.1); Partial Thromboplastin Time 27.3 Seconds (21.0-31.0); Prothrombin Time 11.9 Seconds (9.0-12.0)
[2021-02-01 12:21] LABS: Albumin Level 2.1 gm/dl (3.4-5.0); BUN Creatinine Ratio 14.4 (10-20); Calcium 8.2 mg/dl (8.5-10.1); Creatinine Clr Calc Pharmacy 62.9 ml/min; Est GFR (African American) 70.7 ml/min; Magnesium 1.9 mg/dl (1.8-2.4); Potassium 4.1 mmol/L (3.5-5.1)
[2021-02-01 12:22] LABS: Hematocrit (blood only) 31.8 % (42-52); Hemoglobin 10.4 g/dL (14.0-18.0); Mean Corpuscular Hemoglobin 28.2 pg (25-34); Mean Corpuscular Hgb Conc 32.7 g/dL (32-36); Mean Corpuscular Volume 86.2 fL (80-100); Mean Platelet Volume 10.4 fL (7.4-10.4); Platelet Count 354 K/uL (130-400); RDW Coefficient of Variation 16.1 % (11.5-14.5); RDW Standard Deviation 51.1 fL (36.4-46.3); Red Blood Count 3.69 M/uL (4.7-6.1); White Blood Count 18.04 K/uL (4.8-10.8)
[2021-02-01 12:24] LABS: Basophils # (auto) 0.02 K/uL (0-0.2); Basophils % (auto) 0.1 %; Eosinophils # (auto) 0.08 K/uL (0-0.5); Eosinophils % (auto) 0.4 %; Immature Granulocytes # (auto) 0.07 K/uL (0.00-0.02); Immature Granulocytes % (auto) 0.4 %; Lymphocytes # (auto) 0.64 K/uL (1.2-3.4); Lymphocytes % (auto) 3.5 %; Monocytes # (auto) 0.66 K/uL (0.11-0.59); Monocytes % (auto) 3.7 %; Neutrophils # (auto) 16.57 K/uL (1.4-6.5); Neutrophils % (auto) 91.9 %
[2021-02-01 12:26] LABS: Albumin Globulin Ratio 0.3 (0.9-2); Bilirubin,Total 0.5 mg/dl (0.2-1); Globulin 6.8 gm/dl (2.5-4.0); Total Protein 8.9 gm/dl (6.4-8.2); Troponin I 0.043 ng/ml (0-0.045)
[2021-02-01] MEDS ORDERED: SODIUM CHLORIDE 0.9% 1000ML 500 ML IV ONE (12:29)
--- NOTE | 2021-02-01 12:37 | XRay Report ---
XR chest 1V portable HISTORY: SEPSIS COMPARISON: Chest 09/29/2019. FINDINGS: No pneumothorax. There is blunting of the right lateral costophrenic sulcus. This may repre sent a trace right pleural effusion or scarring. There are poststernotomy changes. The heart is mildl y enlarged. Thoracic spinal fusion rods are again noted. No evidence for pulmonary edema. No new foca l lung consolidations to suggest pneumonia. IMPRESSION: Blunting of the right lateral costophrenic sulcus which may represent a trace right pleural effusion or scarring. Otherwise no acute process within the chest. ACT 112: Negative or not required by law. Electronically signed by: Sekou El M.D. 02/01/2021 12:36 PM
[2021-02-01 13:01] LABS: Appearance Urine Turbid (Clear); Bacteria Urine Automated 4+ (Negative); Bilirubin Urine Negative (Negative); Blood Urine 1+ (Negative); Color Urine Dark Yellow; Glucose Urine UA Negative (Negative); Ketones Urine Trace (Negative); Leukocyte Esterase Urine 3+ (Negative); Nitrite Urine Positive (Negative); Protein Urine 1+ (Negative); RBC Urine Automated 0-4 /hpf (0-4); Specific Gravity Urine 1.016 (1.000-1.030); Urobilinogen Urine Negative (Negative); WBC Urine Automated >30 /hpf (0-5)
--- NOTE | 2021-02-01 14:05 | History & Physical Report ---
Date of Service February 01, 2021 Assessment & Plan (1) Sepsis: This is a 50yo M with a PMH of paraplegia 2/2 SCI at T9 from osteomyelitis s/p thoracic fusion, neurogenic bladder with recurrent UTIs, CAD (s/p CABG in 2014, multiple PCIs), systolic HF (with EF 20-25% in 2014), h/o DVTs on Xarelto and other medical problems listed below who presents with worsening sacral wound and urinary symptoms. BP 90s/50, HR initially 136. Leukocytosis of 18, lactic acid WNL In setting of infected sacral wound and UTI Continue empiric Cefepime, vanco Follow cultures, IV fluids - has received appropriate resuscitation of fluids in ED. Will hold off on additional IV fluids given EF of 20% on last echo. Baseline BP on lower side in past. Monitor closely (2) Complicated UTI (urinary tract infection): (3) Neurogenic bladder: History of recurrent UTI 2/2 neurogenic bladder requiring straight catheterization PRN at home Started on empiric cefepime Continue methenamine hippurate BID IV fluids Follow urine culture (4) Sacral wound: History of sacral wounds in the past, has followed with wound care in the past (last in 2019) Worsening appearance of skin noted by home health aide over the past month in setting of few positional changes, urinary incontinence Wound care nurse consulted, turn every [address] hours, [address] Finley catheter Continue empiric antibiotics, follow wound culture (5) Paraplegia at T9 level: 2/2 spinal cord injury at T9 from osteomyelitis s/p thoracic fusion Paralyzed from waist down, able to do some transfers using upper body but requi res assistance transferring in and out of bed Neurogenic bladder, straight cath PRN Fall precautions (6) Systolic heart failure: H/o ischemic cardiomyopathy with with EF 20% in 2019 Needs to reestablish with cardiology in clinic Not currently on beta-estrellita due to low blood pressure (7) CAD (coronary artery disease): H/o CABG in 2014 and multiple PCIs Follows with Dr. Ayers in clinic Continue aspirin, statin (8) History of narcotic addiction: History of narcotic abuse in the past -avoid when able Interested in resuming Lyrica-UDS pending DVT Ppx: SQ Lovenox Code status: FULL PCP: Herminia Dispo: Admitted to PCU. Discharge planning ordered. Patient seen in collaboration with Dr. Navarrete. Please see addendum. History of Present Illness Chief Complaint: Sacral wound, urinary symptoms Primary Care Provider: Cande Grimes MD This is a 50yo M with a PMH of paraplegia 2/2 SCI at T9 from osteomyelitis s/p thoracic fusion, neurogenic bladder with recurrent UTIs, CAD (s/p CABG in 2015, multiple PCIs), systolic HF (with EF 20-25% in 2015), h/o DVTs and other medical problems listed below who presents with worsening sacral wound and urinary symptoms. Has not followed up with primary care in 1.5 years but re-established with Dr. Hope last week. Has had time of transition with home health aides and was left alone for months. Rents a room at an Inn in [place]. His case manager was recently able to set him up with a new home health aid. Found to have a stage 3 pressure ulcer on sacrum. Was off all medications x 6 months until resuming some medications last week. No longer taking antihypertensives due to weight loss and normotensive BP. Has been experiencing some burning with urination. Self catheterizes PRN in setting of neurogenic bladder. Wears a brief overnight, which he believes has aggravated wounds on backside. History of wounds on buttocks in the past but they fully healed, per patient. Aide noted the beginning of skin breakdown a few weeks ago that has significantly worsened with multiple open areas and some serosanguineous drainage. Has not been moving around as much as he used to or repositioning in bed due to deconditioning. Denies any fever, chills, lightheadedness, chest pain, palpitations, SOB, nausea, vomiting, abdominal pain, diarrhea or constipation. Allergies Allergy/AdvReac Type Severity Reaction Status Date / Time No Known Allergies Allergy Unverified 02/01/21 14:05 Home Medications Medication Instructions Recorded Confirmed Type aspirin 81 mg PO DAILY 07/26/19 02/01/21 History atorvastatin 40 mg PO DAILY 07/26/19 02/01/21 History cyanocobalamin (vitamin B-12) 1,000 mcg PO DAILY 07/26/19 02/01/21 History [Vitamin B-12] diphenhydramine HCl [Diphenhist] 25 mg PO HS 07/26/19 02/01/21 History methenamine hippurate 1 g PO BID 07/26/19 02/01/21 History sennosides-docusate sodium 1 tab-cap PO DAILY PRN 07/26/19 02/01/21 History [Senna-S] acetaminophen [Mapap 650 mg PO Q4H PRN #100 tab 08/09/19 02/01/21 Rx (acetaminophen)] Past Med/Surg History Medical History (Updated 02/01/21 @ 14:09 by Elisa Salter PA-C) CAD (coronary artery disease) CHF (congestive heart failure) History of narcotic addiction HTN (hypertension) Myocardial infarction Neurogenic bladder Paraplegia at T9 level PPD positive Prediabetes Recurrent UTI Stage II pressure ulcer of left buttock Stage III pressure ulcer of left buttock Stage III pressure ulcer of right buttock Systolic heart failure Surgical History History of coronary artery stent placement History of thoracic spinal fusion Hx of CABG Family History Mother Coronary heart disease Cancer Hypertension Other Heart disease Social History Smoking Status: Never smoker Cigarettes Per Day: few times a week; Second Hand Exposure: No; Do You Dip or Chew Tobacco: No; Tobacco Cessation Education Requested by Patient: No Hx Alcohol Use: No Hx Substance Use: No Preferred Language: Trinidadian Communication Ability: Effective Volunteer Services Director Required: No Beliefs That Will Affect Care: None marital status: single Current Living Situation: Alone current occupational status: retired Other Information That Helps Us Care for You: No Feels Safe at Home: Yes Safety Concerns: Feels Safe At This Time caffeine: Yes during the past year weight has: remained stable Physical Activity Frequency: Daily Assistive Devices: Wheelchair Review of Systems Review of Systems: At least ten systems reviewed and negative except as noted in the HPI. Physical Exam Physical Exam: General Appearance: WD/WN, vitals as above, NAD, sitting up in bed, pleasant, conversing easily Head: normocephalic, atraumatic Eyes: normal inspection, PERRL, conjunctivae normal, anicteric sclerae ENT: external ear and nose normal, oropharynx normal Neck: normal visual inspection, trachea midline, no thyromegaly Respiratory: normal respiratory effort, lungs clear to auscultation, no wheeze, rales, rhonchi. No accessory muscle use Cardiovascular: tachycardic rate, regular rhythm, no murmur, normal peripheral pulses, no BLE edema. Vessels: no JVD Chest: normal inspection of chest Abdomen/GI: normal bowel sounds, soft, nontender, no hepatosplenomegaly Extremities/Musculoskeletal: no cyanosis or clubbing, paraplegia noted, 5/5 strength in BUE Neurologic: PERRL, EOMI, accommodation nl, no face palsy, no dysarthria, CN's II-XI intact bilaterally and moves all extremities Psychiatric: A+Ox3, euthymic affect Skin: no rashes, normal color, warm/dry. + buttocks with multiple open wounds with serosanguineous drainage. Wound on L gluteal fold with significant tunneling Results & Data Results & Data ([facility]) Vital Signs (Past 12 Hours) Vital Signs Temp Pulse Resp BP Pulse Ox 02/01/21 13:45 112 H 20 91/59 L 99 02/01/21 13:30 112 H 20 92/62 L 99 02/01/21 13:15 116 H 20 95/60 L 99 02/01/21 13:00 117 H 20 100/59 L 98 02/01/21 12:45 121 H 20 97/54 L 97 02/01/21 12:33 120 H 20 96/63 L 99 02/01/21 12:30 122 H 20 105/64 100 02/01/21 12:08 98 02/01/21 12:00 121 H 20 99/59 L 99 02/01/21 11:30 135 H 20 113/68 100 02/01/21 11:28 139 H 20 111/71 02/01/21 11:25 37.4 C 136 H 24 113/68 98 Laboratory Results Short CBC 02/01/21 Range/Units 11:45 WBC 18.04 H (4.8-10.8) K/uL Hgb 10.4 L (14.0-18.0) g/dL Hct 31.8 L (42-52) % Plt Count 354 (130-400) K/uL BMP 02/01/21 11:45 Sodium 132 L Potassium 4.1 Chloride 105 Carbon Dioxide 18 L BUN 19 H Creatinine 1.33 Glucose 77 Calcium 8.2 L Cardiac Enzymes 02/01/21 Range/Units 11:45 Troponin I 0.043 (0-0.045) ng/ml Liver Function 02/01/21 Range/Units 11:45 Total Bilirubin 0.5 (0.2-1) mg/dl AST 14 L (15-37) U/L ALT 11 L (12-78) U/L Alkaline Phosphatase 98 (45-117) U/L Albumin 2.1 L (3.4-5.0) gm/dl Urine 02/01/21 Range/Units 12:34 Urine Color Dark Yellow Urine Appearance Turbid A (Clear) Urine pH 6.0 (4.5-7.5) Ur Specific [place] 1.016 (1.000-1.030) Urine Protein 1+ H (Negative) Urine Glucose (UA) Negative (Negative) Diagnostic Findings Chest X-Ray 02/01/21 11:47 XR chest 1V portable HISTORY: SEPSIS COMPARISON: Chest 09/29/2019. FINDINGS: No pneumothorax. There is blunting of the right lateral costophrenic sulcus. This may represent a trace right pleural effusion or scarring. There are poststernotomy changes. The heart is mildly enlarged. Thoracic spinal fusion rods are again noted. No evidence for pulmonary edema. No new focal lung consolidations to suggest pneumonia. IMPRESSION: Blunting of the right lateral costophrenic sulcus which may represent a trace right pleural effusion or scarring. Otherwise no acute process within the chest. ACT 112: Negative or not required by law. Electronically signed by: Sekou El M.D. 02/01/2021 12:36 PM Code Status & VTE Plan VTE Prophylaxis Plan VTE Prophylaxis will be ordered: Yes Supervising Physician Co-Signing Physician Notes Palpable mobile number: The patient was seen and examined in the telemetry unit He has been complaining of weakness, tiredness, occasional chills with sweating He was seen by the wound care nurse at home today and was advised to come to the hospital for further management Denies any chest pain, shortness of breath, palpitation, any abdominal pain, nausea and vomiting On examination No apparent distress at rest noted to have borderline low blood pressure at 93/55 and tachycardia at 114 bpm Chestclear to auscultate bilaterally HeartS1-S2 regular Abdomenbenign Extremitiesno edema CNSalert, awake and oriented x3. He has paraplegia with minimal movement of the lower extremities which is worse on the right side from the left His admission labs, EKG and imaging studies reviewed Has significant worsening of sacral wound which is complicated by UTI with known paraplegia Presented with sepsis and received adequate intravenous fluid, cultures and antibiotic Wound care and ID has been consulted Agree with the assessment and plan as outlined above by the marking Dr Glenroy Navarrete
[2021-02-01] MEDS ORDERED: OPTIRAY 350 500ml IV ONE (15:50)
--- NOTE | 2021-02-01 16:09 | CT Scan Report ---
CT abd pelvis IV con only CLINICAL HISTORY: deep sacral wound COMPARISON STUDY: 02/27/2020, July 2019 TECHNIQUE: The patient was scanned in a dynamic helical fashion during intravenous administration of 100 cc of Optiray 350 A dose lowering technique was utilized adhering to the principles of ALARA. CT DOSE: FINDINGS: Lower chest: There are bibasilar opacities, likely atelectatic. Liver: There is a stable 25 mm hypodensity within the medial segment left lobe the liver abutting the falciform ligament. This statistically represents focal fat Gallbladder: Unremarkable. Spleen: Mildly enlarged measuring 14 cm. Pancreas: Unremarkable. Adrenal glands: Unremarkable. Kidneys: There are innumerable right renal calculi. There is right-sided hydronephrosis. There is a d iminished right-sided nephrogram. There is a 29 x 12 mm right perinephric collection. There is obstru cting 10 mm right UPJ calculus. There are bilateral renal cysts. Bowel: There are no transition zones to indicate bowel obstruction. There is no evidence of acute div erticulitis. There is no evidence of acute appendicitis. There are multiple fluid-filled bowel loops with scattered air-fluid levels. Peritoneum: There is trace free pelvic fluid. There is an 84 mm right psoas mass. Diagnostic consider ations include abscess, necrotic neoplasm, or organizing hematoma. Vasculature: The abdominal aorta is normal in course and caliber. Adenopathy: There is a borderline retroperitoneal lymph node located posterior to the right renal vei n. There are borderline enlarged aortocaval lymph nodes. Pelvic viscera: There is a 3 cm bladder calculus. There is a pericoccygeal gas fluid collection measu ring 27 mm. There are associated coccygeal bony erosive changes consistent with osteomyelitis. There is bladder wall thickening. Skeletal structures: Bony erosive changes involve the coccyx. IMPRESSION: 1. No evidence of bowel obstruction. No evidence of free air 2. No evidence of acute appendicitis. No evidence of acute diverticulitis 3. 84 mm right psoas mass. Diagnostic considerations include abscess, necrotic neoplasm or organizing hematoma 4. Right renal obstruction with a diminished nephrogram. There is an obstructing 1 cm right UPJ calcu renae. There is a 29 x 12 mm right perinephric fluid collection. Perinephric abscess not excluded 5. 3 cm bladder calculus 6. 27 mm upper coccygeal gas collection consistent with abscess. There are associated coccygeal bony erosive changes consistent with osteomyelitis ACT 112: Negative or not required by law. Electronically signed by: Jose Smith M.D. 02/01/2021 4:07 PM
[2021-02-01 16:20] LABS: Amphetamines+Metham, Urine Neg (Neg); Barbiturates, Urine Neg (Neg); Benzodiazepine, Urine Neg (Neg); Cocaine, Urine Neg (Neg); MDMA (Ecstacy), Urine Neg (Neg); Methadone, Urine Neg (Neg); Opiate, Urine Neg (Neg); Phencyclidine, Urine Neg (Neg)
[2021-02-01] MEDS ORDERED: POLYETHYLENE (MIRALAX) 17 GM PACK PO PRN (16:23)
[2021-02-01] MEDS ORDERED: ONDANSETRON INJ 2 MG/ML 2 ML VIAL IV PRN (16:23)
[2021-02-01] MEDS ORDERED: ENOXAPARIN INJ 40 MG/0.4 ML SYR SQ SCH (16:23)
[2021-02-01] MEDS ORDERED: CONSULT PHARMACY PRN (16:31)
[2021-02-01] MEDS ORDERED: CEFEPIME CONSULT ACTIVE PRN (16:38)
--- NOTE | 2021-02-01 18:47 | Emergency Department Note ---
ED Visit Note The patient's CT imaging returned after he was admitted to the hospital. There had been some CT delays because of equipment malfunction. On review of the CT scan result, I did call and speak directly to the hospitalist about the urinary obstruction. An emergent urology consult was recommended as emergent ureteral stenting may be required. . : Sepsis Qualifiers: Sepsis type: sepsis due to unspecified organism Sepsis acute organ dysfunction status: without acute organ dysfunction Qualified Code(s): A41.9 - Sepsis, unspecified organism
[2021-02-01] MEDS ORDERED: PIPERACILL/TAZOBAC CONSULT ACTIVE PRN (19:32)
[2021-02-01] MEDS ORDERED: PIPERACILLIN/TAZOBACTAM 4.5 GM in DEXTROSE 5% 100 ML IV SCH (19:45)
[2021-02-01] MEDS ORDERED: PIPERACILLIN/TAZOBACTAM 3.375 GM in DEXTROSE 5% 100 ML IV ONE (20:00)
--- NOTE | 2021-02-01 20:37 | Surgery Consultation ---
Date of Consultation February 01, 2021 Assessment & Plan (1) Sacral wound: She has been admitted by the hospitalist. Discussed case with my attending physician Dr. Zi Cochran. He notes that the patient may require an incision and drainage of his sacral wound. He does however note that if the patient has a psoas abscess this may best be treated with interventional radiology. Recommend continuing broad-spectrum antibiotics at the present time. She has received Zosyn and cefepime thus far in the emergency department along with vancomycin. Spectrum antibiotic should continue. A wound culture has been sent and is pending. Due to the urologic findings of possible perinephric abscess as well as kidney stone we will discussed the case with our urology colleagues to see if they have any additional recommendations. Urology has made recommendations decision about operative intervention or transfer to a facility where interventional radiology is available will be made. Make the patient n.p.o. after midnight in the event that any procedures are required tomorrow Supervising Physician Co-Signing Physician Notes I personally saw and evaluated the patient with Rito Troy PA-C and agree with the assessment and plan 50 yo paraplegic with sacrococcygeal abscess and decubitus ulcer, obstructing right ureteral stone -Urology to take patient to OR today for cysto/stent placement -Will plan on Incision and drainage of sacral abscess, excisional debridement of sacral decubitus ulcer in OR after Urology -Consent obtained, risks discussed including bleeding, infection, non-healing wound, making wound larger -I do not feel his initial picture of sepsis is related to his sacral wound/abscess History of Present Illness Reason for Consultation: Sacral wound Attending Physician: Sarah Navarrete MD History of Present Illness Is a 50-year-old male who is a paraplegic. 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 He notes he has had paraplegia for approximately 5 years. Patient says that he has home caregivers that noticed he was developing some redness around his sacral area over the past week. He notes that his caregivers noted that earlier today the they felt that the wound was getting worse and they recommended that he seek medical attention at the hospital. Patient says he has not had any known fevers. He denies any shakes or chills. He says he is not short of breath and does not have a cough. He denies abdominal pain. He denies any nausea or vomiting. Admission the patient has had labs and imaging which independent reviewed. CBC revealed white blood cell count was elevated 18,000. His hemoglobin and hematocrit were 10.4 and 31.8. Platelet count was noted to be within normal range. INR is noted to be 1.2. Chemistry profile showed a sodium of 132 and a potassium of 4.1. BUN and creatinine were 19 and 1.3. Lactic acid level was noted to be within normal range. Patient had a CT scan of his abdomen pelvis that showed concern for an 84 mm right psoas mass with diagnostic considerations including an abscess or hematoma. Is also noted to have a 27 mm upper coccygeal gas collection that was concerning for an abscess. There is also some bony erosive changes of the coccyx that were concerning for osteomyelitis. On CT scan the patient was also noted to have an obstructing 1 cm right-sided kidney stone with a 29 x 12 mm right perinephric fluid collection concerning for perinephric abscess. He was also noted to have a 3 cm bladder calculus. She did have a urinalysis that was concerning for urinary tract infection. At the time of my interview the patient was resting comfortably in bed in no distress. Allergies Allergy/AdvReac Type Severity Reaction Status Date / Time No Known Allergies Allergy Unverified 02/01/21 14:05 Home Medications Medication Instructions Recorded Confirmed Type aspirin 81 mg PO DAILY 07/26/19 02/01/21 History atorvastatin 40 mg PO DAILY 07/26/19 02/01/21 History cyanocobalamin (vitamin B-12) 1,000 mcg PO DAILY 07/26/19 02/01/21 History [Vitamin B-12] diphenhydramine HCl [Diphenhist] 25 mg PO HS 07/26/19 02/01/21 History methenamine hippurate 1 g PO BID 07/26/19 02/01/21 History sennosides-docusate sodium 1 tab-cap PO DAILY PRN 07/26/19 02/01/21 History [Senna-S] acetaminophen [Mapap 650 mg PO Q4H PRN #100 tab 08/09/19 02/01/21 Rx (acetaminophen)] Patient History Medical History CAD (coronary artery disease) CHF (congestive heart failure) History of narcotic addiction HTN (hypertension) Myocardial infarction Neurogenic bladder Paraplegia at T9 level PPD positive Prediabetes Recurrent UTI Stage II pressure ulcer of left buttock Stage III pressure ulcer of left buttock Stage III pressure ulcer of right buttock Systolic heart failure Surgical History History of coronary artery stent placement History of thoracic spinal fusion Hx of CABG Family History Mother Coronary heart disease Cancer Hypertension Other Heart disease Social History Smoking Status: Never smoker Cigarettes Per Day: few times a week; Second Hand Exposure: No; Do You Dip or Chew Tobacco: No; Tobacco Cessation Education Requested by Patient: No Hx Alcohol Use: No Hx Substance Use: No Preferred Language: Turkish Communication Ability: Effective Shoe Planner Required: No Beliefs That Will Affect Care: None marital status: single Current Living Situation: Alone current occupational status: retired Other Information That Helps Us Care for You: No Feels Safe at Home: Yes Safety Concerns: Feels Safe At This Time caffeine: Yes during the past year weight has: remained stable Physical Activity Frequency: Daily Assistive Devices: Wheelchair Review of Systems Constitutional: no fever and no chills Eyes: no diplopia Ear, Nose, Mouth, Throat: no ear pain Respiratory: no cough and no dyspnea Cardiovascular: no chest pain Gastrointestinal: no abdominal pain, no nausea and no vomiting Genitourinary: + urinary incontinence Musculoskeletal: no back pain Integumentary: no rash Neurologic: Pre-existing paraplegia of the lower extremities noted Physical Exam Physical Exam: Patient's sacrum was examined. Patient had approximately a 2 to 3 cm x 1 cm open wound superior to the coccyx. There is no malodorous discharge at the present time. There was a small amount of surrounding erythema of the skin. I was not able to palpate any crepitus in the soft tissue. Constitutional: well developed and well nourished; no acute distress Eyes: no conjunctival abnormality ENMT: Ears: no hearing impairment Neck: trachea midline Respiratory: normal respiratory effort; no respiratory distress and no labored breathing Cardiovascular: Rate/Rhythm: regular rate and regular rhythm Gastrointestinal (Abdomen): Abdomen is soft and nondistended. There is no pain with palpation. Musculoskeletal: No calf tenderness is noted. Skin: no rashes, warm and dry Neurologic: Patient is noted to be paraplegic of the lower extremities. No focal deficits are noted of the upper extremities bilaterally. Psychiatric: A+Ox3, euthymic affect Results & Data ([facility]) Vital Signs (Past 12 Hours) Vital Signs Temp Pulse Pulse Resp BP BP Pulse Ox 02/01/21 20:22 111 H 18 99/76 L 99 02/01/21 16:25 36.7 C 20 99 02/01/21 15:15 114 H 21 93/55 L 98 02/01/21 15:00 117 H 22 110/66 99 02/01/21 14:45 111 H 31 H 99/63 L 98 02/01/21 14:30 111 H 20 98/64 L 98 02/01/21 14:15 113 H 20 101/63 99 02/01/21 14:00 113 H 20 100/62 100 02/01/21 13:45 112 H 20 91/59 L 99 02/01/21 13:30 112 H 20 92/62 L 99 02/01/21 13:15 116 H 20 95/60 L 99 02/01/21 13:00 117 H 20 100/59 L 98 02/01/21 12:45 121 H 20 97/54 L 97 02/01/21 12:33 120 H 20 96/63 L 99 02/01/21 12:30 122 H 20 105/64 100 02/01/21 12:08 98 02/01/21 12:00 121 H 20 99/59 L 99 02/01/21 11:30 135 H 20 113/68 100 02/01/21 11:28 139 H 20 111/71 02/01/21 11:25 37.4 C 136 H 24 113/68 98 PG Care Time/CCT Total # of Minutes Spent Total Time Spent with Patient: Total time spent is greater than 50% in coordination of care (as documented) at patient's floor/unit and/or counseling patient: Coding Level of Care Code 49305 Inpt Consult Level 5 Diagnoses Sacral wound S31.000A
[2021-02-01] MEDS: SODIUM CHLORIDE 0.9% 1000ML 1,000 ML IV SCH (20:59)
[2021-02-01] MEDS: PREGABALIN 25 MG CAP PO SCH (21:04)
[2021-02-01 21:12] LABS: BUN Creatinine Ratio 13.4 (10-20); Calcium 7.8 mg/dl (8.5-10.1); Creatinine Clr Calc Pharmacy 55.7 ml/min; Est GFR (African American) 61.2 ml/min; Est GFR (Non-African American) 52.8 ml/min; Potassium 4.5 mmol/L (3.5-5.1)
--- NOTE | 2021-02-01 21:12 | Urology Consultation ---
Date of Consultation February 01, 2021 Assessment & Plan (1) Nephrolithiasis: Patient has been admitted to the hospital service proceeding as follows: Patient has been started on broad-spectrum antibiotics. In the emergency department he has received cefepime, vancomycin, and Zosyn. Broad-spectrum antibiotic should continue. A urine culture has been sent and his antibiotics can be further tailored based on his urine culture as well as wound culture from patient's sacral wound. I discussed the case at length with my attending urology attending Dr. Navarro. He recommends the following: It is uncertain if the perinephric fluid collection is an abscess or could be related to a ureter rupture. As the patient is currently stable he recommends continuing broad-spectrum antibiotics for at least another 12 hours. We will make the patient n.p.o. We will check a PRP at approximate 930 this evening to see if patient has a rising creatinine. We will also check repeat labs tomorrow morning Dr. Navarro is tentatively planning on performing a cystoscopy with stent placement tomorrow morning. Following stent placement General surgery will perform an I&D of the patient's sacral wound. The patient is noted to have a markedly rising creatinine or if he begins to spike fevers throughout the night consideration will be given to taking the patient for cystoscopy on an emergent basis ATTENDING NOTE: Patient assessed, independently evaluated, interviewed, and examined. Discussed at length findings with patient. Discussed concerns and issues. Discussed possible intervention. Patient has multiple issues. Has been dealing with mild hypotension and tachycardia. Has been afebrile since admission. Patient is on broad-spectrum antibiotics with Zosyn. Patient from a standpoint is dealing with a significant obstructing stone. Also has very large bladder stone with history of neurogenic bladder and intermittent catheterization. Patient is currently not experiencing significant chills or delirium. Patient also has what appears to be a large fluid collection on the right psoas. This is in the region of the course of the ureter near the location of the obstructing stone. Also a small area on right kidney possibly a complex cyst vs perinephric hematoma versus calyceal rupture. Patient's creatinine is stable. Discussed at length different options concerns and issues. Discussed possible need for intervention with drainage and assessment of the ureter. Patient has a sacral decubitus ulcer which may also need debridement. Risk and benefits have been discussed at length. Discussed possible interventions. Discussed possible need for transfer if patient would require interventional radiology drainage placement. Plan for supportive care, management and close assessment with broad-spectrum IV antibiotics, and hydration. Patient will remain n.p.o. for now. Did discuss possibility that due to severity of issues stent placement may be difficult and if unable to pass would need to highly consider transfer for interventional radiology for nephrostomy tube placement. Risks and benefits discussed at length for procedure. These include bleeding, infection, injury to surrounding tissues or organs, and risks associated with anesthesia. Will likely need cystoscopy with retrograde pyelogram and possible stent placement on the right. Plan to coordinate with general surgery. Patient states understanding and agrees to proceed. Will sign consent and proceed. History of Present Illness Reason for Consultation: Obstructing and kidney stone Attending Physician: Sarah Navarrete MD History of Present Illness This is a 50-year-old male who is paraplegic and has been so for approximately 5 years. 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 Patient says that he has home caregivers that noticed he had a developing wound of his sacral area over the past week and due to the appearance of the wound this morning they recommended that patient seek medical attention at [facility]. Concerning the patient's wound the patient has not had any known fevers. He denies any rigors or chills. Patient notes that he is incontinent of urine and he has not noted any dysuria or hematuria. He also denies any back pain. He denies any cough or shortness of breath. Since admission patient has had labs and imaging which I independently reviewed. Patient had a CBC which revealed his white blood cell count was elevated at 18,000. His hemoglobin and hematocrit were 10.4 and 31.8 respectively with a platelet count noted to be within the normal range. Patient's INR is noted be 1.2. A chemistry profile showed a sodium of 132 and potassium of 4.1. BUN and creatinine were 19 and 1.3 and his lactic acid level was noted to be normal. Patient did have a CT scan of his abdomen and pelvis that showed concern for an 84 mm right psoas mass concerning for an abscess or hematoma. He was also noted to have concerns for a coccygeal abscess as well as osteomyelitis of the coccyx. The CT scan also demonstrated an obstructing kidney stone on the right side of approximate 1 cm in size along with a 29 x 12 millimeter fluid collection concerning for perinephric abscess. A 3 cm bladder calculus was also noted. A Covid test was performed and was noted to be negative. Urinalysis revealed turbid urine with 1+ blood, positive nitrites, 3+ positive leukocyte esterase, and greater than 30 white blood cells per high-power field. It is noteworthy mention that the patient did have a Finley catheter inserted upon arrival to the emergency department. At the time of my interview he was resting comfortably in bed and he was in no distress or significant pain. Allergies Allergy/AdvReac Type Severity Reaction Status Date / Time No Known Allergies Allergy Unverified 02/01/21 14:05 Home Medications Medication Instructions Recorded Confirmed Type aspirin 81 mg PO DAILY 07/26/19 02/01/21 History atorvastatin 40 mg PO DAILY 07/26/19 02/01/21 History cyanocobalamin (vitamin B-12) 1,000 mcg PO DAILY 07/26/19 02/01/21 History [Vitamin B-12] diphenhydramine HCl [Diphenhist] 25 mg PO HS 07/26/19 02/01/21 History methenamine hippurate 1 g PO BID 07/26/19 02/01/21 History sennosides-docusate sodium 1 tab-cap PO DAILY PRN 07/26/19 02/01/21 History [Senna-S] acetaminophen [Mapap 650 mg PO Q4H PRN #100 tab 08/09/19 02/01/21 Rx (acetaminophen)] Patient History Medical History CAD (coronary artery disease) CHF (congestive heart failure) History of narcotic addiction HTN (hypertension) Myocardial infarction Neurogenic bladder Paraplegia at T9 level PPD positive Prediabetes Recurrent UTI Stage II pressure ulcer of left buttock Stage III pressure ulcer of left buttock Stage III pressure ulcer of right buttock Systolic heart failure Surgical History History of coronary artery stent placement History of thoracic spinal fusion Hx of CABG Family History Mother Coronary heart disease Cancer Hypertension Other Heart disease Social History Smoking Status: Never smoker Cigarettes Per Day: few times a week; Second Hand Exposure: No; Do You Dip or Chew Tobacco: No; Tobacco Cessation Education Requested by Patient: No Hx Alcohol Use: No Hx Substance Use: No Preferred Language: Maltese Communication Ability: Effective Outside Sales Inspector Required: No Beliefs That Will Affect Care: None marital status: single Current Living Situation: Alone current occupational status: retired Other Information That Helps Us Care for You: No Feels Safe at Home: Yes Safety Concerns: Feels Safe At This Time caffeine: Yes during the past year weight has: remained stable Physical Activity Frequency: Daily Assistive Devices: Wheelchair Review of Systems Constitutional: no fever and no chills Eyes: no diplopia Ear, Nose, Mouth, Throat: no ear pain Respiratory: no cough and no dyspnea Cardiovascular: no chest pain Gastrointestinal: no abdominal pain, no nausea and no vomiting Genitourinary: + urinary incontinence Musculoskeletal: no back pain Integumentary: no rash Neurologic: Pre-existing lower extremity paraplegia Physical Exam Physical Exam: For description of patient's sacral wound please see general surgery consultation dictated on a separate note Constitutional: well developed and well nourished; no acute distress Eyes: no conjunctival abnormality ENMT: Ears: no hearing impairment Neck: trachea midline Respiratory: normal respiratory effort; no respiratory distress and no labored breathing Cardiovascular: Rate/Rhythm: regular rate and regular rhythm Gastrointestinal (Abdomen): Soft and nontender Musculoskeletal: No calf tenderness Skin: no rashes, warm and dry Neurologic: Paraplegia noted of the lower extremities Psychiatric: A+Ox3, euthymic affect Genitourinary: Finley catheter in place draining clear urine Results & Data ([facility]) Vital Signs (Past 12 Hours) Vital Signs Temp Pulse Pulse Resp BP BP Pulse Ox 02/01/21 20:22 111 H 18 99/76 L 99 02/01/21 16:25 36.7 C 20 99 02/01/21 15:15 114 H 21 93/55 L 98 02/01/21 15:00 117 H 22 110/66 99 02/01/21 14:45 111 H 31 H 99/63 L 98 02/01/21 14:30 111 H 20 98/64 L 98 02/01/21 14:15 113 H 20 101/63 99 02/01/21 14:00 113 H 20 100/62 100 02/01/21 13:45 112 H 20 91/59 L 99 02/01/21 13:30 112 H 20 92/62 L 99 02/01/21 13:15 116 H 20 95/60 L 99 02/01/21 13:00 117 H 20 100/59 L 98 02/01/21 12:45 121 H 20 97/54 L 97 02/01/21 12:33 120 H 20 96/63 L 99 02/01/21 12:30 122 H 20 105/64 100 02/01/21 12:08 98 02/01/21 12:00 121 H 20 99/59 L 99 02/01/21 11:30 135 H 20 113/68 100 02/01/21 11:28 139 H 20 111/71 02/01/21 11:25 37.4 C 136 H 24 113/68 98 PG Care Time/CCT Total # of Minutes Spent Total Time Spent with Patient: Total time spent is greater than 50% in coordination of care (as documented) at patient's floor/unit and/or counseling patient: Coding Level of Care Code 63716 Inpt Consult Level 5 Diagnoses Nephrolithiasis N20.0
--- NOTE | 2021-02-01 21:34 | Pharmacy Report ---
Pharmacy Abx Dose Short Note - Date of Service February 01, 2021 - Assessment & Plan Assessment * 50 year old M receiving Zosyn and vancomycin for treatment of sepsis 2nd SSTI (sacral decub) and/or UTI. Hx MRSA and Pseudomonas * Elevated SCr noted - ?GIO. Also - paraplegia which affects calculation of CrCL. Will dose vancomycin by level for now * Goal vancomycin *trough* 22.6 mcg/mL * 8 hour level very slightly supratherapeutic at 22.6 mcg/mL, but this was not a trough. Will wait ~ 3 hours then provide very low supplemental dose. Random with AM labs tomorrow - note - this will only be ~a 6 hr level therefore may be elevated, but this is NOT a trough level Plan * Vancomycin 500 mg IV x1 @2300 * Random vancomycin level with AM labs Pharmacy will continue to follow and will adjust dose/frequency as necessary. Thank you.
[2021-02-01] MEDS ORDERED: VANCOMYCIN HCL 500 MG in 0.9 % SODIUM CHLORIDE 100 ML IV ONE (23:00)
[2021-02-02] MEDS ORDERED: CEFEPIME 2,000 MG in SYRINGE 0 ML IV SCH
[2021-02-02] MEDS: PIPERACILLIN/TAZOBACTAM 3.375 GM in DEXTROSE 5% 100 ML IV SCH ×3 (02:51→17:45)
[2021-02-02 04:51] LABS: BUN Creatinine Ratio 14.4 (10-20); Calcium 7.7 mg/dl (8.5-10.1); Creatinine Clr Calc Pharmacy 64.3 ml/min; Est GFR (African American) 72.7 ml/min; Est GFR (Non-African American) 62.7 ml/min; Potassium 4.2 mmol/L (3.5-5.1)
[2021-02-02 05:23] LABS: Hematocrit (blood only) 22.5 % (42-52); Hemoglobin 7.3 g/dL (14.0-18.0); Mean Corpuscular Hgb Conc 32.4 g/dL (32-36); Mean Corpuscular Volume 86.2 fL (80-100); Mean Platelet Volume 10.2 fL (7.4-10.4); Platelet Count 308 K/uL (130-400); RDW Coefficient of Variation 16.3 % (11.5-14.5); RDW Standard Deviation 51.7 fL (36.4-46.3); Red Blood Count 2.61 M/uL (4.7-6.1); White Blood Count 10.16 K/uL (4.8-10.8)
[2021-02-02 05:24] LABS: Basophils # (auto) 0.03 K/uL (0-0.2); Basophils % (auto) 0.3 %; Immature Granulocytes # (auto) 0.03 K/uL (0.00-0.02); Immature Granulocytes % (auto) 0.3 %; Lymphocytes # (auto) 1.26 K/uL (1.2-3.4); Lymphocytes % (auto) 12.4 %; Monocytes # (auto) 0.85 K/uL (0.11-0.59); Monocytes % (auto) 8.4 %; Neutrophils # (auto) 7.79 K/uL (1.4-6.5); Neutrophils % (auto) 76.6 %; RBC Morphology Unremarkable
[2021-02-02] MEDS ORDERED: BUPIVACAINE/EPINEPHRINE 0.5% MPF 1:200,000 30 ML VIAL ONE (06:55)
--- NOTE | 2021-02-02 07:00 | History & Physical Bridge Note ---
Date of Service February 02, 2021 History & Physical Bridge Note I have examined the patient, reviewed the History & Physical and in the interval since the performance of the History & Physical I have noted the following changes of clinical significance: no changes noted
[2021-02-02] MEDS ORDERED: PHENYLEPHRINE 100MCG/ML 5ML SYR IV PRN (07:06)
[2021-02-02] MEDS ORDERED: ePHEDrine sulfate 50 MG/ML AMP IV PRN (07:06)
[2021-02-02] MEDS ORDERED: fentaNYL citrate 100 MCG/2 ML VIAL IV PRN (07:06)
[2021-02-02] MEDS ORDERED: ONDANSETRON INJ 2 MG/ML 2 ML VIAL IV PRN (07:06)
[2021-02-02] MEDS ORDERED: ATROPINE SULFATE 0.1 MG/ML 10ML SYR IV PRN (07:06)
--- NOTE | 2021-02-02 07:06 | Anesthesiology Consultation ---
Date of Service February 02, 2021 Assessment & Plan (1) Encounter for pre-operative examination: Chart Review Chart Review: Acceptable Risk for Surgery (urgent procedure ) History Surgery Operation Date: 02/02/21 09:45 Proposed Procedures p Incision and Drainage Sacral Washout - Zi Cochran DO s Right Stent Placement, Retrograde Pyelogram - Hal Navarro DO Height/Weight Height: 5 ft 8 in Weight: 74.4 kg Allergies Allergy/AdvReac Type Severity Reaction Status Date / Time No Known Allergies Allergy Unverified 02/01/21 14:05 Medications Home Medications Medication Instructions Recorded Confirmed Last Taken aspirin 81 mg PO DAILY 07/26/19 02/01/21 Unknown atorvastatin 40 mg PO DAILY 07/26/19 02/01/21 Unknown cyanocobalamin (vitamin B-12) 1,000 mcg PO DAILY 07/26/19 02/01/21 Unknown [Vitamin B-12] diphenhydramine HCl [Diphenhist] 25 mg PO HS 07/26/19 02/01/21 07/25/19 methenamine hippurate 1 g PO BID 07/26/19 02/01/21 Unknown sennosides-docusate sodium 1 tab-cap PO DAILY PRN 07/26/19 02/01/21 Unknown [Senna-S] acetaminophen [Mapap 650 mg PO Q4H PRN #100 tab 08/09/19 02/01/21 Unknown (acetaminophen)] Active Medications Generic Name Dose Route Start Last Admin Trade Name Freq PRN Reason Stop Dose Admin Enoxaparin Sodium 40 mg 02/01/21 16:23 02/01/21 17:31 Enoxaparin Inj 40 Mg/0.4 Ml Syr SQ 03/03/21 16:22 40 mg DAILY@1800 PAVITHRA Administration Sodium Chloride 1,000 mls @ 50 mls/hr 02/01/21 19:45 02/01/21 20:59 Nss 1000ml IV 03/03/21 19:44 50 mls/hr .Q20H PAVITHRA Administration Piperacillin Sod/Tazobactam 115 mls @ 28.75 mls/hr 02/02/21 02:00 02/02/21 02:51 Sod 3.375 gm/ Dextrose IV 02/12/21 01:59 28.8 mls/hr Q8H PAVITHRA Administration Protocol Pregabalin 25 mg 02/01/21 21:00 02/01/21 21:04 Pregabalin 25 Mg Cap PO 03/03/21 20:59 25 mg BID PAVITHRA Administration Past Medical History Medical History CAD (coronary artery disease) CHF (congestive heart failure) History of narcotic addiction HTN (hypertension) Myocardial infarction Neurogenic bladder Paraplegia at T9 level PPD positive Prediabetes Recurrent UTI Stage II pressure ulcer of left buttock Stage III pressure ulcer of left buttock Stage III pressure ulcer of right buttock Systolic heart failure Past Family History Family History Mother Coronary heart disease Cancer Hypertension Other Heart disease Past Surgical History Surgical History History of coronary artery stent placement History of thoracic spinal fusion Hx of CABG Social History Smoking Status: Never smoker tobacco type: cigarettes Smoking cigarettes per day: few times a week Do You Dip or Chew Tobacco: No Hx Alcohol Use: No Hx Substance Use: No Physical Exam Vital Signs Last Vital Signs Temp 37.1 C 02/02/21 03:53 Pulse 94 H 02/02/21 03:53 Resp 20 02/02/21 06:23 BP 99/61 L 02/02/21 03:53 Pulse Ox 98 02/02/21 06:23 Testing Laboratory Results 02/02/21 04:05 02/02/21 04:05 PT 11.9 Seconds (9.0-12.0) 02/01/21 11:45 INR 1.2 (0.9-1.1) H 02/01/21 11:45 APTT 27.3 Seconds (21.0-31.0) 02/01/21 11:45 Urine Color Dark Yellow 02/01/21 12:34 Urine Appearance Turbid (Clear) A 02/01/21 12:34 Urine pH 6.0 (4.5-7.5) 02/01/21 12:34 Ur Specific [place] 1.016 (1.000-1.030) 02/01/21 12:34 Urine Protein 1+ (Negative) H 02/01/21 12:34 Urine Glucose (UA) Negative (Negative) 02/01/21 12:34 Urine Ketones Trace (Negative) H 02/01/21 12:34 Urine Nitrite Positive (Negative) A 02/01/21 12:34 Ur Leukocyte Esterase 3+ (Negative) H 02/01/21 12:34 Urine WBC (Auto) >30 /hpf (0-5) H 02/01/21 12:34 Urine RBC (Auto) 0-4 /hpf (0-4) 02/01/21 12:34 U Hyaline Cast (Auto) 5-10 /lpf (0-5) H 02/01/21 12:34 U Epithel Cells (Auto) 10-20 /lpf (0-5) H 02/01/21 12:34 Urine Bacteria (Auto) 4+ (Negative) H 02/01/21 12:34 02/01/21 11:45 Aerobic Blood Culture - Preliminary Blood Gram positive cocci in chains Anaerobic Blood Culture - Preliminary Gram positive cocci in chains Electrocardiogram Date: 02/01/21 Findings: + ST @ (134 PVC's) consider inferior ischemia Echocardiogram Date: 07/27/19 EF: 20% Valvular Disease: + no significant valvular disease
[2021-02-02] MEDS ORDERED: MIDAZOLAM HCL 1 MG/ML 2ML VIAL ONE ×2 (07:34)
[2021-02-02] MEDS ORDERED: fentaNYL citrate 100 MCG/2 ML VIAL ONE (07:34)
[2021-02-02] MEDS ORDERED: LIDOCAINE 2% 20 MG/ML 5 ML SYR IV ONE (07:34)
[2021-02-02] MEDS ORDERED: PROPOFOL IV EMULSION 10 MG/ML 20 ML VIAL IV ONE ×2 (07:34→08:09)
[2021-02-02] MEDS ORDERED: KETAMINE 50 MG/5 ML SYRINGE ONE (07:45)
[2021-02-02] MEDS ORDERED: ONDANSETRON INJ 2 MG/ML 2 ML VIAL ONE (07:55)
[2021-02-02] MEDS ORDERED: ePHEDrine sulfate 50 MG/ML AMP ONE (08:01)
[2021-02-02] MEDS ORDERED: PHENYLEPHRINE 100MCG/ML 5ML SYR ONE (08:31)
--- NOTE | 2021-02-02 08:39 | Fluoroscopy Report ---
FL retrograde includes kub CLINICAL HISTORY: Ureteral stent placement. COMPARISON STUDY: Abdomen and pelvis CT 02/01/2021. FLUOROSCOPY TIME: 221 seconds. FINDINGS: 13 fluoroscopic spot images of the abdomen were submitted. Contrast was injected into the r ight ureter retrograde fashion. There is a filling defect at the ureteropelvic junction. There is ext raluminal/paravertebral collection of contrast identified. There is irregularity within the right UPJ /proximal ureter. A right ureteral stent was placed and appears in good position. IMPRESSION: 1. Fluoroscopy provided for right ureteral stent placement which appears in good position. 2. There is an extraluminal/paravertebral collection of contrast identified corresponding to the abno rmality on the recent CT examination. Therefore, this could represent a paravertebral mass or urinoma . 3. Irregularity within the right UPJ/proximal ureter is also noted. This also raises the possibility of masslike involvement. ACT 112: Negative or not required by law. Electronically signed by: Sekou El M.D. 02/02/2021 8:38 AM
--- NOTE | 2021-02-02 08:39 | Operative Report ---
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 Severely purulent urine with 2x sample sent for analysis. Urinoma in area of known psoas fluid collection with possible fistula proximal to stone. Large bladder stone. Specimens Urine Right Renal Pelvis Drains 6 Fr Multilength 16 Fr Catheter Anesthesia Type MAC Complications none Disposition Disposition: Recovery Room Indications Patient with obstruction. Risks and benefits discussed at length. Description of Procedure Patient was consented and brought back to the operating room. Patient was placed under anesthesia in the supine position and moved to the dorsal lithotomy position. Patient was prepped and draped in the regular sterile fashion. A time out was completed. A 30degree Cystoscope was placed into the bladder and the entire bladder was examined. The UO's were identified. The UO was cannulized with a catheter and a retrograde pyelogram was completed. The severe obstruction was clearly seen and proximal to this there was a likely fistula tract with contrast entering a fluid pocket. Likely represents retroperitoneal fluid collection on CT scan. A wire was then placed. A second wire was placed. A 5 Fr open ended catheter was then placed over the first wire. The catheter and wire were then utilized to advance past the stone. Severe purulent urine was aspirated. This was flushed multiple times with 2-3 cc of saline in order to wash out the significant purulence. Another retrograde pyelogram then was completed which outlined the renal pelvis. The wire was manipulated into the upper pole calyx. The catheter was removed. With the wire in place, a 6 Fr Double J stent was placed. It was confirmed with fluoroscopy. With the stent in place, the bladder was emptied. Urine and debris was freely draining into the bladder. A extremely large approx 6.2 cm bladder stone was also within the bladder. The scope was removed. A 16 Fr catheter was then placed. The patient was cleaned and transferred to the prone position. At this point of the procedure, Dr. Cocharn with General Surgery assumed care to proceed with the sacral debridement. After transfer of care, patient was in stable condition having tolerated the procedure well with no complications. I was present and participated in all aspects of my portion of the procedure. The patient will be monitored post operatively in the PACU after completing the general surgery procedure. I attest to the content of the Intraoperative Record and any orders documented therein. Any exceptions are noted below.
[2021-02-02] MEDS ORDERED: DIATRIZOATE MEGLUMINE 30% 100ML VIAL INSTIL ONE (08:58)
--- NOTE | 2021-02-02 09:11 | Post Operative Brief Note ---
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 Infected Sacral Hematoma, Stage 4 sacral decubitus with sacral Osteomyelitis I identified the patient and participated in the time-out.: Yes Procedure Operation Date: 02/02/21 09:45 Actual Procedures p Cystoscopy, Retrograde Pyelogram, Aspiration, Right Stent Placement(Right) - Hal Navarro DO s Drainage of Infected Hematoma, Excisional Debridement of Sacral Ulcer Down to Bone, partial coccygectomy (Not Applicable) - Zi Cochran DO Surgeon Zi Cochran DO Christmas Tree Grader Nicol Queen PA-C Estimated Blood Loss 6 (1 for first case, 5 for second case) Findings See Below Infected hematoma within a stage IV sacral decubitus ulcer Necrotic subcutaneous tissue 2cm of exposed coccyx within wound Specimens Specimen Description: 1: Renal Pelvis Urine, Right #1 2: Renal Pelvia Urine, Right #2 3: Sacral Culture 4: Sacral Tissue for Culture 5: Sacrum for Culture A: Sacrum Drains Finley Catheter (removed prior to start of procedure, reinserted at end of procedure by MD) Anesthesia Type MAC Complications none Disposition Disposition: Recovery Room
--- NOTE | 2021-02-02 09:16 | Operative Report ---
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 I identified the patient and participated in the time-out.: Yes Procedure Operation Date: 02/02/21 09:45 Actual Procedures p Cystoscopy, Retrograde Pyelogram, Aspiration, Right Stent Placement(Right) - Hal Navarro DO s Drainage of Infected Hematoma, Excisional Debridement of Sacral Ulcer Down to Bone, partial coccygectomy(Not Applicable) - Zi Cochran DO Surgeon Zi Cochran DO Train Engineer Nicol Queen PA-C Estimated Blood Loss 5 (1 for first case, 5 for second case) Findings See Below Infected hematoma within a stage IV sacral decubitus ulcer Necrotic subcutaneous tissue 2cm of exposed coccyx within wound Specimens Sacrum to pathology Sacral tissue for culture Sacral culture Sacral bone for culture Drains None Anesthesia Type MAC Complications none Disposition Disposition: Recovery Room Indications 50 yo male with sacral abscess, stage IV decubitus ulcer requiring debridement Description of Procedure The patient was brought to the operating room and underwent MAC anesthesia without issue. At this time the patient was placed in the prone jackknife position. The perineum and lower back were prepped and draped in the usual sterile fashion. Appropriate pre-operative antibiotics were administered. A timeout was called. The procedure was verified as Incision and drainage of sacral abscess, excisional debridement of sacral decubitus ulcer. Surgical, anesthesia and nursing teams agreed and the procedure was begun. There was an open wound with an infected hematoma present. This was evacuated and the wound irrigated. The wound measured 3cm x 1.5cm x 3cm initially. There was 2cm of coccyx exposed. There was undermining laterally and inferiorly. The skin laterally and inferiorly was excised using #15 blade scalpel so that there was minimal undermining. The new wound measured 5.5cm x 3cm x 3cm. At this time a portion of necrotic subcutaneous tissue was excised using electrocautery and sent for tissue culture. A swab culture of the tissue was also sent. The exposed coccyx was then partially removed using a rongeur and sent to pathology and for culture. Clinically the patient has osteomyelitis. Some healthy appearing subcutaneous/muscle tissue was closed over top of the bone using 3-0 Vicryl suture. At this time the entire remaining wound was debrided using a curette. At this time hemostasis was achieved using electrocautery. Hemostas is was complete. At this time the incision was irrigated until clear. A wet to dry Kerlix dressing was placed in the wound and gauze dressing was applied. At this time the patient was awakened from anesthesia having remained stable throughout the entire case and transported to PACU in stable condition. The physician's certified pharmacist assistant was present and scrubbed for the entire case. She was essential in prepping, positioning and draping the patient, retraction and exposure, placement of the dressings. I attest to the content of the Intraoperative Record and any orders documented therein. Any exceptions are noted below.
--- NOTE | 2021-02-02 10:03 | Anesthesiology Progress Note ---
Date of Service February 02, 2021 Anesthesia Post Procedure Vital Signs Vital Signs: Temp Pulse Pulse Pulse Resp BP BP 02/02/21 09:40 36.3 C L 99 H 20 02/02/21 09:30 96 H 20 02/02/21 09:20 95 H 20 02/02/21 09:18 36.1 C L 97 H 20 02/02/21 07:09 36.8 C 100 H 20 105/72 02/02/21 06:23 20 02/02/21 05:58 02/02/21 05:30 18 02/02/21 05:00 16 02/02/21 04:30 18 02/02/21 04:00 18 02/02/21 03:53 37.1 C 94 H 18 99/61 L 02/02/21 03:30 18 02/02/21 03:00 18 02/02/21 02:30 18 02/02/21 02:00 20 02/02/21 01:30 20 02/02/21 01:00 18 02/02/21 00:30 18 02/02/21 00:00 20 02/01/21 23:59 102 H 02/01/21 23:30 18 02/01/21 23:21 36.9 C 104 H 20 100/60 02/01/21 23:00 18 02/01/21 22:30 18 02/01/21 22:00 20 02/01/21 21:30 18 02/01/21 21:00 18 02/01/21 20:30 18 02/01/21 20:22 111 H 18 99/76 L 02/01/21 20:00 20 02/01/21 19:00 20 02/01/21 16:25 36.7 C 20 02/01/21 15:15 114 H 21 93/55 L 02/01/21 15:00 117 H 22 110/66 02/01/21 14:45 111 H 31 H 99/63 L 02/01/21 14:30 111 H 20 98/64 L 02/01/21 14:15 113 H 20 101/63 02/01/21 14:00 113 H 20 100/62 02/01/21 13:45 112 H 20 91/59 L 02/01/21 13:30 112 H 20 92/62 L 02/01/21 13:15 116 H 20 95/60 L 02/01/21 13:00 117 H 20 100/59 L 02/01/21 12:45 121 H 20 97/54 L 02/01/21 12:33 120 H 20 96/63 L 02/01/21 12:30 122 H 20 105/64 02/01/21 12:08 02/01/21 12:00 121 H 20 99/59 L 02/01/21 11:30 135 H 20 113/68 02/01/21 11:28 139 H 20 111/71 02/01/21 11:25 37.4 C 136 H 24 113/68 BP Pulse Ox 02/02/21 09:40 100/63 97 02/02/21 09:30 93/61 L 97 02/02/21 09:20 98/65 L 100 02/02/21 09:18 95/61 L 100 02/02/21 07:09 99 02/02/21 06:23 98 02/02/21 05:58 98 02/02/21 05:30 98 02/02/21 05:00 98 02/02/21 04:30 99 02/02/21 04:00 98 02/02/21 03:53 98 02/02/21 03:30 98 02/02/21 03:00 98 02/02/21 02:30 99 02/02/21 02:00 99 02/02/21 01:30 98 02/02/21 01:00 98 02/02/21 00:30 98 02/02/21 00:00 98 02/01/21 23:59 02/01/21 23:30 98 02/01/21 23:21 98 02/01/21 23:00 98 02/01/21 22:30 99 02/01/21 22:00 98 02/01/21 21:30 98 02/01/21 21:00 99 02/01/21 20:30 98 02/01/21 20:22 99 02/01/21 20:00 98 02/01/21 19:00 02/01/21 16:25 99 02/01/21 15:15 98 02/01/21 15:00 99 02/01/21 14:45 98 02/01/21 14:30 98 02/01/21 14:15 99 02/01/21 14:00 100 02/01/21 13:45 99 02/01/21 13:30 99 02/01/21 13:15 99 02/01/21 13:00 98 02/01/21 12:45 97 02/01/21 12:33 99 02/01/21 12:30 100 02/01/21 12:08 98 02/01/21 12:00 99 02/01/21 11:30 100 02/01/21 11:28 02/01/21 11:25 98 Transfer of Care Handoff Completed per policy Notes Mental Status: alert / awake / arousable Patient Amnestic to Procedure: Yes Nausea / Vomiting: adequately controlled Pain: adequately controlled Airway Patency, RR, SpO2: stable & adequate BP & HR: stable & adequate Hydration State: stable & adequate Anesthetic Complications: no major complications apparent
[2021-02-02] MEDS: PREGABALIN 25 MG CAP PO SCH ×2 (10:16→21:28)
--- NOTE | 2021-02-02 10:28 | Communication Note ---
Date of Service: February 02, 2021 Patient is POD#0 I&D of sacral ulcer. Wound care consulted for assistance with dressing. If wound care is here over the weekend the wound can be evaluated by their team for dressing change and recommendations (a wound vac can be considered). If wound care is not here over the weekend the wound can be changed daily with wet-dry Kerlex gauze, cover with dry 4x4 gauze, ABD, and tape. Will need follow up with wound care clinic upon discharge.
--- NOTE | 2021-02-02 10:52 | Pharmacy Report ---
Pharmacy Abx Dose Short Note - Date of Service February 02, 2021 - Assessment & Plan Assessment * 50 year old M receiving Zosyn and vancomycin for treatment of sepsis 2nd SSTI (sacral decub) and/or UTI. Hx MRSA and Pseudomonas Plan Vancomycin * Random vancomycin level this AM ~22 mcg/ml (goal ~20 mcg/ml for possible bone/joint infection) * Scr remains stable from yesterday, plan to start maintenance vancomycin dosing of 750 mg iv q 12 hrs based upon vancomycin AUC dosing nomogram (using CrCl ~51 / adjusted for paraplegia). Will start dosing when estimated level closer to ~15 mcg/ml * Plan to obtain level prior to the 1200 dose 02/03 to ensure stable. Patient for I&D today. Prelim blood cultures with Gm positive cocci in chains (likely strep?), urine with Gm neg bacilli * Will await further cultures from I&D today, may be able to deescalate based upon results Pharmacy will continue to follow and will adjust dose/frequency as necessary. Thank you.
[2021-02-02] MEDS: VANCOMYCIN HCL 750 MG in SODIUM CHLORIDE 0.9% 250 ML IV SCH ×2 (11:44→23:28)
[2021-02-02] MEDS ORDERED: SODIUM CHLORIDE 0.9% 250 ML IV PRN (12:43)
[2021-02-02] MEDS: SODIUM CHLORIDE 0.9% 1000ML 1,000 ML IV SCH ×2 (12:55→21:27)
--- NOTE | 2021-02-02 14:54 | Hospitalist Progress Note ---
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 BP 90s/50, HR initially 136. Leukocytosis of 18, lactic acid WNL on admission Sepsis in the setting of infected sacral wound and UTI CT scan of the abdomen pelvis showed: IMPRESSION: 1. No evidence of bowel obstruction. No evidence of free air 2. No evidence of acute appendicitis. No evidence of acute diverticulitis 3. 84 mm right psoas mass. Diagnostic considerations include abscess, necrotic neoplasm or organizing hematoma 4. Right renal obstruction with a diminished nephrogram. There is an obstructing 1 cm right UPJ calculus. There is a 29 x 12 mm right perinephric fluid collection. Perinephric abscess not excluded 5. 3 cm bladder calculus 6. 27 mm upper coccygeal gas collection consistent with abscess. There are associated coccygeal bony erosive changes consistent with osteomyelitis Received empiric Cefepime, vanco and now has been on Zosyn and Vanco Has been waiting cultures of the wound and also blood and urine Remains stable clinically with normalization of the white count Getrinidader ID has been consulted We will continue current antibiotic Noted to be tachycardic with heart rate of 140 following the procedure Likely secondary to ongoing infection and dehydration Will give cautious amount intravenous fluid Monitor fluid overload (2) Complicated UTI (urinary tract infection): Has Finley catheter in situ Did have obstructing 1 cm right UPJ calculus and also to 9 x 12 mm right joesph nephric fluid collection Status post cystoscopy, retrograde pyelogram, aspiration and right ureteric stent placement by Dr. Navarro on 02/02/2021 Appreciate urology input and recommendation (3) Neurogenic bladder: History of recurrent UTI 2/2 neurogenic bladder requiring straight catheterization PRN at home Started on empiric cefepime Continue methenamine hippurate BID IV fluids Follow urine culture (4) Sacral wound: History of sacral wounds in the past, has followed with wound care in the past (last in 2019) Worsening appearance of skin noted by home health aide over the past month in setting of few positional changes, urinary incontinence Wound care nurse consulted, turn every 2 hours, Place Finley catheter Continue empiric antibiotics, follow wound culture Status post drainage of infected hematoma, incision debridement of sacral ulcer down to the bone Appreciate surgery input and recommendation Wound care has been consulted and await wound culture and blood culture (5) Paraplegia at T9 level: 2/2 spinal cord injury at 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 osteomyelitis s/p thoracic fusion Paralyzed from waist down, able to do some transfers using upper body but requires assistance transferring in and out of bed Neurogenic bladder, straight cath PRN Fall precautions (6) Systolic heart failure: H/o ischemic cardiomyopathy with with EF 20% in 2019 Needs to reestablish with cardiology in clinic Not currently on beta-estrellita due to low blood pressure Has been requiring more intravenous fluid for dehydration Will monitor volume status given the history of low EF (7) CAD (coronary artery disease): H/o CABG in 2014 and multiple PCIs Follows with Dr. Ayers in clinic Continue aspirin, statin No acute cardiac symptoms (8) History of narcotic addiction: History of narcotic abuse in the past -avoid when able Interested in resuming Lyrica-UDS pending DVT Ppx: SQ Lovenox Code status: FULL PCP: Herminia Dispo: Admitted to PCU. Discharge planning ordered. Admission and Anticipated Discharge Date Admission Date: February 01, 2021 Subjective 02/02/2021 The patient was seen and examined in telemetry unit He is status post cystoscopy, retrograde pyelogram, aspiration, right stent placement and Status post drainage of infected hematoma, incision debridement of sacral ulcer down to bone Has been having pain in the lower back and occasional shivering He was noted to be tachycardic but denies any other significant symptoms Review of Systems Review of Systems: All systems reviewed and are unremarkable except as mentioned earlier Physical Exam 2 Physical Exam: Lying in bed with some discomfort due to sacral wound and shivering without any increasing temperature Constitutional: well developed, well nourished and + ill appearing Eyes: PERRL, conjunctivae normal, anicteric sclerae ENMT: external ear and nose normal, oropharynx normal Neck: trachea midline, no thyromegaly Respiratory: no respiratory distress Auscultation: lungs clear to auscultation bilaterally Cardiovascular: Rate/Rhythm: regular rate, regular rhythm and + tachycardic Heart Sounds: no murmur Extremities: no edema Gastrointestinal (Abdomen): Inspection/Auscultation: normal bowel sounds; abdomen not distended Percussion/Palpation: + abdomen tender (Mildly tender lower quadrant) and abdomen soft Musculoskeletal: No acute arthritis in any joint Skin: Has wound over sacrum which is now bandaged following I&D Neurologic: Alert, awake and oriented x3. Has paraplegia with more weakness involving right lower extremity than the left. Remains bedbound Psychiatric: A+Ox3, euthymic affect Lymphatic: no cervical or axillary lymphadenopathy Results & Data Results & Data ([facility]) Vital Signs (Past 12 Hours) Vital Signs Temp Pulse Pulse Resp BP BP Pulse Ox 02/02/21 12:19 36.4 C L 144 H 20 115/75 97 02/02/21 09:40 36.3 C L 99 H 20 100/63 97 02/02/21 09:30 96 H 20 93/61 L 97 02/02/21 09:20 95 H 20 98/65 L 100 02/02/21 09:18 36.1 C L 97 H 20 95/61 L 100 02/02/21 07:09 36.8 C 100 H 20 105/72 99 02/02/21 06:23 20 98 02/02/21 05:58 98 02/02/21 05:30 18 98 02/02/21 05:00 16 98 02/02/21 04:30 18 99 02/02/21 04:00 18 98 02/02/21 03:53 37.1 C 94 H 18 99/61 L 98 02/02/21 03:30 18 98 02/02/21 03:00 18 98 Laboratory Results Short CBC 02/02/21 Range/Units 04:05 WBC 10.16 (4.8-10.8) K/uL Hgb 7.3 L D (14.0-18.0) g/dL Hct 22.5 L (42-52) % Plt Count 308 (130-400) K/uL BMP 02/01/21 02/02/21 19:55 04:05 Sodium 137 139 Potassium 4.5 4.2 Chloride 110 H 114 H Carbon Dioxide 19 L 19 L BUN 20 H 19 H Creatinine 1.50 H 1.30 Glucose 101 H 75 Calcium 7.8 L 7.[address] scan of the abdomen pelvis showed: IMPRESSION: 1. No evidence of bowel obstruction. No evidence of free air 2. No evidence of acute appendicitis. No evidence of acute diverticulitis 3. 84 mm right psoas mass. Diagnostic considerations include abscess, necrotic neoplasm or organizing hematoma 4. Right renal obstruction with a diminished nephrogram. There is an obstructing 1 cm right UPJ calculus. There is a 29 x 12 mm right perinephric fluid collection. Perinephric abscess not excluded 5. 3 cm bladder calculus 6. 27 mm upper coccygeal gas collection consistent with abscess. There are associated coccygeal bony erosive changes consistent with osteomyelitis Medications Administered Current Inpatient Medications Acetaminophen (Acetaminophen 325 Mg Tab) 650 mg PO Q4H PRN PRN Reason: Pain or Fever Stop: 03/03/21 16:22 Enoxaparin Sodium (Enoxaparin Inj 40 Mg/0.4 Ml Syr) 40 mg SQ DAILY@1800 PAVITHRA Stop: 03/03/21 16:22 Last Admin: 02/01/21 17:31 Dose: 40 mg Documented by: Sodium Chloride (Nss 1000ml) 1,000 mls @ 125 mls/hr IV .Q8H PAVITHRA Stop: 02/03/21 05:18 Last Admin: 02/02/21 12:55 Dose: 125 mls/hr Documented by: Piperacillin Sod/Tazobactam (Sod 3.375 gm/ Dextrose) 115 mls @ 28.75 mls/hr IV Q8H PAVITHRA; Protocol Stop: 02/12/21 01:59 Last Infusion: 02/02/21 14:25 Dose: Infused Documented by: Vancomycin HCl 750 mg/ Sodium (Chloride) 265 mls @ 200 mls/hr IV Q12H PAVITHRA Stop: 03/16/21 11:59 Last Infusion: 02/02/21 13:11 Dose: Infused Documented by: Sodium Chloride (Nss) 250 mls @ 15 mls/hr IV .[id number] PRN PRN Reason: For Transfusion Stop: 02/02/21 22:43 Miscellaneous Information (Vancomycin Consult Active) 1 ea N/A UD PRN PRN Reason: Consult Stop: 03/03/21 11:46 Miscellaneous Information (Piperacill/Tazobac Consult Active) 1 ea N/A UD PRN PRN Reason: Consult Stop: 03/03/21 19:31 Ondansetron HCl (Ondansetron Inj 2 Mg/Ml 2 Ml Vial) 4 mg IV Q6H PRN PRN Reason: Nausea Stop: 03/03/21 16:22 Polyethylene Glycol (Polyethylene (Miralax) 17 Gm Pack) 17 gm PO DAILY PRN PRN Reason: Constipation Stop: 03/03/21 16:22 Pregabalin (Pregabalin 25 Mg Cap) 25 mg PO BID PAVITHRA Stop: 03/03/21 20:59 Last Admin: 02/02/21 10:16 Dose: 25 mg Documented by:
[2021-02-03] MEDS: PIPERACILLIN/TAZOBACTAM 3.375 GM in DEXTROSE 5% 100 ML IV SCH ×3 (02:53→18:45)
[2021-02-03 06:41] LABS: Hematocrit (blood only) 20.9 % (42-52); Hemoglobin 6.7 g/dL (14.0-18.0); Mean Corpuscular Hemoglobin 27.8 pg (25-34); Mean Corpuscular Hgb Conc 32.1 g/dL (32-36); Mean Corpuscular Volume 86.7 fL (80-100); Mean Platelet Volume 9.9 fL (7.4-10.4); Platelet Count 287 K/uL (130-400); RDW Coefficient of Variation 16.5 % (11.5-14.5); RDW Standard Deviation 52.8 fL (36.4-46.3); Red Blood Count 2.41 M/uL (4.7-6.1); White Blood Count 8.94 K/uL (4.8-10.8)
[2021-02-03 07:01] LABS: Albumin Level 1.4 gm/dl (3.4-5.0); BUN Creatinine Ratio 11.3 (10-20); Calcium 7.5 mg/dl (8.5-10.1); Creatinine Clr Calc Pharmacy 75.3 ml/min; Est GFR (Non-African American) 75.9 ml/min; Potassium 3.9 mmol/L (3.5-5.1)
[2021-02-03 07:10] LABS: Albumin Globulin Ratio 0.3 (0.9-2); Basophils # (auto) 0.03 K/uL (0-0.2); Basophils % (auto) 0.3 %; Bilirubin,Total 0.4 mg/dl (0.2-1); Eosinophils # (auto) 0.31 K/uL (0-0.5); Eosinophils % (auto) 3.5 %; Globulin 4.8 gm/dl (2.5-4.0); Immature Granulocytes # (auto) 0.03 K/uL (0.00-0.02); Immature Granulocytes % (auto) 0.3 %; Lymphocytes # (auto) 1.54 K/uL (1.2-3.4); Lymphocytes % (auto) 17.2 %; Monocytes # (auto) 0.78 K/uL (0.11-0.59); Monocytes % (auto) 8.7 %; Neutrophils # (auto) 6.25 K/uL (1.4-6.5); RBC Morphology Unremarkable; Total Protein 6.2 gm/dl (6.4-8.2)
--- NOTE | 2021-02-03 07:21 | Electrocardiogram Report ---
Test Reason : Blood Pressure : / mmHG Vent. Rate : 134 BPM Atrial Rate : 134 BPM P-R Int : 124 ms QRS Dur : 088 ms QT Int : 276 ms P-R-T Axes : 046 034 120 degrees QTc Int : 412 ms Poor data quality, interpretation may be adversely affected Sinus tachycardia with occasional Premature ventricular complexes Septal infarct , age undetermined Nonspecific T wave abnormality Abnormal ECG When compared with ECG of 29-SEP-2019 12:25, Premature ventricular complexes are now Present Vent. rate has increased BY 49 BPM Confirmed by Binu Linn ([id number]) on 02/03/2021 7:20:55 AM Referred By: Confirmed By:Binu Linn
[2021-02-03] MEDS ORDERED: SODIUM CHLORIDE 0.9% 250 ML IV PRN (08:13)
[2021-02-03 08:36] LABS: Hematocrit (blood only) 22.6 % (42-52); Hemoglobin 7.2 g/dL (14.0-18.0)
[2021-02-03] MEDS: ACETAMINOPHEN 325 MG TAB PO PRN (08:47)
[2021-02-03] MEDS: PREGABALIN 25 MG CAP PO SCH ×2 (08:47→20:03)
[2021-02-03] MEDS ORDERED: FUROSEMIDE 40 MG in SYRINGE 0 ML IV ONE (09:00)
[2021-02-03] MEDS ORDERED: VANCOMYCIN TROUGH ONE (11:30)
[2021-02-03] MEDS ORDERED: oxyCODONE/ACETAMINOPHEN 5mg/325mg TAB PO ONE (11:35)
[2021-02-03 14:20] LABS: Hematocrit (blood only) 28.1 % (42-52); Hemoglobin 9.3 g/dL (14.0-18.0)
--- NOTE | 2021-02-03 14:56 | Surgery Progress Note ---
Date of Service February 03, 2021 Assessment & Plan (1) Cellulitis of sacral region: Sacral decubitus appears to be clean. There is healthy granulation tissue at the base. There is no further evidence of necrosis. Dressing changed and repacked and awaiting wound care consultation. Admission and Anticipated Discharge Date Admission Date: February 01, 2021 Subjective Postoperative day #1 status post debridement of stage IV sacral decubitus The patient is having some mild discomfort although it is mitigated by his paraplegia. No fevers Admitted with picture of sepsis which is now resolved Physical Exam Physical Exam: Sacral decubitus undressed and unpacked. There is healthy granulation tissue at the base. There was no purulent drainage and there was no necrotic tissue seen. Results & Data ([facility]) Vital Signs (Past 12 Hours) Vital Signs Temp Pulse Pulse Resp BP BP Pulse Ox 02/03/21 12:38 36.9 C 103 H 20 114/74 95 02/03/21 12:32 36.9 C 103 H 20 114/74 95 02/03/21 12:06 36.8 C 104 H 18 112/72 97 02/03/21 12:00 02/03/21 11:36 36.8 C 104 H 18 116/65 98 02/03/21 11:21 36.6 C 103 H 20 116/65 98 02/03/21 11:03 36.8 C 107 H 20 118/70 95 02/03/21 10:52 36.9 C 104 H 18 122/72 96 02/03/21 10:18 36.9 C 105 H 19 122/70 96 02/03/21 09:48 36.6 C 106 H 20 118/65 97 02/03/21 09:33 36.8 C 106 H 18 114/69 98 02/03/21 09:12 36.9 C 109 H 20 111/66 95 02/03/21 08:00 99 H 02/03/21 07:27 36.7 C 99 H 22 96/65 L 97 02/03/21 05:11 37.0 C 99 H 23 96/64 L 97 Pulse Ox 02/03/21 12:38 02/03/21 12:32 02/03/21 12:06 02/03/21 12:00 98 02/03/21 11:36 02/03/21 11:21 02/03/21 11:03 02/03/21 10:52 02/03/21 10:18 02/03/21 09:48 02/03/21 09:33 02/03/21 09:12 02/03/21 08:00 02/03/21 07:27 02/03/21 05:11 Laboratory Results 02/03/21 02/03/21 02/03/21 Range/Units 14:03 14:03 08:16 WBC (4.8-10.8) K/uL RBC (4.7-6.1) M/uL Hgb 9.3 L 7.2 L (14.0-18.0) g/dL Hct 28.1 L 22.6 L (42-52) % MCV (80-100) fL MCH (25-34) pg MCHC (32-36) g/dL RDW Std Deviation (36.4-46.3) fL RDW Coeff of Karan (11.5-14.5) % Plt Count (130-400) K/uL MPV (7.4-10.4) fL Immature Gran % (Auto) % Neut % (Auto) % Lymph % (Auto) % [place] % (Auto) % Eos % (Auto) % Baso % (Auto) % Neut # (Auto) (1.4-6.5) K/uL Lymph # (Auto) (1.2-3.4) K/uL [place] # (Auto) (0.11-0.59) K/uL Eos # (Auto) (0-0.5) K/uL Baso # (Auto) (0-0.2) K/uL Immature Gran # (Auto) (0.00-0.02) K/uL RBC Morphology Sodium (136-145) mmol/L Potassium (3.5-5.1) mmol/L Chloride (98-107) mmol/L Carbon Dioxide (21-32) mmol/L Anion Gap (3-11) BUN (7-18) mg/dl Creatinine (0.6-1.4) mg/dl Est Cr Clr Drug Dosing ml/min Est GFR ( Amer) ml/min Est GFR (Non-Af Amer) ml/min BUN/Creatinine Ratio (10-20) Glucose (70-99) mg/dl Calcium (8.5-10.1) mg/dl Total Bilirubin (0.2-1) mg/dl AST (15-37) U/L ALT (12-78) U/L Alkaline Phosphatase (45-117) U/L Total Protein (6.4-8.2) gm/dl Albumin (3.4-5.0) gm/dl Globulin (2.5-4.0) gm/dl Albumin/Globulin Ratio (0.9-2) Vancomycin Trough 22.2 (See Comment) mcg/ml Blood Type Antibody Screen Crossmatch 02/03/21 02/03/21 02/02/21 Range/Units 06:08 06:08 13:12 WBC 8.94 (4.8-10.8) K/uL RBC 2.41 L (4.7-6.1) M/uL Hgb 6.7 L* (14.0-18.0) g/dL Hct 20.9 L* (42-52) % MCV 86.7 (80-100) fL MCH 27.8 (25-34) pg MCHC 32.1 (32-36) g/dL RDW Std Deviation 52.8 H (36.4-46.3) fL RDW Coeff of Karan 16.5 H (11.5-14.5) % Plt Count 287 (130-400) K/uL MPV 9.9 (7.4-10.4) fL Immature Gran % (Auto) 0.3 % Neut % (Auto) 70.0 % Lymph % (Auto) 17.2 % [place] % (Auto) 8.7 % Eos % (Auto) 3.5 % Baso % (Auto) 0.3 % Neut # (Auto) 6.25 (1.4-6.5) K/uL Lymph # (Auto) 1.54 (1.2-3.4) K/uL [place] # (Auto) 0.78 H (0.11-0.59) K/uL Eos # (Auto) 0.31 (0-0.5) K/uL Baso # (Auto) 0.03 (0-0.2) K/uL Immature Gran # (Auto) 0.03 H (0.00-0.02) K/uL RBC Morphology Unremarkable Sodium 140 (136-145) mmol/L Potassium 3.9 (3.5-5.1) mmol/L Chloride 115 H (98-107) mmol/L Carbon Dioxide 20 L (21-32) mmol/L Anion Gap 5.0 (3-11) BUN 13 (7-18) mg/dl Creatinine 1.11 (0.6-1.4) mg/dl Est Cr Clr Drug Dosing 75.3 ml/min Est GFR ( Amer) 88.0 ml/min Est GFR (Non-Af Amer) 75.9 ml/min BUN/Creatinine Ratio 11.3 (10-20) Glucose 90 (70-99) mg/dl Calcium 7.5 L (8.5-10.1) mg/dl Total Bilirubin 0.4 (0.2-1) mg/dl AST 8 L (15-37) U/L ALT 7 L (12-78) U/L Alkaline Phosphatase 63 (45-117) U/L Total Protein 6.2 L D (6.4-8.2) gm/dl Albumin 1.4 L (3.4-5.0) gm/dl Globulin 4.8 H (2.5-4.0) gm/dl Albumin/Globulin Ratio 0.3 L (0.9-2) Vancomycin Trough (See Comment) mcg/ml Blood Type O Positive Antibody Screen NEGATIVE Crossmatch See Detail
--- NOTE | 2021-02-03 15:05 | Hospitalist Progress Note ---
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 BP 90s/50, HR initially 136. Leukocytosis of 18, lactic acid WNL on admission Sepsis in the setting of infected sacral wound and UTI CT scan of the abdomen pelvis showed: IMPRESSION: 1. No evidence of bowel obstruction. No evidence of free air 2. No evidence of acute appendicitis. No evidence of acute diverticulitis 3. 84 mm right psoas mass. Diagnostic considerations include abscess, necrotic neoplasm or organizing hematoma 4. Right renal obstruction with a diminished nephrogram. There is an obstructing 1 cm right UPJ calculus. There is a 29 x 12 mm right perinephric fluid collection. Perinephric abscess not excluded 5. 3 cm bladder calculus 6. 27 mm upper coccygeal gas collection consistent with abscess. There are associated coccygeal bony erosive changes consistent with osteomyelitis Received empiric Cefepime, vanco and now has been on Zosyn and Vanco Has been waiting cultures of the wound and also blood and urine Remains stable clinically with normalization of the white count Fátima RUSHING has been consulted-appreciate input and recommendation a as below- -Continue with Zosyn and vancomycin for now -Follow of blood cultures, urine culture and or culture -Anticipate total of 6 weeks of intravenous antibiotic given osteomyelitis : Results of cultures so far: Sacral wound culture is growing gram-negative bacilli-sensitivities pending : Urine culture is growing E. coli-sensitivities pending : Blood culture is growing Streptococcus species-further identification is pending He has been much improved since admission We will continue current antibiotic Noted to be tachycardic with heart rate of 140 following the procedure Likely secondary to ongoing infection and dehydration Will give cautious amount intravenous fluid Monitor fluid overload Anemia likely secondary to sepsis Hemoglobin has been dropping Received 2 units of blood transfusion and posttransfusion hemoglobin is more than 9 (2) Complicated UTI (urinary tract infection): Has Finley catheter in situ Did have obstructing 1 cm right UPJ calculus and also to 9 x 12 mm right perinephric fluid collection Status post cystoscopy, retrograde pyelogram, aspiration and right ureteric stent placement by Dr. Navarro on 02/02/2021 Appreciate urology input and recommendation As above (3) Neurogenic bladder: History of recurrent UTI 2/2 neurogenic bladder requiring straight catheterization PRN at home Started on empiric cefepime Continue methenamine hippurate BID IV fluids Follow urine culture (4) Sacral wound: History of sacral wounds in the past, has followed with wound care in the past (last in 2019) Worsening appearance of skin noted by home health aide over the past month in setting of few positional changes, urinary incontinence Wound care nurse consulted, turn every 2 hours, Place Finley catheter Continue empiric antibiotics, follow wound culture Status post drainage of infected hematoma, incision debridement of sacral ulcer down to the bone Appreciate surgery input and recommendation Wound care has been consulted and await wound culture and blood culture (5) Paraplegia at T9 level: 2/2 spinal cord injury at T9 from osteomyelitis s/p thoracic fusion Paralyzed from waist down, able to do some transfers using upper body but requires assistance transferring in and out of bed Neurogenic bladder, straight cath PRN Fall precautions (6) Systolic heart failure: H/o ischemic cardiomyopathy with with EF 20% in 2019 Needs to reestablish with cardiology in clinic Not currently on beta-estrellita due to low blood pressure Has been requiring more intravenous fluid for dehydration Will monitor volume status given the history of low EF No signs and/or symptoms of fluid overload (7) CAD (coronary artery disease): H/o CABG in 2015 and multiple PCIs Follows with Dr. Ayers in clinic Continue aspirin, statin No acute cardiac symptoms (8) History of narcotic addiction: History of narcotic abuse in the past -avoid when able Interested in resuming Lyrica-UDS pending DVT Ppx: SQ Lovenox Code status: FULL PCP: Herminia Dispo: Admitted to PCU. Discharge planning ordered. Admission and Anticipated Discharge Date Admission Date: February 01, 2021 Subjective 02/02/2021 The patient was seen and examined in telemetry unit He is status post cystoscopy, retrograde pyelogram, aspiration, right stent placement and Status post drainage of infected hematoma, incision debridement of sacral ulcer down to bone Has been having pain in the lower back and occasional shivering He was noted to be tachycardic but denies any other significant symptoms 02/03/2021 The patient was seen and examined in telemetry unit He has been feeling a lot better and denies any more shivering and his heart rate is down to around 100 Denies any other symptoms Review of Systems Review of Systems: All systems reviewed and are unremarkable except as mentioned earlier Physical Exam Physical Exam: Lying in bed comfortably Constitutional: well developed, well nourished and + ill appearing Eyes: PERRL, conjunctivae normal, anicteric sclerae ENMT: external ear and nose normal, oropharynx normal Neck: trachea midline, no thyromegaly Respiratory: no respiratory distress Auscultation: lungs clear to auscultation bilaterally Cardiovascular: Rate/Rhythm: regular rate, regular rhythm and + tachycardic Heart Sounds: no murmur Extremities: no edema Gastrointestinal (Abdomen): Inspection/Auscultation: normal bowel sounds; abdomen not distended Percussion/Palpation: + abdomen tender (Mildly tender lower quadrant) and abdomen soft Psychiatric: A+Ox3, euthymic affect Lymphatic: no cervical or axillary lymphadenopathy Results & Data Results & Data ([facility]) Vital Signs (Past 12 Hours) Vital Signs Temp Pulse Pulse Resp BP BP Pulse Ox 02/03/21 12:38 36.9 C 103 H 20 114/74 95 02/03/21 12:32 36.9 C 103 H 20 114/74 95 02/03/21 12:06 36.8 C 104 H 18 112/72 97 02/03/21 12:00 02/03/21 11:36 36.8 C 104 H 18 116/65 98 02/03/21 11:21 36.6 C 103 H 20 116/65 98 02/03/21 11:03 36.8 C 107 H 20 118/70 95 02/03/21 10:52 36.9 C 104 H 18 122/72 96 02/03/21 10:18 36.9 C 105 H 19 122/70 96 02/03/21 09:48 36.6 C 106 H 20 118/65 97 02/03/21 09:33 36.8 C 106 H 18 114/69 98 02/03/21 09:12 36.9 C 109 H 20 111/66 95 02/03/21 08:00 99 H 02/03/21 07:27 36.7 C 99 H 22 96/65 L 97 02/03/21 05:11 37.0 C 99 H 23 96/64 L 97 Pulse Ox 02/03/21 12:38 02/03/21 12:32 02/03/21 12:06 02/03/21 12:00 98 02/03/21 11:36 02/03/21 11:21 02/03/21 11:03 02/03/21 10:52 02/03/21 10:18 02/03/21 09:48 02/03/21 09:33 02/03/21 09:12 02/03/21 08:00 02/03/21 07:27 02/03/21 05:11 Laboratory Results Short CBC 02/03/21 02/03/21 02/03/21 Range/Units 06:08 08:16 14:03 WBC 8.94 (4.8-10.8) K/uL Hgb 6.7 L* 7.2 L 9.3 L (14.0-18.0) g/dL Hct 20.9 L* 22.6 L 28.1 L (42-52) % Plt Count 287 (130-400) K/uL BMP 02/03/21 06:08 Sodium 140 Potassium 3.9 Chloride 115 H Carbon Dioxide 20 L BUN 13 Creatinine 1.11 Glucose 90 Calcium 7.5 L Liver Function 02/03/21 Range/Units 06:08 Total Bilirubin 0.4 (0.2-1) mg/dl AST 8 L (15-37) U/L ALT 7 L (12-78) U/L Alkaline Phosphatase 63 (45-117) U/L Albumin 1.4 L (3.4-5.0) gm/dl Medications Administered Current Inpatient Medications Acetaminophen (Acetaminophen 325 Mg Tab) 650 mg PO Q4H PRN PRN Reason: Pain or Fever Stop: 03/03/21 16:22 Last Admin: 02/03/21 08:47 Dose: 650 mg Documented by: Enoxaparin Sodium (Enoxaparin Inj 40 Mg/0.4 Ml Syr) 40 mg SQ DAILY@1800 PAVITHRA Stop: 03/03/21 16:22 Last Admin: 02/01/21 17:31 Dose: 40 mg Documented by: Piperacillin Sod/Tazobactam (Sod 3.375 gm/ Dextrose) 115 mls @ 28.75 mls/hr IV Q8H PAVITHRA; Protocol Stop: 02/12/21 01:59 Last Infusion: 02/03/21 14:27 Dose: Infused Documented by: Sodium Chloride (Nss) 250 mls @ 15 mls/hr IV .[id number] PRN PRN Reason: For Transfusion Stop: 02/03/21 18:13 Vancomycin HCl 750 mg/ Sodium (Chloride) 265 mls @ 200 mls/hr IV Q16H PAVITHRA Stop: 03/17/21 15:59 Miscellaneous Information (Vancomycin Consult Active) 1 ea N/A UD PRN PRN Reason: Consult Stop: 03/03/21 11:46 Miscellaneous Information (Piperacill/Tazobac Consult Active) 1 ea N/A UD PRN PRN Reason: Consult Stop: 03/03/21 19:31 Ondansetron HCl (Ondansetron Inj 2 Mg/Ml 2 Ml Vial) 4 mg IV Q6H PRN PRN Reason: Nausea Stop: 03/03/21 16:22 Polyethylene Glycol (Polyethylene (Miralax) 17 Gm Pack) 17 gm PO DAILY PRN PRN Reason: Constipation Stop: 03/03/21 16:22 Pregabalin (Pregabalin 25 Mg Cap) 25 mg PO BID PAVITHRA Stop: 03/03/21 20:59 Last Admin: 02/03/21 08:47 Dose: 25 mg Documented by:
[2021-02-03] MEDS: VANCOMYCIN HCL 750 MG in SODIUM CHLORIDE 0.9% 250 ML IV SCH (15:57)
[2021-02-03] MEDS ORDERED: CALCIUM CARBONATE 500 MG CHEWABLE TAB PO PRN (19:46)
[2021-02-04] MEDS: PIPERACILLIN/TAZOBACTAM 3.375 GM in DEXTROSE 5% 100 ML IV SCH ×3 (03:02→17:24)
[2021-02-04 06:12] LABS: Albumin Level 1.6 gm/dl (3.4-5.0); BUN Creatinine Ratio 9.2 (10-20); Calcium 7.9 mg/dl (8.5-10.1); Creatinine Clr Calc Pharmacy 80.8 ml/min; Est GFR (African American) 85.2 ml/min; Est GFR (Non-African American) 73.5 ml/min; Magnesium 1.9 mg/dl (1.8-2.4); Potassium 3.7 mmol/L (3.5-5.1)
[2021-02-04 06:14] LABS: Albumin Globulin Ratio 0.3 (0.9-2); Bilirubin,Total 0.4 mg/dl (0.2-1); Globulin 5.1 gm/dl (2.5-4.0); Phosphorus 2.9 mg/dl (2.5-4.9); Total Protein 6.7 gm/dl (6.4-8.2)
[2021-02-04 06:42] LABS: Basophils # (auto) 0.03 K/uL (0-0.2); Basophils % (auto) 0.4 %; Eosinophils # (auto) 0.41 K/uL (0-0.5); Eosinophils % (auto) 5.1 %; Hematocrit (blood only) 26.8 % (42-52); Hemoglobin 8.8 g/dL (14.0-18.0); Immature Granulocytes # (auto) 0.06 K/uL (0.00-0.02); Immature Granulocytes % (auto) 0.7 %; Lymphocytes # (auto) 1.63 K/uL (1.2-3.4); Lymphocytes % (auto) 20.2 %; Mean Corpuscular Hemoglobin 28.1 pg (25-34); Mean Corpuscular Hgb Conc 32.8 g/dL (32-36); Mean Corpuscular Volume 85.6 fL (80-100); Mean Platelet Volume 10.1 fL (7.4-10.4); Monocytes # (auto) 0.85 K/uL (0.11-0.59); Monocytes % (auto) 10.6 %; Neutrophils # (auto) 5.07 K/uL (1.4-6.5); Platelet Count 302 K/uL (130-400); RDW Coefficient of Variation 16.5 % (11.5-14.5); RDW Standard Deviation 52.2 fL (36.4-46.3); Red Blood Count 3.13 M/uL (4.7-6.1); White Blood Count 8.05 K/uL (4.8-10.8)
[2021-02-04] MEDS: VANCOMYCIN HCL 750 MG in SODIUM CHLORIDE 0.9% 250 ML IV SCH (08:32)
[2021-02-04] MEDS: PREGABALIN 25 MG CAP PO SCH ×2 (08:33→21:20)
[2021-02-04] MEDS: ACETAMINOPHEN 325 MG TAB PO PRN (08:38)
--- NOTE | 2021-02-04 12:06 | Surgery Progress Note ---
Date of Service February 04, 2021 Assessment & Plan (1) Stage III pressure ulcer of left buttock: Postoperative day 2 status post debridement of sacral decubitus Dressing changed and packing changed Continue antibiotics Wound care evaluation pending Admission and Anticipated Discharge Date Admission Date: February 01, 2021 Subjective Postoperative day #2 status post debridement of sacral decubitus Patient not having discomfort No nausea or vomiting Physical Exam Physical Exam: Dressing changed and packing removed showing the wound to be clean There is some excoriation of the skin to each side of the decubitus area. The tissue at the base of the decubitus is pink. There is no purulent drainage. Results & Data ([facility]) Vital Signs (Past 12 Hours) Vital Signs Temp Pulse Pulse Resp BP Pulse Ox 02/04/21 10:56 36.7 C 101 H 18 125/75 95 02/04/21 08:00 84 02/04/21 07:52 36.9 C 102 H 19 137/89 99 02/04/21 04:15 36.9 C 97 H 19 122/75 95 Laboratory Results 02/04/21 02/04/21 02/03/21 Range/Units 05:39 05:39 14:03 WBC 8.05 (4.8-10.8) K/uL RBC 3.13 L (4.7-6.1) M/uL Hgb 8.8 L 9.3 L (14.0-18.0) g/dL Hct 26.8 L 28.1 L (42-52) % MCV 85.6 (80-100) fL MCH 28.1 (25-34) pg MCHC 32.8 (32-36) g/dL RDW Std Deviation 52.2 H (36.4-46.3) fL RDW Coeff of Karan 16.5 H (11.5-14.5) % Plt Count 302 (130-400) K/uL MPV 10.1 (7.4-10.4) fL Immature Gran % (Auto) 0.7 % Neut % (Auto) 63.0 % Lymph % (Auto) 20.2 % [place] % (Auto) 10.6 % Eos % (Auto) 5.1 % Baso % (Auto) 0.4 % Neut # (Auto) 5.07 (1.4-6.5) K/uL Lymph # (Auto) 1.63 (1.2-3.4) K/uL [place] # (Auto) 0.85 H (0.11-0.59) K/uL Eos # (Auto) 0.41 (0-0.5) K/uL Baso # (Auto) 0.03 (0-0.2) K/uL Immature Gran # (Auto) 0.06 H (0.00-0.02) K/uL Sodium 141 (136-145) mmol/L Potassium 3.7 (3.5-5.1) mmol/L Chloride 113 H (98-107) mmol/L Carbon Dioxide 21 (21-32) mmol/L Anion Gap 7.0 (3-11) BUN 11 (7-18) mg/dl Creatinine 1.14 (0.6-1.4) mg/dl Est Cr Clr Drug Dosing 80.8 ml/min Est GFR ( Amer) 85.2 ml/min Est GFR (Non-Af Amer) 73.5 ml/min BUN/Creatinine Ratio 9.2 L (10-20) Glucose 86 (70-99) mg/dl Calcium 7.9 L (8.5-10.1) mg/dl Phosphorus 2.9 (2.5-4.9) mg/dl Magnesium 1.9 (1.8-2.4) mg/dl Total Bilirubin 0.4 (0.2-1) mg/dl AST 8 L (15-37) U/L ALT 8 L (12-78) U/L Alkaline Phosphatase 66 (45-117) U/L Total Protein 6.7 (6.4-8.2) gm/dl Albumin 1.6 L (3.4-5.0) gm/dl Globulin 5.1 H (2.5-4.0) gm/dl Albumin/Globulin Ratio 0.3 L (0.9-2) Vancomycin Trough (See Comment) mcg/ml Crossmatch 02/03/21 02/02/21 Range/Units 14:03 13:12 WBC (4.8-10.8) K/uL RBC (4.7-6.1) M/uL Hgb (14.0-18.0) g/dL Hct (42-52) % MCV (80-100) fL MCH (25-34) pg MCHC (32-36) g/dL RDW Std Deviation (36.4-46.3) fL RDW Coeff of Karan (11.5-14.5) % Plt Count (130-400) K/uL MPV (7.4-10.4) fL Immature Gran % (Auto) % Neut % (Auto) % Lymph % (Auto) % [place] % (Auto) % Eos % (Auto) % Baso % (Auto) % Neut # (Auto) (1.4-6.5) K/uL Lymph # (Auto) (1.2-3.4) K/uL [place] # (Auto) (0.11-0.59) K/uL Eos # (Auto) (0-0.5) K/uL Baso # (Auto) (0-0.2) K/uL Immature Gran # (Auto) (0.00-0.02) K/uL Sodium (136-145) mmol/L Potassium (3.5-5.1) mmol/L Chloride (98-107) mmol/L Carbon Dioxide (21-32) mmol/L Anion Gap (3-11) BUN (7-18) mg/dl Creatinine (0.6-1.4) mg/dl Est Cr Clr Drug Dosing ml/min Est GFR ( Amer) ml/min Est GFR (Non-Af Amer) ml/min BUN/Creatinine Ratio (10-20) Glucose (70-99) mg/dl Calcium (8.5-10.1) mg/dl Phosphorus (2.5-4.9) mg/dl Magnesium (1.8-2.4) mg/dl Total Bilirubin (0.2-1) mg/dl AST (15-37) U/L ALT (12-78) U/L Alkaline Phosphatase (45-117) U/L Total Protein (6.4-8.2) gm/dl Albumin (3.4-5.0) gm/dl Globulin (2.5-4.0) gm/dl Albumin/Globulin Ratio (0.9-2) Vancomycin Trough 22.2 (See Comment) mcg/ml Crossmatch See Detail
--- NOTE | 2021-02-04 12:46 | Hospitalist Progress Note ---
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 BP 90s/50, HR initially 136. Leukocytosis of 18, lactic acid WNL on admission Sepsis in the setting of infected sacral wound and UTI CT scan of the abdomen pelvis showed: IMPRESSION: 1. No evidence of bowel obstruction. No evidence of free air 2. No evidence of acute appendicitis. No evidence of acute diverticulitis 3. 84 mm right psoas mass. Diagnostic considerations include abscess, necrotic neoplasm or organizing hematoma 4. Right renal obstruction with a diminished nephrogram. There is an obstructing 1 cm right UPJ calculus. There is a 29 x 12 mm right perinephric fluid collection. Perinephric abscess not excluded 5. 3 cm bladder calculus 6. 27 mm upper coccygeal gas collection consistent with abscess. There are associated coccygeal bony erosive changes consistent with osteomyelitis Received empiric Cefepime, vanco and now has been on Zosyn and Vanco Has been waiting cultures of the wound and also blood and urine Remains stable clinically with normalization of the white count Fátima RUSHING has been consulted-appreciate input and recommendation a as below- -Continue with Zosyn and vancomycin for now -Follow of blood cultures, urine culture and or culture -Anticipate total of 6 weeks of intravenous antibiotic given osteomyelitis : Results of cultures so far: Sacral wound culture is growing-Proteus mirabilis, E. coli-sensitivities noted and Streptococcus suspicious-sensitivities pending : Urine culture is growing E. coli, Proteus Mirabella's and Streptococcus species-sensitivities noted except the last one : Blood culture is growing Streptococcus species-further identification is pending He has been much improved since admission We will continue current antibiotic Patient remains afebrile and white count is normal Noted to be tachycardic with heart rate of 140 following the procedure Likely secondary to ongoing infection and dehydration Will give cautious amount intravenous fluid Monitor fluid overload No signs and or symptoms of fluid overload Anemia likely secondary to sepsis Hemoglobin has been dropping Received 2 units of blood transfusion and posttransfusion hemoglobin is more than 9 Hemoglobin remains stable at 8.8 as of 02/04/2021 (2) Complicated UTI (urinary tract infection): Has Finley catheter in situ Did have obstructing 1 cm right UPJ calculus and also to 9 x 12 mm right perinephric fluid collection Status post cystoscopy, retrograde pyelogram, aspiration and right ureteric stent placement by Dr. Navarro on 02/02/2021 Appreciate urology input and recommendation As above (3) Neurogenic bladder: History of recurrent UTI 2/2 neurogenic bladder requiring straight catheterization PRN at home Started on empiric cefepime Continue methenamine hippurate BID IV fluids Follow urine culture (4) Sacral wound: History of sacral wounds in the past, has followed with wound care in the past (last in 2019) Worsening appearance of skin noted by home health aide over the past month in setting of few positional changes, urinary incontinence Wound care nurse consulted, turn every 2 hours, [address] Finley catheter Continue empiric antibiotics, follow wound culture Status post drainage of infected hematoma, incision debridement of sacral ulcer down to the bone Appreciate surgery input and recommendation Wound care has been consulted and await wound culture and blood culture Status post I&D, POD #2-appreciate surgery input and recommendation (5) Paraplegia at T9 level: 2/2 spinal cord injury at T9 from osteomyelitis s/p thoracic fusion Paralyzed from waist down, able to do some transfers using upper body but requires assistance transferring in and out of bed Neurogenic bladder, straight cath PRN Fall precautions (6) Systolic heart failure: H/o ischemic cardiomyopathy with with EF 20% in 2019 Needs to reestablish with cardiology in clinic Not currently on beta-estrellita due to low blood pressure Has been requiring more intravenous fluid for dehydration Will monitor volume status given the history of low EF No signs and/or symptoms of fluid overload (7) CAD (coronary artery disease): H/o CABG in 2015 and multiple PCIs Follows with Dr. Ayers in clinic Continue aspirin, statin No acute cardiac symptoms (8) History of narcotic addiction: History of narcotic abuse in the past -avoid when able Interested in resuming Lyrica-UDS pending DVT Ppx: SQ Lovenox Code status: FULL PCP: Herminia Dispo: Admitted to PCU. Discharge planning ordered. Admission and Anticipated Discharge Date Admission Date: February 01, 2021 Subjective 02/02/2021 The patient was seen and examined in telemetry unit He is status post cystoscopy, retrograde pyelogram, aspiration, right stent placement and Status post drainage of infected hematoma, incision debridement of sacral ulcer down to bone Has been having pain in the lower back and occasional shivering He was noted to be tachycardic but denies any other significant symptoms 02/03/2021 The patient was seen and examined in telemetry unit He has been feeling a lot better and denies any more shivering and his heart rate is down to around 100 Denies any other symptoms 02/04/2021 The patient was seen and examined in telemetry unit He remains stable without any acute symptoms Denies any pain at the surgery site and remains hemodynamically stable heart,rate is still around 100 Denies any palpitation or shortness of breath, no fever and no chills Review of Systems Review of Systems: All systems reviewed and are unremarkable except as mentioned earlier Physical Exam Physical Exam: Lying in bed comfortably Constitutional: well developed, well nourished and + ill appearing Eyes: PERRL, conjunctivae normal, anicteric sclerae ENMT: external ear and nose normal, oropharynx normal Neck: trachea midline, no thyromegaly Respiratory: no respiratory distress Auscultation: lungs clear to auscultation bilaterally Cardiovascular: Rate/Rhythm: regular rate, regular rhythm and + tachycardic Heart Sounds: no murmur Extremities: no edema Gastrointestinal (Abdomen): Inspection/Auscultation: normal bowel sounds; abdomen not distended Percussion/Palpation: + abdomen tender (Mildly tender lower quadrant) and abdomen soft Musculoskeletal: No acute arthritis in any joint Neurologic: Alert, awake and oriented x3. Psychiatric: A+Ox3, euthymic affect Lymphatic: no cervical or axillary lymphadenopathy Results & Data Results & Data ([facility]) Vital Signs (Past 12 Hours) Vital Signs Temp Pulse Pulse Resp BP Pulse Ox 02/04/21 10:56 36.7 C 101 H 18 125/75 95 02/04/21 08:00 84 02/04/21 07:52 36.9 C 102 H 19 137/89 99 02/04/21 04:15 36.9 C 97 H 19 122/75 95 Laboratory Results Short CBC 02/03/21 02/04/21 Range/Units 14:03 05:39 WBC 8.05 (4.8-10.8) K/uL Hgb 9.3 L 8.8 L (14.0-18.0) g/dL Hct 28.1 L 26.8 L (42-52) % Plt Count 302 (130-400) K/uL BMP 02/04/21 05:39 Sodium 141 Potassium 3.7 Chloride 113 H Carbon Dioxide 21 BUN 11 Creatinine 1.14 Glucose 86 Calcium 7.9 L Liver Function 02/04/21 Range/Units 05:39 Total Bilirubin 0.4 (0.2-1) mg/dl AST 8 L (15-37) U/L ALT 8 L (12-78) U/L Alkaline Phosphatase 66 (45-117) U/L Albumin 1.6 L (3.4-5.0) gm/dl Medications Administered Current Inpatient Medications Acetaminophen (Acetaminophen 325 Mg Tab) 650 mg PO Q4H PRN PRN Reason: Pain or Fever Stop: 03/03/21 16:22 Last Admin: 02/04/21 08:38 Dose: 650 mg Documented by: Calcium Carbonate (Calcium Carbonate 500 Mg Chewable Tab) 500 mg PO BID PRN PRN Reason: Indigestion Stop: 03/05/21 19:45 Last Admin: 02/03/21 20:03 Dose: 500 mg Documented by: Enoxaparin Sodium (Enoxaparin Inj 40 Mg/0.4 Ml Syr) 40 mg SQ DAILY@1800 PAVITHRA Stop: 03/03/21 16:22 Last Admin: 02/01/21 17:31 Dose: 40 mg Documented by: Piperacillin Sod/Tazobactam (Sod 3.375 gm/ Dextrose) 115 mls @ 28.75 mls/hr IV Q8H PAVITHRA; Protocol Stop: 02/12/21 01:59 Last Admin: 02/04/21 09:43 Dose: 28.8 mls/hr Documented by: Vancomycin HCl 750 mg/ Sodium (Chloride) 265 mls @ 200 mls/hr IV Q16H PAVITHRA Stop: 03/17/21 15:59 Last Infusion: 02/04/21 10:03 Dose: Infused Documented by: Miscellaneous Information (Vancomycin Consult Active) 1 ea N/A UD PRN PRN Reason: Consult Stop: 03/03/21 11:46 Miscellaneous Information (Piperacill/Tazobac Consult Active) 1 ea N/A UD PRN PRN Reason: Consult Stop: 03/03/21 19:31 Ondansetron HCl (Ondansetron Inj 2 Mg/Ml 2 Ml Vial) 4 mg IV Q6H PRN PRN Reason: Nausea Stop: 03/03/21 16:22 Polyethylene Glycol (Polyethylene (Miralax) 17 Gm Pack) 17 gm PO DAILY PRN PRN Reason: Constipation Stop: 03/03/21 16:22 Pregabalin (Pregabalin 25 Mg Cap) 25 mg PO BID PAVITHRA Stop: 03/03/21 20:59 Last Admin: 02/04/21 08:33 Dose: 25 mg Documented by:
[2021-02-04] MEDS ORDERED: VANCOMYCIN TROUGH ONE (23:30)
[2021-02-05] MEDS: VANCOMYCIN HCL 750 MG in SODIUM CHLORIDE 0.9% 250 ML IV SCH (00:47)
--- NOTE | 2021-02-05 02:23 | Pharmacy Report ---
Pharmacy Abx Dose Short Note - Date of Service February 05, 2021 - Assessment & Plan Assessment 50 year old M receiving Vancomycin and Zosyn for treatment of sepsis 2nd SSTI (sacral decub) and/or UTI. Hx MRSA and Pseudomonas. * Day #5 of antimicrobial therapy. Plan Vancomycin * Trough level of 19.3 mcg/mL is therapeutic * Drawn 1 hour early as well so true trough is most likely lower * Continue dose of 750 mg IV every 16 hours * Goal trough level: 15 to 20 mcg/mL * Trough level ordered for: 02/07/21 Zosyn * Zosyn 3.375 g IV every 8 hours Pharmacy will continue to follow and will adjust dose/frequency as necessary. Thank you.
[2021-02-05] MEDS: PIPERACILLIN/TAZOBACTAM 3.375 GM in DEXTROSE 5% 100 ML IV SCH ×3 (03:25→17:34)
[2021-02-05 06:54] LABS: Basophils # (auto) 0.04 K/uL (0-0.2); Basophils % (auto) 0.5 %; Eosinophils # (auto) 0.43 K/uL (0-0.5); Eosinophils % (auto) 5.4 %; Hematocrit (blood only) 29.3 % (42-52); Hemoglobin 9.5 g/dL (14.0-18.0); Immature Granulocytes # (auto) 0.05 K/uL (0.00-0.02); Immature Granulocytes % (auto) 0.6 %; Lymphocytes # (auto) 2.08 K/uL (1.2-3.4); Lymphocytes % (auto) 26.3 %; Mean Corpuscular Hemoglobin 28.3 pg (25-34); Mean Corpuscular Hgb Conc 32.4 g/dL (32-36); Mean Corpuscular Volume 87.2 fL (80-100); Mean Platelet Volume 9.7 fL (7.4-10.4); Monocytes # (auto) 0.71 K/uL (0.11-0.59); Neutrophils # (auto) 4.59 K/uL (1.4-6.5); Neutrophils % (auto) 58.2 %; Platelet Count 348 K/uL (130-400); RDW Coefficient of Variation 16.4 % (11.5-14.5); RDW Standard Deviation 52.6 fL (36.4-46.3); Red Blood Count 3.36 M/uL (4.7-6.1)
[2021-02-05 07:16] LABS: BUN Creatinine Ratio 8.3 (10-20); Calcium 7.6 mg/dl (8.5-10.1); Creatinine Clr Calc Pharmacy 92.6 ml/min; Est GFR (African American) 99.8 ml/min; Est GFR (Non-African American) 86.2 ml/min; Potassium 3.6 mmol/L (3.5-5.1)
[2021-02-05] MEDS: PREGABALIN 25 MG CAP PO SCH ×2 (08:03→20:17)
--- NOTE | 2021-02-05 08:52 | Surgery Progress Note ---
Date of Service February 05, 2021 Assessment & Plan (1) Stage III pressure ulcer of left buttock: POD#3 incision and drainage of sacral decubitus WBC 7.9, afebrile Wound re-dressed over the weekend with kerlex packing, apparently looks well Will consult wound care team to evaluate today for dressing recommendations Wound culture growing proteus, e.coli and strep. Pt currently on Zosyn which is sensitive. ID is consulted Patient should continue off loading as able We will sign off for now, but please call with any questions/concerns. Patient to follow up at wound care clinic at discharge Admission and Anticipated Discharge Date Admission Date: February 01, 2021 Subjective Patient seen this AM. Offers no complaints. Physical Exam Physical Exam: awake/alert Results & Data ([facility]) Vital Signs (Past 12 Hours) Vital Signs Temp Pulse Pulse Resp BP Pulse Ox 02/05/21 07:56 37.0 C 98 H 18 123/74 96 02/05/21 04:39 37.0 C 95 H 19 113/70 95 02/04/21 23:59 96 H 02/04/21 23:47 36.8 C 95 H 18 126/83 99 PG Care Time/CCT Total # of Minutes Spent Total Time Spent with Patient: Total time spent is greater than 50% in coordination of care (as documented) at patient's floor/unit and/or counseling patient: Coding Level of Care Code None Diagnoses Stage III pressure ulcer of left buttock L89.323
--- NOTE | 2021-02-05 09:05 | Urology Progress Note ---
Date of Service February 05, 2021 Assessment & Plan (1) Obstruction of right ureteropelvic junction (UPJ) due to stone: (2) Complicated UTI (urinary tract infection): (3) Sepsis: 50 year-old male patient, with multiple comorbidities, admitted with sepsis, complicated UTI, obstructing 1 cm right UPJ calculus, and sacral decubitus. -POD #3 cystoscopy with right ureteral stent placement with Dr. 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 -Patient afebrile. -Labs reviewed - white count and creatinine stable. -Preliminary cultures from kidney aspirate positive for Proteus, E.Coli, and Streptococcus species. -Continue supportive care and antibiotic therapy per ID recommendations. -No additional acute intervention indicated at this time. -Will plan to arrange outpatient follow-up with urology service to discuss definitive stone management. -Expected clinical course reviewed with patient, all questions answered. Thank you for allowing us to participate in the acute care of Mr. Lieberman. Please reconsult us with additional questions, concerns or changes in patient status. Admission and Anticipated Discharge Date Admission Date: February 01, 2021 Subjective POD #3 cystoscopy with right stent placement with Dr. 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 Patient feeling much better overall since admission. Currently denies flank or abdominal pain. Denies dysuria or hematuria. Finley catheter intact, draining yellow urine with cloudy sediment. Denies fevers or chills. Denies nausea or vomiting. Chart review: Afebrile. Wbc 7.90 Hgb 9.5 Creatinine 1.00 Blood culture 6/10 positive for Enterococcus VRE. Preliminary urine culture from kidney aspirate positive for Proteus, E.Coli, Streptococcus species. Patient currently on IV Vancomycin and IV Zosyn. Denies additional urologic concerns today. Review of Systems Constitutional: as per Subjective / HPI; no fever and no chills Gastrointestinal: as per Subjective / HPI; no nausea and no vomiting Genitourinary: + as per Subjective / HPI Physical Exam Constitutional: well developed and well nourished; no acute distress and not ill appearing Respiratory: normal respiratory effort and able to speak in complete sentences; no respiratory distress and no audible wheezes Gastrointestinal (Abdomen): Inspection/Auscultation: abdomen normal to inspection; abdomen not distended Percussion/Palpation: abdomen soft; abdomen nontender and no guarding Psychiatric: Orientation: alert, oriented x 3 and cooperative Affect: euthymic affect Genitourinary: no CVA tenderness Finley catheter intact, patent, draining yellow urine with cloudy sediment. Results & Data ([facility]) Vital Signs (Past 12 Hours) Vital Signs Temp Pulse Pulse Resp BP Pulse Ox 02/05/21 07:56 37.0 C 98 H 18 123/74 96 02/05/21 04:39 37.0 C 95 H 19 113/70 95 02/04/21 23:59 96 H 02/04/21 23:47 36.8 C 95 H 18 126/83 99 PG Care Time/CCT Total # of Minutes Spent Total Time Spent with Patient: Total time spent is greater than 50% in coordination of care (as documented) at patient's floor/unit and/or counseling patient: Coding Level of Care Code 07310 Subseq Hosp Care Lvl 2 Diagnoses Obstruction of right ureteropelvic junction (UPJ) due to stone N20.1 Complicated UTI (urinary tract infection) N39.0 Sepsis A41.9 Sepsis acute organ dysfunction status: without acute organ dysfunction Sepsis type: sepsis due to unspecified organism (1) Sepsis Sepsis acute organ dysfunction status: without acute organ dysfunction Sepsis type: sepsis due to unspecified organism Qualified Code(s): A41.9 - Sepsis, unspecified organism
--- NOTE | 2021-02-05 14:39 | Hospitalist Progress Note ---
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 BP 90s/50, HR initially 136. Leukocytosis of 18, lactic acid WNL on admission Sepsis in the setting of infected sacral wound and UTI CT scan of the abdomen pelvis showed: IMPRESSION: 1. No evidence of bowel obstruction. No evidence of free air 2. No evidence of acute appendicitis. No evidence of acute diverticulitis 3. 84 mm right psoas mass. Diagnostic considerations include abscess, necrotic neoplasm or organizing hematoma 4. Right renal obstruction with a diminished nephrogram. There is an obstructing 1 cm right UPJ calculus. There is a 29 x 12 mm right perinephric fluid collection. Perinephric abscess not excluded 5. 3 cm bladder calculus 6. 27 mm upper coccygeal gas collection consistent with abscess. There are associated coccygeal bony erosive changes consistent with osteomyelitis Received empiric Cefepime, vanco and now has been on Zosyn and Vanco Has been waiting cultures of the wound and also blood and urine Remains stable clinically with normalization of the white count Fátima RUSHING has been consulted-appreciate input and recommendation a as below- -Continue with Zosyn and vancomycin for now -Follow of blood cultures, urine culture and or culture -Anticipate total of 6 weeks of intravenous antibiotic given osteomyelitis : Results of cultures so far: Sacral wound culture is growing-Proteus mirabilis, E. coli-sensitivities noted and Streptococcus suspicious-sensitivities noted : Urine culture is growing E. coli, Proteus Mirabella's and Streptococcus species : Blood culture is growing Streptococcus species-sensitivities noted Blood culture is growing Enterococcus faecalis VRE He has been much improved since admission Will discontinue vancomycin continue with intravenous Zosyn for now for a total of 6 weeks from 02/02/2021 Other option remains intravenous ertapenem plus intravenous daptomycin for the same. The last options remains as intravenous ceftriaxone 2 g daily and oral Flagyl 500 mg 3 times daily plus intravenous daptomycin all for the same. Noted to be tachycardic with heart rate of 140 following the procedure Likely secondary to ongoing infection and dehydration Will give cautious amount intravenous fluid Monitor fluid overload No signs and or symptoms of fluid overload Anemia likely secondary to sepsis Hemoglobin has been dropping Received 2 units of blood transfusion and posttransfusion hemoglobin is more than 9 Hemoglobin remains stable at 8.8 as of 02/04/2021 Hemoglobin remains stable and has been improving (2) Complicated UTI (urinary tract infection): Has Finley catheter in situ Did have obstructing 1 cm right UPJ calculus and also to 9 x 12 mm right perinephric fluid collection Status post cystoscopy, retrograde pyelogram, aspiration and right ureteric stent placement by Dr. Navarro on 02/02/2021 Appreciate urology input and recommendation As above (3) Neurogenic bladder: History of recurrent UTI 2/2 neurogenic bladder requiring straight catheterization PRN at home Started on empiric cefepime Continue methenamine hippurate BID IV fluids Follow urine culture (4) Sacral wound: History of sacral wounds in the past, has followed with wound care in the past (last in 2019) Worsening appearance of skin noted by home health aide over the past month in setting of few positional changes, urinary incontinence Wound care nurse consulted, turn every 2 hours, Place Finley catheter Continue empiric antibiotics, follow wound culture Status post drainage of infected hematoma, incision debridement of sacral ulcer down to the bone Appreciate surgery input and recommendation Wound care has been consulted and await wound culture and blood culture Status post I&D,-wound remains healthy and surgery signed off Appreciate wound care nurse input and recommendation Please see the wound image for further inquiry about the wound (5) Paraplegia at T9 level: 2/2 spinal cord injury at T9 from osteomyelitis s/p thoracic fusion Paralyzed from waist down, able to do some transfers using upper body but requires assistance transferring in and out of bed Neurogenic bladder, straight cath PRN Fall precautions (6) Systolic heart failure: H/o ischemic cardiomyopathy with with EF 20% in 2019 Needs to reestablish with cardiology in clinic Not currently on beta-estrellita due to low blood pressure Has been requiring more intravenous fluid for dehydration Will monitor volume status given the history of low EF No signs and/or symptoms of fluid overload Feels better with head end of the bed elevated to 30 degrees (7) CAD (coronary artery disease): H/o CABG in 2014 and multiple PCIs Follows with Dr. Ayers in clinic Continue aspirin, statin No acute cardiac symptoms (8) History of narcotic addiction: History of narcotic abuse in the past -avoid when able Interested in resuming Lyrica-UDS pending DVT Ppx: SQ Lovenox Code status: FULL PCP: Herminia Dispo: Admitted to PCU. Discharge planning ordered. Admission and Anticipated Discharge Date Admission Date: February 01, 2021 Subjective 02/02/2021 The patient was seen and examined in telemetry unit He is status post cystoscopy, retrograde pyelogram, aspiration, right stent placement and Status post drainage of infected hematoma, incision debridement of sacral ulcer down to bone Has been having pain in the lower back and occasional shivering He was noted to be tachycardic but denies any other significant symptoms 02/03/2021 The patient was seen and examined in telemetry unit He has been feeling a lot better and denies any more shivering and his heart rate is down to around 100 Denies any other symptoms 02/04/2021 The patient was seen and examined in telemetry unit He remains stable without any acute symptoms Denies any pain at the surgery site and remains hemodynamically stable heart,rate is still around 100 Denies any palpitation or shortness of breath, no fever and no chills 02/05/2021 The patient was seen and examined in telemetry unit He has been feeling much better and remains afebrile and free of almost any symptoms Denies any fever and/or chills, any significant pain at the surgery site Review of Systems Review of Systems: All systems reviewed and are unremarkable except as mentioned earlier Physical Exam Physical Exam: Lying in bed comfortably Constitutional: well developed, well nourished and + ill appearing Eyes: PERRL, conjunctivae normal, anicteric sclerae ENMT: external ear and nose normal, oropharynx normal Neck: trachea midline, no thyromegaly Respiratory: no respiratory distress Auscultation: lungs clear to auscultation bilaterally Cardiovascular: Rate/Rhythm: regular rate, regular rhythm and + tachycardic Heart Sounds: no murmur Extremities: no edema Gastrointestinal (Abdomen): Inspection/Auscultation: normal bowel sounds; abdomen not distended Percussion/Palpation: + abdomen tender (Mildly tender lower quadrant) and abdomen soft Musculoskeletal: No acute arthritis in any joint Skin: Has sacral decubiti wound- image in chart Psychiatric: A+Ox3, euthymic affect Lymphatic: no cervical or axillary lymphadenopathy Results & Data Results & Data ([facility]) Vital Signs (Past 12 Hours) Vital Signs Temp Pulse Pulse Resp BP Pulse Ox 02/05/21 11:43 37.0 C 100 H 19 122/85 98 02/05/21 08:00 93 H 02/05/21 07:56 37.0 C 98 H 18 123/74 96 02/05/21 04:39 37.0 C 95 H 19 113/70 95 Laboratory Results Short CBC 02/05/21 Range/Units 06:30 WBC 7.90 (4.8-10.8) K/uL Hgb 9.5 L (14.0-18.0) g/dL Hct 29.3 L (42-52) % Plt Count 348 (130-400) K/uL BMP 02/05/21 06:30 Sodium 141 Potassium 3.6 Chloride 112 H Carbon Dioxide 22 BUN 8 Creatinine 1.00 Glucose 96 Calcium 7.6 L Medications Administered Current Inpatient Medications Acetaminophen (Acetaminophen 325 Mg Tab) 650 mg PO Q4H PRN PRN Reason: Pain or Fever Stop: 03/03/21 16:22 Last Admin: 02/04/21 08:38 Dose: 650 mg Documented by: Calcium Carbonate (Calcium Carbonate 500 Mg Chewable Tab) 500 mg PO BID PRN PRN Reason: Indigestion Stop: 03/05/21 19:45 Last Admin: 02/03/21 20:03 Dose: 500 mg Documented by: Enoxaparin Sodium (Enoxaparin Inj 40 Mg/0.4 Ml Syr) 40 mg SQ DAILY@1800 PAVITHRA Stop: 03/03/21 16:22 Last Admin: 02/01/21 17:31 Dose: 40 mg Documented by: Piperacillin Sod/Tazobactam (Sod 3.375 gm/ Dextrose) 115 mls @ 28.75 mls/hr IV Q8H PAVITHRA; Protocol Stop: 02/12/21 01:59 Last Admin: 02/05/21 10:05 Dose: 28.8 mls/hr Documented by: Miscellaneous Information (Piperacill/Tazobac Consult Active) 1 ea N/A UD PRN PRN Reason: Consult Stop: 03/03/21 19:31 Ondansetron HCl (Ondansetron Inj 2 Mg/Ml 2 Ml Vial) 4 mg IV Q6H PRN PRN Reason: Nausea Stop: 03/03/21 16:22 Polyethylene Glycol (Polyethylene (Miralax) 17 Gm Pack) 17 gm PO DAILY PRN PRN Reason: Constipation Stop: 03/03/21 16:22 Pregabalin (Pregabalin 25 Mg Cap) 25 mg PO BID [facility] Stop: 03/03/21 20:59 Last Admin: 02/05/21 08:03 Dose: 25 mg Documented by:
[2021-02-06] MEDS: PIPERACILLIN/TAZOBACTAM 3.375 GM in DEXTROSE 5% 100 ML IV SCH (01:57)
[2021-02-06] MEDS: PREGABALIN 25 MG CAP PO SCH ×2 (07:48→21:09)
[2021-02-06] MEDS: ERTAPENEM SODIUM 1,000 MG in SODIUM CHLORIDE 0.9% 50 ML IV SCH (07:49)
[2021-02-06] MEDS: DAPTOmycin 550 MG in SYRINGE 0 ML IV SCH (07:49)
--- NOTE | 2021-02-06 13:58 | Hospitalist Progress Note ---
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 BP 90s/50, HR initially 136. Leukocytosis of 18, lactic acid WNL on admission Sepsis in the setting of infected sacral wound and UTI CT scan of the abdomen pelvis showed: IMPRESSION: 1. No evidence of bowel obstruction. No evidence of free air 2. No evidence of acute appendicitis. No evidence of acute diverticulitis 3. 84 mm right psoas mass. Diagnostic considerations include abscess, necrotic neoplasm or organizing hematoma 4. Right renal obstruction with a diminished nephrogram. There is an obstructing 1 cm right UPJ calculus. There is a 29 x 12 mm right perinephric fluid collection. Perinephric abscess not excluded 5. 3 cm bladder calculus 6. 27 mm upper coccygeal gas collection consistent with abscess. There are associated coccygeal bony erosive changes consistent with osteomyelitis Received empiric Cefepime, vanco and now has been on Zosyn and Vanco Has been waiting cultures of the wound and also blood and urine Remains stable clinically with normalization of the white count Fátima RUSHING has been consulted-appreciate input and recommendation a as below- -Continue with Zosyn and vancomycin for now -Follow of blood cultures, urine culture and or culture -Anticipate total of 6 weeks of intravenous antibiotic given osteomyelitis : Results of cultures so far: Sacral wound culture is growing-Proteus mirabilis, E. coli-sensitivities noted and Streptococcus suspicious-sensitivities noted : Urine culture is growing E. coli, Proteus Mirabella's and Streptococcus species : Blood culture is growing Streptococcus species-sensitivities noted Blood culture is growing Enterococcus faecalis VRE-repeat blood culture remain negative after 24 hours(preliminary) He has been much improved since admission Will discontinue vancomycin continue with intravenous Zosyn for now for a total of 6 weeks from 02/02/2021 Other option remains intravenous ertapenem plus intravenous daptomycin for the same. The last options remains as intravenous ceftriaxone 2 g daily and oral Flagyl 500 mg 3 times daily plus intravenous daptomycin all for the same. He has been put on intravenous ertapenem and intravenous daptomycin to continue for a total of 6 weeks since 02/02/2021 as per ID from [facility] He has a PICC line and also will have a hospital bed at home before he goes home He has a wound VAC placed by wound care and awaiting approval to use it as an outpatient Noted to be tachycardic with heart rate of 140 following the procedure Likely secondary to ongoing infection and dehydration Will give cautious amount intravenous fluid Monitor fluid overload No signs and or symptoms of fluid overload Mildly tachycardic at rest without any symptoms Anemia likely secondary to sepsis Hemoglobin has been dropping Received 2 units of blood transfusion and posttransfusion hemoglobin is more than 9 Hemoglobin remains stable at 8.8 as of 02/04/2021 Hemoglobin remains stable and has been improving (2) Complicated UTI (urinary tract infection): Has Finley catheter in situ Did have obstructing 1 cm right UPJ calculus and also to 9 x 12 mm right perinephric fluid collection Status post cystoscopy, retrograde pyelogram, aspiration and right ureteric stent placement by Dr. Navarro on 02/02/2021 Appreciate urology input and recommendation As above (3) Neurogenic bladder: History of recurrent UTI 2/2 neurogenic bladder requiring straight catheterization PRN at home Started on empiric cefepime Continue methenamine hippurate BID IV fluids Follow urine culture (4) Sacral wound: History of sacral wounds in the past, has followed with wound care in the past (last in 2019) Worsening appearance of skin noted by home health aide over the past month in setting of few positional changes, urinary incontinence Wound care nurse consulted, turn every 2 hours, Place Finley catheter Continue empiric antibiotics, follow wound culture Status post drainage of infected hematoma, incision debridement of sacral ulcer down to the bone Appreciate surgery input and recommendation Wound care has been consulted and await wound culture and blood culture Status post I&D,-wound remains healthy and surgery signed off Appreciate wound care nurse input and recommendation Please see the wound image for further inquiry about the wound Wound VAC has been placed-management as per wound care nurse (5) Paraplegia at T9 level: 2/2 spinal cord injury at T9 from osteomyelitis s/p thoracic fusion Paralyzed from waist down, able to do some transfers using upper body but requires assistance transferring in and out of bed Neurogenic bladder, straight cath PRN Fall precautions (6) Systolic heart failure: H/o ischemic cardiomyopathy with with EF 20% in 2019 Needs to reestablish with cardiology in clinic Not currently on beta-estrellita due to low blood pressure Has been requiring more intravenous fluid for dehydration Will monitor volume status given the history of low EF No signs and/or symptoms of fluid overload Feels better with head end of the bed elevated to 30 degrees (7) CAD (coronary artery disease): H/o CABG in 2015 and multiple PCIs Follows with Dr. Ayers in clinic Continue aspirin, statin No acute cardiac symptoms (8) History of narcotic addiction: History of narcotic abuse in the past -avoid when able Interested in resuming Lyrica-UDS pending DVT Ppx: SQ Lovenox Code status: FULL PCP: Herminia Dispo: Admitted to PCU. Discharge planning ordered. Awaiting all necessary requirements to be fulfilled before discharge Admission and Anticipated Discharge Date Admission Date: February 01, 2021 Subjective 02/02/2021 The patient was seen and examined in telemetry unit He is status post cystoscopy, retrograde pyelogram, aspiration, right stent placement and Status post drainage of infected hematoma, incision debridement of sacral ulcer down to bone Has been having pain in the lower back and occasional shivering He was noted to be tachycardic but denies any other significant symptoms 02/03/2021 The patient was seen and examined in telemetry unit He has been feeling a lot better and denies any more shivering and his heart rate is down to around 100 Denies any other symptoms 02/04/2021 The patient was seen and examined in telemetry unit He remains stable without any acute symptoms Denies any pain at the surgery site and remains hemodynamically stable heart,rate is still around 100 Denies any palpitation or shortness of breath, no fever and no chills 02/05/2021 The patient was seen and examined in telemetry unit He has been feeling much better and remains afebrile and free of almost any symptoms Denies any fever and/or chills, any significant pain at the surgery site 02/06/2021 The patient was seen and examined in telemetry unit He remains stable and denies any significant symptoms Denies any significant symptoms Review of Systems Review of Systems: All systems reviewed and are unremarkable except as mentioned earlier Physical Exam Physical Exam: Lying in bed comfortably without any distress Constitutional: well developed and well nourished; not ill appearing Eyes: PERRL, conjunctivae normal, anicteric sclerae ENMT: external ear and nose normal, oropharynx normal Neck: trachea midline, no thyromegaly Respiratory: no respiratory distress Auscultation: lungs clear to auscultation bilaterally Cardiovascular: Rate/Rhythm: regular rate, regular rhythm and + tachycardic Heart Sounds: no murmur Extremities: no edema Gastrointestinal (Abdomen): Inspection/Auscultation: normal bowel sounds; abdomen not distended Percussion/Palpation: + abdomen tender (Mildly tender lower quadrant) and abdomen soft Musculoskeletal: No acute arthritis in any joint Neurologic: Alert, awake and oriented x3. Has paraplegia. Psychiatric: A+Ox3, euthymic affect Lymphatic: no cervical or axillary lymphadenopathy Results & Data Results & Data ([facility]) Vital Signs (Past 12 Hours) Vital Signs Temp Pulse Pulse Pulse Resp BP BP 02/06/21 11:40 36.9 C 104 H 18 124/62 02/06/21 08:00 100 H 02/06/21 07:54 36.9 C 99 H 16 129/83 02/06/21 07:00 91 H 02/06/21 03:33 36.9 C 94 H 19 126/76 02/06/21 03:00 Pulse Ox Pulse Ox 02/06/21 11:40 96 02/06/21 08:00 02/06/21 07:54 95 02/06/21 07:00 02/06/21 03:33 95 02/06/21 03:00 94 Medications Administered Current Inpatient Medications Acetaminophen (Acetaminophen 325 Mg Tab) 650 mg PO Q4H PRN PRN Reason: Pain or Fever Stop: 03/03/21 16:22 Last Admin: 02/04/21 08:38 Dose: 650 mg Documented by: Calcium Carbonate (Calcium Carbonate 500 Mg Chewable Tab) 500 mg PO BID PRN PRN Reason: Indigestion Stop: 03/05/21 19:45 Last Admin: 02/03/21 20:03 Dose: 500 mg Documented by: Enoxaparin Sodium (Enoxaparin Inj 40 Mg/0.4 Ml Syr) 40 mg SQ DAILY@1800 PAVITHRA Stop: 03/03/21 16:22 Last Admin: 02/01/21 17:31 Dose: 40 mg Documented by: Ertapenem 1,000 mg/ Sodium (Chloride) 60 mls @ 100 mls/hr IV Q24H [facility] Stop: 02/13/21 07:14 Last Infusion: 02/06/21 09:04 Dose: Infused Documented by: Daptomycin 550 mg/ Syringe 11 mls @ 5.5 mls/min IV DAILY@0800 [facility]; Protocol Stop: 02/20/21 07:59 Last Admin: 02/06/21 07:49 Dose: 5.5 mls/min Documented by: Miscellaneous Information (Daptomycin Consult Active) 1 ea N/A UD PRN PRN Reason: Consult Stop: 03/08/21 07:06 Ondansetron HCl (Ondansetron Inj 2 Mg/Ml 2 Ml Vial) 4 mg IV Q6H PRN PRN Reason: Nausea Stop: 03/03/21 16:22 Polyethylene Glycol (Polyethylene (Miralax) 17 Gm Pack) 17 gm PO DAILY PRN PRN Reason: Constipation Stop: 03/03/21 16:22 Pregabalin (Pregabalin 25 Mg Cap) 25 mg PO BID [facility] Stop: 03/03/21 20:59 Last Admin: 02/06/21 07:48 Dose: 25 mg Documented by:
[2021-02-07 06:55] LABS: Albumin Level 1.7 gm/dl (3.4-5.0); Calcium 8.1 mg/dl (8.5-10.1); Creatinine Clr Calc Pharmacy 98.4 ml/min; Est GFR (African American) 116.1 ml/min; Est GFR (Non-African American) 100.2 ml/min; Potassium 3.8 mmol/L (3.5-5.1)
[2021-02-07 06:57] LABS: Albumin Globulin Ratio 0.3 (0.9-2); Bilirubin,Total 0.4 mg/dl (0.2-1); Globulin 5.6 gm/dl (2.5-4.0); Phosphorus 2.6 mg/dl (2.5-4.9); Total Protein 7.3 gm/dl (6.4-8.2)
[2021-02-07 07:14] LABS: Basophils # (auto) 0.03 K/uL (0-0.2); Basophils % (auto) 0.4 %; Eosinophils # (auto) 0.39 K/uL (0-0.5); Eosinophils % (auto) 5.1 %; Hematocrit (blood only) 29.4 % (42-52); Hemoglobin 9.6 g/dL (14.0-18.0); Immature Granulocytes # (auto) 0.05 K/uL (0.00-0.02); Immature Granulocytes % (auto) 0.7 %; Lymphocytes # (auto) 1.95 K/uL (1.2-3.4); Lymphocytes % (auto) 25.4 %; Mean Corpuscular Hemoglobin 28.5 pg (25-34); Mean Corpuscular Hgb Conc 32.7 g/dL (32-36); Mean Corpuscular Volume 87.2 fL (80-100); Mean Platelet Volume 9.3 fL (7.4-10.4); Monocytes # (auto) 0.78 K/uL (0.11-0.59); Monocytes % (auto) 10.1 %; Neutrophils # (auto) 4.49 K/uL (1.4-6.5); Neutrophils % (auto) 58.3 %; Platelet Count 355 K/uL (130-400); Platelet Estimate SN (Normal); RDW Coefficient of Variation 16.6 % (11.5-14.5); RDW Standard Deviation 52.4 fL (36.4-46.3); Red Blood Count 3.37 M/uL (4.7-6.1); White Blood Count 7.69 K/uL (4.8-10.8)
[2021-02-07] MEDS: DAPTOmycin 550 MG in SYRINGE 0 ML IV SCH (09:00)
[2021-02-07] MEDS: ERTAPENEM SODIUM 1,000 MG in SODIUM CHLORIDE 0.9% 50 ML IV SCH (09:01)
[2021-02-07] MEDS: ACETAMINOPHEN 325 MG TAB PO PRN (09:01)
[2021-02-07] MEDS: PREGABALIN 25 MG CAP PO SCH ×2 (09:16→20:05)
[2021-02-07] MEDS: oxyCODONE HCL IR 5 MG TAB (IMMEDIATE RELEASE) PO PRN ×3 (10:01→22:26)
--- NOTE | 2021-02-07 15:11 | XRay Report ---
KUB CLINICAL HISTORY: Fluid collection. Extraluminal contrast. FINDINGS: An AP, portable, supine abdominal radiograph is compared to study dated 08/17/2016 and kailyn elated with abdominal CT dated 02/01/2021 and intraoperative images dated 02/02/2021. There is a nonobs tructed abdominal bowel gas pattern noting moderate colonic fecal retention. No evidence of intraperi toneal free air is seen on this supine image. A right ureteral stent is in place. No calcifications a re identified along the course of the stent. Nonobstructing calculi project over the right renal pelv is. No calcifications are seen projecting over the left kidney. A 3 cm bladder calculus is unchanged. Additional phleboliths are noted in the pelvis. The extra luminal collection of contrast suggest on the intraoperative radiographs is no longer identified. The bony structures appear intact. Fusion luis eduardo dware is noted in the lower thoracic spine. Midline sternotomy wires are partially imaged. IMPRESSION: 1. There is no paravertebral collection of contrast identified on today's examination. 2. A right ureteral stent is in place. No calcifications are seen along the course of the stent. 3. Nonobstructing calculi project over the right renal pelvis. 4. A large bladder calculus is unchanged. Electronically signed by: Emeka Thomas M.D. 02/07/2021 3:09 PM
[2021-02-07] MEDS ORDERED: VANCOMYCIN TROUGH ONE (15:30)
--- NOTE | 2021-02-07 16:33 | Hospitalist Progress Note ---
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 BP 90s/50, HR initially 136. Leukocytosis of 18, lactic acid WNL on admission Sepsis in the setting of infected sacral wound and UTI CT scan of the abdomen pelvis showed: IMPRESSION: 1. No evidence of bowel obstruction. No evidence of free air 2. No evidence of acute appendicitis. No evidence of acute diverticulitis 3. 84 mm right psoas mass. Diagnostic considerations include abscess, necrotic neoplasm or organizing hematoma 4. Right renal obstruction with a diminished nephrogram. There is an obstructing 1 cm right UPJ calculus. There is a 29 x 12 mm right perinephric fluid collection. Perinephric abscess not excluded 5. 3 cm bladder calculus 6. 27 mm upper coccygeal gas collection consistent with abscess. There are associated coccygeal bony erosive changes consistent with osteomyelitis. The patient was treated with broad-spectrum antibiotics. [facility] ID has been consulted-appreciate input and recommendation a as below- Results of cultures so far: Sacral wound culture is growing-Proteus mirabilis, E. coli-sensitivities noted and Streptococcus suspicious-sensitivities noted : Urine culture is growing E. coli, Proteus Mirabella's and Streptococcus species : Blood culture is growing Streptococcus species-sensitivities noted Blood culture is growing Enterococcus faecalis VRE-repeat blood culture remain negative He has been put on intravenous ertapenem and intravenous daptomycin to continue for a total of 6 weeks since 02/02/2021 as per ID from [place] He has a PICC line and also will have a hospital bed at home before he goes home He has a wound VAC placed by wound care. Patient was evaluated by PT/OT. Repeated attempts, patient has refused fpc facility and states that he will be able to manage it. Anemia likely secondary to sepsis Received 2 units of blood transfusion and posttransfusion hemoglobin is more than 9 Hemoglobin remains stable at 9.6 as of 02/07/2021 Hemoglobin remains stable and has been improving. (2) Complicated UTI (urinary tract infection): Has Finley catheter in situ Did have obstructing 1 cm right UPJ calculus and also to 9 x 12 mm right perinephric fluid collection Status post cystoscopy, retrograde pyelogram, aspiration and right ureteric stent placement by Dr. Navarro on 02/02/2021 Appreciate urology input and recommendation. Will need to follow-up with urology as an outpatient. (3) Neurogenic bladder: History of recurrent UTI 2/2 neurogenic bladder requiring straight catheterization PRN at home Continue methenamine hippurate BID (4) Sacral wound: History of sacral wounds in the past, has followed with wound care in the past (last in 2019) Worsening appearance of skin noted by home health aide over the past month in setting of few positional changes, urinary incontinence Wound care nurse consulted, turn every 2 hours, Place Finley catheter Status post drainage of infected hematoma, incision debridement of sacral ulcer down to the bone Appreciate surgery input and recommendation Status post I&D,-wound remains healthy and surgery signed off Appreciate wound care nurse input and recommendation Wound VAC has been placed-management as per wound care nurse. Patient will need to follow-up with wound care as an outpatient. (5) Paraplegia at T9 level: 2/2 spinal cord injury at T9 from osteomyelitis s/p thoracic fusion Paralyzed from waist down, able to do some transfers using upper body but requires assistance transferring in and out of bed Neurogenic bladder, straight cath PRN Fall precautions (6) Systolic heart failure: H/o ischemic cardiomyopathy with with EF 20% in 2019 Needs to reestablish with cardiology in clinic Not currently on beta-estrellita due to low blood pressure (7) CAD (coronary artery disease): H/o CABG in 2014 and multiple PCIs Follows with Dr. Ayers in clinic Continue aspirin, statin No acute cardiac symptoms (8) History of narcotic addiction: History of narcotic abuse in the past -avoid when able Admission and Anticipated Discharge Date Admission Date: February 01, 2021 Subjective Patient is doing okay this morning. Review of system is negative. He does not have any active complaints at the moment. The patient was doing a hemodynamically okay. There were no complaints. Review of Systems Review of Systems: All systems reviewed & are unremarkable except as noted in HPI & below Physical Exam Physical Exam: General: A&Ox3. Chronically ill-appearing gentleman HENT: NCAT, MMM, EOMI Eyes: PERRLA Neck: Supple, normal range of motion CVS: normal rate and rhythm Resp: b/l good breath sounds Abdomen: Soft, nondistended nontender Extremities: Paraplegic, trace lower extremity edema Neuro: face symmetric, paraplegic Skin: warm and dry, no rashes/lesions/errythema MSK: normal ROM, no joint swelling/erythema Finley catheter in place Results & Data Results & Data ([facility]) Vital Signs (Past 12 Hours) Vital Signs Temp Pulse Pulse Resp BP Pulse Ox 02/07/21 15:06 36.8 C 97 H 18 110/73 97 02/07/21 11:07 36.9 C 97 H 22 115/66 98 02/07/21 08:00 94 H 02/07/21 07:52 36.7 C 98 H 16 132/83 96
[2021-02-08] MEDS: oxyCODONE HCL IR 5 MG TAB (IMMEDIATE RELEASE) PO PRN ×2 (06:10→14:36)
[2021-02-08] MEDS: ERTAPENEM SODIUM 1,000 MG in SODIUM CHLORIDE 0.9% 50 ML IV SCH (08:57)
[2021-02-08] MEDS: DAPTOmycin 550 MG in SYRINGE 0 ML IV SCH (08:58)
[2021-02-08] MEDS: PREGABALIN 25 MG CAP PO SCH (09:36)
--- NOTE | 2021-02-08 09:39 | Ultrasound Report ---
RENAL ULTRASOUND HISTORY: Right-sided Retroperitoneal fluid collection COMPARISON: Abdomen and pelvis CT 02/01/2021. FINDINGS: Right kidney: 11.2 cm. Mild hydronephrosis, unchanged. There are few small stones identified. The rig ht renal subcapsular fluid collection is not identified. Left kidney: 12.3 cm. No hydronephrosis. A few cysts are identified with the largest measuring 2.7 cm . This contains a few small thin septations. Bladder: Bladder is decompressed by Finley catheter. There is a 2.2 cm bladder stone. Miscellaneous: The patient's right ureteral stent is not well evaluated on this examination. The righ t psoas mass/collection is also not clearly identified. IMPRESSION: 1. Mild right hydronephrosis, unchanged. 2. The right renal subcapsular fluid collection, right ureteral stent, and right psoas mass/collectio n or not clearly identified on this study. 3. No left-sided hydronephrosis. 4. A 2.2 cm bladder stone. 5. A Finley catheter decompresses the bladder. ACT 112: Negative or not required by law. Electronically signed by: Sekou El M.D. 02/08/2021 9:38 AM
--- NOTE | 2021-02-08 11:57 | Discharge Summary ---
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 Has not followed up with primary care in 1.5 years but re-established with Dr. Hope last week. Has had time of transition with home health aides and was left alone for months. Rents a room at an [facility] in [place]. His case folder was recently able to set him up with a new home health aid. Found to have a stage 3 pressure ulcer on sacrum. Was off all medications x 6 months until resuming some medications last week. No longer taking antihypertensives due to weight loss and normotensive BP. Has been experiencing some burning with urination. Self catheterizes PRN in setting of neurogenic bladder. Wears a brief overnight, which he believes has aggravated wounds on backside. History of wounds on buttocks in the past but they fully healed, per patient. Aide noted the beginning of skin breakdown a few weeks ago that has significantly worsened with multiple open areas and some sero sanguineous drainage. Has not been moving around as much as he used to or repositioning in bed due to deconditioning. Denies any fever, chills, lightheadedness, chest pain, palpitations, SOB, nausea, vomiting, abdominal pain, diarrhea or constipation. Admission Exam Per Admitting Provider General Appearance: WD/WN, vitals as above, NAD, sitting up in bed, pleasant, conversing easily Head: normocephalic, atraumatic Eyes: normal inspection, PERRL, conjunctivae normal, anicteric sclerae ENT: external ear and nose normal, oropharynx normal Neck: normal visual inspection, trachea midline, no thyromegaly Respiratory: normal respiratory effort, lungs clear to auscultation, no wheeze, rales, rhonchi. No accessory muscle use Cardiovascular: tachycardic rate, regular rhythm, no murmur, normal peripheral pulses, no BLE edema. Vessels: no JVD Chest: normal inspection of chest Abdomen/GI: normal bowel sounds, soft, nontender, no hepatosplenomegaly Extremities/Musculoskeletal: no cyanosis or clubbing, paraplegia noted, 5/5 strength in BUE Neurologic: PERRL, EOMI, accommodation nl, no face palsy, no dysarthria, CN's II-XI intact bilaterally and moves all extremities Psychiatric: A+Ox3, euthymic affect Skin: no rashes, normal color, warm/dry. + buttocks with multiple open wounds with serosanguineous drainage. Wound on L gluteal fold with significant tunneling Principal Diagnosis sepsis Discharge Exam General: A&Ox3. Chronically ill-appearing gentleman HENT: NCAT, MMM, EOMI Eyes: PERRLA Neck: Supple, normal range of motion CVS: normal rate and rhythm Resp: b/l good breath sounds Abdomen: Soft, nondistended nontender Extremities: Paraplegic, trace lower extremity edema Neuro: face symmetric, paraplegic Skin: warm and dry, no rashes/lesions/errythema MSK: normal ROM, no joint swelling/erythema Finley catheter in place Discharge Data Allergies Allergy/AdvReac Type Severity Reaction Status Date / Time No Known Allergies Allergy Unverified 02/01/21 14:05 Consultations 02/01/21 13:49 ED Decision to Admit Stat 02/01/21 18:10 Consult General Surgery Routine 02/02/21 08:00 Consult Urology Routine 02/02/21 09:25 Consult Infectious Diseases Routine Procedures Performed Operation Date: 02/02/21 09:45 Actual Procedures p Cystoscopy, Retrograde Pyelogram, Aspiration, Right Stent Placement(Right) - Hal Navarro DO s Drainage of Infected Hematoma, Incision Debridement of Sacral Ulcer Down to Bone(Not Applicable) - Zi Cochran DO Ordered Studies 02/01/21 11:47 CT abd pelvis IV con only Stat 02/02/21 07:15 FL retrograde includes kub Routine 02/08/21 07:32 US renal/blad retro comp Routine Hospital Course (1) Sepsis: This is a 50yo M with a PMH of paraplegia 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 On the day of discharge patient was doing okay. Hemodynamically he was doing fine. Did not have any active complaints. Patient was afebrile. Patient was discharged in stable condition. BP 90s/50, HR initially 136. Leukocytosis of 18, lactic acid WNL on admission Sepsis in the setting of infected sacral wound and UTI CT scan of the abdomen pelvis showed: IMPRESSION: 1. No evidence of bowel obstruction. No evidence of free air 2. No evidence of acute appendicitis. No evidence of acute diverticulitis 3. 84 mm right psoas mass. Diagnostic considerations include abscess, necrotic neoplasm or organizing hematoma 4. Right renal obstruction with a diminished nephrogram. There is an obstructing 1 cm right UPJ calculus. There is a 29 x 12 mm right perinephric fluid collection. Perinephric abscess not excluded 5. 3 cm bladder calculus 6. 27 mm upper coccygeal gas collection consistent with abscess. There are associated coccygeal bony erosive changes consistent with osteomyelitis. The patient was treated with broad-spectrum antibiotics. [facility] ID has been consulted-appreciate input and recommendation a as below- Results of cultures so far: Sacral wound culture is growing-Proteus mirabilis, E. coli-sensitivities noted and Streptococcus suspicious-sensitivities noted : Urine culture is growing E. coli, Proteus Mirabella's and Streptococcus species : Blood culture is growing Streptococcus species-sensitivities noted Blood culture is growing Enterococcus faecalis VRE-repeat blood culture remain negative He has been put on intravenous ertapenem and intravenous daptomycin to continue for a total of 6 weeks since 02/02/2021 as per ID from [place]. Patient will need weekly CBC/CMP/CRP while the patient is on antibiotic therapy. He has a PICC line and also will have a hospital bed at home before he goes home He has a wound VAC placed by wound care. Patient was evaluated by PT/OT. Repeated attempts, patient has refused intermediate facility and states that he will be able to manage it. On the day of discharge patient was doing okay. Hemodynamically he was doing fine. Patient did not have any complaints. He was discharged in stable condition. Anemia likely secondary to sepsis Received 2 units of blood transfusion and posttransfusion hemoglobin is more than 9 Hemoglobin remains stable at 9.6 as of 02/07/2021 Hemoglobin remains stable and has been improving. (2) Complicated UTI (urinary tract infection): Has Finley catheter in situ Did have obstructing 1 cm right UPJ calculus and also to 9 x 12 mm right perinephric fluid collection Status post cystoscopy, retrograde pyelogram, aspiration and right ureteric stent placement by Dr. Navarro on 02/02/2021 Appreciate urology input and recommendation. Will need to follow-up with urology as an outpatient. (3) Neurogenic bladder: History of recurrent UTI 2/2 neurogenic bladder requiring straight catheterization PRN at home Continue methenamine hippurate BID (4) Sacral wound: History of sacral wounds in the past, has followed with wound care in the past (last in 2019) Worsening appearance of skin noted by home health aide over the past month in setting of few positional changes, urinary incontinence Wound care nurse consulted, turn every 2 hours, Place Finley catheter Status post drainage of infected hematoma, incision debridement of sacral ulcer down to the bone Appreciate surgery input and recommendation Status post I&D,-wound remains healthy and surgery signed off Appreciate wound care nurse input and recommendation Wound VAC has been placed-management as per wound care nurse. Patient will need to follow-up with wound care as an outpatient. (5) Paraplegia at T9 level: 2/2 spinal cord injury at T9 from osteomyelitis s/p thoracic fusion Paralyzed from waist down, able to do some transfers using upper body but requires assistance transferring in and out of bed Neurogenic bladder, straight cath PRN Fall precautions (6) Systolic heart failure: H/o ischemic cardiomyopathy with with EF 20% in 2019 Needs to reestablish with cardiology in clinic Not currently on beta-estrellita due to low blood pressure (7) CAD (coronary artery disease): H/o CABG in 2014 and multiple PCIs Follows with Dr. Ayers in clinic Continue aspirin, statin No acute cardiac symptoms (8) History of narcotic addiction: History of narcotic abuse in the past -avoid when able Total Time Total Time Spent Total Time Spent (In Minutes): 35 Discharge Plan Discharge Items Patient Disposition: Home - Home Health Services Reason For Visit: SEPSIS 2/2 INFECTED SACRAL WOUND, UTI Discharge Diagnosis: sepsis Condition on Discharge: Serious Activity: Resume your previous activity Non-emergency contact: Primary Care Provider Call non-emergency contact if: your symptoms worsen and your pain is not controlled Follow-up/Referrals: Cande Valdivia MD [Primary Care Provider] - 02/09/21 11:20 am (Date & Time 02/09/2021 11:20 AM Provider Stephanie Ware MD Department Family Medicine [facility] ) Diet: Heart Healthy Addtl Attending Provider Instructions: You will need to follow-up with your primary care physician. Continue with ertapenem and daptomycin for total of 6 weeks from 02/02/2021. You will need to follow-up with urology, general surgery and wound care as an outpatient. Pending Studies at Discharge: No Stand-Alone Forms: My [facility], Smoking Cessation Medications and DC Order Prescriptions: New oxycodone 5 mg Tablet 5 mg PO Q6 PRN (Reason: pain) Qty: 20 RF: 0 Continued atorvastatin 40 mg tablet 40 mg PO DAILY RF: 0 methenamine hippurate 1 gram tablet 1 g PO BID RF: 0 diphenhydramine HCl [Diphenhist] 25 mg capsule 25 mg PO HS RF: 0 sennosides-docusate sodium [Senna-S] 8.6-50 mg Tablet 1 tab-cap PO DAILY PRN (Reason: Constipation) RF: 0 cyanocobalamin (vitamin B-12) [Vitamin B-12] 1,000 mcg Tablet 1,000 mcg PO DAILY RF: 0 aspirin 81 mg Tablet,Delayed Release (Dr/Ec) 81 mg PO DAILY RF: 0 acetaminophen [Mapap (acetaminophen)] 325 mg Tablet 650 mg PO Q4H PRN (Reason: fever or pain) Qty: 100 RF: 0 Discharge Orders: Discharge Order (Routine); Ordered 02/08/21 Ordered By: Chintan William Admission Data Admit Date/Time: 02/01/21 14:04 Attending Provider: Chintan William Admit Provider: Sarah Navarrete Primary Care Provider: Cande Valdivia Other Providers: Kayla Parks I. ; Zi Cochran ; Hal Navarro ; Jaswant Cadet ; Carolyn Leija ; Onel Salter I. ; Jaguar Prieto II ; Filomena Beavers ; Fede Delgado Other Interventions: Discharge Summary Assessment (RN) Last Done: 02/08/21 15:50
== END 2021-02-08 17:44 | disposition home health service (06) | DRG 853 ==
LOC: ED 11:22 → 2S 14:04 → SUATTDRO 14:04 → 2S 16:09 → 2E 02-02 19:02